=== PATIENT | male | born 1935 | race African-American/Black ===

== ENCOUNTER 2019-09-20 07:09 | Day surgery (SDC) | payer OTHER ==
[~2019-09-20] VITALS: Ht 175.3 cm; Wt 89.8 kg
[~2019-09-20 07:09] MED LIST: ASPI-404 PO; ATOR20TA50 PO; BRIM0.2S17 EACHEYE; CHOL20007 PO; LATA0.0019 EACHEYE; LISI-285 PO; METF-370 PO; OXYB10TA14 PO; PYRI1TAB11 PO; TAM04C PO; TIMO0.5S66 EACHEYE
[2019-09-20] MEDS ORDERED: IODIXANOL 320MG/ML 100ML BTL IV ONE (07:38)
[2019-09-20] MEDS ORDERED: LIDOCAINE 2%HCL (LOCAL ANESTH.) INJ 20ML MDV ONE (07:39)
[2019-09-20] MEDS ORDERED: VERAPAMIL 2.5MG/ML INJ 2ML VIAL IV ONE (09:18)
[2019-09-20] MEDS ORDERED: ANGIOMAX 250 MG VIAL IV ONE (09:18)
[2019-09-20] MEDS ORDERED: fentaNYL CITRATE 100 MCG/2 ML VL ONE (09:19)
[2019-09-20] MEDS ORDERED: SODIUM CHL 0.9% 0 ML ONE (09:19)
[2019-09-20] MEDS ORDERED: MIDAZOLAM HCL 1MG/1ML-2 ML VIAL ONE (09:19)
[2019-09-20] MEDS ORDERED: HEPARIN SODIUM (PORCINE) 5000 UNITS/ML 1ML VIAL ONE (09:59)
[2019-09-20] MEDS ORDERED: HEPARIN 1,000 UNITS/ml 1ML VIAL ONE (10:28)
[2019-09-20] MEDS ORDERED: CLOPIDOGREL 300 MG TAB ONE (10:48)
[2019-09-20] MEDS ORDERED: ASPirin 325 MG TAB ONE (10:48)
== END 2019-09-20 14:00 | disposition home or self-care (01) ==
LOC: CATH 07:09
PROVIDERS: ATTEND Internal Medicine
DX: I73.9 Peripheral vascular disease, unspecified (principal); I20.0 Unstable angina; Z86.718 Personal history of other venous thrombosis and embolism; Z87.891 Personal history of nicotine dependence; Z98.890 Other specified postprocedural states; Z79.82 Long term (current) use of aspirin; Z79.899 Other long term (current) drug therapy; Z11.59 Encounter for screening for other viral diseases
CPT/HCPCS: 37224; 76942; C1725; C1769; C1887; C1894; J1644; J2250; J3010; J7030; Q9967; U0003; 99152; 99153

== ENCOUNTER 2020-08-03 06:10 | Day surgery (SDC) | payer OTHER ==
[~2020-08-03] VITALS: Ht 177.8 cm; Wt 90.7 kg
[~2020-08-03 06:10] MED LIST changes: +APIX5TAB PO; -ASPI-404 PO; -BRIM0.2S17 EACHEYE; -CHOL20007 PO; +CLOP75TA28 PO; +FURO1TAB31 PO; -LATA0.0019 EACHEYE; -OXYB10TA14 PO; -PYRI1TAB11 PO; -TIMO0.5S66 EACHEYE
[2020-08-03] MEDS ORDERED: LIDOCAINE 2%HCL (LOCAL ANESTH.) INJ 20ML MDV ONE (07:30)
[2020-08-03] MEDS ORDERED: ANGIOMAX 250 MG VIAL IV ONE (07:57)
[2020-08-03] MEDS ORDERED: VERAPAMIL 2.5MG/ML INJ 2ML VIAL IV ONE ×2 (07:58→08:42)
[2020-08-03] MEDS ORDERED: SODIUM CHL 0.9% 0 ML ONE (07:58)
[2020-08-03] MEDS ORDERED: MIDAZOLAM HCL 2MG/2ML 2ml VIAL (1mg/ml) ONE (07:58)
[2020-08-03] MEDS ORDERED: fentaNYL CITRATE 100 MCG/2 ML VL ONE (07:58)
[2020-08-03] MEDS ORDERED: IODIXANOL 320MG/ML 100ML BTL IV ONE (08:24)
[2020-08-03] MEDS ORDERED: HEPARIN SODIUM (PORCINE) 5000 UNITS/ML 1ML VIAL ONE (08:39)
[2020-08-03] MEDS ORDERED: NITROGLYCERIN 5MG/ML 10ML VIAL IV ONE (08:42)
[2020-08-03] MEDS ORDERED: CLOPIDOGREL 300 MG TAB ONE (09:23)
[2020-08-03] MEDS ORDERED: ASPirin 325 MG TAB ONE (09:23)
[2020-08-03] MEDS ORDERED: HYDROcodone-ACET 5/325MG TAB PO PRN (10:00)
[2020-08-03] MEDS ORDERED: ONDANSETRON HCL 4 MG/2 ML VIAL IV PRN (10:00)
[2020-08-03] MEDS ORDERED: ACETAMINOPHEN 500 MG TAB PO PRN (10:00)
== END 2020-08-03 11:51 | disposition home or self-care (01) ==
LOC: CATH 06:10
PROVIDERS: ATTEND Internal Medicine
DX: I70.212 Atherosclerosis of native arteries of extremities with intermittent claudication, left leg (principal); I10 Essential (primary) hypertension; E78.5 Hyperlipidemia, unspecified; I72.9 Aneurysm of unspecified site; Z91.030 Bee allergy status; Z86.718 Personal history of other venous thrombosis and embolism; Z20.822 Contact with and (suspected) exposure to COVID-19; Z98.890 Other specified postprocedural states; Z79.899 Other long term (current) drug therapy; Z88.0 Allergy status to penicillin; Z87.891 Personal history of nicotine dependence
CPT/HCPCS: 37227; 75710; 76942; C1769; C1894; J1644; J2250; J3010; J3490; J7030; U0003; 99152; 99153; Q9967

== ENCOUNTER 2024-01-01 12:21 | Inpatient (IN) | payer OTHER, MEDICAID ==
[~2024-01-01] VITALS: Ht 175.3 cm; Wt 89.3 kg
[~2024-01-01 12:21] MED LIST changes: +AMLO1TAB23 PO; +APIX2.5T PO; +ASPI-325 PO; -ATOR20TA50 PO; +BRIM0.2S17 EACHEYE; +BUDE1AER4 INH; +CETI10TA2 PO; +CHOL50007 PO; -CLOP75TA28 PO; +DAPA1TAB4 PO; +FLUT1AER17 PO; -FURO1TAB31 PO; +FURO20TA4 PO; +FURO40TA4 PO; +HYDR25TA87 PO; +IPRAAER6 INH; +LATA0.008 EACHEYE; -LISI-285 PO; +LOSA-534 PO; +MEMA1TAB5 PO; -METF-370 PO; +METF-869 PO; +METO2.5T PO; +METO25TA93 PO; +NETA1DRO EACHEYE; +OXYB5TAB14 PO; +PRAV20TA3 PO; +SENN-177 PO; -TAM04C PO; +TAMS-35 PO
[2024-01-01 13:44] LABS: Basophils # (auto) 0.1 10 ^3/uL (0-0.2); Eosinophils # (auto) 0 10 ^3/uL (0-0.8); Eosinophils % (auto) 0.4 % (0.0-7.0); Hematocrit 44.8 % (41.0-53.0); Lymphocytes # (auto) 1.1 10 ^3/uL (0.4-5.4); Lymphocytes % (auto) 16.1 % (10.0-50.0); Mean Corpuscular Hemoglobin 28.1 pg (28.0-32.0); Mean Corpuscular Hgb Conc. 33.5 g/dL (32.0-36.0); Mean Corpuscular Volume 84.1 fL (80.0-100.0); Monocytes # (auto) 0.6 10 ^3/uL (0-1.3); Neutrophils % (auto) 73.5 % (37.0-80.0); Nucleated Red Blood Cells % 0.1 %; Platelet Count (auto) 144 10^3/uL (140-450); Red Blood Cells 5.33 10^6/uL (4.5-5.90); Red Cell Distribution Width 17.4 % (11.8-14.3); White Blood Cell 6.8 10^3/uL (4.4-10.8)
[2024-01-01 14:02] LABS: Alanine Aminotransferase 25 U/L (7-40); Albumin 4.3 g/dL (3.2-4.8); Alkaline Phosphatase 126 U/L (46-116); Anion Gap 6 (5-15); Aspartate Aminotransferase 38 U/L (13-40); BUN/Creatinine Ratio 8.1 (10.0-20.0); Blood Urea Nitrogen 12 mg/dL (9-23); Calcium 9.9 mg/dL (8.7-10.4); Carbon Dioxide 28 mmol/L (20-30); Chloride 107 mmol/L (98-107); Glucose 132 mg/dL (74-106); Sodium 141 mmol/L (136-145)
[2024-01-01 14:03] LABS: Bilirubin, Total 0.7 mg/dL (0.2-1.0); Total Protein 7.5 g/dL (5.7-8.2)
[2024-01-01 14:57] LABS: INR 1.13 (0.9-1.15); Partial Thromboplastin Time 29.8 SEC (24.5-34.5); Prothrombin Time 11.9 sec (9.3-11.8)
[2024-01-01] MEDS ORDERED: ACETAMINOPHEN 325 MG TAB PO PRN (15:00)
[2024-01-01] MEDS ORDERED: DEXTROSE (50%) 50ML SYRG IV PRN (15:00)
[2024-01-01 15:16] VITALS: PULSE 89; RESP 22; O2SAT 90
[2024-01-01] MEDS: FUROSEMIDE 20 MG/2 ML VIAL IV ONE (15:42)
[2024-01-01] MEDS: HEPARIN DRIP/D5W 100UNITS/ML 250 ML IV SCH ×2 (15:45→23:19)
[2024-01-01] MEDS ORDERED: MORPHINE SULFATE INJ 2 MG/ml SYRG IV PRN (16:30)
[2024-01-01] MEDS ORDERED: NITROGLYCERIN 0.4 MG SL TAB SL PRN (16:30)
[2024-01-01] MEDS: ACCU-CHEK COMFORT CURVE STRIP VI SCH (18:01)
[2024-01-01] MEDS: InsuLIN REG 1unit/0.01ml Soln (100units/ml) SC SCH ×2 (18:05→22:00)
[2024-01-01] MEDS: FAMOTIDINE (10MG/ML) 2ML VL IV SCH (18:08)
[2024-01-01 19:30] VITALS: PULSE 93; RESP 10; O2SAT 92
[2024-01-01] MEDS: SODIUM CHLOR 0.9% PF (SALINE LOCK) 10ML VIAL/SYR IV SCH (22:00)
[2024-01-01 22:19] LABS: INR 1.14 (0.9-1.15); Partial Thromboplastin Time 32.8 SEC (24.5-34.5)
[2024-01-01] MEDS: HEPARIN SODIUM (PORCINE) 5000 UNITS/ML 1ML VIAL IV ONE (23:06)
[2024-01-01] MEDS: ATORVASTATIN 20 MG TAB PO SCH (23:07)
[2024-01-01] MEDS: CARVEDILOL 3.125 MG TAB PO SCH (23:07)
[2024-01-02] VITALS (10 sets, daily range): BP systolic 107–144; BP diastolic 72–96; PULSE 74–104; RESP 16–19; TEMP 97.8–100.2; O2SAT 94–98
[2024-01-02] MEDS: MORPHINE SULFATE INJ 2 MG/ml SYRG IV PRN (01:51)
[2024-01-02 05:04] LABS: COVID19 ANTIGEN SOFIA FIA NEGATIVE (NEGATIVE)
[2024-01-02 06:13] LABS: Basophils # (auto) 0 10 ^3/uL (0-0.2); Basophils % (auto) 0.8 % (0.0-2.0); Eosinophils # (auto) 0.1 10 ^3/uL (0-0.8); Eosinophils % (auto) 1.8 % (0.0-7.0); Hematocrit 40.4 % (41.0-53.0); Hemoglobin 13.5 g/dL (13.5-17.5); Lymphocytes # (auto) 1.4 10 ^3/uL (0.4-5.4); Mean Corpuscular Hemoglobin 27.9 pg (28.0-32.0); Mean Corpuscular Hgb Conc. 33.3 g/dL (32.0-36.0); Mean Corpuscular Volume 83.9 fL (80.0-100.0); Monocytes # (auto) 0.7 10 ^3/uL (0-1.3); Monocytes % (auto) 12.2 % (0.0-12.0); Neutrophils # (auto) 3.4 10 ^3/uL (1.6-8.6); Neutrophils % (auto) 60.2 % (37.0-80.0); Nucleated Red Blood Cells % 0.2 %; Platelet Count (auto) 106 10^3/uL (140-450); Red Blood Cells 4.82 10^6/uL (4.5-5.90); Red Cell Distribution Width 17.1 % (11.8-14.3); White Blood Cell 5.7 10^3/uL (4.4-10.8)
[2024-01-02 06:25] LABS: Alanine Aminotransferase 16 U/L (7-40); Albumin 3.8 g/dL (3.2-4.8); Alkaline Phosphatase 103 U/L (46-116); Anion Gap 2 (5-15); Aspartate Aminotransferase 30 U/L (13-40); BUN/Creatinine Ratio 10.1 (10.0-20.0); Blood Urea Nitrogen 13 mg/dL (9-23); Carbon Dioxide 29 mmol/L (20-30); Chloride 110 mmol/L (98-107); Glucose 122 mg/dL (74-106); Potassium 3.7 mmol/L (3.5-5.1); Sodium 141 mmol/L (136-145)
[2024-01-02 06:26] LABS: Bilirubin, Total 0.7 mg/dL (0.2-1.0); Total Protein 6.5 g/dL (5.7-8.2)
[2024-01-02 07:19] LABS: INR 1.11 (0.9-1.15); Partial Thromboplastin Time 56.2 SEC (24.5-34.5); Prothrombin Time 11.9 sec (9.3-11.8)
[2024-01-02] MEDS: FUROSEMIDE 40 MG/4 ML VIAL IV SCH (09:31)
[2024-01-02] MEDS: HYDROcodone-ACET 5/325MG TAB PO PRN (09:33)
[2024-01-02] MEDS: DOCUSATE SOD 100 MG CAP PO PRN (09:33)
[2024-01-02 12:13] LABS: INR 1.1 (0.9-1.15); Partial Thromboplastin Time 50.6 SEC (24.5-34.5); Prothrombin Time 11.8 sec (9.3-11.8)
[2024-01-02] MEDS ORDERED: HYDR-4798 PO (17:01)
[2024-01-02 19:40] LABS: INR 1.11 (0.9-1.15); Prothrombin Time 11.9 sec (9.3-11.8)
[2024-01-02] MEDS: HEPARIN DRIP/D5W 100UNITS/ML 250 ML IV SCH (20:07)
[2024-01-02] MEDS: PROMETHAZINE W/CODEINE 5 ML ORAL SYRUP PO PRN (20:30)
[2024-01-02] MEDS: ASPirin 325 MG TAB PO ONE (20:57)
[2024-01-03] VITALS (8 sets, daily range): BP systolic 105–172; BP diastolic 63–86; PULSE 66–107; RESP 17–19; TEMP 98.3–99.5; O2SAT 92–96
[2024-01-03 01:22] LABS: Basophils # (auto) 0.1 10 ^3/uL (0-0.2); Basophils % (auto) 0.8 % (0.0-2.0); Eosinophils # (auto) 0.1 10 ^3/uL (0-0.8); Eosinophils % (auto) 0.7 % (0.0-7.0); Hematocrit 37.8 % (41.0-53.0); Hemoglobin 12.8 g/dL (13.5-17.5); Lymphocytes # (auto) 1.4 10 ^3/uL (0.4-5.4); Lymphocytes % (auto) 17.3 % (10.0-50.0); Mean Corpuscular Hemoglobin 28.5 pg (28.0-32.0); Mean Corpuscular Hgb Conc. 33.9 g/dL (32.0-36.0); Mean Corpuscular Volume 84.1 fL (80.0-100.0); Monocytes # (auto) 0.8 10 ^3/uL (0-1.3); Monocytes % (auto) 9.5 % (0.0-12.0); Neutrophils # (auto) 5.8 10 ^3/uL (1.6-8.6); Neutrophils % (auto) 71.7 % (37.0-80.0); Platelet Count (auto) 105 10^3/uL (140-450); Red Cell Distribution Width 17.2 % (11.8-14.3); White Blood Cell 8.1 10^3/uL (4.4-10.8)
[2024-01-03 01:30] LABS: Chloride 108 mmol/L (98-107); Potassium 3.6 mmol/L (3.5-5.1); Sodium 140 mmol/L (136-145)
[2024-01-03 01:31] LABS: Anion Gap 9 (5-15); Calcium 8.9 mg/dL (8.7-10.4); Carbon Dioxide 23 mmol/L (20-30)
[2024-01-03 01:36] LABS: BUN/Creatinine Ratio 11.1 (10.0-20.0); Blood Urea Nitrogen 14 mg/dL (9-23); Glucose 140 mg/dL (74-106); Triglycerides 114 mg/dL (< 150)
[2024-01-03 01:37] LABS: LDL Cholesterol 119 mg/dL (< 100)
[2024-01-03 01:38] LABS: Cholesterol 180 mg/dL (< 200); HDL Cholesterol 41 mg/dL (40-59)
[2024-01-03 01:47] LABS: INR 1.11 (0.9-1.15); Prothrombin Time 11.9 sec (9.3-11.8)
[2024-01-03 01:48] LABS: Partial Thromboplastin Time 55.5 SEC (24.5-34.5)
[2024-01-03] MEDS: IOHEXOL 350 MG/ML 100ML IJ ONE ×2 (08:14→12:48)
[2024-01-03] MEDS: ASPirin 81 mg TAB PO SCH (08:23)
[2024-01-03] MEDS: MEMANTINE HCL 5 MG TAB PO SCH (08:23)
[2024-01-03 10:58] LABS: INR 1.13 (0.9-1.15); Partial Thromboplastin Time 59.4 SEC (24.5-34.5); Prothrombin Time 12.1 sec (9.3-11.8)
[2024-01-03] MEDS: ONDANSETRON HCL 4 MG/2 ML VIAL IV PRN (14:33)
[2024-01-03 16:12] LABS: INR 1.18 (0.9-1.15); Partial Thromboplastin Time 49.6 SEC (24.5-34.5); Prothrombin Time 12.4 sec (9.3-11.8)
[2024-01-04] VITALS (7 sets, daily range): BP systolic 118–138; BP diastolic 71–78; PULSE 85–102; RESP 15–18; TEMP 97.9–99.3; O2SAT 91–98
[2024-01-04 07:01] LABS: INR 1.19 (0.9-1.15); Partial Thromboplastin Time 58.3 SEC (24.5-34.5); Prothrombin Time 12.5 sec (9.3-11.8)
[2024-01-04 09:41] LABS: Hepatitis B Surface Antigen Negative (Negative)
[2024-01-04 10:02] LABS: Hepatitis C Antibody Negative (Negative)
[2024-01-04 10:04] LABS: Basophils # (auto) 0 10 ^3/uL (0-0.2); Basophils % (auto) 0.4 % (0.0-2.0); Eosinophils # (auto) 0 10 ^3/uL (0-0.8); Eosinophils % (auto) 0.1 % (0.0-7.0); Hematocrit 38.9 % (41.0-53.0); Hemoglobin 12.8 g/dL (13.5-17.5); Lymphocytes % (auto) 9.1 % (10.0-50.0); Mean Corpuscular Hemoglobin 27.8 pg (28.0-32.0); Mean Corpuscular Hgb Conc. 32.9 g/dL (32.0-36.0); Mean Corpuscular Volume 84.4 fL (80.0-100.0); Monocytes # (auto) 1.4 10 ^3/uL (0-1.3); Monocytes % (auto) 12.6 % (0.0-12.0); Neutrophils # (auto) 8.8 10 ^3/uL (1.6-8.6); Neutrophils % (auto) 77.8 % (37.0-80.0); Nucleated Red Blood Cells % 0.1 %; Platelet Count (auto) 123 10^3/uL (140-450); Red Blood Cells 4.61 10^6/uL (4.5-5.90); Red Cell Distribution Width 17.5 % (11.8-14.3); White Blood Cell 11.3 10^3/uL (4.4-10.8)
[2024-01-04] MEDS: FUROSEMIDE 40 MG/4 ML VIAL IV SCH (23:09)
[2024-01-05] VITALS (7 sets, daily range): BP systolic 114–140; BP diastolic 65–79; PULSE 86–104; RESP 18–22; TEMP 98.1–99.8; O2SAT 90–98
[2024-01-05 07:59] LABS: Basophils # (auto) 0 10 ^3/uL (0-0.2); Basophils % (auto) 0.3 % (0.0-2.0); Eosinophils # (auto) 0 10 ^3/uL (0-0.8); Eosinophils % (auto) 0.3 % (0.0-7.0); Hematocrit 37.6 % (41.0-53.0); Hemoglobin 12.2 g/dL (13.5-17.5); Lymphocytes # (auto) 0.9 10 ^3/uL (0.4-5.4); Lymphocytes % (auto) 10.4 % (10.0-50.0); Mean Corpuscular Hemoglobin 27.6 pg (28.0-32.0); Mean Corpuscular Hgb Conc. 32.5 g/dL (32.0-36.0); Mean Corpuscular Volume 84.7 fL (80.0-100.0); Monocytes # (auto) 1.2 10 ^3/uL (0-1.3); Monocytes % (auto) 14.5 % (0.0-12.0); Neutrophils # (auto) 6.4 10 ^3/uL (1.6-8.6); Neutrophils % (auto) 74.5 % (37.0-80.0); Nucleated Red Blood Cells % 0.1 %; Platelet Count (auto) 124 10^3/uL (140-450); Red Blood Cells 4.44 10^6/uL (4.5-5.90); Red Cell Distribution Width 17.3 % (11.8-14.3); White Blood Cell 8.6 10^3/uL (4.4-10.8)
[2024-01-05 08:13] LABS: INR 1.14 (0.9-1.15)
[2024-01-05] MEDS: BRIMONIDINE 0.2% OPTH Soln 5ml EACHEYE SCH (21:20)
[2024-01-06] VITALS (7 sets, daily range): BP systolic 117–143; BP diastolic 72–85; PULSE 83–97; RESP 17–22; TEMP 98.3–99.5; O2SAT 91–95
[2024-01-06 07:04] LABS: INR 1.12 (0.9-1.15); Partial Thromboplastin Time 38.4 SEC (24.5-34.5); Prothrombin Time 11.8 sec (9.3-11.8)
[2024-01-06] MEDS: HEPARIN DRIP/D5W 100UNITS/ML 250 ML IV SCH (09:14)
[2024-01-06 10:28] LABS: Basophils # (auto) 0 10 ^3/uL (0-0.2); Basophils % (auto) 0.3 % (0.0-2.0); Eosinophils # (auto) 0.1 10 ^3/uL (0-0.8); Eosinophils % (auto) 1.1 % (0.0-7.0); Hematocrit 37.5 % (41.0-53.0); Hemoglobin 12.1 g/dL (13.5-17.5); Lymphocytes % (auto) 14.7 % (10.0-50.0); Mean Corpuscular Hemoglobin 27.6 pg (28.0-32.0); Mean Corpuscular Hgb Conc. 32.3 g/dL (32.0-36.0); Mean Corpuscular Volume 85.6 fL (80.0-100.0); Monocytes # (auto) 0.9 10 ^3/uL (0-1.3); Monocytes % (auto) 13.3 % (0.0-12.0); Neutrophils # (auto) 4.9 10 ^3/uL (1.6-8.6); Neutrophils % (auto) 70.6 % (37.0-80.0); Nucleated Red Blood Cells % 0.1 %; Platelet Count (auto) 145 10^3/uL (140-450); Red Blood Cells 4.38 10^6/uL (4.5-5.90); Red Cell Distribution Width 17.3 % (11.8-14.3)
[2024-01-06 10:33] LABS: Alanine Aminotransferase 21 U/L (7-40); Alkaline Phosphatase 117 U/L (46-116); Calcium 9.2 mg/dL (8.7-10.4); Carbon Dioxide 30 mmol/L (20-30); Chloride 104 mmol/L (98-107); Glucose 109 mg/dL (74-106); Potassium 3.6 mmol/L (3.5-5.1)
[2024-01-06 10:34] LABS: Albumin 3.7 g/dL (3.2-4.8); Anion Gap 4 (5-15); Aspartate Aminotransferase 27 U/L (13-40); BUN/Creatinine Ratio 17.3 (10.0-20.0); Bilirubin, Total 0.7 mg/dL (0.2-1.0); Blood Urea Nitrogen 19 mg/dL (9-23); Sodium 138 mmol/L (136-145); Total Protein 6.4 g/dL (5.7-8.2)
[2024-01-06] MEDS ORDERED: ALP15OS EACHEYE ×2 (10:39→10:40)
[2024-01-06] MEDS: APIXABAN 5 MG TAB PO SCH (12:12)
[2024-01-07] VITALS (7 sets, daily range): BP systolic 113–141; BP diastolic 66–80; PULSE 77–94; RESP 20–22; TEMP 97.8–98.4; O2SAT 94–98
[2024-01-08] VITALS (7 sets, daily range): BP systolic 99–141; BP diastolic 63–83; PULSE 78–88; RESP 18–22; TEMP 98.2–98.9; O2SAT 90–97
[2024-01-08] MEDS ORDERED: LACTULOSE 20Gm/30ML SOLN PO PRN (14:15)
[2024-01-08] MEDS: LACTULOSE 20Gm/30ML SOLN PO PRN (15:56)
[2024-01-09] VITALS (8 sets, daily range): BP systolic 104–137; BP diastolic 66–81; PULSE 74–87; RESP 16–18; TEMP 98–98.9; O2SAT 96–99
[2024-01-10 01:00] VITALS: BP 126/77; PULSE 73; RESP 18; TEMP 98.6; O2SAT 97
[2024-01-10 09:00] VITALS: BP 132/84; PULSE 78; RESP 18; TEMP 98.5; O2SAT 95
[2024-01-10] MEDS: FUROSEMIDE 40 MG TAB PO SCH (09:33)
== END 2024-01-10 11:11 | DRG 280 ==
LOC: EDBD 12:21 → ER 12:21 → TELE 16:28 → TELE-WESTW 16:33
PROVIDERS: ADMIT Nurse Practitioner Family; ATTEND Nurse Practitioner
DX: I21.4 Non-ST elevation (NSTEMI) myocardial infarction (principal); I26.99 Other pulmonary embolism without acute cor pulmonale; I50.33 Acute on chronic diastolic (congestive) heart failure; N17.0 Acute kidney failure with tubular necrosis; I13.0 Hypertensive heart and chronic kidney disease with heart failure and stage 1 through stage 4 chronic kidney disease, or unspecified chronic kidney disease; I31.39 Other pericardial effusion (noninflammatory); E11.65 Type 2 diabetes mellitus with hyperglycemia; E78.00 Pure hypercholesterolemia, unspecified; E11.22 Type 2 diabetes mellitus with diabetic chronic kidney disease; F03.90 Unspecified dementia, unspecified severity, without behavioral disturbance, psychotic disturbance, mood disturbance, and anxiety; N18.9 Chronic kidney disease, unspecified; Z20.822 Contact with and (suspected) exposure to COVID-19; N40.0 Benign prostatic hyperplasia without lower urinary tract symptoms; E11.51 Type 2 diabetes mellitus with diabetic peripheral angiopathy without gangrene; I25.10 Atherosclerotic heart disease of native coronary artery without angina pectoris; I37.1 Nonrheumatic pulmonary valve insufficiency; Z88.0 Allergy status to penicillin; Z91.030 Bee allergy status; Z79.899 Other long term (current) drug therapy; Z79.01 Long term (current) use of anticoagulants; Z79.82 Long term (current) use of aspirin; Z87.891 Personal history of nicotine dependence; Z86.718 Personal history of other venous thrombosis and embolism; Z91.148 Patient's other noncompliance with medication regimen for other reason; Z83.3 Family history of diabetes mellitus; Z82.49 Family history of ischemic heart disease and other diseases of the circulatory system; Z86.711 Personal history of pulmonary embolism; Z91.81 History of falling; I25.2 Old myocardial infarction
CPT/HCPCS: 36415; 71045; 71275; 80048; 80053; 80061; 82962; 83036; 83880; 84443; 84484; 85025; 85379; 85610; 85730; 86803; 87340; 87426; 93005; 93306; 93970; 97110; 97116; 97163; 97530; G0378; J1815; J2405; J3490

== ENCOUNTER 2024-05-06 04:49 | Inpatient (IN) | payer MEDICARE, OTHER ==
[~2024-05-06] VITALS: Ht 175.3 cm; Wt 101.0 kg
[~2024-05-06 04:49] MED LIST changes: +ALP15OS EACHEYE; -APIX2.5T PO; -FURO20TA4 PO; +HYDR-4798 PO; -LATA0.008 EACHEYE
[2024-05-06] MEDS: ALBUTEROL SULF 2.5 MG/0.5ML(0.5%) NEB SOLN NEB ONE (05:37)
[2024-05-06] MEDS: IPRATROPIUM BROM 0.5 MG/2.5ML INH SOL NEB ONE (05:38)
[2024-05-06] MEDS: cloNIDine HCL 0.1 MG TAB PO ONE (05:39)
[2024-05-06] MEDS: methylPREDNISolone SOD SUCC 125 MG/2 ML VL IM ONE (05:39)
[2024-05-06 05:44] LABS: Basophils # (auto) 0 10 ^3/uL (0-0.2); Basophils % (auto) 0.7 % (0.0-2.0); Eosinophils # (auto) 0.1 10 ^3/uL (0-0.8); Eosinophils % (auto) 1.4 % (0.0-7.0); Hematocrit 40.9 % (41.0-53.0); Hemoglobin 13.1 g/dL (13.5-17.5); Lymphocytes # (auto) 0.9 10 ^3/uL (0.4-5.4); Lymphocytes % (auto) 15.8 % (10.0-50.0); Mean Corpuscular Hemoglobin 27.3 pg (28.0-32.0); Mean Corpuscular Hgb Conc. 32.1 g/dL (32.0-36.0); Monocytes # (auto) 0.5 10 ^3/uL (0-1.3); Monocytes % (auto) 9.4 % (0.0-12.0); Neutrophils # (auto) 4.2 10 ^3/uL (1.6-8.6); Neutrophils % (auto) 72.7 % (37.0-80.0); Nucleated Red Blood Cells % 0.1 %; Platelet Count (auto) 197 10^3/uL (140-450); Red Blood Cells 4.81 10^6/uL (4.5-5.90); Red Cell Distribution Width 17.1 % (11.8-14.3); White Blood Cell 5.8 10^3/uL (4.4-10.8)
[2024-05-06 05:58] LABS: Alanine Aminotransferase 37 U/L (7-40); Alkaline Phosphatase 108 U/L (46-116); Aspartate Aminotransferase 27 U/L (13-40); BUN/Creatinine Ratio 10.1 (10.0-20.0); Blood Urea Nitrogen 11 mg/dL (9-23); Calcium 9.7 mg/dL (8.7-10.4); Potassium 3.7 mmol/L (3.5-5.1); Sodium 143 mmol/L (136-145)
[2024-05-06 05:59] LABS: Bilirubin, Total 0.6 mg/dL (0.2-1.0)
[2024-05-06 06:11] LABS: Chloride 109 mmol/L (98-107); Glucose 136 mg/dL (74-106)
[2024-05-06 06:16] LABS: Anion Gap 10 (5-15); Carbon Dioxide 24 mmol/L (20-31)
[2024-05-06] MEDS: FUROSEMIDE 40 MG/4 ML VIAL IV ONE (07:00)
--- NOTE | 2024-05-06 07:18 | ED.PDOC ---
SOB-HPI HPI Comments 89 Y M MYLENE with PMHX of COPD, Asthma, and [place] presents to the ED with CC of SOB. Per EMS, patient has been experiencing episodes of SOB X3 days with associated wheezing. Patient is current on supplemental oxygen at home. Patient denies any current medications. Patient denies chest pain, chills, fever, or body aches. 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, Medications, Allergies Information Source: Patient, Emergency Med Personnel Mode of Arrival: EMS Severity: Moderate Timing: Days Duration: Since onset Context: At Rest PE Risk Factors: None History of: None Prehospital treatment: None Modifying Factors: Nothing Associated Signs and Symptoms: Wheeze Past Medical History PAST MEDICAL HISTORY: Asthma, COPD, DM, High Lipids, HTN, LA Surgical History: Hernia Repair Family History Family History: Reviewed,noncontributory to illness Social History Smoker: Non-Smoker Alcohol: Denies ETOH Use Drugs: Denies Drug Use Lives In: Home Constitutional: denies: chills, diaphoresis, fatigue, fever, malaise, sweats, weakness, others EENTM: denies: blurred vision, double vision, ear bleeding, ear discharge, ear drainage, ear pain, ear ringing, eye pain, eye redness, hearing loss, mouth pain, mouth swelling, nasal discharge, nose bleeding, nose congestion, nose pain, photophobia, tearing, throat pain, throat swelling, voice changes, others Respiratory: reports: shortness of breath, wheezing; denies: cough, hemoptysis, orthopnea, SOB at rest, SOB with excertion, stridor, others Gastrointestinal: denies: abdomen distended, abdominal pain, blood streaked bowels, constipated, diarrhea, dysphagia, difficulty swallowing, hematemesis, melena, nausea, poor appetite, poor fluid intake, rectal bleeding, rectal pain, vomiting, others Genitourinary: denies: burning, dysuria, flank pain, frequency, hematuria, incontinence, penile discharge, penile sore, pain, testicle pain, testicle s welling, urgency, others Neurological: denies: dizziness, fainting, headache, left sided numbness, left sided weakness, numbness, paresthesia, pre-existing deficit, right sided numbness, right sided weakness, seizure, speech problems, tingling, tremors, weakness, others Musculoskeletal: denies: back pain, gout, joint pain, joint swelling, muscle pain, muscle stiffness, neck pain, others Integumetry: denies: bruises, change in color, change in hair/nails, dryness, laceration, lesions, lumps, rash, wounds, others Allergic/Immunocompromised: denies: Difficulty Healing, Frequent Infections, Hives, Itching, others Hematologic/Lymphatic: denies: anemia, blood clots, easy bleeding, easy bruising, swollen glands, others Endocrine: denies: excessive hunger, excessive sweating, excessive thirst, excessive urination, flushing, intolerance to cold, intolerance to heat, unexplained weight gain, unexplained weight loss, others Psychiatric: denies: anxiety, bipolar disorder, depression, hopeless, panic disorder, schizophrenia, sleepless, suicidal, others Physical Exam General Appearance: Moderate Distress, Normal HEENT: Normal ENT Inspection, Pharynx Normal, TMs Normal Neck: Full Range of Motion, Non-Tender, Normal, Normal Inspection Respiratory: Chest Non-Tender, No Accessory Muscle Use, Other (Coarse breath sounds) Cardiovascular: No Edema, No JVD, No Murmur, No Gallop, Normal Peripheral Pulses, Regular Rate/Rhythm Breast Exam: Deferred Gastrointestinal: No Organomegaly, Non Tender, No Pulsatile Mass, Normal Bowel Sounds, Soft Genitalia: Deferred Pelvic: Deferred Rectal: Deferred Extremities: No calf tenderness, Normal capillary refill, Normal range of motion, Non-tender, Pedal edema Musculoskeletal : Apperance: Normal Neurologic: Alert, 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 Was a procedure done?: No Differential Dx Differential Diagnosis: Anxiety, Asthma, Bronchitis, CHF, COPD, Pharyngitis, URI X-Ray, Labs, Meds, VS Vital Signs Date Time Temp Pulse Resp B/P (MAP) Pulse Ox O2 Delivery O2 Flow Rate FiO2 05/06/24 10:12 75 22 129/91 (104) 91 05/06/24 10:05 129/91 05/06/24 05:39 183/119 05/06/24 05:38 20 94 Nasal Cannula* 2 28 05/06/24 05:28 86 22 183/107 (132) 91 05/06/24 04:54 88 05/06/24 04:49 98.2 86 20 216/124 (154) 96 Lab Test 05/06/24 05:15 Range/Units White Blood Count 5.8 4.4-10.8 10^3/uL Red Blood Count 4.81 4.5-5.90 10^6/uL Hemoglobin 13.1 L 13.5-17.5 g/dL Hematocrit 40.9 L 41.0-53.0 % Mean Corpuscular Volume 85.0 80.0-100.0 fL Mean Corpuscular Hemoglobin 27.3 L 28.0-32.0 pg Mean Corpuscular Hemoglobin Concent 32.1 32.0-36.0 g/dL Red Cell Distribution Width 17.1 H 11.8-14.3 % Platelet Count 197 140-450 10^3/uL Mean Platelet Volume 9.0 6.9-10.8 fL Neutrophils (%) (Auto) 72.7 37.0-80.0 % Lymphocytes (%) (Auto) 15.8 10.0-50.0 % Monocytes (%) (Auto) 9.4 0.0-12.0 % Eosinophils (%) (Auto) 1.4 0.0-7.0 % Basophils (%) (Auto) 0.7 0.0-2.0 % Neutrophils # (Auto) 4.2 1.6-8.6 10 ^3/uL Lymphocytes # (Auto) 0.9 0.4-5.4 10 ^3/uL Monocytes # (Auto) 0.5 0-1.3 10 ^3/uL Eosinophils # (Auto) 0.1 0-0.8 10 ^3/uL Basophils # (Auto) 0 0-0.2 10 ^3/uL Nucleated Red Blood Cells 0.1 % Sodium Level 143 136-145 mmol/L Potassium Level 3.7 3.5-5.1 mmol/L Chloride Level 109 H 98-107 mmol/L Carbon Dioxide Level 24 20-31 mmol/L Anion Gap 10 5-15 Blood Urea Nitrogen 11 9-23 mg/dL Creatinine 1.09 0.700-1.30 mg/dL Glomerular Filtration Rate Calc 65 >90 mL/min BUN/Creatinine Ratio 10.1 10.0-20.0 Serum Glucose 136 H 74-106 mg/dL Calcium Level 9.7 8.7-10.4 mg/dL Total Bilirubin 0.6 0.2-1.0 mg/dL Aspartate Amino Transferase (AST) 27 13-40 U/L Alanine Aminotransferase (ALT) 37 7-40 U/L Alkaline Phosphatase 108 46-116 U/L Troponin I High Sensitivity 47 </=54 ng/L B-Type Natriuretic Peptide 376.38 0-100 pg/mL Total Protein 7.0 5.7-8.2 g/dL Albumin 4.0 3.2-4.8 g/dL Current Medications Medications (Trade) Dose Ordered Sig/Kristi Route Start Time Stop Time Status Last Admin Clonidine HCl (Catapres Tablet) 0.3 mg ONCE ONCE PO 05/06/24 05:15 05/06/24 05:16 DC 05/06/24 05:39 Albuterol (Ventolin Medneb) 2.5 mg ONCE ONCE NEB 05/06/24 05:15 05/06/24 05:16 DC 05/06/24 05:37 Ipratropium Mentor (Atrovent Medneb) 0.5 mg ONCE ONCE NEB 05/06/24 05:15 05/06/24 05:16 DC 05/06/24 05:38 Methylprednisolone Sodium Succinate (Solu Medrol) 125 mg ONCE ONCE IM 05/06/24 05:15 05/06/24 05:16 DC 05/06/24 05:39 [place] [id number] Ph: [phone] DIAGNOSTIC IMAGING Diagnostic Imaging Report : [id number] Signed PATIENT: IVÁN MEANS ACCT: [id number] UNIT: [id number] : 1935 LOC: ER ROOM / BED: / AGE / SEX: 89 / M ADM STATUS: REG ER SERVICE 05 ORDERING PHYSICIAN: ALBERT GORDON MD PROCEDURE(s): CXRP - CHEST PORTABLE REASON: SOB ORDER NUMBER(s): [id number], ACCESSION NUMBER(s): [id number] CHEST RADIOGRAPH Indication: SOB Technique: Single frontal view of the chest was obtained Comparison: XY CHEST PORTABLE on DOS: 01/01/24 FINDINGS: Lines and Tubes: None Lungs: There are bibasilar opacities. Pleura: There is a left pleural effusion. No pneumothorax. Cardiomediastinal contours: Cardiomegaly. Bones: No acute osseous abnormality. IMPRESSION: 1. Left pleural effusion. 2. Bibasilar opacities. 3. Cardiomegaly. ATED BY: JACIEL KELLEY MD DICTATED DATE/TIME: 05/06/24737 SIGNED BY: JACIEL KELLEY MD SIGNED DATE/TIME: 05/06/24737 CC: ' Patient alert. Complaining of shortness a breath. Placed on oxygen. BNP elevated. Was given Lasix. Blood pressure elevated. Was given clonidine. Breathing treatment was given. Cardiac marker within normal limits. EKG reviewed does not show any acute changes. WBC within normal limits. Reviewed his previous visit. Explained to the patient. Continue cardiac monitoring. Time of 1ST Reevaluation: 07:10 Reevaluation 1ST: Unchanged Patient Education/Counseling: Diagnosis, Treatment Family Education/Counseling: No Family Present Departure 1 Departure Time of Disposition: 07:30 Impression: Primary Impression: CHF (congestive heart failure) Qualified Codes: I50.43 - Acute on chronic combined systolic (congestive) and diastolic (congestive) heart failure Additional Impressions: Hypertensive urgency Uncontrolled diabetes mellitus Qualified Codes: E13.65 - Other specified diabetes mellitus with hyperglycemia Disposition: ADMITTED INPATIENT Admit to: Med Surg Condition: Guarded Critical Care Note Critical Care Time?: Yes (90 min-critical care time only) Stability Stability form required: No Heart Score Heart Score: Heart Score Response (Comments) Value History Slightly Suspicious 0 EKG Normal 0 Age >65 2 Risk Factors >3 or Hx ASHD 2 Troponin Normal limit 0 Total 4 I personally scribed for RAFI STEPHENSON MD ([email or web address]) on 05/06/24 at 07:18. Electronically submitted by Rebecca George ([email or web address]). I personally scribed for RAFI STEPHENSON MD ([email or web address]) on 05/06/24 at 08:16. Electronically submitted by Rebecca George ([email or web address]). RAFI STEPHENSON MD May 06, 2024 07:18
--- NOTE | 2024-05-06 07:41 | DVH ---
CHEST RADIOGRAPH Indication: SOB Technique: Single frontal view of the chest was obtained Comparison: XY CHEST PORTABLE on DOS: 01/01/24 FINDINGS: Lines and Tubes: None Lungs: There are bibasilar opacities. Pleura: There is a left pleural effusion. No pneumothorax. Cardiomediastinal contours: Cardiomegaly. Bones: No acute osseous abnormality. IMPRESSION: 1. Left pleural effusion. 2. Bibasilar opacities. 3. Cardiomegaly.
--- NOTE | 2024-05-06 10:42 | DVHHP2 ---
Admitting Diagnosis: Shortness of breath History of Present Illness 89 year old male with history of COPD, asthma, and [place] is complaining of shortness of breath for 3 days. He also reports wheezing. Patient states he is on home O2. While in the emergency department the patient was evaluated by the provider. Patient will be admitted for further evaluation and treatment. I discussed admission with the patient/family and is in agreement to treatment plan. Patient Family History: Benign prostate tumor G8 FATHER Diabetes mellitus G8 MOTHER Hypercholesterolemia G8 MOTHER Hypertension G8 MOTHER Allergies: Coded Allergies: Bee Venom (Verified Allergy, Severe, Swelling, 09/18/19) Penicillins (Verified Allergy, Severe, Facial swelling, 09/18/19) Home Meds Active Scripts Brimonidine Tartrate (ALPHAGAN P 0.15% OPTHALMIC) [address], 1 DROP EACHEYE BID, #15 ML 3 Refills Prov:AUGIE MURRIETA HEAD TEACHER 01/06/24 Reported Medications Cetirizine Hcl (Kls Aller-Jaylyn) 10 Mg Tab, 1 TAB PO HS for 30 Days, #30 3 Refills 01/02/24 Dapagliflozin Propanediol (Farxiga) 10 Mg Tab, 5 MG PO DAILY for 90 Days, #90 01/02/24 Senna (Estela-Nicole) 8.6 Mg Tab, 2-4 TAB PO QPM PRN for FOR CONSTIPATION for 15 Days, #60 01/02/24 Budesonide-Formoterol Fumarate (Budesonide/Formoterol Fum 160-4.5 Mcg/Act) 1 Aer Aer, 2 PUFF INH BID for 30 Days, #10.2 01/02/24 Metoprolol Succinate (Metoprolol Succinate Er) 25 Mg Tab, 1 TAB PO DAILY for 30 Days, #30 01/02/24 Ipratropium-Albuterol (COMBIVENT RESPIMAT) Respimat Aer, 1 PUFF INH QID for 30 Days, #4 01/02/24 Hydrocodone-Acetaminophen (Hydrocodone Bitartrate/AC 10-325 mg) 1 Tab Tab, 1 TAB PO [id number] PRN for PAIN for 30 Days, #45 01/02/24 Oxybutynin Chloride (Oxybutynin Chloride) 5 Mg Tab, 15 MG PO DAILY for 90 Days, #90 01/02/24 Pravastatin Sodium (PRAVACHOL TABLET) 20 Mg Tb, 1 TAB PO DAILY for 90 Days, #90 01/02/24 Netarsudil Dimesylate-Latanopr (Rocklatan 0.02-0.005 %) 1 Adrian Adrian, 1 ADRIAN EACHEYE QPM for 25 Days, #2 01/02/24 Furosemide (Furosemide) 40 Mg Tab, 1 TAB PO DAILY for 30 Days, #30 5 Refills 01/02/24 Apixaban Base (ELIQUIS) 5 Mg Tab, 1 TAB PO BID for 30 Days, #60 01/02/24 Metolazone (Metolazone) 2.5 Mg Tab, 1 TAB PO DAILY 04/23/23 Vlescetpdyb-Thpxwwphvalo-Wclvf (Trelegy Ellipta 200-62.5-25 Mcg/INH) 1 Aer Aer, 1 PUFF PO DAILY 04/23/23 Amlodipine Besylate (Amlodipine Besylate) 10 Mg Tab, 1 TAB PO DAILY 04/23/23 Metformin Hydrochloride (Metformin Hydrochloride) 500 Mg Tab, 1 TAB PO BID 04/22/23 Brimonidine Tartrate (Brimonidine Tartrate) 0.2 % Bernadine, 1 DROP EACHEYE BID for 50 Days, #10 04/22/23 Hydralazine HCl (Hydralazine HCl) 25 Mg Tab, 1 TAB PO QID for 30 Days, #120 04/22/23 Aspirin (Aspirin Low Dose) 81 Mg Tab, 1 TAB PO DAILY 04/22/23 Memantine Hydrochloride (Memantine HCl) 10 Mg Tab, 1 TAB PO BID for 90 Days, #180 04/22/23 Cholecalciferol (VITAMIN D3) 5,000 Unit Cap, 1 CAP PO DAILY 04/22/23 Losartan Potassium (Losartan Potassium) 50 Mg Tab, 1 TAB PO DAILY for 90 Days, #90 04/22/23 Tamsulosin Hcl (Flomax) 0.4 Mg Cap, 2 CAP PO DAILY for 45 Days, #90 06/18/19 Current Medications Current Medications Medications (Trade) Dose Ordered Sig/Kristi Route PRN Reason Start Time Stop Time Status Last Admin Acetaminophen/ Hydrocodone Bitart ([place] 5/325MG Tab) 1 tab Q4HP PRN PO MODERATE PAIN (4-6 PAIN SCALE) 05/06/24 10:45 Ondansetron HCl (Zofran) 4 mg Q4HP PRN IV NAUSEA / VOMITING 05/06/24 10:45 Enoxaparin Sodium (Lovenox) 40 mg DAILY SC 05/07/24 10:00 Acetaminophen (Tylenol Tablet) 650 mg Q6HP PRN PO PAIN SCALE 1-3 OR TEMP>100.4 05/06/24 10:45 Morphine Sulfate 2 mg Q4HPRN PRN IV SEVERE PAIN (7-10 PAIN SCALE) 05/06/24 10:45 Nitroglycerin (Ntrostat Sublingual) 0.4 mg Q5MINP PRN SL FOR CHEST PAIN 05/06/24 10:45 Morphine Sulfate 2 mg Q30M PRN IV FOR CHEST PAIN 05/06/24 10:45 Furosemide (Lasix Injection) 40 mg DAILY IV 05/07/24 10:00 Apixaban (Eliquis) 5 mg BID PO 05/06/24 22:00 Brimonidine Tartrate (ALPHAGAN 0.2% OPT Soln) 1 drop BID EACHEYE 05/06/24 22:00 Losartan Potassium (Cozaar Tablet) 50 mg DAILY PO 05/07/24 10:00 Metformin HCl (Glucophage) 500 mg BID PO 05/06/24 22:00 Oxybutynin Chloride (Ditropan Tablet) 15 mg DAILY PO 05/07/24 10:00 Pravastatin Sodium (Pravachol Tablet) 20 mg DAILY PO 05/07/24 10:00 Tamsulosin HCl (Flomax) 0.8 mg DAILY PO 05/07/24 10:00 Amlodipine Besylate (Norvasc Tablet) 10 mg DAILY PO 05/07/24 10:00 Patient Own Medication 1 tab HS PO 05/06/24 22:00 Cholecalciferol (Vitamin D3 Tablet) 5,000 unit DAILY PO 05/07/24 10:00 Patient Own Medication 1 puff DAILY PO 05/07/24 10:00 Memantine (Namenda Tablet) 10 mg BID PO 05/06/24 22:00 Metoprolol Succinate (Toprol Xl) 25 mg DAILY PO 05/07/24 10:00 Diagnostic Test (Pha) (Accu-Chek Comfort Curve T) 1 strip ACHS 05/06/24 11:30 05/06/24 17:18 Insulin Human Regular (InsuLIN R) ACHS SC 05/06/24 11:30 05/06/24 12:30 Dextrose 50 ml UD PRN IV Blood Sugar LESS THAN 60 05/06/24 11:00 Pantoprazole Sodium (Protonix Tablet) 40 mg DAILY PO 05/07/24 10:00 Review of Systems Shortness of breath Wheezing Vital Signs Vital Signs Date Time Temp Pulse Resp B/P (MAP) Pulse Ox O2 Delivery O2 Flow Rate FiO2 05/06/24 15:40 97.4 70 18 155/96 (115) 97 97.4 05/06/24 05:38 Nasal Cannula* 2 28 Physical Exam General Appearance: alert, no distress HEENT: EOMI, PERRLA, normal external inspect of ears, no icterus, no nasal drainage Neck: no carotid bruit, no jugular venous distention (JVD), no lymphadenopathy Chest: normal thorax Respiratory: clear to auscultation, normal air movement Cardiovascular: regular rate and rhythm, no diastolic murmur, no jugular venous distention (JVD), no rub, no systolic murmur Abdominal: soft, no hepatomegaly, no mass, no splenomegaly, no tenderness Musculoskeletal: no joint tenderness, no swelling Extremities: normal pulses, no calf tenderness, no clubbing, no cyanosis, no edema Skin: no bruising, no jaundice, no rash Neurological: alert, No focal deficit Results Labs Test 05/06/24 05:15 Range/Units White Blood Count 5.8 4.4-10.8 10^3/uL Red Blood Count 4.81 4.5-5.90 10^6/uL Hemoglobin 13.1 L 13.5-17.5 g/dL Hematocrit 40.9 L 41.0-53.0 % Mean Corpuscular Volume 85.0 80.0-100.0 fL Mean Corpuscular Hemoglobin 27.3 L 28.0-32.0 pg Mean Corpuscular Hemoglobin Concent 32.1 32.0-36.0 g/dL Red Cell Distribution Width 17.1 H 11.8-14.3 % Platelet Count 197 140-450 10^3/uL Mean Platelet Volume 9.0 6.9-10.8 fL Neutrophils (%) (Auto) 72.7 37.0-80.0 % Lymphocytes (%) (Auto) 15.8 10.0-50.0 % Monocytes (%) (Auto) 9.4 0.0-12.0 % Eosinophils (%) (Auto) 1.4 0.0-7.0 % Basophils (%) (Auto) 0.7 0.0-2.0 % Neutrophils # (Auto) 4.2 1.6-8.6 10 ^3/uL Lymphocytes # (Auto) 0.9 0.4-5.4 10 ^3/uL Monocytes # (Auto) 0.5 0-1.3 10 ^3/uL Eosinophils # (Auto) 0.1 0-0.8 10 ^3/uL Basophils # (Auto) 0 0-0.2 10 ^3/uL Nucleated Red Blood Cells 0.1 % Sodium Level 143 136-145 mmol/L Potassium Level 3.7 3.5-5.1 mmol/L Chloride Level 109 H 98-107 mmol/L Carbon Dioxide Level 24 20-31 mmol/L Anion Gap 10 5-15 Blood Urea Nitrogen 11 9-23 mg/dL Creatinine 1.09 0.700-1.30 mg/dL Glomerular Filtration Rate Calc 65 >90 mL/min BUN/Creatinine Ratio 10.1 10.0-20.0 Serum Glucose 136 H 74-106 mg/dL Calcium Level 9.7 8.7-10.4 mg/dL Total Bilirubin 0.6 0.2-1.0 mg/dL Aspartate Amino Transferase (AST) 27 13-40 U/L Alanine Aminotransferase (ALT) 37 7-40 U/L Alkaline Phosphatase 108 46-116 U/L Troponin I High Sensitivity 47 </=54 ng/L B-Type Natriuretic Peptide 376.38 0-100 pg/mL Total Protein 7.0 5.7-8.2 g/dL Albumin 4.0 3.2-4.8 g/dL Primary Diagnosis -Acute on chronic diastolic heart failure exacerbation Diuretics, cardiology consult, medications, monitoring -Obesity diet, exercise -PE and DVT Continue Eliquis, cardiology consult, monitoring -Chronic anticoagulation medications, monitoring -Dementia -DM II with hyperglycemia Insulin SS -HLD monitoring Plan discussed with: Patient, Other AUGIE MURRIETA NP May 06, 2024 10:42
[2024-05-06] MEDS ORDERED: MORPHINE SULFATE INJ 2 MG/ml SYRG IV PRN ×2 (10:45)
[2024-05-06] MEDS ORDERED: ACETAMINOPHEN 325 MG TAB PO PRN (10:45)
[2024-05-06] MEDS ORDERED: NITROGLYCERIN 0.4 MG SL TAB SL PRN (10:45)
[2024-05-06] MEDS ORDERED: ONDANSETRON HCL 4 MG/2 ML VIAL IV PRN (10:45)
[2024-05-06] MEDS ORDERED: DEXTROSE (50%) 50ML SYRG IV PRN (11:00)
[2024-05-06] MEDS: ACCU-CHEK COMFORT CURVE STRIP VI SCH (11:30)
[2024-05-06] MEDS: InsuLIN REG 1unit/0.01ml Soln (100units/ml) SC SCH (12:30)
[2024-05-06] MEDS: BRIMONIDINE 0.2% OPTH Soln 5ml EACHEYE SCH (22:00)
[2024-05-06] MEDS: APIXABAN 5 MG TAB PO SCH (23:07)
[2024-05-06] MEDS: MEMANTINE HCL 5 MG TAB PO SCH (23:07)
[2024-05-06] MEDS: metFORMIN HYDROCHLORIDE 500 MG TAB PO SCH (23:07)
[2024-05-06 23:17] VITALS: PULSE 89; RESP 20; O2SAT 96
[2024-05-06 23:48] VITALS: BP 140/88; PULSE 90; PULSE 91; RESP 17; RESP 18; TEMP 98.1; O2SAT 0; O2SAT 92
[2024-05-07] VITALS (8 sets, daily range): BP systolic 125–153; BP diastolic 73–88; PULSE 75–94; RESP 16–20; TEMP 97.6–98.1; O2SAT 93–99
[2024-05-07] MEDS: HYDROcodone-ACET 5/325MG TAB PO PRN (01:18)
--- NOTE | 2024-05-07 06:35 | ECG ---
[facility] Test Date: 2024-05-06 Test Time: 04:54:11 Pat Name: IVÁN MEANS Department: ER Room: 0248T B Gender: M Quality Control Head: : 1935 Requested By: EMERGENCY EMERGENCY Order Number: [id number] Reading MD: Shamar Dumas Measurements Intervals [place] Rate: 88 P: 25 [place]: 225 QRS: 8 QRSD: 71 T: -27 QT: 358 QTc: 434 Interpretive Statements Sinus rhythm Prolonged [place] interval Low voltage, precordial leads Electronically Signed On 05-07-2024 18:21:30 PST by Shamar Dumas Please click the below link to view image of tracing.
[2024-05-07 07:38] LABS: Basophils # (auto) 0 10 ^3/uL (0-0.2); Basophils % (auto) 0.2 % (0.0-2.0); Eosinophils # (auto) 0 10 ^3/uL (0-0.8); Eosinophils % (auto) 0.1 % (0.0-7.0); Hematocrit 40.5 % (41.0-53.0); Hemoglobin 13.3 g/dL (13.5-17.5); Lymphocytes # (auto) 1.3 10 ^3/uL (0.4-5.4); Lymphocytes % (auto) 18.5 % (10.0-50.0); Mean Corpuscular Hemoglobin 27.6 pg (28.0-32.0); Mean Corpuscular Hgb Conc. 32.8 g/dL (32.0-36.0); Mean Corpuscular Volume 84.1 fL (80.0-100.0); Monocytes # (auto) 0.7 10 ^3/uL (0-1.3); Monocytes % (auto) 10.7 % (0.0-12.0); Neutrophils # (auto) 4.8 10 ^3/uL (1.6-8.6); Neutrophils % (auto) 70.5 % (37.0-80.0); Nucleated Red Blood Cells % 0.1 %; Platelet Count (auto) 229 10^3/uL (140-450); Red Blood Cells 4.82 10^6/uL (4.5-5.90); Red Cell Distribution Width 16.9 % (11.8-14.3); White Blood Cell 6.9 10^3/uL (4.4-10.8)
[2024-05-07 08:04] LABS: Alanine Aminotransferase 27 U/L (7-40); Alkaline Phosphatase 98 U/L (46-116); Anion Gap 9 (5-15); Aspartate Aminotransferase 25 U/L (13-40); BUN/Creatinine Ratio 15.2 (10.0-20.0); Blood Urea Nitrogen 17 mg/dL (9-23); Calcium 9.9 mg/dL (8.7-10.4); Carbon Dioxide 27 mmol/L (20-31); Chloride 107 mmol/L (98-107); Glucose 106 mg/dL (74-106); Potassium 3.7 mmol/L (3.5-5.1); Sodium 143 mmol/L (136-145)
[2024-05-07 08:05] LABS: Albumin 3.9 g/dL (3.2-4.8); Total Protein 6.8 g/dL (5.7-8.2)
[2024-05-07 08:07] LABS: Bilirubin, Total 0.4 mg/dL (0.2-1.0)
[2024-05-07] MEDS: FUROSEMIDE 40 MG/4 ML VIAL IV SCH (09:00)
--- NOTE | 2024-05-07 09:29 | DVHINCON2 ---
Date of service: May 07, 2024 History of Present Illness HPI Patient is a 89-year-old gentleman who presented with few days of wheezing and shortness of breath. Patient himself is poor historian. He himself mentions right flank pain and occasional left upper abdominal pain also. Patient does have history of diastolic heart failure. Cardiology was involved for cardiac aspects of care. It is of note that the patient has history of multiple pulmonary emboli and DVTs. It is unknown if the patient has been compliant with his medications as outpatient. Home Meds Active Scripts Brimonidine Tartrate (ALPHAGAN P 0.15% OPTHALMIC) [address], 1 DROP EACHEYE BID, #15 ML 3 Refills Prov:AUGIE MURRIETA FIELD SERVICE SUPERVISOR 01/06/24 Reported Medications Cetirizine Hcl (Kls Aller-Jaylyn) 10 Mg Tab, 1 TAB PO HS for 30 Days, #30 3 Refills 01/02/24 Dapagliflozin Propanediol (Farxiga) 10 Mg Tab, 5 MG PO DAILY for 90 Days, #90 01/02/24 Senna (Estela-Nicole) 8.6 Mg Tab, 2-4 TAB PO QPM PRN for FOR CONSTIPATION for 15 Days, #60 01/02/24 Budesonide-Formoterol Fumarate (Budesonide/Formoterol Fum 160-4.5 Mcg/Act) 1 Aer Aer, 2 PUFF INH BID for 30 Days, #10.2 01/02/24 Metoprolol Succinate (Metoprolol Succinate Er) 25 Mg Tab, 1 TAB PO DAILY for 30 Days, #30 01/02/24 Ipratropium-Albuterol (COMBIVENT RESPIMAT) Respimat Aer, 1 PUFF INH QID for 30 Days, #4 01/02/24 Hydrocodone-Acetaminophen (Hydrocodone Bitartrate/AC 10-325 mg) 1 Tab Tab, 1 TAB PO Q89-25MN PRN for PAIN for 30 Days, #45 01/02/24 Oxybutynin Chloride (Oxybutynin Chloride) 5 Mg Tab, 15 MG PO DAILY for 90 Days, #90 01/02/24 Pravastatin Sodium (PRAVACHOL TABLET) 20 Mg Tb, 1 TAB PO DAILY for 90 Days, #90 01/02/24 Netarsudil Dimesylate-Latanopr (Rocklatan 0.02-0.005 %) 1 Adrian Adrian, 1 ADRIAN EACHEYE QPM for 25 Days, #2 01/02/24 Furosemide (Furosemide) 40 Mg Tab, 1 TAB PO DAILY for 30 Days, #30 5 Refills 01/02/24 Apixaban Base (ELIQUIS) 5 Mg Tab, 1 TAB PO BID for 30 Days, #60 01/02/24 Metolazone (Metolazone) 2.5 Mg Tab, 1 TAB PO DAILY 04/23/23 Mzybtgviebe-Zkncqrahucgv-Inyqi (Trelegy Ellipta 200-62.5-25 Mcg/INH) 1 Aer Aer, 1 PUFF PO DAILY 04/23/23 Amlodipine Besylate (Amlodipine Besylate) 10 Mg Tab, 1 TAB PO DAILY 04/23/23 Metformin Hydrochloride (Metformin Hydrochloride) 500 Mg Tab, 1 TAB PO BID 04/22/23 Brimonidine Tartrate (Brimonidine Tartrate) 0.2 % Bernadine, 1 DROP EACHEYE BID for 50 Days, #10 04/22/23 Hydralazine HCl (Hydralazine HCl) 25 Mg Tab, 1 TAB PO QID for 30 Days, #120 04/22/23 Aspirin (Aspirin Low Dose) 81 Mg Tab, 1 TAB PO DAILY 04/22/23 Memantine Hydrochloride (Memantine HCl) 10 Mg Tab, 1 TAB PO BID for 90 Days, #180 04/22/23 Cholecalciferol (VITAMIN D3) 5,000 Unit Cap, 1 CAP PO DAILY 04/22/23 Losartan Potassium (Losartan Potassium) 50 Mg Tab, 1 TAB PO DAILY for 90 Days, #90 04/22/23 Tamsulosin Hcl (Flomax) 0.4 Mg Cap, 2 CAP PO DAILY for 45 Days, #90 06/18/19 Past Medical History Others Past medical history includes diabetes mellitus, hypertension, hyperlipidemia, COPD/asthma, BPH, chronic respiratory failure on home oxygen, repeated DVT/pulmonary emboli, peripheral vascular disease and status post peripheral angioplasty, glaucoma, old history of hernia repair, dementia, obesity and history of bilateral hernia repair. Family History: No pertinent Hx Patient Family History: Benign prostate tumor G8 FATHER Diabetes mellitus G8 MOTHER Hypercholesterolemia G8 MOTHER Hypertension G8 MOTHER Alocohol: None Drugs: None Review of Systems Pulmonary/Respiratory: Dyspnea Gastrointestinal: Abdominal Pain All Other Systems 14 point review of system was performed. Relevant findings as per above and as per HPI. Otherwise negative. H&P Exam Vital Signs Vital Signs Date Time Temp Pulse Resp B/P (MAP) Pulse Ox O2 Delivery O2 Flow Rate FiO2 05/07/24 05:00 97.6 83 18 153/85 (107) 97 97.6 05/06/24 23:48 Room Air* 0 21 General Appeara: Well developed Eye Exam: bilateral eye PERRL Pulmonary/Respiratory: Rhonci Cardiovascular/Chest: Edema, Regular rate, Systolic murmur Peripheral Pulses: 2+ carotid (R), 2+ carotid (L), 2+ femoral (R), 2+ femoral (L), 2+ dorsalis pedis (R), 2+ dorsalis pedis (L), 2+ Radial (R), 2+ Radial (L) Abdominal Exam: Normal bowel sounds, Soft Labs/Xrays Labs Test 05/07/24 06:14 05/06/24 05:15 Range/Units White Blood Count 6.9 4.4-10.8 10^3/uL Red Blood Count 4.82 4.5-5.90 10^6/uL Hemoglobin 13.3 L 13.5-17.5 g/dL Hematocrit 40.5 L 41.0-53.0 % Mean Corpuscular Volume 84.1 80.0-100.0 fL Mean Corpuscular Hemoglobin 27.6 L 28.0-32.0 pg Mean Corpuscular Hemoglobin Concent 32.8 32.0-36.0 g/dL Red Cell Distribution Width 16.9 H 11.8-14.3 % Platelet Count 229 140-450 10^3/uL Mean Platelet Volume 9.4 6.9-10.8 fL Neutrophils (%) (Auto) 70.5 37.0-80.0 % Lymphocytes (%) (Auto) 18.5 10.0-50.0 % Monocytes (%) (Auto) 10.7 0.0-12.0 % Eosinophils (%) (Auto) 0.1 0.0-7.0 % Basophils (%) (Auto) 0.2 0.0-2.0 % Neutrophils # (Auto) 4.8 1.6-8.6 10 ^3/uL Lymphocytes # (Auto) 1.3 0.4-5.4 10 ^3/uL Monocytes # (Auto) 0.7 0-1.3 10 ^3/uL Eosinophils # (Auto) 0 0-0.8 10 ^3/uL Basophils # (Auto) 0 0-0.2 10 ^3/uL Nucleated Red Blood Cells 0.1 % Sodium Level 143 136-145 mmol/L Potassium Level 3.7 3.5-5.1 mmol/L Chloride Level 107 98-107 mmol/L Carbon Dioxide Level 27 20-31 mmol/L Anion Gap 9 5-15 Blood Urea Nitrogen 17 9-23 mg/dL Creatinine 1.12 0.700-1.30 mg/dL Glomerular Filtration Rate Calc 63 >90 mL/min BUN/Creatinine Ratio 15.2 10.0-20.0 Serum Glucose 106 74-106 mg/dL Calcium Level 9.9 8.7-10.4 mg/dL Total Bilirubin 0.4 0.2-1.0 mg/dL Aspartate Amino Transferase (AST) 25 13-40 U/L Alanine Aminotransferase (ALT) 27 7-40 U/L Alkaline Phosphatase 98 46-116 U/L Total Protein 6.8 5.7-8.2 g/dL Albumin 3.9 3.2-4.8 g/dL Troponin I High Sensitivity 47 </=54 ng/L B-Type Natriuretic Peptide 376.38 0-100 pg/mL Assessment/Plan Plan Patient is a 89-year-old gentleman who presented with few days of wheezing and shortness of breath. Patient himself is poor historian. He himself mentions right flank pain and occasional left upper abdominal pain also. Patient does have history of diastolic heart failure. Cardiology was involved for cardiac aspects of care. It is of note that the patient has history of multiple pulmonary emboli and DVTs. It is unknown if the patient has been compliant with his medications as outpatient. Not in acute distress. No JVD. Not using accessory muscles of breathing. Lung examination reveals scattered rhonchi. Cardiac: Regular, no thrill. Systolic murmur is heard. Abdomen is soft. There is mild tenderness in the right flank. There is mild tenderness in the left abdominal area. There is no rebound. Bowel sound is positive. Extremities do not reveal edema. Dorsalis pedis 2+ bilateral Past medical history includes diabetes mellitus, hypertension, hyperlipidemia, COPD/asthma, BPH, chronic respiratory failure on home oxygen, repeated DVT/pulmonary emboli, peripheral vascular disease and status post peripheral angioplasty, glaucoma, old history of hernia repair, dementia, obesity and history of bilateral hernia repair. Echocardiogram of March 2023 reported ejection fraction of 65%, mild concentric left ventricular hypertrophy moderate right atrial and ventricular enlargement Echocardiogram of January 02, 2024 revealed severe concentric left ventricular hypertrophy, ejection fraction of 65-70%, right atrial enlargement, and right ventricular systolic pressure of 45 mm Hg. Creatinine: 1.09 Potassium: 3.7 Troponin: 47 BNP: 376.38 Chest x-ray revealed: IMPRESSION: 1. Left pleural effusion. 2. Bibasilar opacities. 3. Cardiomegaly. Tele shows sinus rhythm Patient is 89-year-old gentleman who presented with few days of shortness of breath and wheezing. He also complained of abdominal pain/right flank pain. Does have history of repeated pulmonary emboli and DVTs. He is compliance to medication has been questionable. Presentation also questions acute on chronic diastolic heart failure. Does have history of pulmonary hypertension which could have been secondary to history of pulmonary emboli. Shortness of breath Abdominal pain Recurrent pulmonary emboli Recurrent DVT Pulmonary hypertension Noncompliant with medications Dementia Hyperlipidemia Hypertension Cardiac suggestion for management: Manage on telemetry Follow up electrolytes and kidney function test not correct abnormalities Request for D-dimer If D-dimer is abnormal request for CT angio of the chest and venous Doppler of l ower extremities IV diuresis (Lasix at 40 mg b.i.d. for now) Echocardiogram Full anticoagulation Request for abdominal sonogram/CT of the abdomen Pulmonary evaluation GI evaluation Thank you for consultation Further evaluation and management depends on the above and clinical course A total of 75 minutes was spent reviewing the patient record, examining the patient, making a diagnostic and therapeutic plan, discussing this plan with medical personnel, following up on diagnostic studies and following the patient for clinical stability excluding any and all procedures. At least 50% of this time was spent in direct, [id number] contact. Thank you for allowing me to participate in this patient's care. Further recommendations will depend on patient's clinical course. Please do not hesitate to contact me if you have any questions or concerns. This medical document was created using electronic medical record system with [employer] dictation system. Although this document has been carefully reviewed, there may still be some phonetic and typographical errors. These areas are purely typographical due to the imperfection of the software programs, and do not reflect any compromise in the patient's medical care. Plan discussed with: Patient, Other (nurse) DEBBIE GOODRICH MD May 07, 2024 09:29
[2024-05-07] MEDS: PANTOPRAZOLE 40 MG TAB PO SCH (10:00)
[2024-05-07] MEDS: TAMSULOSIN HYDROCHLORIDE 0.4 MG CAP PO SCH (10:00)
[2024-05-07] MEDS: FLUTICASONE UMECLIDINIUM VILANTEROL PO SCH (10:00)
[2024-05-07] MEDS: OXYBUTYNIN CHL 5 MG TAB PO SCH (10:00)
[2024-05-07] MEDS: ENOXAPARIN SOD 40 MG/0.4 ML SYRINGE SC SCH (10:00)
[2024-05-07] MEDS: amLODIPine BESYLATE 5 MG TAB PO SCH (10:00)
[2024-05-07] MEDS ORDERED: FUROSEMIDE 40 MG/4 ML VIAL IV SCH (10:00)
[2024-05-07] MEDS: PRAVASTATIN SODIUM 20 MG TAB PO SCH (10:00)
[2024-05-07] MEDS: LOSARTAN POTASSIUM 50 MG TAB PO SCH (10:00)
[2024-05-07] MEDS: CHOLECALCIFEROL (VITD3) 1,000UNIT=25mCg TAB PO SCH (10:00)
[2024-05-07] MEDS: METOPROLOL SUCCINATE XL 50 MG TAB PO SCH (10:00)
--- NOTE | 2024-05-07 11:42 | DVH ---
US BiLat Lower DVT HISTORY: ELEVATED D-DIMER COMPARISON: US BILAT LOWER DVT on DOS: 01/04/24, US BILAT LOWER DVT on DOS: 04/22/23 TECHNIQUE: Duplex Doppler evaluation of the deep venous system of the lower extremity from the common femoral veins, superficial femoral vein, great saphenous vein, deep femoral vein, popliteal vein, an d calf veins, including color Doppler and spectral/pulsed waveform analysis, was performed. FINDINGS: Right: - Common femoral vein: Compressible - Deep femoral vein: Compressible - Femoral vein: Compressible - Popliteal vein: Compressible - Posterior tibial vein: Waveforms present - Other: Nothing Left: - Common femoral vein: Compressible - Deep femoral vein: Compressible - Femoral vein: Compressible - Popliteal vein: Compressible - Posterior tibial vein: Waveforms present - Other: Nothing IMPRESSION: No right or left lower extremity deep venous thrombosis.
--- NOTE | 2024-05-07 12:26 | DVH ---
CTA Chest with intravenous contrast INDICATION: R/O PE COMPARISON: CT CT ANGIO CHEST CONTRAST on DOS: 01/03/24, CT CT ANGIO CHEST CONTRAST on DOS: 04/21/23 TECHNIQUE: Multidetector spiral CTA of the chest was performed of the chest with intravenous contrast . PULMONARY ANGIOGRAPHY PROTOCOL was utilized using a bolus-tracking technique centered on the main p ulmonary artery. Axial, coronal and sagittal multiplanar and MIP reformats were performed. CONTRAST: Type of contrast: Omni 350 Contrast injected: 100 ml Radiation dose : Chest: CTDI volume is 30 mGy. Dose-length product is 590.6 mGy*cm The dose indicators for CT are the volume computed Tomography (CT) dose Index (CTDIvol) and the dose Length product (DLP), and are measured in units of mGy and mGy-cm, respectively. These indicators are not patient dose, but values generated from the CT scanner acquisition factors. The report includes radiation exposure data for exposures received during this examination. Findings: Pulmonary artery: Limited by motion. There are curvilinear filling defects in left lower lobe segmental and subsegmental branches. Lower neck: Normal thyroid. Lungs: There is bibasilar atelectasis and consolidation. There is diffuse ground-glass opacities in both lungs. Heart/Vascular Structures: Normal heart size. Moderate pericardial effusion. Lymph Nodes: No adenopathy Pleura: Bilateral pleural effusions right greater than left. Musculoskeletal: No acute osseous abnormality. Soft tissues: Normal. Upper abdomen: Bilateral renal cysts. IMPRESSION: 1. Curvilinear filling defects in left lower lobe segmental and subsegmental branches consistent with mild chronic changes of thromboembolic disease. No acute pulmonary embolus. Significant interval imp rovement compared to prior. 2. Bilateral pleural effusions with associated bibasilar atelectasis and consolidation. Diffuse grou nd-glass opacities in both lungs be due to subsegmental atelectasis or pulmonary edema. Moderate arnol cardial effusion. Clinical correlation and continued follow-up to resolution is recommended. HS:Y
--- NOTE | 2024-05-07 14:20 | DVH ---
ULTRASOUND ABDOMEN COMPLETE INDICATION: ABDOMINAL PAIN TECHNIQUE: Multiple real-time sonographic images of the abdomen were obtained. COMPARISON: None FINDINGS: [Findings] The visualized liver parenchyma appears homogenous . The liver measures 17.8 cm. No discrete hep atic lesion or intrahepatic biliary ductal dilatation is identified. Incidentally noted is right-s ided pleural effusion. There is no evidence of gallstones, gallbladder wall thickening or pericholecystic fluid. The common biliary duct is not dilated. The right kidney measures 11.3 cm length. The left kidney measures 10.7cm. There are multiple bila teral renal cysts, the largest in the right lower pole measuring 9.1 cm. The largest in the left kidn ey is in the lower pole measuring 6.3 cm. No sonographic evidence of nephrolithiasis or hydroneph rosis. The spleen measures 8.0 cm and appears within normal limits. Visualized portions of the pancreas appears within normal limits. The visualized portions of the IVC and aorta are grossly unremarkable. IMPRESSION: 1. Multiple bilateral renal cysts measuring up to 9.1 cm. 2. Right pleural effusion. HS:Y
--- NOTE | 2024-05-07 15:00 | ECG ---
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
--- NOTE | 2024-05-07 15:00 | ECG ---
[facility] Test Date: 2024-05-07 Test Time: 12:49:45 Pat Name: IVÁN MEANS Department: Respiratoy Room: 0248T B Gender: M Field Education Coordinator: stefanie : 1935 Requested By: DEBBIE GOODRICH Order Number: [id number] Reading MD: Sherman Ragsdale Measurements Intervals [place] Rate: 83 P: 31 MO: 171 QRS: 7 QRSD: 102 T: 242 QT: 359 QTc: 422 Interpretive Statements Likely sinus rhythm Nonspecific T abnormalities, diffuse leads Electronically Signed On 05-08-2024 12:29:21 PST by hSerman Ragsdale Please click the below link to view image of tracing.
[2024-05-07] MEDS: POLYETHYLENE GLYCOL 17 GM PWDR PO ONE (15:30)
--- NOTE | 2024-05-07 15:52 | DVHINCON2 ---
GI Consult Consult Note GI consult note Date of Consultation: 05/07/2024 Chief Complaint: Abdominal pain Referring Physician: Dr. Escobar H&P: 89-year-old male presented to ER with chief complaint of shortness of breath Patient also complaining of right upper quadrant discomfort which radiates to left side of the chest, which triggers his shortness of breath, on and off for last few weeks but getting worse per family at bedside No nausea or vomiting. No hematemesis. Last bowel movement two days ago, no melena or red blood in stool. Patient denies weight loss Patient admits to having more episodes of feeling constipated, for about a year, after is hernia repair Past Medical History: Asthma, COPD, DM, High Lipids, HTN, IA Past Surgical History: Hernia repair Social History: NO smoking, drinking ETOH and use of illegal drugs. Family History: Noncontributory Review of Systems: Constitutional: no fever, chill, weight loss HEENT: no eye pain, no hearing loss, no oral lesion, no scleral icterus Heart: no chest pain, no chest pressure Lung: no cough, no dyspnea with exertion Abdomen: see HPI Physical exam: General: NAD, AAOX3 Chest: lung martin clear to auscultation Heart: RRR, no murmur Abdomen:mild-distended, mild RUQ tenderness to palpation, +BS Labs:Labs Test 05/07/24 06:14 05/06/24 05:15 Range/Units White Blood Count 6.9 4.4-10.8 10^3/uL Red Blood Count 4.82 4.5-5.90 10^6/uL Hemoglobin 13.3 L 13.5-17.5 g/dL Hematocrit 40.5 L 41.0-53.0 % Mean Corpuscular Volume 84.1 80.0-100.0 fL Mean Corpuscular Hemoglobin 27.6 L 28.0-32.0 pg Mean Corpuscular Hemoglobin Concent 32.8 32.0-36.0 g/dL Red Cell Distribution Width 16.9 H 11.8-14.3 % Platelet Count 229 140-450 10^3/uL Mean Platelet Volume 9.4 6.9-10.8 fL Neutrophils (%) (Auto) 70.5 37.0-80.0 % Lymphocytes (%) (Auto) 18.5 10.0-50.0 % Monocytes (%) (Auto) 10.7 0.0-12.0 % Eosinophils (%) (Auto) 0.1 0.0-7.0 % Basophils (%) (Auto) 0.2 0.0-2.0 % Neutrophils # (Auto) 4.8 1.6-8.6 10 ^3/uL Lymphocytes # (Auto) 1.3 0.4-5.4 10 ^3/uL Monocytes # (Auto) 0.7 0-1.3 10 ^3/uL Eosinophils # (Auto) 0 0-0.8 10 ^3/uL Basophils # (Auto) 0 0-0.2 10 ^3/uL Nucleated Red Blood Cells 0.1 % Sodium Level 143 136-145 mmol/L Potassium Level 3.7 3.5-5.1 mmol/L Chloride Level 107 98-107 mmol/L Carbon Dioxide Level 27 20-31 mmol/L Anion Gap 9 5-15 Blood Urea Nitrogen 17 9-23 mg/dL Creatinine 1.12 0.700-1.30 mg/dL Glomerular Filtration Rate Calc 63 >90 mL/min BUN/Creatinine Ratio 15.2 10.0-20.0 Serum Glucose 106 74-106 mg/dL Calcium Level 9.9 8.7-10.4 mg/dL Total Bilirubin 0.4 0.2-1.0 mg/dL Aspartate Amino Transferase (AST) 25 13-40 U/L Alanine Aminotransferase (ALT) 27 7-40 U/L Alkaline Phosphatase 98 46-116 U/L Total Protein 6.8 5.7-8.2 g/dL Albumin 3.9 3.2-4.8 g/dL Troponin I High Sensitivity 47 </=54 ng/L B-Type Natriuretic Peptide 376.38 0-100 pg/mL Imaging: Abdominal ultrasound IMPRESSION: 1. Multiple bilateral renal cysts measuring up to 9.1 cm. 2. Right pleural effusion. Assessment: Abdominal pain History of PE and DVT Dementia Plan: Discussed with Dr. Cabrera CT abdomen and pelvis Diet as tolerated We will continue to monitor patient Discussed plan with patient, and family at bedside, and RN Thank you for the consult Date of Service: May 07, 2024 Billing Provider: DARRIUS DE LEON Common Visit Codes: CONSULT ONLY Consultation Codes: [id number] CONSULT <45MIN DARRIUS DE LEON May 07, 2024 15:52
--- NOTE | 2024-05-07 16:13 | DVHPN2 ---
Progress Note - Dictate Date Seen: May 07, 2024 Medical Necessity Reason Pt with a Central, PICC or Fol: No vital signs Vital Sign Date Time Temp Pulse Resp B/P (MAP) Pulse Ox O2 Delivery O2 Flow Rate FiO2 05/07/24 13:00 97.8 80 18 137/80 (99) 97 97.8 05/07/24 08:00 Nasal Cannula* 3 32 Total Intake and Output 05/06/24 05/06/24 05/07/24 15:00 23:00 07:00 Intake Total 475 ml Balance 475 ml medications Current Medications Medications Dose Ordered Sig/Kristi Route Start Time Stop Time Status Last Admin Dose Admin Acetaminophen/ Hydrocodone Bitart 1 tab Q4HP PRN PO 05/06/24 10:45 05/07/24 01:18 1 TAB Ondansetron HCl 4 mg Q4HP PRN IV 05/06/24 10:45 Enoxaparin Sodium 40 mg DAILY SC 05/07/24 10:00 05/07/24 10:00 40 MG Acetaminophen 650 mg Q6HP PRN PO 05/06/24 10:45 Morphine Sulfate 2 mg Q4HPRN PRN IV 05/06/24 10:45 Nitroglycerin 0.4 mg Q5MINP PRN SL 05/06/24 10:45 Morphine Sulfate 2 mg Q30M PRN IV 05/06/24 10:45 Apixaban 5 mg BID PO 05/06/24 22:00 05/07/24 10:00 5 MG Brimonidine Tartrate 1 drop BID EACHEYE 05/06/24 22:00 05/07/24 10:00 1 DROP Losartan Potassium 50 mg DAILY PO 05/07/24 10:00 05/07/24 10:00 50 MG Metformin HCl 500 mg BID PO 05/06/24 22:00 05/07/24 10:00 500 MG Oxybutynin Chloride 15 mg DAILY PO 05/07/24 10:00 05/07/24 10:00 15 MG Pravastatin Sodium 20 mg DAILY PO 05/07/24 10:00 05/07/24 10:00 20 MG Tamsulosin HCl 0.8 mg DAILY PO 05/07/24 10:00 05/07/24 10:00 0.8 MG Amlodipine Besylate 10 mg DAILY PO 05/07/24 10:00 05/07/24 10:00 10 MG Patient Own Medication 1 tab HS PO 05/06/24 22:00 Cholecalciferol 5,000 unit DAILY PO 05/07/24 10:00 05/07/24 10:00 5,000 UNIT Patient Own Medication 1 puff DAILY PO 05/07/24 10:00 05/07/24 10:00 1 PUFF Memantine 10 mg BID PO 05/06/24 22:00 05/07/24 10:00 10 MG Metoprolol Succinate 25 mg DAILY PO 05/07/24 10:00 05/07/24 10:00 25 MG Diagnostic Test (Pha) 1 strip ACHS 05/06/24 11:30 05/07/24 11:30 1 STRIP Insulin Human Regular ACHS SC 05/06/24 11:30 05/06/24 23:01 3 UNITS Dextrose 50 ml UD PRN IV 05/06/24 11:00 Pantoprazole Sodium 40 mg DAILY PO 05/07/24 10:00 05/07/24 10:00 40 MG Furosemide 40 mg BID IV 05/07/24 09:00 05/07/24 10:00 40 MG objective General Appearance: alert, no distress HEENT: EOMI, PERRLA, normal external inspect of ears, no icterus, no nasal drainage Neck: no carotid bruit, no jugular venous distention (JVD), no lymphadenopathy Chest: normal thorax Respiratory: clear to auscultation, normal air movement Cardiovascular: regular rate and rhythm, no diastolic murmur, no jugular venous distention (JVD), no rub, no systolic murmur Abdominal: soft, no hepatomegaly, no mass, no splenomegaly, no tenderness Genitourinary: grossly normal external Musculoskeletal: no joint tenderness, no swelling Extremities: normal pulses, no calf tenderness, no clubbing, no cyanosis, no edema Skin: no bruising, no jaundice, no rash Neurological: alert, No focal deficit laboratory and microbiology Laboratory Tests 05/07/24 06:14 Test 05/07/24 06:14 Range/Units Serum Glucose 106 74-106 mg/dL Problem List -Acute on chronic diastolic heart failure exacerbation Diuretics, cardiology consult, medications, monitoring -Obesity diet, exercise -PE and DVT Continue Eliquis, cardiology consult, monitoring -Chronic anticoagulation medications, monitoring -Dementia -DM II with hyperglycemia Insulin SS -HLD monitoring Assessment/Plan Subjective Patient is awake and alert. Objective Patient was admitted for shortness of breath. Patient was recently admitted December 2023. Patient had an acute PE and DVT. Repeat CTA shows resolving PE and ultrasound venous Dopplers negative for DVT. Patient states he has been compliant with his medications with Eliquis. Patient was recently at primary facility for rehab. Patient had COVID in October 2023, likely contributing to his coagulopathy. Plan Continue breathing treatment for COPD exacerbation. Patient has elevated D-dimer related to resolving PE. Patient has a pericardial effusion and pleural effusion. Continue diuretics as ordered by cardiology. Repeat echocardiogram is pending. Plan discussed with: Patient, Other AUGIE MURRIETA NP May 07, 2024 16:13
--- NOTE | 2024-05-07 23:36 | DVHINCON2 ---
Date of service: May 07, 2024 Referring Physician Augie Murrieta NP Reason for Consultation Acute hypoxic respiratory failure, pulmonary hypertension, pleural effusions. History of Present Illness An 89-year old man with past medical history of COPD, asthma, FL, diastolic CHF and hx of multiple pulmonary emboli and DVTs. who presented to ED on 05/06/24 complaining of shortness of breath for 3 days. He also reported wheezing. Patient is on home O2. Notes right upper quadrant abdominal discomfort which radiates to the left side of the chest, which triggers his shortness of breath, on and off for last few weeks but getting worse per family at bedside. Patient was admitted for further care and pulmonary consultation is requested for evaluation and management due to the above findings Review of Systems: 14-point review of systems negative unless otherwise noted above. Past Medical History: COPD, asthma, FL, diastolic CHF, and hx of multiple pulmonary emboli and DVTs Past Surgical History: Hernia repair Medications: Reviewed. Allergies: Bee venom, penicillins. Family History: Benign prostate tumor Diabetes mellitus Hypercholesterolemia Hypertension. Social History: Nonsmoker. No alcohol or illicit drug use. Family History: Benign prostate tumor G8 FATHER Diabetes mellitus G8 MOTHER Hypercholesterolemia G8 MOTHER Hypertension G8 MOTHER Allergies: Coded Allergies: Bee Venom (Verified Allergy, Severe, Swelling, 09/18/19) Penicillins (Verified Allergy, Severe, Facial swelling, 09/18/19) Home Meds Active Scripts Furosemide (Lasix) 40 Mg Tab, 40 MG PO DAILY for 30 Days, #30 TAB Prov:AUGIE MURRIETA NP 05/09/24 Metoprolol Succinate (Metoprolol Succinate Er) 25 Mg Tab, 1 TAB PO DAILY for 30 Days, #30 TAB Prov:AUGIE MURRIETA NP 05/09/24 Brimonidine Tartrate (ALPHAGAN P 0.15% OPTHALMIC) [address], 1 DROP EACHEYE BID, #15 ML 3 Refills Prov:AUGIE MURRIETA NP 01/06/24 Reported Medications Cetirizine Hcl (Kls Aller-Jaylyn) 10 Mg Tab, 1 TAB PO HS for 30 Days, #30 3 Refills 01/02/24 Dapagliflozin Propanediol (Farxiga) 10 Mg Tab, 5 MG PO DAILY for 90 Days, #90 01/02/24 Senna (Estela-Nicole) 8.6 Mg Tab, 2-4 TAB PO QPM PRN for FOR CONSTIPATION for 15 Days, #60 01/02/24 Budesonide-Formoterol Fumarate (Budesonide/Formoterol Fum 160-4.5 Mcg/Act) 1 Aer Aer, 2 PUFF INH BID for 30 Days, #10.2 01/02/24 Oxybutynin Chloride (Oxybutynin Chloride) 5 Mg Tab, 15 MG PO DAILY for 90 Days, #90 01/02/24 Pravastatin Sodium (PRAVACHOL TABLET) 20 Mg Tb, 1 TAB PO DAILY for 90 Days, #90 01/02/24 Netarsudil Dimesylate-Latanopr (Rocklatan 0.02-0.005 %) 1 Adrian Adrian, 1 ADRIAN EACHEYE QPM for 25 Days, #2 01/02/24 Apixaban Base (ELIQUIS) 5 Mg Tab, 1 TAB PO BID for 30 Days, #60 01/02/24 Jgsakviobmj-Kryoeypaiqar-Gxsyw (Trelegy Ellipta 200-62.5-25 Mcg/INH) 1 Aer Aer, 1 PUFF PO DAILY 04/23/23 Amlodipine Besylate (Amlodipine Besylate) 10 Mg Tab, 1 TAB PO DAILY 04/23/23 Memantine Hydrochloride (Memantine HCl) 10 Mg Tab, 1 TAB PO BID for 90 Days, #180 04/22/23 Cholecalciferol (VITAMIN D3) 5,000 Unit Cap, 1 CAP PO DAILY 04/22/23 Tamsulosin Hcl (Flomax) 0.4 Mg Cap, 2 CAP PO DAILY for 45 Days, #90 06/18/19 Discontinued Reported Medications Ipratropium-Albuterol (COMBIVENT RESPIMAT) Respimat Aer, 1 PUFF INH QID for 30 Days, #4 01/02/24 Hydrocodone-Acetaminophen (Hydrocodone Bitartrate/AC 10-325 mg) 1 Tab Tab, 1 TAB PO [id number] PRN for PAIN for 30 Days, #45 01/02/24 Furosemide (Furosemide) 40 Mg Tab, 1 TAB PO DAILY for 30 Days, #30 5 Refills 01/02/24 Metolazone (Metolazone) 2.5 Mg Tab, 1 TAB PO DAILY 04/23/23 Metformin Hydrochloride (Metformin Hydrochloride) 500 Mg Tab, 1 TAB PO BID 04/22/23 Brimonidine Tartrate (Brimonidine Tartrate) 0.2 % Bernadine, 1 DROP EACHEYE BID for 50 Days, #10 04/22/23 Hydralazine HCl (Hydralazine HCl) 25 Mg Tab, 1 TAB PO QID for 30 Days, #120 04/22/23 Aspirin (Aspirin Low Dose) 81 Mg Tab, 1 TAB PO DAILY 04/22/23 Losartan Potassium (Losartan Potassium) 50 Mg Tab, 1 TAB PO DAILY for 90 Days, #90 04/22/23 Current Medications Current Medications Medications (Trade) Dose Ordered Sig/Kristi Route PRN Reason Start Time Stop Time Status Last Admin Enoxaparin Sodium (Lovenox) 40 mg DAILY SC 05/07/24 10:00 05/07/24 10:00 Furosemide (Lasix Injection) 40 mg DAILY IV 05/07/24 10:00 05/07/24 08:47 DC Losartan Potassium (Cozaar Tablet) 50 mg DAILY PO 05/07/24 10:00 05/07/24 10:00 Oxybutynin Chloride (Ditropan Tablet) 15 mg DAILY PO 05/07/24 10:00 05/07/24 10:00 Pravastatin Sodium (Pravachol Tablet) 20 mg DAILY PO 05/07/24 10:00 05/07/24 10:00 Tamsulosin HCl (Flomax) 0.8 mg DAILY PO 05/07/24 10:00 05/07/24 10:00 Amlodipine Besylate (Norvasc Tablet) 10 mg DAILY PO 05/07/24 10:00 05/07/24 10:00 Cholecalciferol (Vitamin D3 Tablet) 5,000 unit DAILY PO 05/07/24 10:00 05/07/24 10:00 Patient Own Medication 1 puff DAILY PO 05/07/24 10:00 05/07/24 10:00 Metoprolol Succinate (Toprol Xl) 25 mg DAILY PO 05/07/24 10:00 05/07/24 10:00 Pantoprazole Sodium (Protonix Tablet) 40 mg DAILY PO 05/07/24 10:00 05/07/24 10:00 Furosemide (Lasix Injection) 40 mg BID IV 05/07/24 09:00 05/07/24 22:08 Vital Signs Vital Signs Date Time Temp Pulse Resp B/P (MAP) Pulse Ox O2 Delivery O2 Flow Rate FiO2 05/07/24 22:08 125/73 05/07/24 22:00 97.9 75 18 94 97.9 05/07/24 08:00 Nasal Cannula* 3 32 Physical Exam Gen.: Patient lying in bed in no apparent distress. On supplemental oxygen. Head: Normocephalic, atraumatic. Eyes: EOMI/PERRLA. Ears: Normal hearing. Normal anatomy. Neck/trachea: Trachea midline, supple. Nose: Normal external anatomy. Mouth: Moist mucous membranes. Chest: Decreased air entry bilaterally. No wheezing or rhonchi. Cardiovascular: Positive S1, positive S2. Regular rate and rhythm. Abdomen: Positive bowel sounds in all 4 quadrants. Soft, non-tender, non- distended. : Deferred. Rectal: Deferred. Skin: Warm, dry. Intact. Extremities: 2+ radial pulses bilaterally. No lower extremity edema. Neuro: Awake, alert, oriented x3. No gross motor or sensory deficits. Cranial nerves II through XII intact. Gait not assessed. Labs/Diagnostic Data Labs Test 05/07/24 06:14 05/06/24 05:15 Range/Units White Blood Count 6.9 4.4-10.8 10^3/uL Red Blood Count 4.82 4.5-5.90 10^6/uL Hemoglobin 13.3 L 13.5-17.5 g/dL Hematocrit 40.5 L 41.0-53.0 % Mean Corpuscular Volume 84.1 80.0-100.0 fL Mean Corpuscular Hemoglobin 27.6 L 28.0-32.0 pg Mean Corpuscular Hemoglobin Concent 32.8 32.0-36.0 g/dL Red Cell Distribution Width 16.9 H 11.8-14.3 % Platelet Count 229 140-450 10^3/uL Mean Platelet Volume 9.4 6.9-10.8 fL Neutrophils (%) (Auto) 70.5 37.0-80.0 % Lymphocytes (%) (Auto) 18.5 10.0-50.0 % Monocytes (%) (Auto) 10.7 0.0-12.0 % Eosinophils (%) (Auto) 0.1 0.0-7.0 % Basophils (%) (Auto) 0.2 0.0-2.0 % Neutrophils # (Auto) 4.8 1.6-8.6 10 ^3/uL Lymphocytes # (Auto) 1.3 0.4-5.4 10 ^3/uL Monocytes # (Auto) 0.7 0-1.3 10 ^3/uL Eosinophils # (Auto) 0 0-0.8 10 ^3/uL Basophils # (Auto) 0 0-0.2 10 ^3/uL Nucleated Red Blood Cells 0.1 % D-Dimer, Quantitative 1.66 H 0.0-0.49 mg/L FEU Sodium Level 143 136-145 mmol/L Potassium Level 3.7 3.5-5.1 mmol/L Chloride Level 107 98-107 mmol/L Carbon Dioxide Level 27 20-31 mmol/L Anion Gap 9 5-15 Blood Urea Nitrogen 17 9-23 mg/dL Creatinine 1.12 0.700-1.30 mg/dL Glomerular Filtration Rate Calc 63 >90 mL/min BUN/Creatinine Ratio 15.2 10.0-20.0 Serum Glucose 106 74-106 mg/dL Calcium Level 9.9 8.7-10.4 mg/dL Total Bilirubin 0.4 0.2-1.0 mg/dL Aspartate Amino Transferase (AST) 25 13-40 U/L Alanine Aminotransferase (ALT) 27 7-40 U/L Alkaline Phosphatase 98 46-116 U/L Total Protein 6.8 5.7-8.2 g/dL Albumin 3.9 3.2-4.8 g/dL Troponin I High Sensitivity 47 </=54 ng/L B-Type Natriuretic Peptide 376.38 0-100 pg/mL Microbiology Date/Time Source Procedure Growth Status 05/07/24 01:30 Nose MRSA Screen - Final Complete Assessment Impression: Acute hypoxic respiratory failure Dependence on supplemental oxygen Recurrent DVT. Pulmonary hypertension, WHO class IV Recurrent pulmonary embolism. Pleural effusions. Atelectasis. COPD Seasonal allergies Dementia Plan: Supplemental oxygen 4 LPM NC Titrate to keep O2 sats above 92%. Taper O2 as tolerated. Ultrasound venous Doppler of bilateral lower extremities showed no e/o deep venous thrombosis. CTA showing evidence of chronic pulmonary embolism. Pt is off Eliquis. Continue bronchodilators PRN Continue Trelegy Continue antibiotics Cetirizine for allergies. Incentive spirometry ID recs appreciated. Diurese to euvolemia w/ Lasix Monitor renal function. Monitor electrolytes. Supplement as necessary. Monitor ins and outs. DVT prophylaxis. Prognosis: Poor given patient's multiple co-morbidities. Rest of plan per hospitalist and other consultants. Thank you, GUS Murrieta, for allowing me to participate in this patient's care. Further recommendations will depend on the patient's clinical course. Please do not hesitate to contact me if you have any questions or concerns. This medical document was created using an electronic medical record system with [employer] dictation system. Although these documentations are being carefully reviewed, there may still be some phonetic and typographical changes. The errors are purely typographical, due to imperfection on the software program, and do not reflect any compromise in the patient's medical care. Plan discussed with: Patient, Other (RN/GUS Murrieta/) MATTEO WRIGHT MD May 07, 2024 23:36
[2024-05-08] VITALS (9 sets, daily range): BP systolic 109–141; BP diastolic 65–80; PULSE 74–83; RESP 16–22; TEMP 98–98.9; O2SAT 93–99
[2024-05-08 07:05] LABS: INR 1.11 (0.9-1.15); Partial Thromboplastin Time 27.8 SEC (24.5-34.5); Prothrombin Time 11.7 sec (9.3-11.8)
[2024-05-08] MEDS: IOHEXOL 350 MG/ML 100ML IJ ONE (07:56)
--- NOTE | 2024-05-08 09:11 | DVH ---
Exam: CT CT AB PEL WO CON-NO ORAL OR IV History: abd pain Comparison Study: Abdominal ultrasound performed on 05/07/2024. Technique: Multidetector spiral CT of the abdomen and pelvis was performed from lung bases to pubic s ymphysis. Imaging was performed without intravenous contrast. Coronal and sagittal multiplanar refor mats were obtained from the axial data set by the technologist. Radiation Dose : 1. Abdomen/Pelvis: CTDIvol 12.04 mGy, DLP 652.64 mGy*cm. Findings: Evaluation of vasculature and solid organs is limited due to lack of intravenous contrast use. Lung Bases: There are small bilateral pleural effusions. Bilateral lower lobe atelectasis and calcif ications. Small pericardial effusion. Cardiomegaly. Liver: The liver is normal in size. No focal lesions. Gallbladder and Biliary Tree: The gallbladder is unremarkable. No intrahepatic or extrahepatic bilia ry ductal dilatation. Spleen: Punctate calcifications in the spleen. The spleen is not enlarged. Pancreas: The pancreas is grossly unremarkable. Adrenal Glands: Unremarkable Kidneys: No evidence of intrarenal calculi. There are right renal cysts the largest measuring 7.4 cm in the lower pole. There are left renal cysts the largest measuring 6.8 cm in the lower pole. No ev idence of intrarenal calculi. No hydronephrosis. GI tract: The stomach is grossly normal in appearance. No evidence of small bowel wall thickening or abnormal dilatation to suggest bowel obstruction. The colon is unremarkable. The appendix is visual ized and is normal. Peritoneum/mesentery/retroperitoneum. No evidence of free intraperitoneal air. No ascites. No evidenc e of suspicious lymphadenopathy. Abdominal Wall: Unremarkable. Vasculature: The visualized abdominal aorta is normal in size and caliber. Evaluation of abdominal a nd pelvic vessels is limited due to lack of intravenous contrast. There is a stent in the distal abdo kalani aorta in the common iliac arteries. Urinary Bladder: Excreted contrast in the urinary bladder. Pelvic Organs: Unremarkable Musculoskeletal: No aggressive focal bony lesions, acute fractures or dislocation. Bilateral hip repl acements. IMPRESSION: 1. No acute abdominal or pelvic findings. 2. Small bilateral pleural effusions and bibasilar atelectasis. Small pericardial effusion. Cardiomeg ellen. 3. Bilateral renal cysts. No obstructive uropathy.
--- NOTE | 2024-05-08 11:27 | DVHPN2 ---
Progress Note - Dictate Date Seen: May 08, 2024 Medical Necessity Reason Pt with a Central, PICC or Fol: No vital signs Vital Sign Date Time Temp Pulse Resp B/P (MAP) Pulse Ox O2 Delivery O2 Flow Rate FiO2 05/08/24 10:00 132/80 05/08/24 10:00 76 05/08/24 08:58 98.1 16 97 98.1 05/07/24 20:00 Nasal Cannula* 3 32 Total Intake and Output 05/07/24 05/07/24 05/08/24 15:00 23:00 07:00 Intake Total 120 ml 1000 ml 250 ml Output Total 1300 ml 1600 ml Balance 120 ml -300 ml -1350 ml medications Current Medications Medications Dose Ordered Sig/Kristi Route Start Time Stop Time Status Last Admin Dose Admin Acetaminophen/ Hydrocodone Bitart 1 tab Q4HP PRN PO 05/06/24 10:45 05/07/24 01:18 1 TAB Ondansetron HCl 4 mg Q4HP PRN IV 05/06/24 10:45 Acetaminophen 650 mg Q6HP PRN PO 05/06/24 10:45 Morphine Sulfate 2 mg Q4HPRN PRN IV 05/06/24 10:45 Nitroglycerin 0.4 mg Q5MINP PRN SL 05/06/24 10:45 Morphine Sulfate 2 mg Q30M PRN IV 05/06/24 10:45 Brimonidine Tartrate 1 drop BID EACHEYE 05/06/24 22:00 05/08/24 10:00 1 DROP Losartan Potassium 50 mg DAILY PO 05/07/24 10:00 05/08/24 10:00 50 MG Metformin HCl 500 mg BID PO 05/06/24 22:00 05/08/24 10:00 500 MG Oxybutynin Chloride 15 mg DAILY PO 05/07/24 10:00 05/08/24 10:00 15 MG Pravastatin Sodium 20 mg DAILY PO 05/07/24 10:00 05/08/24 10:00 20 MG Tamsulosin HCl 0.8 mg DAILY PO 05/07/24 10:00 05/08/24 10:00 0.8 MG Amlodipine Besylate 10 mg DAILY PO 05/07/24 10:00 05/08/24 10:00 10 MG Patient Own Medication 1 tab HS PO 05/06/24 22:00 Cholecalciferol 5,000 unit DAILY PO 05/07/24 10:00 05/08/24 10:00 5,000 UNIT Patient Own Medication 1 puff DAILY PO 05/07/24 10:00 05/08/24 10:00 1 PUFF Memantine 10 mg BID PO 05/06/24 22:00 05/08/24 10:00 10 MG Metoprolol Succinate 25 mg DAILY PO 05/07/24 10:00 05/08/24 10:00 25 MG Diagnostic Test (Pha) 1 strip ACHS 05/06/24 11:30 05/08/24 07:42 1 STRIP Insulin Human Regular ACHS SC 05/06/24 11:30 05/06/24 23:01 3 UNITS Dextrose 50 ml UD PRN IV 05/06/24 11:00 Pantoprazole Sodium 40 mg DAILY PO 05/07/24 10:00 05/08/24 10:00 40 MG Furosemide 40 mg BID IV 05/07/24 09:00 05/08/24 10:00 40 MG Apixaban 5 mg BID PO 05/08/24 11:30 UNV objective General Appearance: alert, no distress HEENT: EOMI, PERRLA, normal external inspect of ears, no icterus, no nasal drainage Neck: no carotid bruit, no jugular venous distention (JVD), no lymphadenopathy Chest: normal thorax Respiratory: clear to auscultation, normal air movement Cardiovascular: regular rate and rhythm, no diastolic murmur, no jugular venous distention (JVD), no rub, no systolic murmur Abdominal: soft, no hepatomegaly, no mass, no splenomegaly, no tenderness Genitourinary: grossly normal external Musculoskeletal: no joint tenderness, no swelling Extremities: normal pulses, no calf tenderness, no clubbing, no cyanosis, no edema Skin: no bruising, no jaundice, no rash Neurological: alert, No focal deficit laboratory and microbiology Laboratory Tests 05/07/24 06:14 Test 05/07/24 06:14 Range/Units Serum Glucose 106 74-106 mg/dL Problem List -Acute on chronic diastolic heart failure exacerbation Diuretics, cardiology consult, medications, monitoring -Obesity diet, exercise -PE and DVT Continue Eliquis, cardiology consult, monitoring -Chronic anticoagulation medications, monitoring -Dementia -DM II with hyperglycemia Insulin SS -HLD monitoring Assessment/Plan Subjective Patient is awake and alert. Objective Patient was admitted for shortness of breath. Patient was last admitted in December 2023 and he was found to have a PE and DVT. Repeat CTA shows a resolving PE and repeat ultrasound venous doppler of bilateral lower extremities is negative for DVT. Patient currently takes Eliquis and he states he is compliant with his medications. Patient was seen by cardiology. Patient is currently on Lasix BID for acute on chronic diastolic heart failure. Plan Continue current treatment. Patient appears to be doing better today. Discharge planning possibly for tomorrow. Plan discussed with: Patient, Other AUGIE MURRIETA NP May 08, 2024 11:27
[2024-05-08] MEDS: APIXABAN 5 MG TAB PO SCH (11:30)
--- NOTE | 2024-05-08 12:51 | DVHINCON2 ---
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 cta was showing improved PE. vte study showed no DVT now. pt has mild elevated troponin. hes not on home o2 Past Medical History reviewed Family History: Benign prostate tumor G8 FATHER Diabetes mellitus G8 MOTHER Hypercholesterolemia G8 MOTHER Hypertension G8 MOTHER Allergies: Coded Allergies: Bee Venom (Verified Allergy, Severe, Swelling, 09/18/19) Penicillins (Verified Allergy, Severe, Facial swelling, 09/18/19) Home Meds Active Scripts Brimonidine Tartrate (ALPHAGAN P 0.15% OPTHALMIC) [address], 1 DROP EACHEYE BID, #15 ML 3 Refills Prov:AUGIE MURRIETA RIVETER HELPER 01/06/24 Reported Medications Cetirizine Hcl (Kls Aller-Jaylyn) 10 Mg Tab, 1 TAB PO HS for 30 Days, #30 3 Refills 01/02/24 Dapagliflozin Propanediol (Farxiga) 10 Mg Tab, 5 MG PO DAILY for 90 Days, #90 01/02/24 Senna (Estela-Nicole) 8.6 Mg Tab, 2-4 TAB PO QPM PRN for FOR CONSTIPATION for 15 Days, #60 01/02/24 Budesonide-Formoterol Fumarate (Budesonide/Formoterol Fum 160-4.5 Mcg/Act) 1 Aer Aer, 2 PUFF INH BID for 30 Days, #10.2 01/02/24 Metoprolol Succinate (Metoprolol Succinate Er) 25 Mg Tab, 1 TAB PO DAILY for 30 Days, #30 01/02/24 Ipratropium-Albuterol (COMBIVENT RESPIMAT) Respimat Aer, 1 PUFF INH QID for 30 Days, #4 01/02/24 Hydrocodone-Acetaminophen (Hydrocodone Bitartrate/AC 10-325 mg) 1 Tab Tab, 1 TAB PO [id number] PRN for PAIN for 30 Days, #45 01/02/24 Oxybutynin Chloride (Oxybutynin Chloride) 5 Mg Tab, 15 MG PO DAILY for 90 Days, #90 01/02/24 Pravastatin Sodium (PRAVACHOL TABLET) 20 Mg Tb, 1 TAB PO DAILY for 90 Days, #90 01/02/24 Netarsudil Dimesylate-Latanopr (Rocklatan 0.02-0.005 %) 1 Adrian Adrian, 1 ADRIAN EACHEYE QPM for 25 Days, #2 01/02/24 Furosemide (Furosemide) 40 Mg Tab, 1 TAB PO DAILY for 30 Days, #30 5 Refills 01/02/24 Apixaban Base (ELIQUIS) 5 Mg Tab, 1 TAB PO BID for 30 Days, #60 01/02/24 Metolazone (Metolazone) 2.5 Mg Tab, 1 TAB PO DAILY 04/23/23 Alxjxotikom-Snooyylwmhah-Yqnkz (Trelegy Ellipta 200-62.5-25 Mcg/INH) 1 Aer Aer, 1 PUFF PO DAILY 04/23/23 Amlodipine Besylate (Amlodipine Besylate) 10 Mg Tab, 1 TAB PO DAILY 04/23/23 Metformin Hydrochloride (Metformin Hydrochloride) 500 Mg Tab, 1 TAB PO BID 04/22/23 Brimonidine Tartrate (Brimonidine Tartrate) 0.2 % Bernadine, 1 DROP EACHEYE BID for 50 Days, #10 04/22/23 Hydralazine HCl (Hydralazine HCl) 25 Mg Tab, 1 TAB PO QID for 30 Days, #120 04/22/23 Aspirin (Aspirin Low Dose) 81 Mg Tab, 1 TAB PO DAILY 04/22/23 Memantine Hydrochloride (Memantine HCl) 10 Mg Tab, 1 TAB PO BID for 90 Days, #180 04/22/23 Cholecalciferol (VITAMIN D3) 5,000 Unit Cap, 1 CAP PO DAILY 04/22/23 Losartan Potassium (Losartan Potassium) 50 Mg Tab, 1 TAB PO DAILY for 90 Days, #90 04/22/23 Tamsulosin Hcl (Flomax) 0.4 Mg Cap, 2 CAP PO DAILY for 45 Days, #90 06/18/19 Current Medications Current Medications Medications (Trade) Dose Ordered Sig/Kristi Route PRN Reason Start Time Stop Time Status Last Admin Apixaban (Eliquis) 5 mg BID PO 05/08/24 11:30 05/08/24 11:30 Review of Systems 10 pt ros otherwise negative Vital Signs Vital Signs Date Time Temp Pulse Resp B/P (MAP) Pulse Ox O2 Delivery O2 Flow Rate FiO2 05/08/24 12:34 98.0 82 16 141/75 (97) 99 98.0 05/07/24 20:00 Nasal Cannula* 3 32 Physical Exam nad s1 s2 rrr diffuse rhonchi soft nt/nd +2 edema BL with venous changes Labs/Diagnostic Data Labs Test 05/08/24 06:06 05/07/24 06:14 05/06/24 05:15 Range/Units Prothrombin Time 11.7 9.3-11.8 sec Prothrombin Time INR 1.11 0.9-1.15 Activated Partial Thromboplast Time 27.8 24.5-34.5 SEC White Blood Count 6.9 4.4-10.8 10^3/uL Red Blood Count 4.82 4.5-5.90 10^6/uL Hemoglobin 13.3 L 13.5-17.5 g/dL Hematocrit 40.5 L 41.0-53.0 % Mean Corpuscular Volume 84.1 80.0-100.0 fL Mean Corpuscular Hemoglobin 27.6 L 28.0-32.0 pg Mean Corpuscular Hemoglobin Concent 32.8 32.0-36.0 g/dL Red Cell Distribution Width 16.9 H 11.8-14.3 % Platelet Count 229 140-450 10^3/uL Mean Platelet Volume 9.4 6.9-10.8 fL Neutrophils (%) (Auto) 70.5 37.0-80.0 % Lymphocytes (%) (Auto) 18.5 10.0-50.0 % Monocytes (%) (Auto) 10.7 0.0-12.0 % Eosinophils (%) (Auto) 0.1 0.0-7.0 % Basophils (%) (Auto) 0.2 0.0-2.0 % Neutrophils # (Auto) 4.8 1.6-8.6 10 ^3/uL Lymphocytes # (Auto) 1.3 0.4-5.4 10 ^3/uL Monocytes # (Auto) 0.7 0-1.3 10 ^3/uL Eosinophils # (Auto) 0 0-0.8 10 ^3/uL Basophils # (Auto) 0 0-0.2 10 ^3/uL Nucleated Red Blood Cells 0.1 % D-Dimer, Quantitative 1.66 H 0.0-0.49 mg/L FEU Sodium Level 143 136-145 mmol/L Potassium Level 3.7 3.5-5.1 mmol/L Chloride Level 107 98-107 mmol/L Carbon Dioxide Level 27 20-31 mmol/L Anion Gap 9 5-15 Blood Urea Nitrogen 17 9-23 mg/dL Creatinine 1.12 0.700-1.30 mg/dL Glomerular Filtration Rate Calc 63 >90 mL/min BUN/Creatinine Ratio 15.2 10.0-20.0 Serum Glucose 106 74-106 mg/dL Calcium Level 9.9 8.7-10.4 mg/dL Total Bilirubin 0.4 0.2-1.0 mg/dL Aspartate Amino Transferase (AST) 25 13-40 U/L Alanine Aminotransferase (ALT) 27 7-40 U/L Alkaline Phosphatase 98 46-116 U/L Total Protein 6.8 5.7-8.2 g/dL Albumin 3.9 3.2-4.8 g/dL Troponin I High Sensitivity 47 </=54 ng/L B-Type Natriuretic Peptide 376.38 0-100 pg/mL Microbiology Date/Time Source Procedure Growth Status 05/07/24 01:30 Nose MRSA Screen - Final Complete Assessment chronic PE acute on chronic systolic and diastolic HF NYHA class III ckd hx of DVT hx of PAD HL Plan/Recommendation cont anticoag no procedureal intervention indicated check for home o2 status iv lasix daily supportive care check abg PT/OT Plan discussed with: Patient BLANDEL MD May 08, 2024 12:51
[2024-05-08 15:41] LABS: Base Excess 0.3 mmol/L (-2.0-3.0)
--- NOTE | 2024-05-08 17:22 | DVHPN2 ---
Progress Note - Dictate Date Seen: May 08, 2024 Medical Necessity Reason Pt with a Central, PICC or Fol: No Subjective No new complaints One bowel movement recorded vital signs Vital Sign Date Time Temp Pulse Resp B/P (MAP) Pulse Ox O2 Delivery O2 Flow Rate FiO2 05/08/24 16:53 98.0 74 22 109/65 (80) 93 98.0 05/08/24 08:15 Nasal Cannula* 2 28 Total Intake and Output 05/07/24 05/07/24 05/08/24 15:00 23:00 07:00 Intake Total 120 ml 1000 ml 250 ml Output Total 1300 ml 1600 ml Balance 120 ml -300 ml -1350 ml medications Current Medications Medications Dose Ordered Sig/Kristi Route Start Time Stop Time Status Last Admin Dose Admin Acetaminophen/ Hydrocodone Bitart 1 tab Q4HP PRN PO 05/06/24 10:45 05/07/24 01:18 1 TAB Ondansetron HCl 4 mg Q4HP PRN IV 05/06/24 10:45 Acetaminophen 650 mg Q6HP PRN PO 05/06/24 10:45 Morphine Sulfate 2 mg Q4HPRN PRN IV 05/06/24 10:45 Nitroglycerin 0.4 mg Q5MINP PRN SL 05/06/24 10:45 Morphine Sulfate 2 mg Q30M PRN IV 05/06/24 10:45 Brimonidine Tartrate 1 drop BID EACHEYE 05/06/24 22:00 05/08/24 10:00 1 DROP Losartan Potassium 50 mg DAILY PO 05/07/24 10:00 05/08/24 10:00 50 MG Metformin HCl 500 mg BID PO 05/06/24 22:00 05/08/24 10:00 500 MG Oxybutynin Chloride 15 mg DAILY PO 05/07/24 10:00 05/08/24 10:00 15 MG Pravastatin Sodium 20 mg DAILY PO 05/07/24 10:00 05/08/24 10:00 20 MG Tamsulosin HCl 0.8 mg DAILY PO 05/07/24 10:00 05/08/24 10:00 0.8 MG Amlodipine Besylate 10 mg DAILY PO 05/07/24 10:00 05/08/24 10:00 10 MG Patient Own Medication 1 tab HS PO 05/06/24 22:00 Cholecalciferol 5,000 unit DAILY PO 05/07/24 10:00 05/08/24 10:00 5,000 UNIT Patient Own Medication 1 puff DAILY PO 05/07/24 10:00 05/08/24 10:00 1 PUFF Memantine 10 mg BID PO 05/06/24 22:00 05/08/24 10:00 10 MG Metoprolol Succinate 25 mg DAILY PO 05/07/24 10:00 05/08/24 10:00 25 MG Diagnostic Test (Pha) 1 strip ACHS 05/06/24 11:30 05/08/24 11:30 1 STRIP Insulin Human Regular ACHS SC 05/06/24 11:30 05/06/24 23:01 3 UNITS Dextrose 50 ml UD PRN IV 05/06/24 11:00 Pantoprazole Sodium 40 mg DAILY PO 05/07/24 10:00 05/08/24 10:00 40 MG Furosemide 40 mg BID IV 05/07/24 09:00 05/08/24 10:00 40 MG Apixaban 5 mg BID PO 05/08/24 11:30 05/08/24 11:30 5 MG objective General: NAD, AAOX3 Chest: lung martin clear to auscultation Heart: RRR, no murmur Abdomen:mild-distended, +BS laboratory and microbiology Laboratory Tests 05/07/24 06:14 Test 05/07/24 06:14 Range/Units Serum Glucose 106 74-106 mg/dL CT SCAN ABD PELVIS IMPRESSION: 1. No acute abdominal or pelvic findings. 2. Small bilateral pleural effusions and bibasilar atelectasis. Small pericardial effusion. Cardiomegaly. 3. Bilateral renal cysts. No obstructive uropathy. RUQ USG IMPRESSION: 1. Multiple bilateral renal cysts measuring up to 9.1 cm. 2. Right pleural effusion. Problems(with codes): (1) Constipation (2) Abdominal pain (3) Generalized weakness Prognosis Plan Advance diet as tolerated Continue conservative observation Stool softeners I will follow up patient with you Plan discussed with: Patient AWILDA WISEMAN MD May 08, 2024 17:22
--- NOTE | 2024-05-08 20:33 | DVHPN2 ---
Progress Note - Dictate Date Seen: May 08, 2024 Medical Necessity Reason Pt with a Central, PICC or Fol: No Subjective Patient seen and examined at bedside. Remains on supplemental oxygen Overnight events reviewed. vital signs Vital Sign Date Time Temp Pulse Resp B/P (MAP) Pulse Ox O2 Delivery O2 Flow Rate FiO2 05/08/24 16:53 98.0 74 22 109/65 (80) 93 98.0 05/08/24 08:15 Nasal Cannula* 2 28 Total Intake and Output 05/07/24 05/07/24 05/08/24 15:00 23:00 07:00 Intake Total 120 ml 1000 ml 250 ml Output Total 1300 ml 1600 ml Balance 120 ml -300 ml -1350 ml medications Current Medications Medications Dose Ordered Sig/Kristi Route Start Time Stop Time Status Last Admin Dose Admin Acetaminophen/ Hydrocodone Bitart 1 tab Q4HP PRN PO 05/06/24 10:45 05/07/24 01:18 1 TAB Ondansetron HCl 4 mg Q4HP PRN IV 05/06/24 10:45 Acetaminophen 650 mg Q6HP PRN PO 05/06/24 10:45 Morphine Sulfate 2 mg Q4HPRN PRN IV 05/06/24 10:45 Nitroglycerin 0.4 mg Q5MINP PRN SL 05/06/24 10:45 Morphine Sulfate 2 mg Q30M PRN IV 05/06/24 10:45 Brimonidine Tartrate 1 drop BID EACHEYE 05/06/24 22:00 05/08/24 10:00 1 DROP Losartan Potassium 50 mg DAILY PO 05/07/24 10:00 05/08/24 10:00 50 MG Metformin HCl 500 mg BID PO 05/06/24 22:00 05/08/24 10:00 500 MG Oxybutynin Chloride 15 mg DAILY PO 05/07/24 10:00 05/08/24 10:00 15 MG Pravastatin Sodium 20 mg DAILY PO 05/07/24 10:00 05/08/24 10:00 20 MG Tamsulosin HCl 0.8 mg DAILY PO 05/07/24 10:00 05/08/24 10:00 0.8 MG Amlodipine Besylate 10 mg DAILY PO 05/07/24 10:00 05/08/24 10:00 10 MG Patient Own Medication 1 tab HS PO 05/06/24 22:00 Cholecalciferol 5,000 unit DAILY PO 05/07/24 10:00 05/08/24 10:00 5,000 UNIT Patient Own Medication 1 puff DAILY PO 05/07/24 10:00 05/08/24 10:00 1 PUFF Memantine 10 mg BID PO 05/06/24 22:00 05/08/24 10:00 10 MG Metoprolol Succinate 25 mg DAILY PO 05/07/24 10:00 05/08/24 10:00 25 MG Diagnostic Test (Pha) 1 strip ACHS 05/06/24 11:30 05/08/24 17:00 1 STRIP Insulin Human Regular ACHS SC 05/06/24 11:30 05/06/24 23:01 3 UNITS Dextrose 50 ml UD PRN IV 05/06/24 11:00 Pantoprazole Sodium 40 mg DAILY PO 05/07/24 10:00 05/08/24 10:00 40 MG Furosemide 40 mg BID IV 05/07/24 09:00 05/08/24 10:00 40 MG Apixaban 5 mg BID PO 05/08/24 11:30 05/08/24 11:30 5 MG objective Gen.: Patient lying in bed in no apparent distress. On supplemental oxygen. Head: Normocephalic, atraumatic. Eyes: EOMI/PERRLA. Ears: Normal hearing. Normal anatomy. Neck/trachea: Trachea midline, supple. Nose: Normal external anatomy. Mouth: Moist mucous membranes. Chest: Decreased air entry bilaterally. No wheezing or rhonchi. Cardiovascular: Positive S1, positive S2. Regular rate and rhythm. Abdomen: Positive bowel sounds in all 4 quadrants. Soft, non-tender, non- distended. : Deferred. Rectal: Deferred. Skin: Warm, dry. Intact. Extremities: 2+ radial pulses bilaterally. No lower extremity edema. Neuro: Awake, alert, oriented x3. No gross motor or sensory deficits. Cranial nerves II through XII intact. Gait not assessed. laboratory and microbiology Laboratory Tests 05/07/24 06:14 Test 05/07/24 06:14 Range/Units Serum Glucose 106 74-106 mg/dL Assessment/Plan Impression: Acute hypoxic respiratory failure Dependence on supplemental oxygen Recurrent DVT. Pulmonary hypertension, WHO class IV Recurrent pulmonary embolism. Pleural effusions. Atelectasis. COPD Seasonal allergies Dementia Events: Remains on supplemental oxygen, 2 LPM NC Taper O2 as tolerated Improving o2 requirements. Cardiology recs appreciated Diurese w/ Lasix BID Monitor renal function Monitor ins and outs Incentive spirometry Labs and imaging reviewed. Rest of plan as noted below. Plan: Supplemental oxygen Titrate to keep O2 sats above 92%. Ultrasound venous Doppler of bilateral lower extremities showed no e/o deep venous thrombosis. CTA showing evidence of chronic pulmonary embolism. Pt is off Eliquis. Continue bronchodilators PRN Continue Trelegy Antibiotics Cetirizine for allergies. Incentive spirometry ID recs appreciated. Diurese to euvolemia w/ Lasix Monitor renal function. Monitor electrolytes. Supplement as necessary. Monitor ins and outs. DVT prophylaxis. Prognosis: Poor given patient's multiple co-morbidities. Rest of plan per hospitalist and other consultants. Thank you, GUS Robin, for allowing me to participate in this patient's care. Further recommendations will depend on the patient's clinical course. Please do not hesitate to contact me if you have any questions or concerns. This medical document was created using an electronic medical record system with [employer] dictation system. Although these documentations are being carefully reviewed, there may still be some phonetic and typographical changes. The errors are purely typographical, due to imperfection on the software program, and do not reflect any compromise in the patient's medical care. Plan discussed with: Patient, Other (GAIL Leon) MATTEO WRIGHT MD May 08, 2024 20:33
[2024-05-09 01:00] VITALS: BP 106/63; PULSE 67; RESP 19; TEMP 98.9; O2SAT 97
[2024-05-09 05:00] VITALS: BP 117/71; PULSE 71; RESP 18; TEMP 98.8; O2SAT 97
[2024-05-09 06:26] LABS: Chloride 103 mmol/L (98-107); Potassium 3.5 mmol/L (3.5-5.1); Sodium 143 mmol/L (136-145)
[2024-05-09 06:27] LABS: Anion Gap 7 (5-15)
[2024-05-09 06:32] LABS: BUN/Creatinine Ratio 15.4 (10.0-20.0); Blood Urea Nitrogen 20 mg/dL (9-23); Glucose 79 mg/dL (74-106)
[2024-05-09 06:35] LABS: Carbon Dioxide 33 mmol/L (20-31)
[2024-05-09 07:45] VITALS: RESP 16
[2024-05-09 08:00] VITALS: PULSE 68
[2024-05-09 08:46] VITALS: BP 126/81; PULSE 75; RESP 16; TEMP 97.9; O2SAT 96
[2024-05-09] MEDS ORDERED: METO25TA93 PO (10:41)
[2024-05-09] MEDS ORDERED: FURO1TAB31 PO (10:42)
--- NOTE | 2024-05-09 10:44 | DVHDS2 ---
Discharge Summary Date of Admission May 06, 2024 at 10:39 Date of Discharge: May 09, 2024 Labs/Diagnostic Data: Laboratory Results Test 05/09/24 06:01 05/09/24 05:55 05/08/24 15:30 05/08/24 06:06 POC Glucose 89 mg/dl (70-106) Sodium Level 143 mmol/L (136-145) Potassium Level 3.5 mmol/L (3.5-5.1) Chloride Level 103 mmol/L (98-107) Carbon Dioxide Level 33 mmol/L (20-31) Anion Gap 7 (5-15) Blood Urea Nitrogen 20 mg/dL (9-23) Creatinine 1.30 mg/dL (0.700-1.30) Glomerular Filtration Rate Calc 53 mL/min (>90) BUN/Creatinine Ratio 15.4 (10.0-20.0) Serum Glucose 79 mg/dL (74-106) Calcium Level 10.0 mg/dL (8.7-10.4) Magnesium Level 2.0 mg/dL (1.6-2.6) B-Type Natriuretic Peptide 188.33 pg/mL (0-100) Blood Gas Specimen Type Arterial Blood Gas Sample Site Right radial Blood Gas Patient Temperature 37.0 Arterial Blood Date Drawn [id number] Arterial Blood pH 7.428 (7.350-7.450) Arterial Blood Partial Pressure CO2 37.8 mmHg (35.0-48.0) Arterial Blood Partial Pressure O2 58.0 mmHg (83.0-108.0) Arterial Blood HCO3 24.4 mmol/L (21.0-28.0) Arterial Blood Oxygen Saturation 88.8 % (94.0-98.0) Arterial Blood Base Excess 0.3 mmol/L (-2.0-3.0) Arterial Blood Oxyhemoglobin 87.8 % (94.0-98.0) Arterial Blood Carboxyhemoglobin 0.8 % (0.5-1.5) Arterial Blood Methemoglobin 0.3 % (0.0-1.5) Ghulam Test Yes Blood Gas Total Hemoglobin 14.20 g/dL (13.5-17.5) Blood Gas Modality Room air FiO2 % 21.0 Prothrombin Time 11.7 sec (9.3-11.8) Prothrombin Time INR 1.11 (0.9-1.15) Activated Partial Thromboplast Time 27.8 SEC (24.5-34.5) Test 05/07/24 06:14 05/06/24 05:15 White Blood Count 6.9 10^3/uL (4.4-10.8) Red Blood Count 4.82 10^6/uL (4.5-5.90) Hemoglobin 13.3 g/dL (13.5-17.5) Hematocrit 40.5 % (41.0-53.0) Mean Corpuscular Volume 84.1 fL (80.0-100.0) Mean Corpuscular Hemoglobin 27.6 pg (28.0-32.0) Mean Corpuscular Hemoglobin Concent 32.8 g/dL (32.0-36.0) Red Cell Distribution Width 16.9 % (11.8-14.3) Platelet Count 229 10^3/uL (140-450) Mean Platelet Volume 9.4 fL (6.9-10.8) Neutrophils (%) (Auto) 70.5 % (37.0-80.0) Lymphocytes (%) (Auto) 18.5 % (10.0-50.0) Monocytes (%) (Auto) 10.7 % (0.0-12.0) Eosinophils (%) (Auto) 0.1 % (0.0-7.0) Basophils (%) (Auto) 0.2 % (0.0-2.0) Neutrophils # (Auto) 4.8 10 ^3/uL (1.6-8.6) Lymphocytes # (Auto) 1.3 10 ^3/uL (0.4-5.4) Monocytes # (Auto) 0.7 10 ^3/uL (0-1.3) Eosinophils # (Auto) 0 10 ^3/uL (0-0.8) Basophils # (Auto) 0 10 ^3/uL (0-0.2) Nucleated Red Blood Cells 0.1 % D-Dimer, Quantitative 1.66 mg/L FEU (0.0-0.49) Total Bilirubin 0.4 mg/dL (0.2-1.0) Aspartate Amino Transferase (AST) 25 U/L (13-40) Alanine Aminotransferase (ALT) 27 U/L (7-40) Alkaline Phosphatase 98 U/L (46-116) Total Protein 6.8 g/dL (5.7-8.2) Albumin 3.9 g/dL (3.2-4.8) Troponin I High Sensitivity 47 ng/L (</=54) Other Laboratory Tests 05/09/24 05:55 05/07/24 06:14 Brief Hx & Hospital Course: 89 year old male with history of COPD, asthma, and [place] is complaining of shortness of breath for 3 days. He also reports wheezing. Patient states he is on home O2. While in the emergency department the patient was evaluated by the provider.\\ Patient was admitted on May 06, 2024 for shortness of breath. Patient has a history of PE and DVT that was diagnosed in December 2023. Patient was found to have coagulopathy most likely related to COVID that he had in October 2023. 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 Repeat CTA shows a resolving PE. Repeat ultrasound of bilateral lower extremity was negative for DVT. Patient was recently at [facility] for rehab. He states he was receiving diuretics for CHF. However he was not prescribed diuretics for home. Patient had acute on chronic systolic and diastolic heart failure. Patient was discharged home on 40 mg of Lasix orally. He has a follow-up with Dr. Navas in 2 weeks. He is to continue anticoagulation with Eliquis. He is to follow-up with his PCP in 1 week. The patient received proper medical treatment and medications. Vital signs, Imaging and Laboratory Work was monitored. All consults recommendations were followed as provided. There were no complaints or new complaints upon discharge, all questions and concerns were answered. Patient was advised to return to the ER or call 911 if any headaches, dizziness, shortness of breath, chest pain, bleeding, fevers, or worsening of medical condition. Patient/Family was counseled about treatment plan, medications, possible side effects, patientverbalized understanding. All questions were answered to the best of my ability. The patient symptoms improved and they are okay to be DC. Condition at Discharge: Good Final Diagnosis/Problems List CHF exacerbation Secondary Diagnosis: -Acute on chronic diastolic heart failure exacerbation -Obesity -PE and DVT -Chronic anticoagulation -Dementia -DM II with hyperglycemia -HLD Discharge Disposition: Home Discharge Instruct/Medications Diet: Cardiac 2g Na,low cholest Activity: No Restrictions, As Tolerated Follow Up/Referral: pcp 1 week cardiology 2 weeks Medications: start lasix 40 mg po daily continue eliquis Discharge Statement: "Patient was advised to return to the ER or call 911 if any headaches, dizziness, shortness of breath, chest pain, abdominal pain, bleeding, fevers, or worsening of medical condition. Patient was counseled about treatment plan, medications, possible side effects, patientverbalized understanding. All questions were answered to the best of my ability. This discharge took greater then 30 minutes in planning, reviewing documentation, counseling the patient, and discussing with other team members." ASSESSMENT ASSESSMENT Assessment CHF exacerbation AUGIE MURRIETA SURGERY TEACHER May 09, 2024 10:44
[2024-05-09 13:00] VITALS: BP 97/65; PULSE 76; RESP 21; TEMP 97.6; O2SAT 96
--- NOTE | 2024-05-09 22:33 | DVHPN2 ---
Progress Note - Dictate Date Seen: May 09, 2024 Medical Necessity Reason Pt with a Central, PICC or Fol: No Subjective Patient seen and examined at bedside. Breathing on room air Overnight events reviewed. vital signs Vital Sign Date Time Temp Pulse Resp B/P (MAP) Pulse Ox O2 Delivery O2 Flow Rate FiO2 05/09/24 13:00 97.6 76 21 97/65 (76) 96 97.6 05/09/24 07:45 Nasal Cannula* 3 32 Total Intake and Output 05/08/24 05/08/24 05/09/24 15:00 23:00 07:00 Intake Total 1100 ml 250 ml Output Total 1000 ml Balance 1100 ml -750 ml objective Gen.: Patient lying in bed in no apparent distress. On room air. Head: Normocephalic, atraumatic. Eyes: EOMI/PERRLA. Ears: Normal hearing. Normal anatomy. Neck/trachea: Trachea midline, supple. Nose: Normal external anatomy. Mouth: Moist mucous membranes. Chest: Decreased air entry bilaterally. No wheezing or rhonchi. Cardiovascular: Positive S1, positive S2. Regular rate and rhythm. Abdomen: Positive bowel sounds in all 4 quadrants. Soft, non-tender, non- distended. : Deferred. Rectal: Deferred. Skin: Warm, dry. Intact. Extremities: 2+ radial pulses bilaterally. No lower extremity edema. Neuro: Awake, alert, oriented x3. No gross motor or sensory deficits. Cranial nerves II through XII intact. Gait not assessed. laboratory and microbiology Laboratory Tests 05/09/24 05:55 05/07/24 06:14 Test 05/09/24 05:55 Range/Units Serum Glucose 79 74-106 mg/dL Assessment/Plan Impression: Acute hypoxic respiratory failure Dependence on supplemental oxygen Recurrent DVT. Pulmonary hypertension, WHO class IV Recurrent pulmonary embolism. Pleural effusions. Atelectasis. COPD Seasonal allergies Dementia Events: Breathing on room air No respiratory distress. Improved o2 requirements. Diurese w/ Lasix BID Monitor renal function Monitor ins and outs Incentive spirometry Continue antibiotics Patient is stable for discharge from the pulmonary standpoint. Labs and imaging reviewed. Rest of plan as noted below. Plan: Supplemental oxygen PRN Titrate to keep O2 sats above 92%. Ultrasound venous Doppler of bilateral lower extremities showed no e/o deep venous thrombosis. CTA showing evidence of chronic pulmonary embolism. Eliquis. Continue bronchodilators PRN Continue Trelegy Antibiotics Cetirizine for allergies. Incentive spirometry ID recs appreciated. Diurese to euvolemia w/ Lasix Monitor renal function. Monitor electrolytes. Supplement as necessary. Monitor ins and outs. DVT prophylaxis. Prognosis: Poor given patient's multiple co-morbidities. Rest of plan per hospitalist and other consultants. Thank you, GUS Robin, for allowing me to participate in this patient's care. Further recommendations will depend on the patient's clinical course. Please do not hesitate to contact me if you have any questions or concerns. This medical document was created using an electronic medical record system with [employer] dictation system. Although these documentations are being carefully reviewed, there may still be some phonetic and typographical changes. The errors are purely typographical, due to imperfection on the software program, and do not reflect any compromise in the patient's medical care. Plan discussed with: Patient, Other (GAIL Morgan) MATTEO WRIGHT MD May 09, 2024 22:33
== END 2024-05-09 13:29 | disposition home or self-care (01) | DRG 291 ==
LOC: EDBD 04:49 → ER 04:49 → OVERFLOW 10:39 → TELE-EAST 10:42 → TELE 15:17 → TELE-EAST 23:29
PROVIDERS: ADMIT Nurse Practitioner; ATTEND Nurse Practitioner
DX: I13.0 Hypertensive heart and chronic kidney disease with heart failure and stage 1 through stage 4 chronic kidney disease, or unspecified chronic kidney disease (principal); I50.43 Acute on chronic combined systolic (congestive) and diastolic (congestive) heart failure; J96.01 Acute respiratory failure with hypoxia; I27.82 Chronic pulmonary embolism; E11.65 Type 2 diabetes mellitus with hyperglycemia; E66.9 Obesity, unspecified; F03.90 Unspecified dementia, unspecified severity, without behavioral disturbance, psychotic disturbance, mood disturbance, and anxiety; I16.0 Hypertensive urgency; I27.20 Pulmonary hypertension, unspecified; E78.00 Pure hypercholesterolemia, unspecified; J44.9 Chronic obstructive pulmonary disease, unspecified; N18.9 Chronic kidney disease, unspecified; E11.22 Type 2 diabetes mellitus with diabetic chronic kidney disease; N28.1 Cyst of kidney, acquired; Z99.81 Dependence on supplemental oxygen; Z88.0 Allergy status to penicillin; Z86.718 Personal history of other venous thrombosis and embolism; Z83.3 Family history of diabetes mellitus; Z82.49 Family history of ischemic heart disease and other diseases of the circulatory system; Z79.899 Other long term (current) drug therapy; Z79.82 Long term (current) use of aspirin; Z79.01 Long term (current) use of anticoagulants; Z91.199 Patient's noncompliance with other medical treatment and regimen due to unspecified reason; Z68.32 Body mass index [BMI] 32.0-32.9, adult
CPT/HCPCS: 36415; 36600; 71045; 71275; 74176; 76700; 80048; 80053; 82805; 82962; 83735; 83880; 84484; 85025; 85379; 85610; 85730; 87081; 93005; 93306; 93970; 94640; 96372; 96374; 99291; 99292; G0378; J1815

== ENCOUNTER 2024-09-10 08:25 | Inpatient (IN) | payer MEDICARE, OTHER ==
[~2024-09-10] VITALS: Ht 175.3 cm; Wt 89.8 kg
[~2024-09-10 08:25] MED LIST changes: -ASPI-325 PO; -BRIM0.2S17 EACHEYE; +FURO1TAB31 PO; -FURO40TA4 PO; -HYDR-4798 PO; -HYDR25TA87 PO; -IPRAAER6 INH; -LOSA-534 PO; -METF-869 PO; -METO2.5T PO
--- NOTE | 2024-09-10 08:54 | ED.PDOC ---
History of Present Illness HPI Comments [id number] female presents with a chief complaint of bilateral lower extremity swelling x "weeks". Patient has bilateral pitting edema. Patient is also endorsing that he has SOB with exertion. Patient denies any chest pain at this time. Chief Complaint: Extremity Swelling Time Seen by MD: 08:45 Primary Care Provider: EDWINA Reviewed Notes: Medications, Allergies Allergies: Coded Allergies: Bee Venom (Verified Allergy, Severe, Swelling, 09/18/19) Penicillins (Verified Allergy, Severe, Facial swelling, 09/18/19) Home Meds Active Scripts Furosemide (Lasix) 40 Mg Tab, 40 MG PO DAILY for 30 Days, #30 TAB Prov:AUGIE MURRIETA SIDE DOOR MAN 05/09/24 Metoprolol Succinate (Metoprolol Succinate Er) 25 Mg Tab, 1 TAB PO DAILY for 30 Days, #30 TAB Prov:AUGIE MURRIETA SIDE DOOR MAN 05/09/24 Brimonidine Tartrate (ALPHAGAN P 0.15% OPTHALMIC) [address], 1 DROP EACHEYE BID, #15 ML 3 Refills Prov:AUGIE MURRIETA NP 01/06/24 Reported Medications Cetirizine Hcl (Kls Aller-Jaylyn) 10 Mg Tab, 1 TAB PO HS for 30 Days, #30 3 Refills 01/02/24 Dapagliflozin Propanediol (Farxiga) 10 Mg Tab, 5 MG PO DAILY for 90 Days, #90 01/02/24 Senna (Estela-Nicole) 8.6 Mg Tab, 2-4 TAB PO QPM PRN for FOR CONSTIPATION for 15 Days, #60 01/02/24 Budesonide-Formoterol Fumarate (Budesonide/Formoterol Fum 160-4.5 Mcg/Act) 1 Aer Aer, 2 PUFF INH BID for 30 Days, #10.2 01/02/24 Oxybutynin Chloride (Oxybutynin Chloride) 5 Mg Tab, 15 MG PO DAILY for 90 Days, #90 01/02/24 Pravastatin Sodium (PRAVACHOL TABLET) 20 Mg Tb, 1 TAB PO DAILY for 90 Days, #90 01/02/24 Netarsudil Dimesylate-Latanopr (Rocklatan 0.02-0.005 %) 1 Adrian Adrian, 1 ADRIAN EACHEYE QPM for 25 Days, #2 01/02/24 Apixaban Base (ELIQUIS) 5 Mg Tab, 1 TAB PO BID for 30 Days, #60 01/02/24 Gdgnpswirsw-Bdctrdmlbwsw-Bpjnk (Trelegy Ellipta 200-62.5-25 Mcg/INH) 1 Aer Aer, 1 PUFF PO DAILY 04/23/23 Amlodipine Besylate (Amlodipine Besylate) 10 Mg Tab, 1 TAB PO DAILY 04/23/23 Memantine Hydrochloride (Memantine HCl) 10 Mg Tab, 1 TAB PO BID for 90 Days, # 180 04/22/23 Cholecalciferol (VITAMIN D3) 5,000 Unit Cap, 1 CAP PO DAILY 04/22/23 Tamsulosin Hcl (Flomax) 0.4 Mg Cap, 2 CAP PO DAILY for 45 Days, #90 06/18/19 Information Source: Patient Mode of Arrival: Ambulatory Severity: Moderate Timing: Weeks Duration: Since onset Prehospital treatment: None Past Medical History PAST MEDICAL HISTORY: Asthma, CHF, COPD, DM, High Lipids, HTN, [place] Surgical History: Hernia Repair Family History Family History: Reviewed,noncontributory to illness Social History Smoker: Non-Smoker Alcohol: Denies ETOH Use Drugs: Denies Drug Use Lives In: Home Constitutional: denies: chills, diaphoresis, fatigue, fever, malaise, sweats, weakness, others EENTM: denies: blurred vision, double vision, ear bleeding, ear discharge, ear drainage, ear pain, ear ringing, eye pain, eye redness, hearing loss, mouth pain, mouth swelling, nasal discharge, nose bleeding, nose congestion, nose pain, photophobia, tearing, throat pain, throat swelling, voice changes, others Respiratory: reports: shortness of breath, SOB with excertion; denies: cough, hemoptysis, orthopnea, SOB at rest, stridor, wheezing, others Cardiovascular: reports: edema; denies: chest pain, dizzy spells, diaphoresis, Dyspnea on exertion, irregular heart beat, left arm pain, lightheadedness, palpitations, PND, syncope, others Gastrointestinal: denies: abdomen distended, abdominal pain, blood streaked bowels, constipated, diarrhea, dysphagia, difficulty swallowing, hematemesis, melena, nausea, poor appetite, poor fluid intake, rectal bleeding, rectal pain, vomiting, others Genitourinary: denies: burning, dysuria, flank pain, frequency, hematuria, incontinence, penile discharge, penile sore, pain, testicle pain, testicle swelling, urgency, others Neurological: denies: dizziness, fainting, headache, left sided numbness, left sided weakness, numbness, paresthesia, pre-existing deficit, right sided numbness, right sided weakness, seizure, speech problems, tingling, tremors, weakness, others Musculoskeletal: denies: back pain, gout, joint pain, joint swelling, muscle pain, muscle stiffness, neck pain, others Integumetry: denies: bruises, change in color, change in hair/nails, dryness, laceration, lesions, lumps, rash, wounds, others Allergic/Immunocompromised: denies: Difficulty Healing, Frequent Infections, Hives, Itching, others Hematologic/Lymphatic: denies: anemia, blood clots, easy bleeding, easy bruising, swollen glands, others Endocrine: denies: excessive hunger, excessive sweating, excessive thirst, excessive urination, flushing, intolerance to cold, intolerance to heat, unexplained weight gain, unexplained weight loss, others Psychiatric: denies: anxiety, bipolar disorder, depression, hopeless, panic disorder, schizophrenia, sleepless, suicidal, others All Other Systems: Reviewed and Negative Physical Exam General Appearance: Moderate Distress, Normal HEENT: Normal ENT Inspection, Pharynx Normal, TMs Normal Neck: Full Range of Motion, Non-Tender, Normal, Normal Inspection Respiratory: Chest Non-Tender, Lungs Clear, No Accessory Muscle Use, No Respiratory Distress, Normal Breath Sounds Cardiovascular: No Edema, No JVD, No Murmur, No Gallop, Normal Peripheral Pulses, Regular Rate/Rhythm Breast Exam: Deferred Gastrointestinal: No Organomegaly, Non Tender, No Pulsatile Mass, Normal Bowel Sounds, Soft Genitalia: Deferred Pelvic: Deferred Rectal: Deferred Extremities: No calf tenderness, Normal capillary refill, Normal range of motion, Non-tender, Pedal edema, Swelling (Bilateral lower extremity) Musculoskeletal : Apperance: Normal Neurologic: Alert, welding 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 Was a procedure done?: No Differential Dx Considerations may include: CHF Electrolyte imbalance X-Ray, Labs, Meds, VS Vital Signs Date Time Temp Pulse Resp B/P (MAP) Pulse Ox O2 Delivery O2 Flow Rate FiO2 09/10/24 09:16 98.1 80 18 142/86 (104) 95 98.1 09/10/24 08:37 82 09/10/24 08:29 97.4 83 22 160/88 (112) 96 97.4 Lab Test 09/10/24 09:05 09/10/24 08:34 Range/Units White Blood Count Pending Red Blood Count Pending Hemoglobin Pending Hematocrit Pending Mean Corpuscular Volume Pending Mean Corpuscular Hemoglobin Pending Mean Corpuscular Hemoglobin Concent Pending Red Cell Distribution Width Pending Platelet Count Pending Mean Platelet Volume Pending Neutrophils (%) (Auto) Pending Lymphocytes (%) (Auto) Pending Monocytes (%) (Auto) Pending Basophils (%) (Auto) Pending Neutrophils # (Auto) Pending Lymphocytes # (Auto) Pending Monocytes # (Auto) Pending Sodium Level Pending Potassium Level Pending Chloride Level Pending Carbon Dioxide Level Pending Anion Gap Pending Blood Urea Nitrogen Pending Creatinine Pending Glomerular Filtration Rate Calc Pending BUN/Creatinine Ratio Pending Serum Glucose Pending Calcium Level Pending Troponin I High Sensitivity Pending B-Type Natriuretic Peptide Pending Urine Color Pending Urine Clarity Pending Urine pH Pending Urine Specific [place] Pending Urine Protein Pending Urine Ketones Pending Urine Blood Pending Urine Nitrite Pending Urine Bilirubin Pending Urine Urobilinogen Pending Urine Leukocyte Esterase Pending Urine RBC Pending Urine Microscopic WBC Pending Urine Squamous Epithelial Cells Pending Urine Bacteria Pending Urine Glucose Pending Patient alert. Vitals stable. Answering questions. Heart rate within normal limits. Complaining of shortness a breath. Has bilateral lower extremity swelling. Has pitting edema on examination. Was given Lasix. Reviewed his previous visit. EKG reviewed does not show any acute changes. Explained to the patient that he will be admitted for further workup his swelling with echocardiogram. Continue cardiac monitoring. Time of 1ST Reevaluation: 08:51 (SPOKE WITH THE PATIENT THAT HE WILL BE ADMITTED DUE TO THE PRESENTATION OF HIS SYMPTOMS AND HIS CURRENT RISK FACTORS. PATIENT IS IN AGREEMENT WITH THE PLAN. ) Reevaluation 1ST: Unchanged Patient Education/Counseling: Diagnosis, Treatment Family Education/Counseling: No Family Present Departure 1 Departure Time of Disposition: 09:23 Impression: Primary Impression: CHF (congestive heart failure) Qualified Codes: I50.43 - Acute on chronic combined systolic (congestive) and diastolic (congestive) heart failure Disposition: ADMITTED INPATIENT Admit to: Med Surg Condition: Guarded Comments 08:51 - SPOKE WITH THE PATIENT THAT HE WILL BE ADMITTED DUE TO THE PRESENTATION OF HIS SYMPTOMS AND HIS CURRENT RISK FACTORS. PATIENT IS IN AGREEMENT WITH THE PLAN. Critical Care Note Critical Care Time?: Yes (90 min-critical care time only) Critical care comment: CHF was given Lasix Stability Stability form required: No Heart Score Heart Score: Heart Score Response (Comments) Value History Slightly Suspicious 0 EKG Normal 0 Age >65 2 Risk Factors >3 or Hx ASHD 2 Troponin Normal limit 0 Total 4 I personally scribed for RAFI STEPHENSON MD ([email or web address]) on 09/10/24 at 08:54. Electronically submitted by Wali Lomeli ([email or web address]). I personally scribed for RAFI STEPHENSON MD ([email or web address]) on 09/10/24 at 09:32. Electronically submitted by Wali Lomeli ([email or web address]). RAFI STEPHENSON MD September 10, 2024 08:54
[2024-09-10 09:22] LABS: Urine Bacteria None Seen /hpf (None Seen)
[2024-09-10 09:26] LABS: Basophils # (auto) 0 10 ^3/uL (0-0.2); Basophils % (auto) 0.5 % (0.0-2.0); Eosinophils # (auto) 0.1 10 ^3/uL (0-0.8); Eosinophils % (auto) 1.3 % (0.0-7.0); Hematocrit 43.7 % (41.0-53.0); Hemoglobin 14.2 g/dL (13.5-17.5); Lymphocytes # (auto) 0.8 10 ^3/uL (0.4-5.4); Lymphocytes % (auto) 17.6 % (10.0-50.0); Mean Corpuscular Hemoglobin 27.2 pg (28.0-32.0); Mean Corpuscular Hgb Conc. 32.5 g/dL (32.0-36.0); Mean Corpuscular Volume 83.6 fL (80.0-100.0); Monocytes # (auto) 0.4 10 ^3/uL (0-1.3); Monocytes % (auto) 8.2 % (0.0-12.0); Neutrophils # (auto) 3.2 10 ^3/uL (1.6-8.6); Neutrophils % (auto) 72.4 % (37.0-80.0); Nucleated Red Blood Cells % 0.1 %; Platelet Count (auto) 165 10^3/uL (140-450); Red Blood Cells 5.23 10^6/uL (4.5-5.90); Red Cell Distribution Width 16.6 % (11.8-14.3); White Blood Cell 4.4 10^3/uL (4.4-10.8)
--- NOTE | 2024-09-10 09:28 | DVH ---
EXAM: XY CHEST PORTABLE Indication: sob Technique: Single frontal view of the chest was obtained Comparison: XY CHEST PORTABLE on DOS: 05/06/24, XY CHEST PORTABLE on DOS: 01/01/24, XY CHEST PORTABLE on DOS: 04/23/23, XY CHEST PORTABLE on DOS: 04/22/23, CHEST PORTABLE on DOS: 06/17/19 FINDINGS: Lines and Tubes: None Lungs: No focal consolidation. Pleura: Trace bilateral pleural effusion. No pneumothorax. Cardiomediastinal contours: Cardiomegaly. Bones: No acute osseous abnormality. IMPRESSION: Cardiomegaly with pulmonary vascular congestion and trace bilateral pleural effusions.
[2024-09-10 09:37] LABS: Potassium 3.8 mmol/L (3.5-5.1); Sodium 141 mmol/L (136-145)
[2024-09-10 09:38] LABS: Anion Gap 6 (5-15); Calcium 10.1 mg/dL (8.7-10.4); Carbon Dioxide 26 mmol/L (20-31)
[2024-09-10 09:43] LABS: BUN/Creatinine Ratio 11.8 (10.0-20.0); Blood Urea Nitrogen 14 mg/dL (9-23)
[2024-09-10 09:44] LABS: Chloride 109 mmol/L (98-107); Glucose 110 mg/dL (74-106)
--- NOTE | 2024-09-10 10:05 | ECG ---
[facility] Test Date: 2024-09-10 Test Time: 08:37:44 Pat Name: IVÁN MEANS Department: ER Room: 0247T Gender: M Medicare Biller: ALEJANDRA : 1935 Requested By: RAFI STEPHENSON Order Number: [id number] Reading MD: Shamar Dumas Measurements Intervals Anderson Rate: 82 P: 23 NE: 247 QRS: 27 QRSD: 79 T: 26 QT: 375 QTc: 438 Interpretive Statements Sinus rhythm Atrial premature complex Prolonged NE interval Low voltage, precordial leads Abnormal R-wave progression, early transition Electronically Signed On 09-11-2024 12:47:43 PDT by Shamar Dumas Please click the below link to view image of tracing.
[2024-09-10 10:19] LABS: Urine Blood Negative /uL (Negative); Urine Clarity Clear (Clear); Urine Color Light-Yellow (Yellow); Urine Protein, UAD Negative (Negative); Urine Specific Gravity 1.014 (1.001-1.035); Urine Squamous Epithelial Cell None Seen /hpf (<5); Urine Urobilinogen Normal (Negative); Urine WBC < 1 /HPF (0-3)
[2024-09-10] MEDS: FUROSEMIDE 40 MG/4 ML VIAL IV ONE (11:00)
[2024-09-10] MEDS ORDERED: MORPHINE SULFATE INJ 2 MG/ml SYRG IV PRN (13:00)
[2024-09-10] MEDS ORDERED: ONDANSETRON HCL 4 MG/2 ML VIAL IV PRN (13:00)
[2024-09-10] MEDS ORDERED: NITROGLYCERIN 0.4 MG SL TAB SL PRN (13:00)
[2024-09-10] MEDS ORDERED: ACETAMINOPHEN 325 MG TAB PO PRN (13:00)
--- NOTE | 2024-09-10 13:45 | DVHPN2 ---
Progress Note - Dictate Date Seen: September 10, 2024 Medical Necessity Reason Pt with a Central, PICC or Fol: No vital signs Vital Sign Date Time Temp Pulse Resp B/P (MAP) Pulse Ox O2 Delivery O2 Flow Rate FiO2 09/10/24 12:20 98.0 73 18 170/99 (122) 96 98.0 09/10/24 10:45 Room Air* 0 21 medications Current Medications Medications Dose Ordered Sig/Kristi Route Start Time Stop Time Status Last Admin Dose Admin Acetaminophen/ Hydrocodone Bitart 1 tab Q4HP PRN PO 09/10/24 13:00 Ondansetron HCl 4 mg Q4HP PRN IV 09/10/24 13:00 Acetaminophen 650 mg Q6HP PRN PO 09/10/24 13:00 Morphine Sulfate 2 mg Q4HPRN PRN IV 09/10/24 13:00 Nitroglycerin 0.4 mg Q5MINP PRN SL 09/10/24 13:00 Morphine Sulfate 2 mg Q30M PRN IV 09/10/24 13:00 Apixaban 5 mg BID PO 09/10/24 22:00 UNV Oxybutynin Chloride 15 mg DAILY PO 09/11/24 10:00 UNV Pravastatin Sodium 20 mg DAILY PO 09/11/24 10:00 UNV Tamsulosin HCl 0.4 mg DAILY PO 09/11/24 10:00 UNV Patient Own Medication 1 tab DAILY PO 09/11/24 10:00 UNV Patient Own Medication 1 drop BID EACHEYE 09/10/24 22:00 UNV Patient Own Medication 2 puff BID INH 09/10/24 22:00 UNV Patient Own Medication 1 tab HS PO 09/10/24 22:00 UNV Patient Own Medication 1 tab BID PO 09/10/24 22:00 UNV Patient Own Medication 1 tab DAILY PO 09/11/24 10:00 UNV Furosemide 40 mg DAILY IV 09/11/24 10:00 UNV Pantoprazole Sodium 40 mg DAILY@0600 PO 09/11/24 06:00 UNV objective General Appearance: alert, no distress HEENT: EOMI, PERRLA, normal external inspect of ears, no icterus, no nasal drainage Neck: no carotid bruit, no jugular venous distention (JVD), no lymphadenopathy Chest: normal thorax Respiratory: clear to auscultation, normal air movement Cardiovascular: regular rate and rhythm, no diastolic murmur, no jugular venous distention (JVD), no rub, no systolic murmur Abdominal: soft, no hepatomegaly, no mass, no splenomegaly, no tenderness Genitourinary: grossly normal external Musculoskeletal: no joint tenderness, no swelling Extremities: normal pulses, no calf tenderness, no clubbing, no cyanosis, no edema Skin: no bruising, no jaundice, no rash Neurological: alert, No focal deficit laboratory and microbiology Laboratory Tests 09/10/24 09:05 Test 09/10/24 09:05 Range/Units Serum Glucose 110 H 74-106 mg/dL Problem List 1. Acute on chronic diastolic heart failure Cardiology consult, monitoring 2. Chronic anticoagulation Restart Eliquis 3. Dementia Restart dementia meds 4. HLD Lipid Panel, PPI Assessment/Plan Subjective: Patient is awake and alert. Objective: Patient was admitted for unstable angina and acute on chronic systolic heart failure. Patient has a history of CAD. Cardiology was consulted. Echocardiogram was done; results currently pending. Plan: Continue current treatment. Monitor EKG. Continue diuretics. Plan discussed with: Patient, Other AUGIE MURRIETA NP September 10, 2024 13:45
[2024-09-10 14:43] VITALS: BP 170/99; PULSE 73; RESP 18; O2SAT 96
--- NOTE | 2024-09-10 16:52 | DVHINCON2 ---
Date of service: September 10, 2024 History of Present Illness 89 yo M with hx of DVT/PE , pad , htn AAA admitted for leg swelling. bnp is mildy elevated. Past Medical History reviewed Family History: Benign prostate tumor G8 FATHER Diabetes mellitus G8 MOTHER Hypercholesterolemia G8 MOTHER Hypertension G8 MOTHER Allergies: Coded Allergies: Bee Venom (Verified Allergy, Severe, Swelling, 09/18/19) Penicillins (Verified Allergy, Severe, Facial swelling, 09/18/19) Home Meds Active Scripts Furosemide (Lasix) 40 Mg Tab, 40 MG PO DAILY for 30 Days, #30 TAB Prov:AUGIE MURRIETA Jagjit SOLUTIONS MANAGER 05/09/24 Metoprolol Succinate (Metoprolol Succinate Er) 25 Mg Tab, 1 TAB PO DAILY for 30 Days, #30 TAB Prov:AUGIE MURRIETA Jagjit SOLUTIONS MANAGER 05/09/24 Brimonidine Tartrate (ALPHAGAN P 0.15% OPTHALMIC) [address], 1 DROP EACHEYE BID, #15 ML 3 Refills Prov:GLENNYMALCOLMAUGIE M SOLUTIONS MANAGER 01/06/24 Reported Medications Cetirizine Hcl (Kls Aller-Jaylyn) 10 Mg Tab, 1 TAB PO HS for 30 Days, #30 3 Refills 01/02/24 Dapagliflozin Propanediol (Farxiga) 10 Mg Tab, 5 MG PO DAILY for 90 Days, #90 01/02/24 Senna (Estela-Nicole) 8.6 Mg Tab, 2-4 TAB PO QPM PRN for FOR CONSTIPATION for 15 Days, #60 01/02/24 Budesonide-Formoterol Fumarate (Budesonide/Formoterol Fum 160-4.5 Mcg/Act) 1 Aer Aer, 2 PUFF INH BID for 30 Days, #10.2 01/02/24 Oxybutynin Chloride (Oxybutynin Chloride) 5 Mg Tab, 15 MG PO DAILY for 90 Days, #90 01/02/24 Pravastatin Sodium (PRAVACHOL TABLET) 20 Mg Tb, 1 TAB PO DAILY for 90 Days, #90 01/02/24 Netarsudil Dimesylate-Latanopr (Rocklatan 0.02-0.005 %) 1 Adrian Adrian, 1 ADRIAN EACHEYE QPM for 25 Days, #2 01/02/24 Apixaban Base (ELIQUIS) 5 Mg Tab, 1 TAB PO BID for 30 Days, #60 01/02/24 Bmhimcocvkh-Vabyqujltdsx-Tistn (Trelegy Ellipta 200-62.5-25 Mcg/INH) 1 Aer Aer, 1 PUFF PO DAILY 04/23/23 Amlodipine Besylate (Amlodipine Besylate) 10 Mg Tab, 1 TAB PO DAILY 04/23/23 Memantine Hydrochloride (Memantine HCl) 10 Mg Tab, 1 TAB PO BID for 90 Days, #180 04/22/23 Cholecalciferol (VITAMIN D3) 5,000 Unit Cap, 1 CAP PO DAILY 04/22/23 Tamsulosin Hcl (Flomax) 0.4 Mg Cap, 2 CAP PO DAILY for 45 Days, #90 06/18/19 Current Medications Current Medications Medications (Trade) Dose Ordered Sig/Kristi Route PRN Reason Start Time Stop Time Status Last Admin Acetaminophen/ Hydrocodone Bitart ([place] 5/325MG Tab) 1 tab Q4HP PRN PO MODERATE PAIN (4-6 PAIN SCALE) 09/10/24 13:00 Ondansetron HCl (Zofran) 4 mg Q4HP PRN IV NAUSEA / VOMITING 09/10/24 13:00 Acetaminophen (Tylenol Tablet) 650 mg Q6HP PRN PO PAIN SCALE 1-3 OR TEMP>100.4 09/10/24 13:00 Morphine Sulfate 2 mg Q4HPRN PRN IV SEVERE PAIN (7-10 PAIN SCALE) 09/10/24 13:00 Nitroglycerin (Ntrostat Sublingual) 0.4 mg Q5MINP PRN SL FOR CHEST PAIN 09/10/24 13:00 Morphine Sulfate 2 mg Q30M PRN IV FOR CHEST PAIN 09/10/24 13:00 Apixaban (Eliquis) 5 mg BID PO 09/10/24 22:00 Oxybutynin Chloride (Ditropan Tablet) 15 mg DAILY PO 09/11/24 10:00 Pravastatin Sodium (Pravachol Tablet) 20 mg HS PO 09/10/24 22:00 Tamsulosin HCl (Flomax) 0.4 mg QPM PO 09/10/24 18:00 Amlodipine Besylate (Norvasc Tablet) 10 mg DAILY PO 09/11/24 10:00 Brimonidine Tartrate (ALPHAGAN 0.2% OPT Sol) 1 drop BID EACHEYE 09/10/24 22:00 Budesonide (Pulmicort) 0.5 mg BID NEB 09/10/24 22:00 Loratadine (Claritin Tablet) 10 mg HS PO 09/10/24 22:00 Memantine (Namenda Tablet) 10 mg BID PO 09/10/24 22:00 Metoprolol Succinate (Toprol Xl) 25 mg DAILY PO 09/11/24 10:00 Furosemide (Lasix Injection) 40 mg DAILY IV 09/11/24 10:00 Pantoprazole Sodium (Protonix Tablet) 40 mg DAILY@0600 PO 09/11/24 06:00 Albuterol (Ventolin Medneb) 2.5 mg Q6HR NEB 09/10/24 18:00 Review of Systems 10 pt ros otherwise negative Vital Signs Vital Signs Date Time Temp Pulse Resp B/P (MAP) Pulse Ox O2 Delivery O2 Flow Rate FiO2 09/10/24 14:43 73 18 170/99 96 0.0 21 09/10/24 14:42 98.0 98.0 09/10/24 10:45 Room Air* Physical Exam nad s1 s2 rrr ctab soft nt/nd _1 leg edema Labs/Diagnostic Data Labs Test 09/10/24 12:00 09/10/24 09:05 09/10/24 08:34 Range/Units Troponin I High Sensitivity 38 </=54 ng/L White Blood Count 4.4 4.4-10.8 10^3/uL Red Blood Count 5.23 4.5-5.90 10^6/uL Hemoglobin 14.2 13.5-17.5 g/dL Hematocrit 43.7 41.0-53.0 % Mean Corpuscular Volume 83.6 80.0-100.0 fL Mean Corpuscular Hemoglobin 27.2 L 28.0-32.0 pg Mean Corpuscular Hemoglobin Concent 32.5 32.0-36.0 g/dL Red Cell Distribution Width 16.6 H 11.8-14.3 % Platelet Count 165 140-450 10^3/uL Mean Platelet Volume 9.6 6.9-10.8 fL Neutrophils (%) (Auto) 72.4 37.0-80.0 % Lymphocytes (%) (Auto) 17.6 10.0-50.0 % Monocytes (%) (Auto) 8.2 0.0-12.0 % Eosinophils (%) (Auto) 1.3 0.0-7.0 % Basophils (%) (Auto) 0.5 0.0-2.0 % Neutrophils # (Auto) 3.2 1.6-8.6 10 ^3/uL Lymphocytes # (Auto) 0.8 0.4-5.4 10 ^3/uL Monocytes # (Auto) 0.4 0-1.3 10 ^3/uL Eosinophils # (Auto) 0.1 0-0.8 10 ^3/uL Basophils # (Auto) 0 0-0.2 10 ^3/uL Nucleated Red Blood Cells 0.1 % Sodium Level 141 136-145 mmol/L Potassium Level 3.8 3.5-5.1 mmol/L Chloride Level 109 H 98-107 mmol/L Carbon Dioxide Level 26 20-31 mmol/L Anion Gap 6 5-15 Blood Urea Nitrogen 14 9-23 mg/dL Creatinine 1.19 0.700-1.30 mg/dL Glomerular Filtration Rate Calc 59 >90 mL/min BUN/Creatinine Ratio 11.8 10.0-20.0 Serum Glucose 110 H 74-106 mg/dL Calcium Level 10.1 8.7-10.4 mg/dL B-Type Natriuretic Peptide 434.28 0-100 pg/mL Urine Color Light-yellow Yellow Urine Clarity Clear Clear Urine pH 7.0 5.0-9.0 Urine Specific [place] 1.014 1.001-1.035 Urine Protein Negative Negative Urine Ketones Negative Negative Urine Blood Negative Negative /uL Urine Nitrite Negative Negative Urine Bilirubin Negative Negative Urine Urobilinogen Normal Negative mg/dL Urine Leukocyte Esterase Negative Negative /uL Urine RBC 2 0 - 3 /hpf Urine Microscopic WBC < 1 0-3 /HPF Urine Squamous Epithelial Cells None seen <5 /hpf Urine Bacteria None seen None Seen /hpf Urine Glucose 4+ H Normal mg/dL Assessment mild chf exacerbation nyha class III ckd hx of dvt hx of pe Plan/Recommendation check venous and arterial US iv lasix check tele resume HF meds Plan discussed with: Patient EDWINAEL Weiner MD September 10, 2024 16:52
--- NOTE | 2024-09-10 18:31 | DVH ---
BILATERAL LOWER EXTREMITY VENOUS DOPPLER ULTRASOUND CLINICAL HISTORY: hx of RLE dvt. r/o dvt TECHNIQUE: Grayscale ultrasound with compression, color Doppler flow imaging with pulsed duplex sonog dheeraj of the bilateral lower extremity deep venous system from the common femoral veins through the p opliteal veins is performed. COMPARISON: US BILAT LOWER DVT on DOS: 05/07/24 FINDINGS: Right common femoral vein: Negative. Right greater saphenous vein: Negative. Right deep femoral vein: Negative. Right femoral vein: Negative. Right popliteal vein: Negative. Left common femoral vein: Negative. Left greater saphenous vein: Negative. Left deep femoral vein: Negative. Left femoral vein: Negative. Left popliteal vein: Negative. Other: Visualized bilateral popliteal trifurcation and posterior tibial veins demonstrate color flow. IMPRESSION: No sonographic evidence of deep venous thrombosis in either lower extremity at this time.
--- NOTE | 2024-09-10 18:39 | DVH ---
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 Finding: RIGHT: Peak systolic velocities are as follows: HOT METAL CHARGER 67 cm/s Deep femoral 51 cm/s SFA proximal 69 cm/s SFA mid-portion 134 cm/s SFA distal 118 cm/s Popliteal 67 cm/s Posterior tibial 42 cm/s Dorsalis pedis 55 cm/s Biphasic and triphasic waveforms of the right lower extremity arteries. Flow seen throughout the superficial femoral artery stent. LEFT: Peak systolic velocities are as follows: HOT METAL CHARGER 108 cm/s Deep femoral 87 cm/s SFA proximal 81 cm/s SFA mid-portion 65 cm/s SFA distal 97 cm/s Popliteal 59 cm/s Posterior tibial 44 cm/s Dorsalis pedis 63 cm/s Biphasic and triphasic waveforms throughout the left lower extremity arteries. IMPRESSION: No hemodynamically significant stenosis involving the bilateral lower extremity arteries. The right superficial femoral artery stent appears patent. REFERENCE VALUES, [facility] ([facility]) vascular Imaging Lab Criteria: Peak systolic velocity ranges (in cm/sec) are as follows: <150 cm/s - <20 % stenosis 150-200 cm/s - 20-49% stenosis 200-300 cm/s - 50-75% stenosis >300 cm/s -> 75% stenosis
[2024-09-10 18:43] VITALS: PULSE 85; RESP 20; O2SAT 97
[2024-09-10] MEDS: ALBUTEROL SULF 2.5 MG/0.5ML(0.5%) NEB SOLN NEB SCH (18:43)
[2024-09-10] MEDS: BUDESONIDE (INHALATION) 0.5 MG/2 ML NEB NEB SCH (18:43)
[2024-09-10 18:53] VITALS: PULSE 89; RESP 20; O2SAT 100
[2024-09-10] MEDS: TAMSULOSIN HYDROCHLORIDE 0.4 MG CAP PO SCH (18:53)
[2024-09-10 21:44] VITALS: BP 162/102; PULSE 78; PULSE 80; RESP 18; TEMP 98.1; O2SAT 98
[2024-09-10] MEDS: BRIMONIDINE 0.2% OPTH Soln 5ml EACHEYE SCH (22:00)
[2024-09-10] MEDS: LORATADINE 10 MG TAB PO SCH (22:13)
[2024-09-10] MEDS: APIXABAN 5 MG TAB PO SCH (22:14)
[2024-09-10] MEDS: MEMANTINE HCL 5 MG TAB PO SCH (22:14)
[2024-09-10] MEDS: PRAVASTATIN SODIUM 20 MG TAB PO SCH (22:14)
[2024-09-10] MEDS: MORPHINE SULFATE INJ 2 MG/ml SYRG IV PRN (22:47)
[2024-09-11] VITALS (14 sets, daily range): BP systolic 138–160; BP diastolic 86–91; PULSE 62–79; RESP 14–18; TEMP 36.4; O2SAT 91–100
[2024-09-11] MEDS: PANTOPRAZOLE 40 MG TAB PO SCH (05:38)
[2024-09-11] MEDS: HYDROcodone-ACET 5/325MG TAB PO PRN (06:09)
[2024-09-11 06:55] LABS: Basophils # (auto) 0 10 ^3/uL (0-0.2); Basophils % (auto) 0.5 % (0.0-2.0); Eosinophils # (auto) 0.1 10 ^3/uL (0-0.8); Eosinophils % (auto) 1.7 % (0.0-7.0); Hemoglobin 14.1 g/dL (13.5-17.5); Lymphocytes % (auto) 21.7 % (10.0-50.0); Mean Corpuscular Hemoglobin 27.6 pg (28.0-32.0); Mean Corpuscular Hgb Conc. 32.8 g/dL (32.0-36.0); Mean Corpuscular Volume 84.3 fL (80.0-100.0); Monocytes # (auto) 0.5 10 ^3/uL (0-1.3); Monocytes % (auto) 10.8 % (0.0-12.0); Neutrophils # (auto) 2.9 10 ^3/uL (1.6-8.6); Neutrophils % (auto) 65.3 % (37.0-80.0); Nucleated Red Blood Cells % 0.1 %; Platelet Count (auto) 157 10^3/uL (140-450); Red Blood Cells 5.11 10^6/uL (4.5-5.90); Red Cell Distribution Width 16.3 % (11.8-14.3); White Blood Cell 4.4 10^3/uL (4.4-10.8)
[2024-09-11 07:07] LABS: Alanine Aminotransferase 17 U/L (7-40); Albumin 4.1 g/dL (3.2-4.8); Alkaline Phosphatase 101 U/L (46-116); Anion Gap 8 (5-15); Aspartate Aminotransferase 16 U/L (13-40); BUN/Creatinine Ratio 11.6 (10.0-20.0); Bilirubin, Total 0.6 mg/dL (0.2-1.0); Blood Urea Nitrogen 13 mg/dL (9-23); Calcium 9.8 mg/dL (8.7-10.4); Carbon Dioxide 28 mmol/L (20-31); Glucose 105 mg/dL (74-106); Potassium 3.5 mmol/L (3.5-5.1); Sodium 143 mmol/L (136-145); Total Protein 6.9 g/dL (5.7-8.2)
[2024-09-11 07:08] LABS: Chloride 107 mmol/L (98-107)
[2024-09-11] MEDS: amLODIPine BESYLATE 5 MG TAB PO SCH (10:11)
[2024-09-11] MEDS: FUROSEMIDE 40 MG/4 ML VIAL IV SCH (10:11)
[2024-09-11] MEDS: OXYBUTYNIN CHL 5 MG TAB PO SCH (10:12)
[2024-09-11] MEDS: METOPROLOL SUCCINATE XL 50 MG TAB PO SCH (10:14)
[2024-09-11 10:27] LABS: Hepatitis B Surface Antigen Negative (Negative); Hepatitis C Antibody Negative (Negative)
--- NOTE | 2024-09-11 10:37 | DVHDS2 ---
Discharge Summary Date of Admission September 10, 2024 at 12:50 Date of Discharge: September 11, 2024 Labs/Diagnostic Data: Laboratory Results Test 09/11/24 06:13 09/10/24 12:00 09/10/24 09:05 09/10/24 08:34 White Blood Count 4.4 10^3/uL (4.4-10.8) Red Blood Count 5.11 10^6/uL (4.5-5.90) Hemoglobin 14.1 g/dL (13.5-17.5) Hematocrit 43.0 % (41.0-53.0) Mean Corpuscular Volume 84.3 fL (80.0-100.0) Mean Corpuscular Hemoglobin 27.6 pg (28.0-32.0) Mean Corpuscular Hemoglobin Concent 32.8 g/dL (32.0-36.0) Red Cell Distribution Width 16.3 % (11.8-14.3) Platelet Count 157 10^3/uL (140-450) Mean Platelet Volume 11.0 fL (6.9-10.8) Neutrophils (%) (Auto) 65.3 % (37.0-80.0) Lymphocytes (%) (Auto) 21.7 % (10.0-50.0) Monocytes (%) (Auto) 10.8 % (0.0-12.0) Eosinophils (%) (Auto) 1.7 % (0.0-7.0) Basophils (%) (Auto) 0.5 % (0.0-2.0) Neutrophils # (Auto) 2.9 10 ^3/uL (1.6-8.6) Lymphocytes # (Auto) 1.0 10 ^3/uL (0.4-5.4) Monocytes # (Auto) 0.5 10 ^3/uL (0-1.3) Eosinophils # (Auto) 0.1 10 ^3/uL (0-0.8) Basophils # (Auto) 0 10 ^3/uL (0-0.2) Nucleated Red Blood Cells 0.1 % Sodium Level 143 mmol/L (136-145) Potassium Level 3.5 mmol/L (3.5-5.1) Chloride Level 107 mmol/L (98-107) Carbon Dioxide Level 28 mmol/L (20-31) Anion Gap 8 (5-15) Blood Urea Nitrogen 13 mg/dL (9-23) Creatinine 1.12 mg/dL (0.700-1.30) Glomerular Filtration Rate Calc 63 mL/min (>90) BUN/Creatinine Ratio 11.6 (10.0-20.0) Serum Glucose 105 mg/dL (74-106) Calcium Level 9.8 mg/dL (8.7-10.4) Total Bilirubin 0.6 mg/dL (0.2-1.0) Aspartate Amino Transferase (AST) 16 U/L (13-40) Alanine Aminotransferase (ALT) 17 U/L (7-40) Alkaline Phosphatase 101 U/L (46-116) Total Protein 6.9 g/dL (5.7-8.2) Albumin 4.1 g/dL (3.2-4.8) Hepatitis B Surface Antigen Negative (Negative) Hepatitis C Antibody Negative (Negative) Troponin I High Sensitivity 38 ng/L (</=54) B-Type Natriuretic Peptide 434.28 pg/mL (0-100) Urine Color Light-yellow (Yellow) Urine Clarity Clear (Clear) Urine pH 7.0 (5.0-9.0) Urine Specific [place] 1.014 (1.001-1.035) Urine Protein Negative (Negative) Urine Ketones Negative (Negative) Urine Blood Negative /uL (Negative) Urine Nitrite Negative (Negative) Urine Bilirubin Negative (Negative) Urine Urobilinogen Normal mg/dL (Negative) Urine Leukocyte Esterase Negative /uL (Negative) Urine RBC 2 /hpf (0 - 3) Urine Microscopic WBC < 1 /HPF (0-3) Urine Squamous Epithelial Cells None seen /hpf (<5) Urine Bacteria None seen /hpf (None Seen) Urine Glucose 4+ mg/dL (Normal) Other Laboratory Tests 09/11/24 06:13 Brief Hx & Hospital Course: Patient is a [id number] female who presents with a CC of BLE swelling for multiple weeks. Patient states that she has SOB with exertion. Patient also has bilateral pitting edema. Patient denies any chest pain or other symptoms at this time. While in the emergency department the patient was evaluated by the provider, As per provider: Labs, vital signs, and imagining monitored. Patient was admitted on September 10, 2024 for shortness of breath. Patient was found to have acute on chronic diastolic heart failure. Patient has underlying dementia. However, he still drives , he states he drove himself to the hospital. Patient reported he had swelling to his lower extremities, which he states is much improved after he received diuretics in the emergency room. Patient was started on IV diuretics while hospitalized. Patient was seen by cardiology. Cardiology did clear patient for discharge today. However, he stated that patient will need to make sure he has a refill on his diuretics and to be compliant with his cardiac medications. Patient was instructed to follow up with PCP in one week and with cardiology in two weeks. There were no complaints or new complaints upon discharge, all questions and concerns were answered. Patient was advised to return to the ER or call 911 if any headaches, dizziness, shortness of breath, chest pain, bleeding, fevers, or worsening of medical condition. Patient/Family was counseled about treatment plan, medications, possible side effects, patient�verbalized understanding. All questions were answered to the best of my ability. The patient symptoms improved and they are okay to be DC. Condition at Discharge: Stable Final Diagnosis/Problems List Acute on chronic diastolic heart failure Chronic anticoagulation Dementia HLD Discharge Disposition: Home Discharge Statement: "Patient was advised to return to the ER or call 911 if any headaches, dizziness, shortness of breath, chest pain, abdominal pain, bleeding, fevers, or worsening of medical condition. Patient was counseled about treatment plan, medications, possible side effects, patient�verbalized understanding. All questions were answered to the best of my ability. This discharge took greater then 30 minutes in planning, reviewing documentation, counseling the patient, and discussing with other team members." ASSESSMENT ASSESSMENT Assessment AUGIE MURRIETA NP September 11, 2024 10:37
--- NOTE | 2024-09-11 14:02 | DVHPN2 ---
Progress Note Date Seen: September 11, 2024 Medical Necessity Reason Pt with a Central, PICC or Fol: No Subjective Patient reports: Feels better Objective vital signs Vital Sign Date Time Temp Pulse Resp B/P (MAP) Pulse Ox O2 Delivery O2 Flow Rate FiO2 09/11/24 13:32 36.4 73 09/11/24 10:14 148/88 09/11/24 08:44 18 95 09/11/24 07:10 Room Air 0.0 09/11/24 07:10 21 Total Intake and Output 09/10/24 09/10/24 09/11/24 15:00 23:00 07:00 Intake Total 150 ml Output Total 200 ml Balance -50 ml medications Current Medications Medications Dose Ordered Sig/Kristi Route Start Time Stop Time Status Last Admin Dose Admin Acetaminophen/ Hydrocodone Bitart 1 tab Q4HP PRN PO 09/10/24 13:00 09/11/24 06:09 1 TAB Ondansetron HCl 4 mg Q4HP PRN IV 09/10/24 13:00 Acetaminophen 650 mg Q6HP PRN PO 09/10/24 13:00 Morphine Sulfate 2 mg Q4HPRN PRN IV 09/10/24 13:00 09/10/24 22:47 2 MG Nitroglycerin 0.4 mg Q5MINP PRN SL 09/10/24 13:00 Morphine Sulfate 2 mg Q30M PRN IV 09/10/24 13:00 Apixaban 5 mg BID PO 09/10/24 22:00 09/11/24 10:11 5 MG Oxybutynin Chloride 15 mg DAILY PO 09/11/24 10:00 09/11/24 10:12 15 MG Pravastatin Sodium 20 mg HS PO 09/10/24 22:00 09/10/24 22:14 20 MG Tamsulosin HCl 0.4 mg QPM PO 09/10/24 18:00 09/10/24 18:53 0.4 MG Amlodipine Besylate 10 mg DAILY PO 09/11/24 10:00 09/11/24 10:11 10 MG Brimonidine Tartrate 1 drop BID EACHEYE 09/10/24 22:00 09/11/24 10:14 1 DROP Budesonide 0.5 mg BID NEB 09/10/24 22:00 09/11/24 07:19 0.5 MG Loratadine 10 mg HS PO 09/10/24 22:00 09/10/24 22:13 10 MG Memantine 10 mg BID PO 09/10/24 22:00 09/11/24 10:13 10 MG Metoprolol Succinate 25 mg DAILY PO 09/11/24 10:00 09/11/24 10:14 25 MG Furosemide 40 mg DAILY IV 09/11/24 10:00 09/11/24 10:11 40 MG Pantoprazole Sodium 40 mg DAILY@0600 PO 09/11/24 06:00 09/11/24 05:38 40 MG Albuterol 2.5 mg Q6HR NEB 09/10/24 18:00 09/11/24 12:22 2.5 MG Examination: GENERAL:Abnormal, HEENT:Abnormal, LUNGS:Abnormal, CVS:Abnormal, ABDOMEN:Abnormal laboratory and microbiology Laboratory Tests 09/11/24 06:13 Test 09/11/24 06:13 Range/Units Serum Glucose 105 74-106 mg/dL Problem List/Assessment/Plan Problem List/Assessment/Plan r/o chf leg edema dvt pe htn venous and artrial US was - cont doac iv lasix resume po lasix on dc Plan discussed with: Patient My Orders My Orders Orders - EL BLAND MD Procedure Category Date Status Time Bilat Lower Dvt US 09/10/24 Resulted 16:52 Bilat Low Ext Art US 09/10/24 Resulted Duplex 16:52 Date of Service: September 11, 2024 Billing Provider: EL BLAND MD Common Visit Codes: NOT BILLABLE EL BLAND MD September 11, 2024 14:02
[2024-09-11] MEDS ORDERED: FURO1TAB31 PO (17:18)
--- NOTE | 2024-09-11 21:16 | DVHHP2 ---
Admitting Diagnosis: Admission Date: 09/10/24 Admitting Diagnosis: Swelling of extremities. History of Present Illness Patient is a [id number] female who presents with a CC of BLE swelling for multiple weeks. Patient states that she has SOB with exertion. Patient also has bilateral pitting edema. Patient denies any chest pain or other symptoms at this time. While in the emergency department the patient was evaluated by the provider, As per provider: Labs, vital signs, and imagining monitored. Patient will be admitted for further evaluation and treatment. I discussed admission with the patient/family and is in agreement to treatment plan. Patient Family History: Benign prostate tumor G8 FATHER Diabetes mellitus G8 MOTHER Hypercholesterolemia G8 MOTHER Hypertension G8 MOTHER Allergies: Coded Allergies: Bee Venom (Verified Allergy, Severe, Swelling, 09/18/19) Penicillins (Verified Allergy, Severe, Facial swelling, 09/18/19) Home Meds Active Scripts Furosemide (Lasix) 40 Mg Tab, 40 MG PO DAILY for 30 Days, #30 TAB 6 Refills Prov:AUGIE MURRIETA FOOD WRITER 09/11/24 Furosemide (Lasix) 40 Mg Tab, 40 MG PO DAILY for 30 Days, #30 TAB Prov:AUGIE MURRIETA FOOD WRITER 05/09/24 Metoprolol Succinate (Metoprolol Succinate Er) 25 Mg Tab, 1 TAB PO DAILY for 30 Days, #30 TAB Prov:AUGIE MURRIETA NP 05/09/24 Brimonidine Tartrate (ALPHAGAN P 0.15% OPTHALMIC) [address], 1 DROP EACHEYE BID, #15 ML 3 Refills Prov:AUGIE MURRIETA NP 01/06/24 Reported Medications Cetirizine Hcl (Kls Aller-Jaylyn) 10 Mg Tab, 1 TAB PO HS for 30 Days, #30 3 Refills 01/02/24 Dapagliflozin Propanediol (Farxiga) 10 Mg Tab, 5 MG PO DAILY for 90 Days, #90 01/02/24 Senna (Estela-Nicole) 8.6 Mg Tab, 2-4 TAB PO QPM PRN for FOR CONSTIPATION for 15 Days, #60 01/02/24 Budesonide-Formoterol Fumarate (Budesonide/Formoterol Fum 160-4.5 Mcg/Act) 1 Aer Aer, 2 PUFF INH BID for 30 Days, #10.2 01/02/24 Oxybutynin Chloride (Oxybutynin Chloride) 5 Mg Tab, 15 MG PO DAILY for 90 Days, #90 01/02/24 Pravastatin Sodium (PRAVACHOL TABLET) 20 Mg Tb, 1 TAB PO DAILY for 90 Days, #90 01/02/24 Netarsudil Dimesylate-Latanopr (Rocklatan 0.02-0.005 %) 1 Adrian Adrian, 1 ADRIAN EACHEYE QPM for 25 Days, #2 01/02/24 Apixaban Base (ELIQUIS) 5 Mg Tab, 1 TAB PO BID for 30 Days, #60 01/02/24 Yvrqcctklra-Orehyfduvnnk-Kxkrv (Trelegy Ellipta 200-62.5-25 Mcg/INH) 1 Aer Aer, 1 PUFF PO DAILY 04/23/23 Amlodipine Besylate (Amlodipine Besylate) 10 Mg Tab, 1 TAB PO DAILY 04/23/23 Memantine Hydrochloride (Memantine HCl) 10 Mg Tab, 1 TAB PO BID for 90 Days, #180 04/22/23 Cholecalciferol (VITAMIN D3) 5,000 Unit Cap, 1 CAP PO DAILY 04/22/23 Tamsulosin Hcl (Flomax) 0.4 Mg Cap, 2 CAP PO DAILY for 45 Days, #90 06/18/19 Current Medications Current Medications Medications (Trade) Dose Ordered Sig/Kristi Route PRN Reason Start Time Stop Time Status Last Admin Apixaban (Eliquis) 5 mg BID PO 09/10/24 22:00 09/11/24 18:42 DC 09/11/24 10:11 Oxybutynin Chloride (Ditropan Tablet) 15 mg DAILY PO 09/11/24 10:00 09/11/24 18:42 DC 09/11/24 10:12 Pravastatin Sodium (Pravachol Tablet) 20 mg HS PO 09/10/24 22:00 09/11/24 18:42 DC 09/10/24 22:14 Amlodipine Besylate (Norvasc Tablet) 10 mg DAILY PO 09/11/24 10:00 09/11/24 18:42 DC 09/11/24 10:11 Brimonidine Tartrate (ALPHAGAN 0.2% OPT Soln) 1 drop BID EACHEYE 09/10/24 22:00 09/11/24 18:42 DC 09/11/24 10:14 Budesonide (Pulmicort) 0.5 mg BID NEB 09/10/24 22:00 09/11/24 18:42 DC 09/11/24 07:19 Loratadine (Claritin Tablet) 10 mg HS PO 09/10/24 22:00 09/11/24 18:42 DC 09/10/24 22:13 Memantine (Namenda Tablet) 10 mg BID PO 09/10/24 22:00 09/11/24 18:42 DC 09/11/24 10:13 Metoprolol Succinate (Toprol Xl) 25 mg DAILY PO 09/11/24 10:00 09/11/24 18:42 DC 09/11/24 10:14 Furosemide (Lasix Injection) 40 mg DAILY IV 09/11/24 10:00 09/11/24 18:42 DC 09/11/24 10:11 Pantoprazole Sodium (Protonix Tablet) 40 mg DAILY@0600 PO 09/11/24 06:00 09/11/24 18:42 DC 09/11/24 05:38 Review of Systems Constitutional: denies chills, denies fever, denies malaise Eyes: denies eye pain, denies vision change ENT: denies ear pain, denies headache, denies nasal congestion, denies painful swallowing, denies voice change Cardiovascular: denies chest pain, denies edema, denies orthopnea, denies palpitations, denies paroxysmal nocturnal dyspnea Respiratory: denies cough, denies shortness of breath Gastrointestinal: denies constipation, denies diarrhea, denies nausea, denies vomiting Genitourinary: denies dysuria, denies frequent urination, denies urethral discharge Musculoskeletal: denies back pain, denies joint pain, denies muscle pain Skin: denies bruising, denies itching, denies rash Neurological: denies focal weakness, denies headache, denies sensory changes Psychiatric: denies anxiety, denies depression Endocrine: denies polydipsia, denies polyuria Hematologic/Lymphatic: denies easy bleeding, denies easy bruising, denies enlarged lymph nodes Allergic/Immunologic: denies allergy, denies hives Vital Signs Vital Signs Date Time Temp Pulse Resp B/P (MAP) Pulse Ox O2 Delivery O2 Flow Rate FiO2 09/11/24 14:59 36.4 73 09/11/24 12:37 16 99 09/11/24 12:30 138/86 (103) 09/11/24 10:00 Room Air 0.0 09/11/24 10:00 21 Physical Exam General Appearance: alert, no distress HEENT: EOMI, PERRLA, normal external inspect of ears, no icterus, no nasal drainage Neck: no carotid bruit, no jugular venous distention (JVD), no lymphadenopathy Chest: normal thorax Respiratory: clear to auscultation, normal air movement Cardiovascular: regular rate and rhythm, no diastolic murmur, no jugular venous distention (JVD), no rub, no systolic murmur Abdominal: soft, no hepatomegaly, no mass, no splenomegaly, no tenderness Genitourinary: grossly normal external Musculoskeletal: no joint tenderness, no swelling Extremities: normal pulses, no calf tenderness, no clubbing, no cyanosis, no edema Skin: no bruising, no jaundice, no rash Neurological: alert, No focal deficit Results Labs Test 09/11/24 06:13 09/10/24 12:00 09/10/24 09:05 09/10/24 08:34 Range/Units White Blood Count 4.4 4.4-10.8 10^3/uL Red Blood Count 5.11 4.5-5.90 10^6/uL Hemoglobin 14.1 13.5-17.5 g/dL Hematocrit 43.0 41.0-53.0 % Mean Corpuscular Volume 84.3 80.0-100.0 fL Mean Corpuscular Hemoglobin 27.6 L 28.0-32.0 pg Mean Corpuscular Hemoglobin Concent 32.8 32.0-36.0 g/dL Red Cell Distribution Width 16.3 H 11.8-14.3 % Platelet Count 157 140-450 10^3/uL Mean Platelet Volume 11.0 H 6.9-10.8 fL Neutrophils (%) (Auto) 65.3 37.0-80.0 % Lymphocytes (%) (Auto) 21.7 10.0-50.0 % Monocytes (%) (Auto) 10.8 0.0-12.0 % Eosinophils (%) (Auto) 1.7 0.0-7.0 % Basophils (%) (Auto) 0.5 0.0-2.0 % Neutrophils # (Auto) 2.9 1.6-8.6 10 ^3/uL Lymphocytes # (Auto) 1.0 0.4-5.4 10 ^3/uL Monocytes # (Auto) 0.5 0-1.3 10 ^3/uL Eosinophils # (Auto) 0.1 0-0.8 10 ^3/uL Basophils # (Auto) 0 0-0.2 10 ^3/uL Nucleated Red Blood Cells 0.1 % Sodium Level 143 136-145 mmol/L Potassium Level 3.5 3.5-5.1 mmol/L Chloride Level 107 98-107 mmol/L Carbon Dioxide Level 28 20-31 mmol/L Anion Gap 8 5-15 Blood Urea Nitrogen 13 9-23 mg/dL Creatinine 1.12 0.700-1.30 mg/dL Glomerular Filtration Rate Calc 63 >90 mL/min BUN/Creatinine Ratio 11.6 10.0-20.0 Serum Glucose 105 74-106 mg/dL Calcium Level 9.8 8.7-10.4 mg/dL Total Bilirubin 0.6 0.2-1.0 mg/dL Aspartate Amino Transferase (AST) 16 13-40 U/L Alanine Aminotransferase (ALT) 17 7-40 U/L Alkaline Phosphatase 101 46-116 U/L Total Protein 6.9 5.7-8.2 g/dL Albumin 4.1 3.2-4.8 g/dL Hepatitis B Surface Antigen Negative Negative Hepatitis C Antibody Negative Negative Troponin I High Sensitivity 38 </=54 ng/L B-Type Natriuretic Peptide 434.28 0-100 pg/mL Urine Color Light-yellow Yellow Urine Clarity Clear Clear Urine pH 7.0 5.0-9.0 Urine Specific [place] 1.014 1.001-1.035 Urine Protein Negative Negative Urine Ketones Negative Negative Urine Blood Negative Negative /uL Urine Nitrite Negative Negative Urine Bilirubin Negative Negative Urine Urobilinogen Normal Negative mg/dL Urine Leukocyte Esterase Negative Negative /uL Urine RBC 2 0 - 3 /hpf Urine Microscopic WBC < 1 0-3 /HPF Urine Squamous Epithelial Cells None seen <5 /hpf Urine Bacteria None seen None Seen /hpf Urine Glucose 4+ H Normal mg/dL Plan 1. Acute on chronic diastolic heart failure Cardiology consult, monitoring 2. Chronic anticoagulation Restart Eliquis, monitor 3. Dementia Restart dementia meds, monitor 4. HLD Lipid Panel, PPI, monitor Plan discussed with: Patient, Other AUGIE MURRIETA NP September 11, 2024 21:16
== END 2024-09-11 14:30 | disposition home or self-care (01) | DRG 291 ==
LOC: ER 08:25 → OVERFLOW 12:50 → TELE-EAST 21:42
PROVIDERS: ADMIT Nurse Practitioner; ATTEND Nurse Practitioner
DX: I13.0 Hypertensive heart and chronic kidney disease with heart failure and stage 1 through stage 4 chronic kidney disease, or unspecified chronic kidney disease (principal); I50.33 Acute on chronic diastolic (congestive) heart failure; E78.5 Hyperlipidemia, unspecified; N18.9 Chronic kidney disease, unspecified; F03.90 Unspecified dementia, unspecified severity, without behavioral disturbance, psychotic disturbance, mood disturbance, and anxiety; E11.22 Type 2 diabetes mellitus with diabetic chronic kidney disease; E78.00 Pure hypercholesterolemia, unspecified; J44.89 Other specified chronic obstructive pulmonary disease; Z88.0 Allergy status to penicillin; Z79.01 Long term (current) use of anticoagulants; Z86.718 Personal history of other venous thrombosis and embolism; Z86.711 Personal history of pulmonary embolism; Z83.3 Family history of diabetes mellitus; Z82.49 Family history of ischemic heart disease and other diseases of the circulatory system; Z91.030 Bee allergy status; Z79.899 Other long term (current) drug therapy
CPT/HCPCS: 36415; 71045; 80048; 80053; 81001; 83880; 84484; 85025; 86803; 87340; 93005; 93925; 93970; 94640; 99291; 99292; G0378

== ENCOUNTER 2024-10-08 10:05 | Inpatient (IN) | payer MEDICARE, OTHER ==
[~2024-10-08] VITALS: Ht 185.4 cm; Wt 91.6 kg
--- NOTE | 2024-10-08 10:26 | ED.PDOC ---
Altered Mental Status HPI Comments 89 y/o M, BIBA, with PMHx of asthma, CHF, CO, COPD, HTN, HLD, and DM presents to the ED for CC of ALOC. EMS reports, patient is coming from home where called emergency medical personnel due to patient displaying decreased mentation onset, 0300 this morning (10/08/24). EMS relays, arrival to seen patient was found to be warm and diaphoretic. Upon arrival to ED, patient have an axillary temperature 103.3. No other symptoms or modifying factors obtainable at this time. Chief Complaint: ALOC Time Seen by MD: 10:20 Primary Care Provider: EDWINA Reviewed Notes: Nurses Notes, Medical Charge Entry Specialist Notes, Medications, Allergies Allergies: Coded Allergies: Bee Venom (Verified Allergy, Severe, Swelling, 09/18/19) Penicillins (Verified Allergy, Severe, Facial swelling, 09/18/19) Home Meds Active Scripts Furosemide (Lasix) 40 Mg Tab, 40 MG PO DAILY for 30 Days, #30 TAB 6 Refills Prov:AUGIE MURRIETA NP 09/11/24 Furosemide (Lasix) 40 Mg Tab, 40 MG PO DAILY for 30 Days, #30 TAB Prov:AUGIE MURRIETA PERFORMANCE TEST ARCHITECT 05/09/24 Metoprolol Succinate (Metoprolol Succinate Er) 25 Mg Tab, 1 TAB PO DAILY for 30 Days, #30 TAB Prov:AUGIE MURRIETA PERFORMANCE TEST ARCHITECT 05/09/24 Brimonidine Tartrate (ALPHAGAN P 0.15% OPTHALMIC) [address], 1 DROP EACHEYE BID, #15 ML 3 Refills Prov:AUGIE MURRIETA NP 01/06/24 Reported Medications Cetirizine Hcl (Kls Aller-Jaylyn) 10 Mg Tab, 1 TAB PO HS for 30 Days, #30 3 Refills 01/02/24 Dapagliflozin Propanediol (Farxiga) 10 Mg Tab, 5 MG PO DAILY for 90 Days, #90 01/02/24 Senna (Estela-Nicole) 8.6 Mg Tab, 2-4 TAB PO QPM PRN for FOR CONSTIPATION for 15 Days, #60 01/02/24 Budesonide-Formoterol Fumarate (Budesonide/Formoterol Fum 160-4.5 Mcg/Act) 1 Aer Aer, 2 PUFF INH BID for 30 Days, #10.2 01/02/24 Oxybutynin Chloride (Oxybutynin Chloride) 5 Mg Tab, 15 MG PO DAILY for 90 Days, #90 01/02/24 Pravastatin Sodium (PRAVACHOL TABLET) 20 Mg Tb, 1 TAB PO DAILY for 90 Days, #90 01/02/24 Netarsudil Dimesylate-Latanopr (Rocklatan 0.02-0.005 %) 1 Adrian Adrian, 1 ADRIAN EACHEYE QPM for 25 Days, #2 01/02/24 Apixaban Base (ELIQUIS) 5 Mg Tab, 1 TAB PO BID for 30 Days, #60 01/02/24 Qwosbsmzuav-Hzhipwazusdx-Tqabk (Trelegy Ellipta 200-62.5-25 Mcg/INH) 1 Aer Aer, 1 PUFF PO DAILY 04/23/23 Amlodipine Besylate (Amlodipine Besylate) 10 Mg Tab, 1 TAB PO DAILY 04/23/23 Memantine Hydrochloride (Memantine HCl) 10 Mg Tab, 1 TAB PO BID for 90 Days, #180 04/22/23 Cholecalciferol (VITAMIN D3) 5,000 Unit Cap, 1 CAP PO DAILY 04/22/23 Tamsulosin Hcl (Flomax) 0.4 Mg Cap, 2 CAP PO DAILY for 45 Days, #90 06/18/19 Information Source: Emergency Med Personnel Mode of Arrival: EMS Severity: Moderate Timing: Hours Duration: Since onset Prehospital treatment: None Quality: Decreased Alertness, Change in Behavior History of: Diabetes Associated Signs and Symptoms: None Past Medical History PAST MEDICAL HISTORY: Asthma, CHF, COPD, DM, High Lipids, HTN, CO Surgical History: Hernia Repair Family History Family History: Reviewed,noncontributory to illness Social History Smoker: Non-Smoker Alcohol: Denies ETOH Use Drugs: Denies Drug Use Lives In: Home Unable to Obtain due to: Altered Mental Status All Other Systems: Reviewed and Negative Physical Exam General Appearance: No Apparent Distress, Normal HEENT: Normal ENT Inspection, Pharynx Normal, TMs Normal Neck: Full Range of Motion, Non-Tender, Normal, Normal Inspection Respiratory: Chest Non-Tender, Lungs Clear, No Accessory Muscle Use, No Respiratory Distress, Normal Breath Sounds Cardiovascular: No Edema, No Murmur, No Gallop, Normal Peripheral Pulses, Tachycardia Breast Exam: Deferred Gastrointestinal: No Organomegaly, Non Tender, No Pulsatile Mass, Normal Bowel Sounds, Soft Genitalia: Deferred Pelvic: Deferred Rectal: Deferred Extremities: No calf tenderness, Normal capillary refill, Normal inspection, Normal range of motion, Non-tender, Pedal edema (bilateral) Musculoskeletal : Apperance: Normal Neurologic: Alert, 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 Was a procedure done?: No Differential Diagnosis (ALOC) Differential Diagnosis: Dehydration, Hypoglycemia, DKA, Sepsis X-Ray, Labs, Meds, VS Vital Signs Date Time Temp Pulse Resp B/P (MAP) Pulse Ox O2 Delivery O2 Flow Rate FiO2 10/08/24 12:00 91 10/08/24 12:00 90 19 100/52 (68) 94 10/08/24 10:50 93 22 95 Nasal Cannula* 2 28 10/08/24 10:43 99.2 93 22 99/54 (69) 95 99.2 10/08/24 10:24 103.3 113 26 113/52 (72) 94 103.3 10/08/24 10:18 98 Lab Test 10/08/24 11:58 10/08/24 10:48 10/08/24 10:43 10/08/24 10:26 Range/Units Lactic Acid Level Pending POC Glucose 112 H 70-106 mg/dl Urine Color Light-yellow Yellow Urine Clarity Clear Clear Urine pH 5.5 5.0-9.0 Urine Specific [place] 1.007 1.001-1.035 Urine Protein Trace H Negative Urine Ketones Negative Negative Urine Blood Negative Negative /uL Urine Nitrite Negative Negative Urine Bilirubin Negative Negative Urine Urobilinogen Normal Negative mg/dL Urine Leukocyte Esterase Negative Negative /uL Urine RBC 4 0 - 3 /hpf Urine Microscopic WBC 3 0-3 /HPF Urine Squamous Epithelial Cells Few <5 /hpf Urine Bacteria Few H None Seen /hpf Urine Mucus Few None Seen Urine Sperm Present None Seen /hpf Urine Glucose 4+ H Normal mg/dL White Blood Count 13.8 H 4.4-10.8 10^3/uL Red Blood Count 5.18 4.5-5.90 10^6/uL Hemoglobin 14.3 13.5-17.5 g/dL Hematocrit 43.2 41.0-53.0 % Mean Corpuscular Volume 83.5 80.0-100.0 fL Mean Corpuscular Hemoglobin 27.6 L 28.0-32.0 pg Mean Corpuscular Hemoglobin Concent 33.1 32.0-36.0 g/dL Red Cell Distribution Width 15.9 H 11.8-14.3 % Platelet Count 138 L 140-450 10^3/uL Mean Platelet Volume 10.8 6.9-10.8 fL Neutrophils (%) (Auto) 37.0-80.0 % Lymphocytes (%) (Auto) 10.0-50.0 % Monocytes (%) (Auto) 0.0-12.0 % Basophils (%) (Auto) 0.0-2.0 % Neutrophils # (Auto) 1.6-8.6 10 ^3/uL Lymphocytes # (Auto) 0.4-5.4 10 ^3/uL Monocytes # (Auto) 0-1.3 10 ^3/uL Differential Total Cells Counted 100.0 100 Neutrophils % (Manual) 73 37.0-80.0 Band Neutrophils % (Manual) 10 Lymphocytes % (Manual) 8 L 10.0-50.0 Monocytes % (Manual) 9 0-12 Eosinophils % (Manual) 0 0-7 Basophils % (Manual) 0 0.0-2.0 Metamyelocytes % (manual) 0 Myelocytes % (Manual) 0 Promyelocytes % (Manual) 0 Blast Cells % (Manual) 0 Reactive Lymphocytes 0 Platelet Estimate Decreased Giant Platelets Prothrombin Time 11.8 9.3-11.8 sec Prothrombin Time INR 1.13 0.9-1.15 Activated Partial Thromboplast Time 27.3 24.5-34.5 SEC Sodium Level 147 H 136-145 mmol/L Potassium Level 3.5 3.5-5.1 mmol/L Chloride Level 110 H 98-107 mmol/L Carbon Dioxide Level 25 20-31 mmol/L Anion Gap 12 5-15 Blood Urea Nitrogen 19 9-23 mg/dL Creatinine 2.07 H 0.700-1.30 mg/dL Glomerular Filtration Rate Calc 30 >90 mL/min BUN/Creatinine Ratio 9.2 L 10.0-20.0 Serum Glucose 106 74-106 mg/dL Calcium Level 10.3 8.7-10.4 mg/dL Total Bilirubin 0.7 0.2-1.0 mg/dL Aspartate Amino Transferase (AST) 27 13-40 U/L Alanine Aminotransferase (ALT) 12 7-40 U/L Alkaline Phosphatase 99 46-116 U/L Total Protein 7.5 5.7-8.2 g/dL Albumin 4.3 3.2-4.8 g/dL Current Medications Medications (Trade) Dose Ordered Sig/Kristi Route Start Time Stop Time Status Last Admin Vancomycin HCl 200 ml @ 200 mls/hr ONCE ONCE IV 10/08/24 10:15 10/08/24 11:14 DC 10/08/24 10:37 Sodium Chloride 1,000 ml @ 1,000 mls/hr Q1H ONCE IV 10/08/24 10:15 10/08/24 11:14 DC 10/08/24 10:37 Acetaminophen (Ofirmev) 1,000 mg DAILY STAT IV 10/08/24 10:11 10/08/24 10:15 DC 10/08/24 10:37 [place] [id number] Ph: [phone] DIAGNOSTIC IMAGING Diagnostic Imaging Report : [id number] Signed PATIENT: IVÁN MEANS ACCT: [id number] UNIT: [id number] : 1935 LOC: ER ROOM / BED: / AGE / SEX: 89 / M ADM STATUS: REG ER SERVICE 1011 ORDERING PHYSICIAN: GEREMIAS FRIAS MD PROCEDURE(s): CXRP - CHEST PORTABLE REASON: sepsis ORDER NUMBER(s): [id number], ACCESSION NUMBER(s): [id number] EXAM: XY CHEST PORTABLE Indication: sepsis Technique: Single frontal view of the chest was obtained Comparison: XY CHEST PORTABLE on DOS: 09/10/24, XY CHEST PORTABLE on DOS: 05/06/24, XY CHEST PORTABLE on DOS: 01/01/24, XY CHEST PORTABLE on DOS: 04/23/23, XY CHEST PORTABLE on DOS: 04/22/23 FINDINGS: Lines and Tubes: None Lungs: Pulmonary vascular congestion Pleura: No effusion. No pneumothorax. Cardiomediastinal contours: Cardiomegaly. Bones: No acute osseous abnormality. IMPRESSION: Cardiomegaly with pulmonary vascular congestion. ATED BY: TRIP URENA MD DICTATED DATE/TIME: 10/08/241111 SIGNED BY: TRIP URENA MD SIGNED DATE/TIME: 10/08/241111 CC: Time of 1ST Reevaluation: 10:50 Reevaluation 1ST: Unchanged Patient Education/Counseling: Diagnosis, Treatment Family Education/Counseling: No Family Present Sepsis Sepsis Reasesment Focused Exam Orders: Laboratory Tests 10/08/24 11:58: Departure 1 Departure Time of Disposition: 12:36 (Patient with altered mental status and concerning for sepsis.We will not give the patient full fluid boluses patient is clinically mildly volume overloaded.We will cover patient with antibiotics and admit patient for further workup) Impression: Primary Impression: Sepsis Qualified Codes: A41.9 - Sepsis, unspecified organism; R65.21 - Severe sepsis with septic shock; G93.41 - Metabolic encephalopathy Additional Impression: Acute metabolic encephalopathy Disposition: ADMITTED INPATIENT Admit to: Tele Condition: Guarded Critical Care Note Critical Care Time?: Yes Critical care comment: Sepsis Authorized and Performed by: Geremias Frias MD Total critical care time: Approximately 44 minutes Due to a high probability of clinically significant, life threatening deterioration, the patient required my highest level of preparedness to intervene emergently and I personally spent this critical care time directly and personally managing the patient. This critical care time included obtaining a history; examining the patient; pulse oximetry; ordering and review of studies; arranging urgent treatment with development of a management plan; evaluation of patient's response to treatment; frequent reassessment; and, discussions with other providers. This critical care time was performed to assess and manage the high probability of imminent, life-threatening deterioration that could result in multi-organ failure. It was exclusive of separately billable procedures and treating other patients and teaching time. Please see my other sections and the rest of the note for further information on patient assessment and treatment. Stability Stability form required: No Heart Score Heart Score: Heart Score Response (Comments) Value History N/A 0 EKG N/A 0 Age N/A 0 Risk Factors N/A 0 Troponin N/A 0 Total 0 I personally scribed for GEREMIAS FRIAS MD ([email or web address]) on 10/08/24 at 10:26. Electronically submitted by Rebecca George ([email or web address]). I personally scribed for GEREMIAS FRIAS MD ([email or web address]) on 10/08/24 at 11:41. Electronically submitted by Rebecca George ([email or web address]). GEREMIAS FRIAS MD Oct 08, 2024 10:26
[2024-10-08] MEDS: VANCOMYCIN 1GM/200ML PM 200 ML IV ONE ×2 (10:37→22:58)
[2024-10-08] MEDS: ACETAMINOPHEN IV 1000 MG/100ML (10MG/ML) IV STA (10:37)
[2024-10-08] MEDS: SODIUM CHLORIDE 0.9% 1,000 ML IV ONE (10:37)
[2024-10-08 10:50] VITALS: PULSE 93; RESP 22; O2SAT 95
[2024-10-08 10:54] LABS: Hematocrit 43.2 % (41.0-53.0); Hemoglobin 14.3 g/dL (13.5-17.5); Mean Corpuscular Hemoglobin 27.6 pg (28.0-32.0); Mean Corpuscular Hgb Conc. 33.1 g/dL (32.0-36.0); Mean Corpuscular Volume 83.5 fL (80.0-100.0); Platelet Count (auto) 138 10^3/uL (140-450); Red Blood Cells 5.18 10^6/uL (4.5-5.90); Red Cell Distribution Width 15.9 % (11.8-14.3); White Blood Cell 13.8 10^3/uL (4.4-10.8)
[2024-10-08 10:58] LABS: Basophils % (manual) 0 (0.0-2.0); Blast Cells 0; Eosinophils % (manual) 0 (0-7); Metamyelocytes % 0; Myelocytes % 0; Promyelocytes % 0; Reactive Lymphocytes 0
[2024-10-08 10:59] LABS: Alanine Aminotransferase 12 U/L (7-40); Albumin 4.3 g/dL (3.2-4.8); Alkaline Phosphatase 99 U/L (46-116); Anion Gap 12 (5-15); Aspartate Aminotransferase 27 U/L (13-40); BUN/Creatinine Ratio 9.2 (10.0-20.0); Bilirubin, Total 0.7 mg/dL (0.2-1.0); Blood Urea Nitrogen 19 mg/dL (9-23); Calcium 10.3 mg/dL (8.7-10.4); Carbon Dioxide 25 mmol/L (20-31); Potassium 3.5 mmol/L (3.5-5.1); Total Protein 7.5 g/dL (5.7-8.2)
[2024-10-08 11:00] LABS: Chloride 110 mmol/L (98-107); Glucose 106 mg/dL (74-106); Sodium 147 mmol/L (136-145)
[2024-10-08 11:03] LABS: INR 1.13 (0.9-1.15); Partial Thromboplastin Time 27.3 SEC (24.5-34.5); Prothrombin Time 11.8 sec (9.3-11.8)
[2024-10-08 11:03] LABS: Urine Bacteria FEW /hpf (None Seen); Urine Blood Negative /uL (Negative); Urine Clarity Clear (Clear); Urine Color Light-Yellow (Yellow); Urine Mucus FEW (None Seen); Urine Protein, UAD TRACE (Negative); Urine Specific Gravity 1.007 (1.001-1.035); Urine Sperm PRESENT /hpf (None Seen); Urine Squamous Epithelial Cell FEW /hpf (<5); Urine Urobilinogen Normal (Negative); Urine WBC 3 /HPF (0-3); Urine pH 5.5 (5.0-9.0)
--- NOTE | 2024-10-08 11:15 | DVH ---
EXAM: XY CHEST PORTABLE Indication: sepsis Technique: Single frontal view of the chest was obtained Comparison: XY CHEST PORTABLE on DOS: 09/10/24, XY CHEST PORTABLE on DOS: 05/06/24, XY CHEST PORTABLE on DOS: 01/01/24, XY CHEST PORTABLE on DOS: 04/23/23, XY CHEST PORTABLE on DOS: 04/22/23 FINDINGS: Lines and Tubes: None Lungs: Pulmonary vascular congestion Pleura: No effusion. No pneumothorax. Cardiomediastinal contours: Cardiomegaly. Bones: No acute osseous abnormality. IMPRESSION: Cardiomegaly with pulmonary vascular congestion.
[2024-10-08 11:21] LABS: Band Neutrophils % (manual) 10; Lymphocytes % (manual) 8 (10.0-50.0); Monocytes % (manual) 9 (0-12); Platelet Estimate Decreased
[2024-10-08 12:48] LABS: Lactic Acid w/Reflex 2.2 mmol/L (0.4-2.0)
--- NOTE | 2024-10-08 13:27 | DVH ---
EXAM: CT HEAD WITHOUT CONTRAST INDICATION: ams TECHNIQUE: CT of the head without intravenous contrast. Coronal and sagittal reformatted images are s ubmitted. Radiation Dose : 1. Head: CT Dose: CTDI volume is 63.72 mGy. Dose-length product is 1021.26 mGy*cm The dose indicators for CT are the volume Computed Tomography (CT) Dose Index (CTDIvol) and the Dose Length Product (DLP), and are measured in units of mGy and mGy-cm, respectively. These indicators are not patient dose, but values generated from the CT scanner acquisition factors. The report includes radiation exposure data for exposures received during this examination. All CT scans at this medical facility are performed using dose modulation techniques as appropriate to a performed exam including the following: Automated exposure control was utilized; adjustment of the MA and/or KV according to patient size; and use of iterative reconstruction technique. COMPARISON: None FINDINGS: There is no evidence of acute intracranial hemorrhage, extra-axial collection, mass effect, midline s hift, herniation or hydrocephalus. There are periventricular and subcortical hypodensities, nonspecific, but likely reflecting sequelae of chronic microvascular ischemic changes. The ventricles, sulci and cisterns are age appropriate. The morales-white differentiation is intact. The mastoid air cells are clear. There is mucosal thickening in the left ethmoid air cells. No depressed calvarial fracture. The surrounding soft tissues are unremarkable. IMPRESSION: 1. No acute intracranial abnormality.
[2024-10-08] MEDS: CEFEPIME 1GM/ 50ML 50 ML IV ONE (13:35)
--- NOTE | 2024-10-08 15:42 | DVHHP2 ---
Admitting Diagnosis: ALOC History of Present Illness Patient is a 89 year old male with a PMHx of DM, HLD, COPD, [place], and CHF that presents with a CC of ALOC. Patient is coming to the ER from home after his called EMS due to patient portraying decreased mentation onset at 3AM this morning (10/08/24). EMS states that on arrival patient was warm and diaphoretic. Patients axillary temp was 103.3 at the ED. No other sign or modifying factors at this time. While in the emergency department the patient was evaluated by the provider, As per provider: Labs, vital signs, and imagining monitored. Patient will be admitted for further evaluation and treatment. I discussed admission with the patient/family and is in agreement to treatment plan. Patient Family History: Benign prostate tumor G8 FATHER Diabetes mellitus G8 MOTHER Hypercholesterolemia G8 MOTHER Hypertension G8 MOTHER Allergies: Coded Allergies: Bee Venom (Verified Allergy, Severe, Swelling, 09/18/19) Penicillins (Verified Allergy, Severe, Facial swelling, 09/18/19) Home Meds Active Scripts Furosemide (Lasix) 40 Mg Tab, 40 MG PO DAILY for 30 Days, #30 TAB 6 Refills Prov:AUGIE MURRIETA STATISTICAL TECHNICIAN 09/11/24 Furosemide (Lasix) 40 Mg Tab, 40 MG PO DAILY for 30 Days, #30 TAB Prov:AUGIE MURRIETA STATISTICAL TECHNICIAN 05/09/24 Metoprolol Succinate (Metoprolol Succinate Er) 25 Mg Tab, 1 TAB PO DAILY for 30 Days, #30 TAB Prov:AUGIE MURRIETA STATISTICAL TECHNICIAN 05/09/24 Brimonidine Tartrate (ALPHAGAN P 0.15% OPTHALMIC) [address], 1 DROP EACHEYE BID, #15 ML 3 Refills Prov:AUGIE MURRIETA STATISTICAL TECHNICIAN 01/06/24 Reported Medications Lotilaner (Xdemvy) 0.25 % Adrian, 0.25 % OP, DROP 10/09/24 Netarsudil Dimesylate-Latanopr (Rocklatan 0.02-0.005 %) 1 Adrian Adrian, 1 ADRIAN OP, ADRIAN 10/09/24 Brimonidine Tartrate-Timolol M (Combigan) 0.2 Mg/0.5 % Bernadine, 0.2 MG OP, ML 10/09/24 Cetirizine Hcl (Kls Aller-Jaylyn) 10 Mg Tab, 1 TAB PO HS for 30 Days, #30 3 Refills 01/02/24 Dapagliflozin Propanediol (Farxiga) 10 Mg Tab, 5 MG PO DAILY for 90 Days, #90 01/02/24 Senna (Estela-Nicole) 8.6 Mg Tab, 2-4 TAB PO QPM PRN for FOR CONSTIPATION for 15 Days, #60 01/02/24 Budesonide-Formoterol Fumarate (Budesonide/Formoterol Fum 160-4.5 Mcg/Act) 1 Aer Aer, 2 PUFF INH BID for 30 Days, #10.2 01/02/24 Oxybutynin Chloride (Oxybutynin Chloride) 5 Mg Tab, 15 MG PO DAILY for 90 Days, #90 01/02/24 Pravastatin Sodium (PRAVACHOL TABLET) 20 Mg Tb, 1 TAB PO DAILY for 90 Days, #90 01/02/24 Netarsudil Dimesylate-Latanopr (Rocklatan 0.02-0.005 %) 1 Adrian Adrian, 1 ADRIAN EACHEYE QPM for 25 Days, #2 01/02/24 Apixaban Base (ELIQUIS) 5 Mg Tab, 1 TAB PO BID for 30 Days, #60 01/02/24 Tksgljjepen-Yyunrxvtvpqd-Wfjvv (Trelegy Ellipta 200-62.5-25 Mcg/INH) 1 Aer Aer, 1 PUFF PO DAILY 04/23/23 Amlodipine Besylate (Amlodipine Besylate) 10 Mg Tab, 1 TAB PO DAILY 04/23/23 Memantine Hydrochloride (Memantine HCl) 10 Mg Tab, 1 TAB PO BID for 90 Days, #180 04/22/23 Cholecalciferol (VITAMIN D3) 5,000 Unit Cap, 1 CAP PO DAILY 04/22/23 Tamsulosin Hcl (Flomax) 0.4 Mg Cap, 2 CAP PO DAILY for 45 Days, #90 06/18/19 Current Medications Current Medications Medications (Trade) Dose Ordered Sig/Kristi Route PRN Reason Start Time Stop Time Status Last Admin Cefepime HCl 50 ml @ 12.5 mls/hr Q12H IV 10/08/24 22:00 10/08/24 15:58 DC Apixaban (Eliquis) 5 mg BID PO 10/08/24 22:00 10/09/24 09:05 Tamsulosin HCl (Flomax) 0.4 mg DAILY PO 10/09/24 10:00 10/09/24 09:05 Budesonide (Pulmicort) 0.5 mg BID NEB 10/08/24 22:00 10/09/24 11:19 DC 10/09/24 07:04 Cefepime HCl 50 ml @ 12.5 mls/hr Q12HR IV 10/08/24 22:00 10/09/24 09:05 Pantoprazole Sodium (Protonix) 40 mg DAILY IV 10/09/24 10:00 10/09/24 09:05 Furosemide (Lasix Injection) 40 mg BIDD IV 10/09/24 06:00 10/09/24 08:53 DC 10/09/24 05:35 Vancomycin HCl 0 ml @ 0 mls/hr UD IV 10/08/24 22:15 Pravastatin Sodium (Pravachol Tablet) 20 mg DAILY PO 10/09/24 10:00 10/09/24 11:26 Amlodipine Besylate (Norvasc Tablet) 10 mg DAILY PO 10/09/24 10:00 10/09/24 11:31 Patient Own Medication 1 drop BID EACHEYE 10/09/24 10:00 Cancel Patient Own Medication 2 puff BID IN 10/09/24 10:00 Hold Patient Own Medication 1 tab HS PO 10/09/24 22:00 UNV Cholecalciferol (Vitamin D3 Tablet) 5,000 unit DAILY PO 10/10/24 10:00 Memantine (Namenda Tablet) 10 mg BID PO 10/09/24 22:00 Patient Own Medication 1 tab DAILY PO 10/09/24 10:00 UNV Patient Own Medication 1 adrian QPM EACHEYE 10/09/24 18:00 10/09/24 18:11 Budesonide (Pulmicort) 0.5 mg BID NEB 10/09/24 10:00 10/09/24 18:52 Albuterol (Ventolin Medneb) 2.5 mg Q6HWA NEB 10/09/24 12:00 10/09/24 18:52 Sodium Chloride 1,000 ml @ 50 mls/hr Q20H IV 10/09/24 12:00 10/09/24 12:00 Carvedilol (Coreg Tablet) 3.125 mg Q12HR PO 10/09/24 22:00 Patient Own Medication 1 BID EACHEYE 10/09/24 22:00 Review of Systems Constitutional: denies chills, denies fever, denies malaise Eyes: denies eye pain, denies vision change ENT: denies ear pain, denies headache, denies nasal congestion, denies painful swallowing, denies voice change Cardiovascular: denies chest pain, denies edema, denies orthopnea, denies palpitations, denies paroxysmal nocturnal dyspnea Respiratory: denies cough, denies shortness of breath Gastrointestinal: denies constipation, denies diarrhea, denies nausea, denies vomiting Genitourinary: denies dysuria, denies frequent urination, denies urethral discharge Musculoskeletal: denies back pain, denies joint pain, denies muscle pain Skin: denies bruising, denies itching, denies rash Neurological: denies focal weakness, denies headache, denies sensory changes Psychiatric: denies anxiety, denies depression Endocrine: denies polydipsia, denies polyuria Hematologic/Lymphatic: denies easy bleeding, denies easy bruising, denies enlarged lymph nodes Allergic/Immunologic: denies allergy, denies hives Vital Signs Vital Signs Date Time Temp Pulse Resp B/P (MAP) Pulse Ox O2 Delivery O2 Flow Rate FiO2 10/09/24 18:58 96 18 99 10/09/24 18:52 Room Air* 0 21 10/09/24 17:34 99.4 99.4 10/09/24 16:59 115/56 (75) Physical Exam General Appearance: alert, no distress HEENT: EOMI, PERRLA, normal external inspect of ears, no icterus, no nasal drainage Neck: no carotid bruit, no jugular venous distention (JVD), no lymphadenopathy Chest: normal thorax Respiratory: clear to auscultation, normal air movement Cardiovascular: regular rate and rhythm, no diastolic murmur, no jugular venous distention (JVD), no rub, no systolic murmur Abdominal: soft, no hepatomegaly, no mass, no splenomegaly, no tenderness Genitourinary: grossly normal external Musculoskeletal: no joint tenderness, no swelling Extremities: normal pulses, no calf tenderness, no clubbing, no cyanosis, no edema Skin: no bruising, no jaundice, no rash Neurological: alert, No focal deficit Results Labs Test 10/09/24 09:48 10/08/24 15:47 10/08/24 13:47 10/08/24 10:48 Range/Units White Blood Count 16.2 H 4.4-10.8 10^3/uL Red Blood Count 4.83 4.5-5.90 10^6/uL Hemoglobin 13.2 L 13.5-17.5 g/dL Hematocrit 40.5 L 41.0-53.0 % Mean Corpuscular Volume 83.8 80.0-100.0 fL Mean Corpuscular Hemoglobin 27.3 L 28.0-32.0 pg Mean Corpuscular Hemoglobin Concent 32.6 32.0-36.0 g/dL Red Cell Distribution Width 16.2 H 11.8-14.3 % Platelet Count 124 L 140-450 10^3/uL Mean Platelet Volume 11.3 H 6.9-10.8 fL Neutrophils (%) (Auto) 91.0 H 37.0-80.0 % Lymphocytes (%) (Auto) 3.5 L 10.0-50.0 % Monocytes (%) (Auto) 5.2 0.0-12.0 % Eosinophils (%) (Auto) 0.0 0.0-7.0 % Basophils (%) (Auto) 0.3 0.0-2.0 % Neutrophils # (Auto) 14.7 H 1.6-8.6 10 ^3/uL Lymphocytes # (Auto) 0.6 0.4-5.4 10 ^3/uL Monocytes # (Auto) 0.8 0-1.3 10 ^3/uL Eosinophils # (Auto) 0 0-0.8 10 ^3/uL Basophils # (Auto) 0.1 0-0.2 10 ^3/uL Nucleated Red Blood Cells 0.0 % Sodium Level 143 136-145 mmol/L Potassium Level 3.8 3.5-5.1 mmol/L Chloride Level 107 98-107 mmol/L Carbon Dioxide Level 26 20-31 mmol/L Anion Gap 10 5-15 Blood Urea Nitrogen 24 H 9-23 mg/dL Creatinine 1.66 H 0.700-1.30 mg/dL Glomerular Filtration Rate Calc 39 >90 mL/min BUN/Creatinine Ratio 14.5 10.0-20.0 Serum Glucose 192 H 74-106 mg/dL Calcium Level 9.5 8.7-10.4 mg/dL B-Type Natriuretic Peptide 651.51 0-100 pg/mL Random Vancomycin Level 11.0 H 5-10 ug/mL Influenza Type A Antigen Negative Negative Influenza Type B Antigen Negative Negative SARS-CoV-2 Antigen (Rapid) Negative NEGATIVE Lactic Acid Level 2.4 *H 0.4-2.0 mmol/L POC Glucose 112 H 70-106 mg/dl Test 10/08/24 10:43 10/08/24 10:26 Range/Units Urine Color Light-yellow Yellow Urine Clarity Clear Clear Urine pH 5.5 5.0-9.0 Urine Specific [place] 1.007 1.001-1.035 Urine Protein Trace H Negative Urine Ketones Negative Negative Urine Blood Negative Negative /uL Urine Nitrite Negative Negative Urine Bilirubin Negative Negative Urine Urobilinogen Normal Negative mg/dL Urine Leukocyte Esterase Negative Negative /uL Urine RBC 4 0 - 3 /hpf Urine Microscopic WBC 3 0-3 /HPF Urine Squamous Epithelial Cells Few <5 /hpf Urine Bacteria Few H None Seen /hpf Urine Mucus Few None Seen Urine Sperm Present None Seen /hpf Urine Glucose 4+ H Normal mg/dL Differential Total Cells Counted 100.0 100 Neutrophils % (Manual) 73 37.0-80.0 Band Neutrophils % (Manual) 10 Lymphocytes % (Manual) 8 L 10.0-50.0 Monocytes % (Manual) 9 0-12 Eosinophils % (Manual) 0 0-7 Basophils % (Manual) 0 0.0-2.0 Metamyelocytes % (manual) 0 Myelocytes % (Manual) 0 Promyelocytes % (Manual) 0 Blast Cells % (Manual) 0 Reactive Lymphocytes 0 Platelet Estimate Decreased Giant Platelets Prothrombin Time 11.8 9.3-11.8 sec Prothrombin Time INR 1.13 0.9-1.15 Activated Partial Thromboplast Time 27.3 24.5-34.5 SEC Total Bilirubin 0.7 0.2-1.0 mg/dL Aspartate Amino Transferase (AST) 27 13-40 U/L Alanine Aminotransferase (ALT) 12 7-40 U/L Alkaline Phosphatase 99 46-116 U/L Total Protein 7.5 5.7-8.2 g/dL Albumin 4.3 3.2-4.8 g/dL Microbiology Date/Time Source Procedure Growth Status 10/08/24 10:26 Blood Blood Culture - Preliminary Resulted Plan 1. Acute on chronic diastolic heart failure Monitor, Diuretics, cardiology consult 2. COPD exacerbation Monitor, med neb treatments, pulmonary consult 3. Dementia Monitor, restart dementia meds 4. Hx of DVT right leg Monitor, restart eliquis for hx of DVT 5. Chronic anticoagulation Monitor 6. Bacteremia Monitor, ID consult, IV abx 7. JOSE wit VMN Monitor, nephrology consult Plan discussed with: Patient, Other AUGIE MURRIETA NP Oct 08, 2024 15:42
--- NOTE | 2024-10-08 15:42 | ECG ---
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
[2024-10-08] MEDS ORDERED: ONDANSETRON HCL 4 MG/2 ML VIAL IV PRN (15:45)
[2024-10-08] MEDS ORDERED: NITROGLYCERIN 0.4 MG SL TAB SL PRN (15:45)
[2024-10-08] MEDS ORDERED: MORPHINE SULFATE INJ 2 MG/ml SYRG IV PRN ×2 (15:45)
[2024-10-08] MEDS ORDERED: ACETAMINOPHEN 325 MG TAB PO PRN (15:45)
[2024-10-08 15:57] VITALS: BP 98/54; PULSE 85; RESP 18; TEMP 99.2; O2SAT 96
[2024-10-08] MEDS: SODIUM CHLORIDE 0.9% 1,000 ML IV SCH (16:00)
[2024-10-08] MEDS ORDERED: MORPHINE SULFATE 4 MG/ML SYR/VIAL IV PRN ×2 (16:00)
[2024-10-08 17:15] LABS: COVID19 ANTIGEN SOFIA FIA NEGATIVE (NEGATIVE); Rapid Influenza A Negative (Negative); Rapid Influenza B Negative (Negative)
[2024-10-08 18:56] VITALS: PULSE 82; RESP 18; O2SAT 98
[2024-10-08 20:00] VITALS: PULSE 88; RESP 18; O2SAT 96
[2024-10-08] MEDS: FUROSEMIDE 40 MG/4 ML VIAL IV ONE (20:07)
[2024-10-08 21:00] VITALS: BP_SYST 126; BP_SYST 127; BP_DIAS 61; BP_DIAS 70; PULSE 78; PULSE 84; RESP 18; TEMP 98; TEMP 98.1; O2SAT 96
[2024-10-08] MEDS: CEFEPIME 2GM/50ML NS 50 ML IV SCH (21:14)
[2024-10-08] MEDS: APIXABAN 5 MG TAB PO SCH (21:15)
[2024-10-08] MEDS ORDERED: CEFEPIME 1GM/ 50ML 50 ML IV SCH (22:00)
[2024-10-08] MEDS ORDERED: VANCOMYCIN PER PHARMACY 0 MG IV SCH (22:15)
[2024-10-08] MEDS: BUDESONIDE (INHALATION) 0.5 MG/2 ML NEB NEB SCH (23:52)
[2024-10-09] VITALS (17 sets, daily range): BP systolic 105–120; BP diastolic 56–72; PULSE 82–104; RESP 16–20; TEMP 98.1–100.6; O2SAT 92–99
--- NOTE | 2024-10-09 01:40 | DVH ---
Right lower extremity venous duplex Clinical History: R/O dvt Comparison: US BILAT LOWER DVT on DOS: 09/10/24, US BILAT LOWER DVT on DOS: 05/07/24, US BILAT LOWER DVT on DOS: 01/04/24, US BILAT LOWER DVT on DOS: 04/22/23 Technique: Duplex Doppler evaluation of the deep venous system of the right lower extremity from the common femo ral vein to the popliteal vein including color Doppler and spectral/pulsed waveform analysis was perf ormed. Findings: The common femoral vein demonstrates appropriate compressibility and waveform variability. There is compressibility/patency of the great saphenous vein at the proximal thigh. The femoral vein demonstrates appropriate compressibility and waveform variability. The deep femoral vein demonstrates appropriate compressibility and waveform variability. The popliteal vein demonstrates appropriate compressibility and waveform variability. There is normal compressibility at the tibioperoneal trunk. Multiple enlarged right inguinal lymph nodes, the largest of which measures up to 5.2 cm. Impression: 1. No right femoropopliteal venous thrombosis. 2. Enlarged right inguinal lymph nodes.
[2024-10-09] MEDS: FUROSEMIDE 40 MG/4 ML VIAL IV SCH (05:35)
--- NOTE | 2024-10-09 08:55 | DVHPN2 ---
Progress Note - Dictate Date Seen: Oct 09, 2024 Medical Necessity Reason Pt with a Central, PICC or Fol: No vital signs Vital Sign Date Time Temp Pulse Resp B/P (MAP) Pulse Ox O2 Delivery O2 Flow Rate FiO2 10/09/24 07:09 96 16 98 10/09/24 07:00 Nasal Cannula* 2 28 10/09/24 05:35 120/65 10/09/24 05:00 99.5 99.5 Total Intake and Output 10/08/24 10/08/24 10/09/24 15:00 23:00 07:00 Intake Total 1050 ml Output Total 200 ml 2550 ml Balance -200 ml -1500 ml medications Current Medications Medications Dose Ordered Sig/Kristi Route Start Time Stop Time Status Last Admin Dose Admin Acetaminophen/ Hydrocodone Bitart 1 tab Q4HP PRN PO 10/08/24 15:45 Ondansetron HCl 4 mg Q4HP PRN IV 10/08/24 15:45 Acetaminophen 650 mg Q6HP PRN PO 10/08/24 15:45 Morphine Sulfate 2 mg Q4HPRN PRN IV 10/08/24 15:45 UNV Nitroglycerin 0.4 mg Q5MINP PRN SL 10/08/24 15:45 Morphine Sulfate 2 mg Q30M PRN IV 10/08/24 15:45 UNV Apixaban 5 mg BID PO 10/08/24 22:00 10/08/24 21:15 5 MG Tamsulosin HCl 0.4 mg DAILY PO 10/09/24 10:00 Sodium Chloride 1,000 ml @ 100 mls/hr Q10H IV 10/08/24 15:45 10/08/24 16:00 100 MLS/HR Budesonide 0.5 mg BID NEB 10/08/24 22:00 10/09/24 07:04 0.5 MG Cefepime HCl 50 ml @ 12.5 mls/hr Q12HR IV 10/08/24 22:00 10/08/24 21:14 12.5 MLS/HR Pantoprazole Sodium 40 mg DAILY IV 10/09/24 10:00 Morphine Sulfate 2 mg Q4HPRN PRN IV 10/08/24 16:00 Morphine Sulfate 2 mg Q30M PRN IV 10/08/24 16:00 Vancomycin HCl 0 ml @ 0 mls/hr UD IV 10/08/24 22:15 Pravastatin Sodium 20 mg DAILY PO 10/09/24 10:00 UNV Patient Own Medication 1 tab DAILY PO 10/09/24 10:00 UNV Patient Own Medication 1 drop BID EACHEYE 10/09/24 10:00 UNV Patient Own Medication 2 puff BID INH 10/09/24 10:00 UNV Patient Own Medication 1 tab HS PO 10/09/24 22:00 UNV Patient Own Medication 1 cap DAILY PO 10/09/24 10:00 UNV Patient Own Medication 1 tab BID PO 10/09/24 10:00 UNV Patient Own Medication 1 tab DAILY PO 10/09/24 10:00 UNV Patient Own Medication 1 sarah QPM EACHEYE 10/09/24 18:00 UNV objective General Appearance: alert, no distress HEENT: EOMI, PERRLA, normal external inspect of ears, no icterus, no nasal drainage Neck: no carotid bruit, no jugular venous distention (JVD), no lymphadenopathy Chest: normal thorax Respiratory: clear to auscultation, normal air movement Cardiovascular: regular rate and rhythm, no diastolic murmur, no jugular venous distention (JVD), no rub, no systolic murmur Abdominal: soft, no hepatomegaly, no mass, no splenomegaly, no tenderness Genitourinary: grossly normal external Musculoskeletal: no joint tenderness, no swelling Extremities: normal pulses, no calf tenderness, no clubbing, no cyanosis, no edema Skin: no bruising, no jaundice, no rash Neurological: alert, No focal deficit laboratory and microbiology Laboratory Tests 10/08/24 10:26 Test 10/08/24 10:26 Range/Units Serum Glucose 106 74-106 mg/dL Problem List 1. Acute on chronic diastolic heart failure Monitor, Diuretics, cardiology consult 2. COPD exacerbation Monitor, med neb treatments, pulmonary consult 3. Dementia Monitor, restart dementia meds 4. Hx of DVT right leg Monitor, restart eliquis for hx of DVT 5. Chronic anticoagulation Monitor 6. Bacteremia Monitor, ID consult, IV abx 7. JOSE wit VMN Monitor, nephrology consult Assessment/Plan Subjective Patient is awake and alert. Objective I spoke with patient and patient's at bedside. Patient is complaining of some pain to his lower extremities. Patient has cellulitis worse on the right lower extremity which is tender to touch. Patient has COPD exacerbation. He does take inhalers at home. BNP is currently pending. Patient has underlying dementia. 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 Environmental Lead has been consulted. Patient also complaining of right shoulder pain states he had a recent fall. Right shoulder X-rays pending. Plan Continued diuretics per electronic coils supervisor. Pulmonary consult for shortness of breath and eval BNP levels. Plan discussed with: Patient, Other AUGIE MURRIETA NP Oct 09, 2024 08:55
[2024-10-09] MEDS: TAMSULOSIN HYDROCHLORIDE 0.4 MG CAP PO SCH (09:05)
[2024-10-09] MEDS: PANTOPRAZOLE 40 MG/10 ML VIAL INJ IV SCH (09:05)
[2024-10-09] MEDS ORDERED: PATIENTS OWN MEDICATION (Metoprolol Succinate (Metoprolol Succinate Er) 1 TAB) PO SCH (10:00)
[2024-10-09] MEDS ORDERED: BUDESONIDE FORMOTEROL FUMARATE IN SCH (10:00)
[2024-10-09] MEDS ORDERED: BRIMONIDINE TARTRATE EACHEYE SCH (10:00)
[2024-10-09 10:07] LABS: Basophils # (auto) 0.1 10 ^3/uL (0-0.2); Basophils % (auto) 0.3 % (0.0-2.0); Eosinophils # (auto) 0 10 ^3/uL (0-0.8); Hematocrit 40.5 % (41.0-53.0); Hemoglobin 13.2 g/dL (13.5-17.5); Lymphocytes # (auto) 0.6 10 ^3/uL (0.4-5.4); Lymphocytes % (auto) 3.5 % (10.0-50.0); Mean Corpuscular Hemoglobin 27.3 pg (28.0-32.0); Mean Corpuscular Hgb Conc. 32.6 g/dL (32.0-36.0); Mean Corpuscular Volume 83.8 fL (80.0-100.0); Monocytes # (auto) 0.8 10 ^3/uL (0-1.3); Monocytes % (auto) 5.2 % (0.0-12.0); Neutrophils # (auto) 14.7 10 ^3/uL (1.6-8.6); Platelet Count (auto) 124 10^3/uL (140-450); Red Blood Cells 4.83 10^6/uL (4.5-5.90); Red Cell Distribution Width 16.2 % (11.8-14.3); White Blood Cell 16.2 10^3/uL (4.4-10.8)
[2024-10-09 10:16] LABS: Chloride 107 mmol/L (98-107); Potassium 3.8 mmol/L (3.5-5.1); Sodium 143 mmol/L (136-145)
[2024-10-09 10:17] LABS: Anion Gap 10 (5-15); Carbon Dioxide 26 mmol/L (20-31)
[2024-10-09 10:18] LABS: Calcium 9.5 mg/dL (8.7-10.4)
[2024-10-09 10:23] LABS: BUN/Creatinine Ratio 14.5 (10.0-20.0)
[2024-10-09 10:26] LABS: Blood Urea Nitrogen 24 mg/dL (9-23); Glucose 192 mg/dL (74-106)
[2024-10-09] MEDS: VANCOMYCIN 1GM/200ML PM 200 ML IV ONE (11:21)
[2024-10-09] MEDS: PRAVASTATIN SODIUM 20 MG TAB PO SCH (11:26)
[2024-10-09] MEDS: amLODIPine BESYLATE 5 MG TAB PO SCH (11:31)
[2024-10-09] MEDS: ALBUTEROL SULF 2.5 MG/0.5ML(0.5%) NEB SOLN NEB SCH (11:47)
[2024-10-09] MEDS: SODIUM CHLORIDE 0.9% 1,000 ML IV SCH (12:00)
--- NOTE | 2024-10-09 12:39 | DVHINCON2 ---
Date of service: Oct 08, [address] castillo Reason for Consultation copd, sob History of Present Illness HPI pt is an 89 yo AAM, multiple medical problems, h/o CHF, COPD, presented with nausea, vomiting and shortness of breath. Pt had fever 101. Brought in to ER where he required suppl 02. CXR: congestion vs infiltrate. Pt has a h/o cardiomyopathy, usually takes eliquis. reports peripheral swelling Home Meds Active Scripts Furosemide (Lasix) 40 Mg Tab, 40 MG PO DAILY for 30 Days, #30 TAB 6 Refills Prov:AUGIE MURRIETA ART GALLERY DIRECTOR 09/11/24 Furosemide (Lasix) 40 Mg Tab, 40 MG PO DAILY for 30 Days, #30 TAB Prov:AUGIE MURRIETA ART GALLERY DIRECTOR 05/09/24 Metoprolol Succinate (Metoprolol Succinate Er) 25 Mg Tab, 1 TAB PO DAILY for 30 Days, #30 TAB Prov:AUGIE MURRIETA ART GALLERY DIRECTOR 05/09/24 Brimonidine Tartrate (ALPHAGAN P 0.15% OPTHALMIC) [address], 1 DROP EACHEYE BID, #15 ML 3 Refills Prov:AUGIE MURRIETA ART GALLERY DIRECTOR 01/06/24 Reported Medications Cetirizine Hcl (Kls Aller-Jaylyn) 10 Mg Tab, 1 TAB PO HS for 30 Days, #30 3 Refills 01/02/24 Dapagliflozin Propanediol (Farxiga) 10 Mg Tab, 5 MG PO DAILY for 90 Days, #90 01/02/24 Senna (Estela-Nicole) 8.6 Mg Tab, 2-4 TAB PO QPM PRN for FOR CONSTIPATION for 15 Days, #60 01/02/24 Budesonide-Formoterol Fumarate (Budesonide/Formoterol Fum 160-4.5 Mcg/Act) 1 Aer Aer, 2 PUFF INH BID for 30 Days, #10.2 01/02/24 Oxybutynin Chloride (Oxybutynin Chloride) 5 Mg Tab, 15 MG PO DAILY for 90 Days, #90 01/02/24 Pravastatin Sodium (PRAVACHOL TABLET) 20 Mg Tb, 1 TAB PO DAILY for 90 Days, #90 01/02/24 Netarsudil Dimesylate-Latanopr (Rocklatan 0.02-0.005 %) 1 Adrian Adrian, 1 ADRIAN EACHEYE QPM for 25 Days, #2 01/02/24 Apixaban Base (ELIQUIS) 5 Mg Tab, 1 TAB PO BID for 30 Days, #60 01/02/24 Nfnclsihbdt-Qyzddikvvsdx-Rvlvp (Trelegy Ellipta 200-62.5-25 Mcg/INH) 1 Aer Aer, 1 PUFF PO DAILY 04/23/23 Amlodipine Besylate (Amlodipine Besylate) 10 Mg Tab, 1 TAB PO DAILY 04/23/23 Memantine Hydrochloride (Memantine HCl) 10 Mg Tab, 1 TAB PO BID for 90 Days, #180 04/22/23 Cholecalciferol (VITAMIN D3) 5,000 Unit Cap, 1 CAP PO DAILY 04/22/23 Tamsulosin Hcl (Flomax) 0.4 Mg Cap, 2 CAP PO DAILY for 45 Days, #90 06/18/19 Past Medical History Cardiac: CHF, HTN Pulmonary: COPD Central Nervous System: No pertinent Hx GI: No pertinent Hx Hemotology/Oncology: No pertinent Hx Hepatobiliary: No pertinent Hx Psychiatric: No pertinent Hx Musculoskeletal: No pertinent Hx Rheumotologic: No pertinent Hx Infectious Disease: No peritnent Hx ENT: No pertinent Hx Renal/: No pertinent Hx Endocrine: No pertinent Hx Dermatology: No pertinent Hx Past Surgical History: No pertinent Hx Family History: No pertinent Hx Patient Family History: Benign prostate tumor G8 FATHER Diabetes mellitus G8 MOTHER Hypercholesterolemia G8 MOTHER Hypertension G8 MOTHER Review of Systems Constitutional: Fever, Malaise Ears, Nose, & Throat: No symptom reported Eyes: No symptom reported Pulmonary/Respiratory: Dyspnea, Cough Cardiovascular: No symptom reported Gastrointestinal: No symptom reported Genitourinary: No symptom reported Musculoskeletal: No symptom reported Skin: No symptom reported Psychiatric: No symptom reported Endocrine: No symptom reported Hemotologic/Lymphatic: No symptom reported H&P Exam Vital Signs Vital Signs Date Time Temp Pulse Resp B/P (MAP) Pulse Ox O2 Delivery O2 Flow Rate FiO2 10/09/24 11:47 96 16 99 10/09/24 11:31 120/70 10/09/24 10:00 Nasal Cannula 2.0 10/09/24 10:00 28 10/09/24 09:00 98.3 98.3 General Appeara: Well developed, Well nourished Head Exam: Normal inspection Neck Exam: Normal inspection, Non-tender, Normal alignment Eye Exam: bilateral eye Normal inspection, bilateral eye PERRL Ear Exam: bilateral ear Auricle normal, bilateral ear Canal normal, bilateral ear TM normal Nasal Exam: Normal inspection Mouth: Normal Inspection Pulmonary/Respiratory: Normal inspection, Normal breath sounds, Chest non- tender Cardiovascular/Chest: Normal inspection Peripheral Pulses: 4+ carotid (R), 4+ carotid (L) Abdominal Exam: Normal bowel sounds, Soft Labs/Xrays Labs Test 10/09/24 09:48 10/08/24 15:47 10/08/24 13:47 10/08/24 10:48 Range/Units White Blood Count 16.2 H 4.4-10.8 10^3/uL Red Blood Count 4.83 4.5-5.90 10^6/uL Hemoglobin 13.2 L 13.5-17.5 g/dL Hematocrit 40.5 L 41.0-53.0 % Mean Corpuscular Volume 83.8 80.0-100.0 fL Mean Corpuscular Hemoglobin 27.3 L 28.0-32.0 pg Mean Corpuscular Hemoglobin Concent 32.6 32.0-36.0 g/dL Red Cell Distribution Width 16.2 H 11.8-14.3 % Platelet Count 124 L 140-450 10^3/uL Mean Platelet Volume 11.3 H 6.9-10.8 fL Neutrophils (%) (Auto) 91.0 H 37.0-80.0 % Lymphocytes (%) (Auto) 3.5 L 10.0-50.0 % Monocytes (%) (Auto) 5.2 0.0-12.0 % Eosinophils (%) (Auto) 0.0 0.0-7.0 % Basophils (%) (Auto) 0.3 0.0-2.0 % Neutrophils # (Auto) 14.7 H 1.6-8.6 10 ^3/uL Lymphocytes # (Auto) 0.6 0.4-5.4 10 ^3/uL Monocytes # (Auto) 0.8 0-1.3 10 ^3/uL Eosinophils # (Auto) 0 0-0.8 10 ^3/uL Basophils # (Auto) 0.1 0-0.2 10 ^3/uL Nucleated Red Blood Cells 0.0 % Sodium Level 143 136-145 mmol/L Potassium Level 3.8 3.5-5.1 mmol/L Chloride Level 107 98-107 mmol/L Carbon Dioxide Level 26 20-31 mmol/L Anion Gap 10 5-15 Blood Urea Nitrogen 24 H 9-23 mg/dL Creatinine 1.66 H 0.700-1.30 mg/dL Glomerular Filtration Rate Calc 39 >90 mL/min BUN/Creatinine Ratio 14.5 10.0-20.0 Serum Glucose 192 H 74-106 mg/dL Calcium Level 9.5 8.7-10.4 mg/dL Random Vancomycin Level 11.0 H 5-10 ug/mL Influenza Type A Antigen Negative Negative Influenza Type B Antigen Negative Negative SARS-CoV-2 Antigen (Rapid) Negative NEGATIVE Lactic Acid Level 2.4 *H 0.4-2.0 mmol/L POC Glucose 112 H 70-106 mg/dl Test 10/08/24 10:43 10/08/24 10:26 Range/Units Urine Color Light-yellow Yellow Urine Clarity Clear Clear Urine pH 5.5 5.0-9.0 Urine Specific [place] 1.007 1.001-1.035 Urine Protein Trace H Negative Urine Ketones Negative Negative Urine Blood Negative Negative /uL Urine Nitrite Negative Negative Urine Bilirubin Negative Negative Urine Urobilinogen Normal Negative mg/dL Urine Leukocyte Esterase Negative Negative /uL Urine RBC 4 0 - 3 /hpf Urine Microscopic WBC 3 0-3 /HPF Urine Squamous Epithelial Cells Few <5 /hpf Urine Bacteria Few H None Seen /hpf Urine Mucus Few None Seen Urine Sperm Present None Seen /hpf Urine Glucose 4+ H Normal mg/dL Differential Total Cells Counted 100.0 100 Neutrophils % (Manual) 73 37.0-80.0 Band Neutrophils % (Manual) 10 Lymphocytes % (Manual) 8 L 10.0-50.0 Monocytes % (Manual) 9 0-12 Eosinophils % (Manual) 0 0-7 Basophils % (Manual) 0 0.0-2.0 Metamyelocytes % (manual) 0 Myelocytes % (Manual) 0 Promyelocytes % (Manual) 0 Blast Cells % (Manual) 0 Reactive Lymphocytes 0 Platelet Estimate Decreased Giant Platelets Prothrombin Time 11.8 9.3-11.8 sec Prothrombin Time INR 1.13 0.9-1.15 Activated Partial Thromboplast Time 27.3 24.5-34.5 SEC Total Bilirubin 0.7 0.2-1.0 mg/dL Aspartate Amino Transferase (AST) 27 13-40 U/L Alanine Aminotransferase (ALT) 12 7-40 U/L Alkaline Phosphatase 99 46-116 U/L Total Protein 7.5 5.7-8.2 g/dL Albumin 4.3 3.2-4.8 g/dL Microbiology Date/Time Source Procedure Growth Status 10/08/24 10:26 Blood Blood Culture - Preliminary Resulted Assessment/Plan Plan copd CHF hypoxemia morbid obesity atelectases JOSE pulm congestion pt seen and examined no distress labs and imaging reviewed plan suppl 02 as needed bronchodilators alb/atr obt cx abx monitor renal function BUN/Cr (elevated) cont eliquis Plan discussed with: Patient ARIS CORREIA MD Oct 09, 2024 12:39
--- NOTE | 2024-10-09 12:40 | DVHPN2 ---
Progress Note - Dictate Date Seen: Oct 09, 2024 Has the PT tested + for MRSA If YES, has PT been informed?: No Medical Necessity Reason Pt with a Central, PICC or Fol: No vital signs Vital Sign Date Time Temp Pulse Resp B/P (MAP) Pulse Ox O2 Delivery O2 Flow Rate FiO2 10/09/24 11:47 96 16 99 10/09/24 11:31 120/70 10/09/24 10:00 Nasal Cannula 2.0 10/09/24 10:00 28 10/09/24 09:00 98.3 98.3 Total Intake and Output 10/08/24 10/08/24 10/09/24 15:00 23:00 07:00 Intake Total 1050 ml Output Total 200 ml 2550 ml Balance -200 ml -1500 ml medications Current Medications Medications Dose Ordered Sig/Kristi Route Start Time Stop Time Status Last Admin Dose Admin Acetaminophen/ Hydrocodone Bitart 1 tab Q4HP PRN PO 10/08/24 15:45 Ondansetron HCl 4 mg Q4HP PRN IV 10/08/24 15:45 Acetaminophen 650 mg Q6HP PRN PO 10/08/24 15:45 Morphine Sulfate 2 mg Q4HPRN PRN IV 10/08/24 15:45 UNV Nitroglycerin 0.4 mg Q5MINP PRN SL 10/08/24 15:45 Morphine Sulfate 2 mg Q30M PRN IV 10/08/24 15:45 UNV Apixaban 5 mg BID PO 10/08/24 22:00 10/09/24 09:05 5 MG Tamsulosin HCl 0.4 mg DAILY PO 10/09/24 10:00 10/09/24 09:05 0.4 MG Cefepime HCl 50 ml @ 12.5 mls/hr Q12HR IV 10/08/24 22:00 10/09/24 09:05 12.5 MLS/HR Pantoprazole Sodium 40 mg DAILY IV 10/09/24 10:00 10/09/24 09:05 40 MG Morphine Sulfate 2 mg Q4HPRN PRN IV 10/08/24 16:00 Morphine Sulfate 2 mg Q30M PRN IV 10/08/24 16:00 Vancomycin HCl 0 ml @ 0 mls/hr UD IV 10/08/24 22:15 Pravastatin Sodium 20 mg DAILY PO 10/09/24 10:00 10/09/24 11:26 20 MG Amlodipine Besylate 10 mg DAILY PO 10/09/24 10:00 10/09/24 11:31 10 MG Patient Own Medication 1 drop BID EACHEYE 10/09/24 10:00 UNV Patient Own Medication 2 puff BID INH 10/09/24 10:00 UNV Patient Own Medication 1 tab HS PO 10/09/24 22:00 UNV Cholecalciferol 5,000 unit DAILY PO 10/10/24 10:00 Memantine 10 mg BID PO 10/09/24 22:00 Patient Own Medication 1 tab DAILY PO 10/09/24 10:00 UNV Patient Own Medication 1 sarah QPM EACHEYE 10/09/24 18:00 Budesonide 0.5 mg BID NEB 10/09/24 10:00 Albuterol 2.5 mg Q6HWA NEB 10/09/24 12:00 10/09/24 11:47 2.5 MG Sodium Chloride 1,000 ml @ 50 mls/hr Q20H IV 10/09/24 12:00 UNV Carvedilol 3.125 mg Q12HR PO 10/09/24 22:00 UNV laboratory and microbiology Laboratory Tests 10/09/24 09:48 Test 10/09/24 09:48 Range/Units Serum Glucose 192 H 74-106 mg/dL Assessment/Plan COPD CHF atelectases hypoxemia on room air vs stable cont abx bronchodilatoers diurese monitor labs cont eliquis Plan discussed with: Patient, Spouse ARIS CORREIA MD Oct 09, 2024 12:40
[2024-10-09] MEDS: CARVEDILOL 3.125 MG TAB PO ONE (12:45)
[2024-10-09] MEDS ORDERED: BRIM0.2S2 OP (12:58)
[2024-10-09] MEDS ORDERED: NETA1DRO OP (13:00)
[2024-10-09] MEDS ORDERED: [UNRECOGNIZED DRUG - CODE] OP (13:00)
--- NOTE | 2024-10-09 13:20 | DVH ---
Procedure: CT CHEST WITHOUT CONTRAST Reason for study/Clinical History: r/o pna Comparison Study: None TECHNIQUE: Multidetector CT of the chest was performed from the lung apices to the upper abdomen with out the use of intravenous contract. Axial, coronal and sagittal multiplanar reformats were performed . Radiation Dose Information: CT Dose: CTDI volume is 16.4 mGy. Dose-length product is 614.5 mGy*cm The dose indicators for CT are the volume Computed Tomography (CT) Dose Index (CTDIvol) and the Dose Length Product (DLP), and are measured in units of mGy and mGy-cm, respectively. These indicators are not patient dose, but values generated from the CT scanner acquisition factors. The report includes radiation exposure data for exposures received during this examination. FINDINGS: Lower neck: Unremarkable. Lungs: Dependent atelectasis. Mild paraseptal emphysema. Heart/Vascular Structures: Cardiomegaly. Coronary artery calcifications. Vascular calcifications of t he aorta. Moderate pericardial effusion. Lymph Nodes: No adenopathy Pleura: Trace bilateral pleural effusions. Musculoskeletal: No acute osseous abnormality. Degenerative changes of the spine. Possible diffuse id iopathic skeletal hyperostosis. Soft tissues: Normal. Upper abdomen: Left upper pole renal cyst measures 6.5 cm. IMPRESSION: No focal airspace consolidation.
--- NOTE | 2024-10-09 13:24 | DVH ---
CLINICAL INDICATION: fall, trauma, pain TECHNIQUE: XY R SHOULDER 2+ VIEW XRAY Comparison: None FINDINGS/IMPRESSION: : There is no evidence of acute fracture or dislocation. Soft tissues are unremarkable.
--- NOTE | 2024-10-09 17:12 | DVHINCON2 ---
Date of service: Oct 09, 2024 History of Present Illness 89 yo M with hx of pad, AAA, VTE/ PE /dvt admitted for swelling to legs R > L. he was here a month ago and had had negative vte study. today his vte study was -. Past Medical History reviewed Family History: Benign prostate tumor G8 FATHER Diabetes mellitus G8 MOTHER Hypercholesterolemia G8 MOTHER Hypertension G8 MOTHER Allergies: Coded Allergies: Bee Venom (Verified Allergy, Severe, Swelling, 09/18/19) Penicillins (Verified Allergy, Severe, Facial swelling, 09/18/19) Home Meds Active Scripts Furosemide (Lasix) 40 Mg Tab, 40 MG PO DAILY for 30 Days, #30 TAB 6 Refills Prov:AUGIE MURRIETA Jagjit [employer] TECH[employer]ICIAN 09/11/24 Furosemide (Lasix) 40 Mg Tab, 40 MG PO DAILY for 30 Days, #30 TAB Prov:MALCOLM MURRIETAAUGUST Danielson [employer] [address] [employer] TECHNICIAN 05/09/24 Metoprolol Succinate (Metoprolol Succinate Er) 25 Mg Tab, 1 TAB PO DAILY for 30 Days, #30 TAB Prov:GLENNYMALCOLMAUGIE M [employer] TECHNICIAN 05/09/24 Brimonidine Tartrate (ALPHAGAN P 0.15% OPTHALMIC) [address], 1 DROP EACHEYE BID, #15 ML 3 Refills Prov:AUGIE MURRIETA Jagjit [employer] [address] [employer] TECHNICIAN 01/06/24 Reported Medications Lotilaner (Xdemvy) 0.25 % Adrian, 0.25 % OP, DROP 10/09/24 Netarsudil Dimesylate-Latanopr (Rocklatan 0.02-0.005 %) 1 Adrian Adrian, 1 ADRIAN OP, ADRIAN 10/09/24 Brimonidine Tartrate-Timolol M (Combigan) 0.2 Mg/0.5 % Bernadine, 0.2 MG OP, ML 10/09/24 Cetirizine Hcl (Kls Aller-Jaylyn) 10 Mg Tab, 1 TAB PO HS for 30 Days, #30 3 Refills 01/02/24 Dapagliflozin Propanediol (Farxiga) 10 Mg Tab, 5 MG PO DAILY for 90 Days, #90 01/02/24 Senna (Estela-Nicole) 8.6 Mg Tab, 2-4 TAB PO QPM PRN for FOR CONSTIPATION for 15 Days, #60 01/02/24 Budesonide-Formoterol Fumarate (Budesonide/Formoterol Fum 160-4.5 Mcg/Act) 1 Aer Aer, 2 PUFF INH BID for 30 Days, #10.2 01/02/24 Oxybutynin Chloride (Oxybutynin Chloride) 5 Mg Tab, 15 MG PO DAILY for 90 Days, #90 01/02/24 Pravastatin Sodium (PRAVACHOL TABLET) 20 Mg Tb, 1 TAB PO DAILY for 90 Days, #90 01/02/24 Netarsudil Dimesylate-Latanopr (Rocklatan 0.02-0.005 %) 1 Adrian Adrian, 1 ADRIAN EACHEYE QPM for 25 Days, #2 01/02/24 Apixaban Base (ELIQUIS) 5 Mg Tab, 1 TAB PO BID for 30 Days, #60 01/02/24 Seiceqydtkw-Qmxwmvgstmqu-Idpdj (Trelegy Ellipta 200-62.5-25 Mcg/INH) 1 Aer Aer, 1 PUFF PO DAILY 04/23/23 Amlodipine Besylate (Amlodipine Besylate) 10 Mg Tab, 1 TAB PO DAILY 04/23/23 Memantine Hydrochloride (Memantine HCl) 10 Mg Tab, 1 TAB PO BID for 90 Days, #180 04/22/23 Cholecalciferol (VITAMIN D3) 5,000 Unit Cap, 1 CAP PO DAILY 04/22/23 Tamsulosin Hcl (Flomax) 0.4 Mg Cap, 2 CAP PO DAILY for 45 Days, #90 06/18/19 Current Medications Current Medications Medications (Trade) Dose Ordered Sig/Kristi Route PRN Reason Start Time Stop Time Status Last Admin Cefepime HCl 50 ml @ 12.5 mls/hr Q12H IV 10/08/24 22:00 10/08/24 15:58 DC Apixaban (Eliquis) 5 mg BID PO 10/08/24 22:00 10/09/24 09:05 Tamsulosin HCl (Flomax) 0.4 mg DAILY PO 10/09/24 10:00 10/09/24 09:05 Budesonide (Pulmicort) 0.5 mg BID NEB 10/08/24 22:00 10/09/24 11:19 DC 10/09/24 07:04 Cefepime HCl 50 ml @ 12.5 mls/hr Q12HR IV 10/08/24 22:00 10/09/24 09:05 Pantoprazole Sodium (Protonix) 40 mg DAILY IV 10/09/24 10:00 10/09/24 09:05 Furosemide (Lasix Injection) 40 mg BIDD IV 10/09/24 06:00 10/09/24 08:53 DC 10/09/24 05:35 Vancomycin HCl 0 ml @ 0 mls/hr UD IV 10/08/24 22:15 Pravastatin Sodium (Pravachol Tablet) 20 mg DAILY PO 10/09/24 10:00 10/09/24 11:26 Amlodipine Besylate (Norvasc Tablet) 10 mg DAILY PO 10/09/24 10:00 10/09/24 11:31 Patient Own Medication 1 drop BID EACHEYE 10/09/24 10:00 Cancel Patient Own Medication 2 puff BID IN 10/09/24 10:00 Hold Patient Own Medication 1 tab HS PO 10/09/24 22:00 UNV Cholecalciferol (Vitamin D3 Tablet) 5,000 unit DAILY PO 10/10/24 10:00 Memantine (Namenda Tablet) 10 mg BID PO 10/09/24 22:00 Patient Own Medication 1 tab DAILY PO 10/09/24 10:00 UNV Patient Own Medication 1 adrian QPM EACHEYE 10/09/24 18:00 Budesonide (Pulmicort) 0.5 mg BID NEB 10/09/24 10:00 Albuterol (Ventolin Medneb) 2.5 mg Q6HWA NEB 10/09/24 12:00 10/09/24 11:47 Sodium Chloride 1,000 ml @ 50 mls/hr Q20H IV 10/09/24 12:00 Carvedilol (Coreg Tablet) 3.125 mg Q12HR PO 10/09/24 22:00 Patient Own Medication 1 DAILY EACHEYE 10/09/24 17:00 UNV Review of Systems 10 pt ros otherwise negative Vital Signs Vital Signs Date Time Temp Pulse Resp B/P (MAP) Pulse Ox O2 Delivery O2 Flow Rate FiO2 10/09/24 16:59 100.6 100 18 115/56 (75) 97 100.6 10/09/24 10:00 Nasal Cannula 2.0 10/09/24 10:00 28 Physical Exam nad s1 s2 rrr diffuse rhonchia abd soft nt/nd +2 edema R > L redness Labs/Diagnostic Data Labs Test 10/09/24 09:48 10/08/24 15:47 10/08/24 13:47 10/08/24 10:48 Range/Units White Blood Count 16.2 H 4.4-10.8 10^3/uL Red Blood Count 4.83 4.5-5.90 10^6/uL Hemoglobin 13.2 L 13.5-17.5 g/dL Hematocrit 40.5 L 41.0-53.0 % Mean Corpuscular Volume 83.8 80.0-100.0 fL Mean Corpuscular Hemoglobin 27.3 L 28.0-32.0 pg Mean Corpuscular Hemoglobin Concent 32.6 32.0-36.0 g/dL Red Cell Distribution Width 16.2 H 11.8-14.3 % Platelet Count 124 L 140-450 10^3/uL Mean Platelet Volume 11.3 H 6.9-10.8 fL Neutrophils (%) (Auto) 91.0 H 37.0-80.0 % Lymphocytes (%) (Auto) 3.5 L 10.0-50.0 % Monocytes (%) (Auto) 5.2 0.0-12.0 % Eosinophils (%) (Auto) 0.0 0.0-7.0 % Basophils (%) (Auto) 0.3 0.0-2.0 % Neutrophils # (Auto) 14.7 H 1.6-8.6 10 ^3/uL Lymphocytes # (Auto) 0.6 0.4-5.4 10 ^3/uL Monocytes # (Auto) 0.8 0-1.3 10 ^3/uL Eosinophils # (Auto) 0 0-0.8 10 ^3/uL Basophils # (Auto) 0.1 0-0.2 10 ^3/uL Nucleated Red Blood Cells 0.0 % Sodium Level 143 136-145 mmol/L Potassium Level 3.8 3.5-5.1 mmol/L Chloride Level 107 98-107 mmol/L Carbon Dioxide Level 26 20-31 mmol/L Anion Gap 10 5-15 Blood Urea Nitrogen 24 H 9-23 mg/dL Creatinine 1.66 H 0.700-1.30 mg/dL Glomerular Filtration Rate Calc 39 >90 mL/min BUN/Creatinine Ratio 14.5 10.0-20.0 Serum Glucose 192 H 74-106 mg/dL Calcium Level 9.5 8.7-10.4 mg/dL B-Type Natriuretic Peptide 651.51 0-100 pg/mL Random Vancomycin Level 11.0 H 5-10 ug/mL Influenza Type A Antigen Negative Negative Influenza Type B Antigen Negative Negative SARS-CoV-2 Antigen (Rapid) Negative NEGATIVE Lactic Acid Level 2.4 *H 0.4-2.0 mmol/L POC Glucose 112 H 70-106 mg/dl Test 10/08/24 10:43 10/08/24 10:26 Range/Units Urine Color Light-yellow Yellow Urine Clarity Clear Clear Urine pH 5.5 5.0-9.0 Urine Specific Maple 1.007 1.001-1.035 Urine Protein Trace H Negative Urine Ketones Negative Negative Urine Blood Negative Negative /uL Urine Nitrite Negative Negative Urine Bilirubin Negative Negative Urine Urobilinogen Normal Negative mg/dL Urine Leukocyte Esterase Negative Negative /uL Urine RBC 4 0 - 3 /hpf Urine Microscopic WBC 3 0-3 /HPF Urine Squamous Epithelial Cells Few <5 /hpf Urine Bacteria Few H None Seen /hpf Urine Mucus Few None Seen Urine Sperm Present None Seen /hpf Urine Glucose 4+ H Normal mg/dL Differential Total Cells Counted 100.0 100 Neutrophils % (Manual) 73 37.0-80.0 Band Neutrophils % (Manual) 10 Lymphocytes % (Manual) 8 L 10.0-50.0 Monocytes % (Manual) 9 0-12 Eosinophils % (Manual) 0 0-7 Basophils % (Manual) 0 0.0-2.0 Metamyelocytes % (manual) 0 Myelocytes % (Manual) 0 Promyelocytes % (Manual) 0 Blast Cells % (Manual) 0 Reactive Lymphocytes 0 Platelet Estimate Decreased Giant Platelets Prothrombin Time 11.8 9.3-11.8 sec Prothrombin Time INR 1.13 0.9-1.15 Activated Partial Thromboplast Time 27.3 24.5-34.5 SEC Total Bilirubin 0.7 0.2-1.0 mg/dL Aspartate Amino Transferase (AST) 27 13-40 U/L Alanine Aminotransferase (ALT) 12 7-40 U/L Alkaline Phosphatase 99 46-116 U/L Total Protein 7.5 5.7-8.2 g/dL Albumin 4.3 3.2-4.8 g/dL Microbiology Date/Time Source Procedure Growth Status 10/08/24 10:26 Blood Blood Culture - Preliminary Resulted Assessment venous stasis hx of dvt hx of PE chf AAA pad HTN HL ckd Plan/Recommendation tx for cellulitis abx per primary group venous US was - cont doac check echo iv diuretics as needed Plan discussed with: Patient EL BLAND MD Oct 09, 2024 17:12
[2024-10-09] MEDS: ROCKLATAN EACHEYE SCH (18:11)
[2024-10-09] MEDS: BUDESONIDE (INHALATION) 0.5 MG/2 ML NEB NEB SCH (18:52)
[2024-10-09] MEDS: MEMANTINE HCL 5 MG TAB PO SCH (21:52)
[2024-10-09] MEDS: CARVEDILOL 3.125 MG TAB PO SCH (21:53)
[2024-10-09] MEDS: COMBIGAN EACHEYE SCH (21:54)
[2024-10-09] MEDS ORDERED: CETIRIZINE HCL PO SCH (22:00)
[2024-10-10] VITALS (14 sets, daily range): BP systolic 100–147; BP diastolic 58–88; PULSE 61–93; RESP 18–19; TEMP 97–98.7; O2SAT 91–100
[2024-10-10] MEDS: VANCOMYCIN 1.25GM/250ML 250 ML IV ONE (10:38)
[2024-10-10] MEDS: CHOLECALCIFEROL (VITD3) 1,000UNIT=25mCg TAB PO SCH (10:39)
--- NOTE | 2024-10-10 11:06 | DVHPN2 ---
Progress Note - Dictate Date Seen: Oct 10, 2024 Has the PT tested + for MRSA If YES, has PT been informed?: No Medical Necessity Reason Pt with a Central, PICC or Fol: No vital signs Vital Sign Date Time Temp Pulse Resp B/P (MAP) Pulse Ox O2 Delivery O2 Flow Rate FiO2 10/10/24 10:42 88 141/71 10/10/24 08:48 98.1 18 96 98.1 10/10/24 08:07 Room Air* 0 21 Total Intake and Output 10/09/24 10/09/24 10/10/24 15:00 23:00 07:00 Intake Total 300 ml 1480 ml Output Total 2300 ml Balance -2000 ml 1480 ml medications Current Medications Medications Dose Ordered Sig/Kristi Route Start Time Stop Time Status Last Admin Dose Admin Acetaminophen/ Hydrocodone Bitart 1 tab Q4HP PRN PO 10/08/24 15:45 Ondansetron HCl 4 mg Q4HP PRN IV 10/08/24 15:45 Acetaminophen 650 mg Q6HP PRN PO 10/08/24 15:45 Morphine Sulfate 2 mg Q4HPRN PRN IV 10/08/24 15:45 UNV Nitroglycerin 0.4 mg Q5MINP PRN SL 10/08/24 15:45 Morphine Sulfate 2 mg Q30M PRN IV 10/08/24 15:45 UNV Apixaban 5 mg BID PO 10/08/24 22:00 10/10/24 10:42 5 MG Tamsulosin HCl 0.4 mg DAILY PO 10/09/24 10:00 10/10/24 10:40 0.4 MG Cefepime HCl 50 ml @ 12.5 mls/hr Q12HR IV 10/08/24 22:00 10/09/24 21:53 12.5 MLS/HR Pantoprazole Sodium 40 mg DAILY IV 10/09/24 10:00 10/10/24 10:38 40 MG Morphine Sulfate 2 mg Q4HPRN PRN IV 10/08/24 16:00 Morphine Sulfate 2 mg Q30M PRN IV 10/08/24 16:00 Vancomycin HCl 0 ml @ 0 mls/hr UD IV 10/08/24 22:15 Pravastatin Sodium 20 mg DAILY PO 10/09/24 10:00 10/10/24 10:40 20 MG Amlodipine Besylate 10 mg DAILY PO 10/09/24 10:00 10/10/24 10:41 10 MG Patient Own Medication 1 drop BID EACHEYE 10/09/24 10:00 Cancel Patient Own Medication 2 puff BID IN 10/09/24 10:00 Hold Patient Own Medication 1 tab HS PO 10/09/24 22:00 UNV Cholecalciferol 5,000 unit DAILY PO 10/10/24 10:00 10/10/24 10:39 5,000 UNIT Memantine 10 mg BID PO 10/09/24 22:00 10/10/24 10:40 10 MG Patient Own Medication 1 tab DAILY PO 10/09/24 10:00 UNV Patient Own Medication 1 sarah QPM EACHEYE 10/09/24 18:00 10/09/24 18:11 1 SARAH Budesonide 0.5 mg BID NEB 10/09/24 10:00 10/09/24 18:52 0.5 MG Albuterol 2.5 mg Q6HWA [facility] 10/09/24 12:00 10/10/24 08:07 2.5 MG Sodium Chloride 1,000 ml @ 50 mls/hr Q20H IV 10/09/24 12:00 10/10/24 06:40 50 MLS/HR Carvedilol 3.125 mg Q12HR PO 10/09/24 22:00 10/10/24 10:42 3.125 MG Patient Own Medication 1 BID EACHEYE 10/09/24 22:00 10/10/24 10:46 1 Doxycycline Monohydrate 100 mg Q12HR PO 10/10/24 11:15 UNV objective General Appearance: alert, no distress HEENT: EOMI, PERRLA, normal external inspect of ears, no icterus, no nasal drainage Neck: no carotid bruit, no jugular venous distention (JVD), no lymphadenopathy Chest: normal thorax Respiratory: clear to auscultation, normal air movement Cardiovascular: regular rate and rhythm, no diastolic murmur, no jugular venous distention (JVD), no rub, no systolic murmur Abdominal: soft, no hepatomegaly, no mass, no splenomegaly, no tenderness Genitourinary: grossly normal external Musculoskeletal: no joint tenderness, no swelling Extremities: normal pulses, no calf tenderness, no clubbing, no cyanosis, no edema Skin: no bruising, no jaundice, no rash Neurological: alert, No focal deficit laboratory and microbiology Laboratory Tests 10/10/24 05:17 10/09/24 09:48 Test 10/09/24 09:48 Range/Units Serum Glucose 192 H 74-106 mg/dL Problem List 1. Acute on chronic diastolic heart failure Monitor, Diuretics, cardiology consult 2. COPD exacerbation Monitor, med neb treatments, pulmonary consult 3. Dementia Monitor, restart dementia meds 4. Hx of DVT right leg Monitor, restart eliquis for hx of DVT 5. Chronic anticoagulation Monitor 6. Bacteremia Monitor, ID consult, IV abx 7. JOSE wit VMN Monitor, nephrology consult Assessment/Plan Subjective Patient is awake and alert. Objective Patient has shortness of breath most likely patient had a upper viral syndrome and it has since resolved. Patient is being treated for COPD exacerbation. CT of the chest has no acute findings. Patient has JOSE with VMN. Creatinine is now 1.31. Diuretics are on hold. Patient states he had a recent fall on his shoulder. Shoulder x-ray is negative. Plan Continue antibiotics. Patient has cellulitis to right lower extremity most likely cause of sepsis. Stop IV fluids. Continue to hold diuretics. Nephrology has been consulted. Plan discussed with: Patient, Other AUGIE MURRIETA NP Oct 10, 2024 11:06
[2024-10-10] MEDS ORDERED: DOXYCYCLINE 100 MG TAB/CAP PO SCH (11:15)
--- NOTE | 2024-10-10 13:20 | DVHPN2 ---
Progress Note Date Seen: Oct 10, 2024 Has the PT tested + for MRSA If YES, has PT been informed?: No Medical Necessity Reason Pt with a Central, PICC or Fol: No Objective vital signs Vital Sign Date Time Temp Pulse Resp B/P (MAP) Pulse Ox O2 Delivery O2 Flow Rate FiO2 10/10/24 11:42 86 144/78 10/10/24 08:48 98.1 18 96 98.1 10/10/24 08:07 Room Air* 0 21 Total Intake and Output 10/09/24 10/09/24 10/10/24 14:59 22:59 06:59 Intake Total 300 ml 1480 ml Output Total 2300 ml Balance -2000 ml 1480 ml medications Current Medications Medications Dose Ordered Sig/Kristi Route Start Time Stop Time Status Last Admin Dose Admin Acetaminophen/ Hydrocodone Bitart 1 tab Q4HP PRN PO 10/08/24 15:45 Ondansetron HCl 4 mg Q4HP PRN IV 10/08/24 15:45 Acetaminophen 650 mg Q6HP PRN PO 10/08/24 15:45 Morphine Sulfate 2 mg Q4HPRN PRN IV 10/08/24 15:45 UNV Nitroglycerin 0.4 mg Q5MINP PRN SL 10/08/24 15:45 Morphine Sulfate 2 mg Q30M PRN IV 10/08/24 15:45 UNV Apixaban 5 mg BID PO 10/08/24 22:00 10/10/24 10:42 5 MG Tamsulosin HCl 0.4 mg DAILY PO 10/09/24 10:00 10/10/24 10:40 0.4 MG Cefepime HCl 50 ml @ 12.5 mls/hr Q12HR IV 10/08/24 22:00 10/10/24 13:09 12.5 MLS/HR Pantoprazole Sodium 40 mg DAILY IV 10/09/24 10:00 10/10/24 10:38 40 MG Morphine Sulfate 2 mg Q4HPRN PRN IV 10/08/24 16:00 Morphine Sulfate 2 mg Q30M PRN IV 10/08/24 16:00 Vancomycin HCl 0 ml @ 0 mls/hr UD IV 10/08/24 22:15 Pravastatin Sodium 20 mg DAILY PO 10/09/24 10:00 10/10/24 10:40 20 MG Amlodipine Besylate 10 mg DAILY PO 10/09/24 10:00 10/10/24 10:41 10 MG Patient Own Medication 1 drop BID EACHEYE 10/09/24 10:00 Cancel Patient Own Medication 2 puff BID IN 10/09/24 10:00 Hold Patient Own Medication 1 tab HS PO 10/09/24 22:00 UNV Cholecalciferol 5,000 unit DAILY PO 10/10/24 10:00 10/10/24 10:39 5,000 UNIT Memantine 10 mg BID PO 10/09/24 22:00 10/10/24 10:40 10 MG Patient Own Medication 1 tab DAILY PO 10/09/24 10:00 UNV Patient Own Medication 1 sarah QPM EACHEYE 10/09/24 18:00 10/09/24 18:11 1 SARAH Budesonide 0.5 mg BID NEB 10/09/24 10:00 10/09/24 18:52 0.5 MG Albuterol 2.5 mg Q6HWA NEB 10/09/24 12:00 10/10/24 08:07 2.5 MG Carvedilol 3.125 mg Q12HR PO 10/09/24 22:00 10/10/24 10:42 3.125 MG Patient Own Medication 1 BID EACHEYE 10/09/24 22:00 10/10/24 10:46 1 Examination: GENERAL:Abnormal, HEENT:Abnormal, LUNGS:Abnormal, CVS:Abnormal, ABDOMEN:Abnormal laboratory and microbiology Laboratory Tests 10/10/24 05:17 10/09/24 09:48 Test 10/09/24 09:48 Range/Units Serum Glucose 192 H 74-106 mg/dL Microbiology Date/Time Source Procedure Growth Status 10/08/24 18:00 Nasopharynx Coronavirus COVID-19 PCR (DARREN) - Final Complete 10/08/24 10:26 Blood Blood Culture - Preliminary Resulted Problem List/Assessment/Plan Problem List/Assessment/Plan venous insuffiency cellulitis obesity hx of VTE/ DVT/ PE HTN PAD venous US was - cont iv lasix metolazone po x 1 echo last fall ef preserved supportive care abx if indicated Plan discussed with: Patient My Orders My Orders Orders - EL BLAND MD Procedure Category Date Status Time Metolazone (Zaroxolyn) PHA 10/10/24 Verified 13:30 Date of Service: Oct 10, 2024 Billing Provider: EL BLAND MD Common Visit Codes: NOT BILLABLE EL BLAND MD Oct 10, 2024 13:20
--- NOTE | 2024-10-10 14:16 | DVHINCON2 ---
Date of service: Oct 10, 2024 Reason for Consultation JOSE History of Present Illness 89-year-old male with past medical history of congestive heart failure presents to the hospital complaining of shortness of breath and leg swelling Past Medical History CHF class 3 AAA Allergies: Coded Allergies: Bee Venom (Verified Allergy, Severe, Swelling, 09/18/19) Penicillins (Verified Allergy, Severe, Facial swelling, 09/18/19) Home Meds Active Scripts Furosemide (Lasix) 40 Mg Tab, 40 MG PO DAILY for 30 Days, #30 TAB 6 Refills Prov:AUGIE MURRIETA FLORAL ARRANGER 09/11/24 Furosemide (Lasix) 40 Mg Tab, 40 MG PO DAILY for 30 Days, #30 TAB Prov:AUGIE MURRIETA FLORAL ARRANGER 05/09/24 Metoprolol Succinate (Metoprolol Succinate Er) 25 Mg Tab, 1 TAB PO DAILY for 30 Days, #30 TAB Prov:AUGIE MURRIETA FLORAL ARRANGER 05/09/24 Brimonidine Tartrate (ALPHAGAN P 0.15% OPTHALMIC) [address], 1 DROP EACHEYE BID, #15 ML 3 Refills Prov:AUGIE MURRIETA FLORAL ARRANGER 01/06/24 Reported Medications Lotilaner (Xdemvy) 0.25 % Adrian, 0.25 % OP, DROP 10/09/24 Netarsudil Dimesylate-Latanopr (Rocklatan 0.02-0.005 %) 1 Adrian Adrian, 1 ADRIAN OP, ADRIAN 10/09/24 Brimonidine Tartrate-Timolol M (Combigan) 0.2 Mg/0.5 % Bernadine, 0.2 MG OP, ML 10/09/24 Cetirizine Hcl (Kls Aller-Jaylyn) 10 Mg Tab, 1 TAB PO HS for 30 Days, #30 3 Refills 01/02/24 Dapagliflozin Propanediol (Farxiga) 10 Mg Tab, 5 MG PO DAILY for 90 Days, #90 01/02/24 Senna (Estela-Nicole) 8.6 Mg Tab, 2-4 TAB PO QPM PRN for FOR CONSTIPATION for 15 Days, #60 01/02/24 Budesonide-Formoterol Fumarate (Budesonide/Formoterol Fum 160-4.5 Mcg/Act) 1 Aer Aer, 2 PUFF INH BID for 30 Days, #10.2 01/02/24 Oxybutynin Chloride (Oxybutynin Chloride) 5 Mg Tab, 15 MG PO DAILY for 90 Days, #90 01/02/24 Pravastatin Sodium (PRAVACHOL TABLET) 20 Mg Tb, 1 TAB PO DAILY for 90 Days, #90 01/02/24 Netarsudil Dimesylate-Latanopr (Rocklatan 0.02-0.005 %) 1 Adrian Adrian, 1 ADRIAN EACHEYE QPM for 25 Days, #2 01/02/24 Apixaban Base (ELIQUIS) 5 Mg Tab, 1 TAB PO BID for 30 Days, #60 01/02/24 Vzoszcyanmt-Krgbqihszqdh-Trvet (Trelegy Ellipta 200-62.5-25 Mcg/INH) 1 Aer Aer, 1 PUFF PO DAILY 04/23/23 Amlodipine Besylate (Amlodipine Besylate) 10 Mg Tab, 1 TAB PO DAILY 04/23/23 Memantine Hydrochloride (Memantine HCl) 10 Mg Tab, 1 TAB PO BID for 90 Days, #180 04/22/23 Cholecalciferol (VITAMIN D3) 5,000 Unit Cap, 1 CAP PO DAILY 04/22/23 Tamsulosin Hcl (Flomax) 0.4 Mg Cap, 2 CAP PO DAILY for 45 Days, #90 06/18/19 Current Medications Current Medications Medications (Trade) Dose Ordered Sig/Kristi Route PRN Reason Start Time Stop Time Status Last Admin Furosemide (Lasix Tablet) 40 mg DAILY PO 10/12/24 10:00 10/12/24 10:40 Vancomycin HCl 200 ml @ 200 mls/hr Q12H IV 10/11/24 16:00 10/11/24 19:12 DC 10/11/24 17:27 Ceftriaxone Sodium/Dextrose 50 ml @ 50 mls/hr DAILY IV 10/12/24 10:00 10/12/24 10:38 Family History: Benign prostate tumor G8 FATHER Diabetes mellitus G8 MOTHER Hypercholesterolemia G8 MOTHER Hypertension G8 MOTHER H&P Exam Vital Signs/I&O Vital Sign Date Time Temp Pulse Resp B/P (MAP) Pulse Ox O2 Delivery O2 Flow Rate FiO2 10/12/24 11:34 78 18 100 10/12/24 11:33 Room Air* 0 21 21 10/12/24 10:42 133/79 10/12/24 08:56 98.2 98.2 Intake and Output 10/11/24 10/12/24 19:00 07:00 Intake Total 1310 ml 300 ml Output Total 1350 ml 400 ml Balance -40 ml -100 ml Intake Oral 1260 ml 300 ml IV Total 50 ml Output Urine Total 1350 ml 400 ml # Voids 3 Labs/Diagnostic Data Labs/Diagnostic Data Laboratory Tests Test 10/12/24 05:13 10/11/24 12:42 10/11/24 11:24 10/11/24 05:53 Range/Units Creatinine 1.24 1.01 1.21 0.700-1.30 mg/dL Glomerular Filtration Rate Calc 56 72 58 >90 mL/min Sodium Level 141 139 136-145 mmol/L Potassium Level 3.8 3.5 3.5-5.1 mmol/L Chloride Level 104 102 98-107 mmol/L Carbon Dioxide Level 27 27 20-31 mmol/L Anion Gap 10 10 5-15 Blood Urea Nitrogen 21 20 9-23 mg/dL BUN/Creatinine Ratio 20.8 H 16.5 10.0-20.0 Serum Glucose 117 H 113 H 74-106 mg/dL Calcium Level 9.7 9.2 8.7-10.4 mg/dL White Blood Count 8.9 # 4.4-10.8 10^3/uL Red Blood Count 4.83 4.5-5.90 10^6/uL Hemoglobin 13.3 L 13.5-17.5 g/dL Hematocrit 40.2 L 41.0-53.0 % Mean Corpuscular Volume 83.4 80.0-100.0 fL Mean Corpuscular Hemoglobin 27.6 L 28.0-32.0 pg Mean Corpuscular Hemoglobin Concent 33.1 32.0-36.0 g/dL Red Cell Distribution Width 16.2 H 11.8-14.3 % Platelet Count 112 L 140-450 10^3/uL Mean Platelet Volume 10.3 6.9-10.8 fL Neutrophils (%) (Auto) 82.5 H 37.0-80.0 % Lymphocytes (%) (Auto) 9.1 L 10.0-50.0 % Monocytes (%) (Auto) 7.1 0.0-12.0 % Eosinophils (%) (Auto) 1.0 0.0-7.0 % Basophils (%) (Auto) 0.3 0.0-2.0 % Neutrophils # (Auto) 7.4 1.6-8.6 10 ^3/uL Lymphocytes # (Auto) 0.8 0.4-5.4 10 ^3/uL Monocytes # (Auto) 0.6 0-1.3 10 ^3/uL Eosinophils # (Auto) 0.1 0-0.8 10 ^3/uL Basophils # (Auto) 0 0-0.2 10 ^3/uL Nucleated Red Blood Cells 0.1 % Random Vancomycin Level 9.8 5-10 ug/mL Test 10/10/24 11:35 10/10/24 05:17 10/09/24 09:48 10/08/24 15:47 Range/Units Lactic Acid Level 1.1 0.4-2.0 mmol/L Creatinine 1.31 H 1.66 H 0.700-1.30 mg/dL Glomerular Filtration Rate Calc 52 39 >90 mL/min Random Vancomycin Level 9.9 11.0 H 5-10 ug/mL White Blood Count 16.2 H 4.4-10.8 10^3/uL Red Blood Count 4.83 4.5-5.90 10^6/uL Hemoglobin 13.2 L 13.5-17.5 g/dL Hematocrit 40.5 L 41.0-53.0 % Mean Corpuscular Volume 83.8 80.0-100.0 fL Mean Corpuscular Hemoglobin 27.3 L 28.0-32.0 pg Mean Corpuscular Hemoglobin Concent 32.6 32.0-36.0 g/dL Red Cell Distribution Width 16.2 H 11.8-14.3 % Platelet Count 124 L 140-450 10^3/uL Mean Platelet Volume 11.3 H 6.9-10.8 fL Neutrophils (%) (Auto) 91.0 H 37.0-80.0 % Lymphocytes (%) (Auto) 3.5 L 10.0-50.0 % Monocytes (%) (Auto) 5.2 0.0-12.0 % Eosinophils (%) (Auto) 0.0 0.0-7.0 % Basophils (%) (Auto) 0.3 0.0-2.0 % Neutrophils # (Auto) 14.7 H 1.6-8.6 10 ^3/uL Lymphocytes # (Auto) 0.6 0.4-5.4 10 ^3/uL Monocytes # (Auto) 0.8 0-1.3 10 ^3/uL Eosinophils # (Auto) 0 0-0.8 10 ^3/uL Basophils # (Auto) 0.1 0-0.2 10 ^3/uL Nucleated Red Blood Cells 0.0 % Sodium Level 143 136-145 mmol/L Potassium Level 3.8 3.5-5.1 mmol/L Chloride Level 107 98-107 mmol/L Carbon Dioxide Level 26 20-31 mmol/L Anion Gap 10 5-15 Blood Urea Nitrogen 24 H 9-23 mg/dL BUN/Creatinine Ratio 14.5 10.0-20.0 Serum Glucose 192 H 74-106 mg/dL Calcium Level 9.5 8.7-10.4 mg/dL B-Type Natriuretic Peptide 651.51 0-100 pg/mL Influenza Type A Antigen Negative Negative Influenza Type B Antigen Negative Negative SARS-CoV-2 Antigen (Rapid) Negative NEGATIVE Test 10/08/24 13:47 10/08/24 11:58 10/08/24 10:48 10/08/24 10:43 Range/Units Lactic Acid Level 2.4 *H 2.2 *H 0.4-2.0 mmol/L POC Glucose 112 H 70-106 mg/dl Urine Color Light-yellow Yellow Urine Clarity Clear Clear Urine pH 5.5 5.0-9.0 Urine Specific [place] 1.007 1.001-1.035 Urine Protein Trace H Negative Urine Ketones Negative Negative Urine Blood Negative Negative /uL Urine Nitrite Negative Negative Urine Bilirubin Negative Negative Urine Urobilinogen Normal Negative mg/dL Urine Leukocyte Esterase Negative Negative /uL Urine RBC 4 0 - 3 /hpf Urine Microscopic WBC 3 0-3 /HPF Urine Squamous Epithelial Cells Few <5 /hpf Urine Bacteria Few H None Seen /hpf Urine Mucus Few None Seen Urine Sperm Present None Seen /hpf Urine Glucose 4+ H Normal mg/dL Test 10/08/24 10:26 Range/Units White Blood Count 13.8 H 4.4-10.8 10^3/uL Red Blood Count 5.18 4.5-5.90 10^6/uL Hemoglobin 14.3 13.5-17.5 g/dL Hematocrit 43.2 41.0-53.0 % Mean Corpuscular Volume 83.5 80.0-100.0 fL Mean Corpuscular Hemoglobin 27.6 L 28.0-32.0 pg Mean Corpuscular Hemoglobin Concent 33.1 32.0-36.0 g/dL Red Cell Distribution Width 15.9 H 11.8-14.3 % Platelet Count 138 L 140-450 10^3/uL Mean Platelet Volume 10.8 6.9-10.8 fL Neutrophils (%) (Auto) 37.0-80.0 % Lymphocytes (%) (Auto) 10.0-50.0 % Monocytes (%) (Auto) 0.0-12.0 % Basophils (%) (Auto) 0.0-2.0 % Neutrophils # (Auto) 1.6-8.6 10 ^3/uL Lymphocytes # (Auto) 0.4-5.4 10 ^3/uL Monocytes # (Auto) 0-1.3 10 ^3/uL Differential Total Cells Counted 100.0 100 Neutrophils % (Manual) 73 37.0-80.0 Band Neutrophils % (Manual) 10 Lymphocytes % (Manual) 8 L 10.0-50.0 Monocytes % (Manual) 9 0-12 Eosinophils % (Manual) 0 0-7 Basophils % (Manual) 0 0.0-2.0 Metamyelocytes % (manual) 0 Myelocytes % (Manual) 0 Promyelocytes % (Manual) 0 Blast Cells % (Manual) 0 Reactive Lymphocytes 0 Platelet Estimate Decreased Giant Platelets Prothrombin Time 11.8 9.3-11.8 sec Prothrombin Time INR 1.13 0.9-1.15 Activated Partial Thromboplast Time 27.3 24.5-34.5 SEC Sodium Level 147 H 136-145 mmol/L Potassium Level 3.5 3.5-5.1 mmol/L Chloride Level 110 H 98-107 mmol/L Carbon Dioxide Level 25 20-31 mmol/L Anion Gap 12 5-15 Blood Urea Nitrogen 19 9-23 mg/dL Creatinine 2.07 H 0.700-1.30 mg/dL Glomerular Filtration Rate Calc 30 >90 mL/min BUN/Creatinine Ratio 9.2 L 10.0-20.0 Serum Glucose 106 74-106 mg/dL Calcium Level 10.3 8.7-10.4 mg/dL Total Bilirubin 0.7 0.2-1.0 mg/dL Aspartate Amino Transferase (AST) 27 13-40 U/L Alanine Aminotransferase (ALT) 12 7-40 U/L Alkaline Phosphatase 99 46-116 U/L Total Protein 7.5 5.7-8.2 g/dL Albumin 4.3 3.2-4.8 g/dL Microbiology Date/Time Source Procedure Growth Status 10/08/24 18:00 Nasopharynx Coronavirus COVID-19 PCR ([facility]) - Final Complete 10/08/24 10:26 Blood Blood Culture - Final S. agalactiae - Group B Complete Assessment 89 year old w/ hx PVD presents with leg swelling . He is admitted due to concern for fluid overload Acute kidney injury Ckd 3a CHF class [address] shows pericardial effusion, awaiting Echo s/p diuretics yesterday monitor volume status renal function is improving Plan discussed with: Patient JASON CIFUENTES MD Oct 10, 2024 14:16
[2024-10-10] MEDS: metOLazone 5 MG TAB PO ONE (16:44)
[2024-10-10] MEDS: HYDROcodone-ACET 5/325MG TAB PO PRN (16:49)
--- NOTE | 2024-10-10 17:48 | DVHPN2 ---
Progress Note Date Seen: Oct 10, 2024 Resident Creating Document: CORDELIA AYOUB RESIDENT Has the PT tested + for MRSA If YES, has PT been informed?: No Medical Necessity Reason Pt with a Central, PICC or Fol: No Subjective Review of Systems Patient is a 89 year old male with a PMHx of DM, HLD, COPD, SD, and CHF was brought to the ER by EMS due to of ALOC. On arrival to ER patient was diaphoretic and warm and had a fever of 103.3 F. initial lab workup revealed leukocytosis WBC 13.8, thrombocytopenia with platelet 138, serum creatinine 2.07, lactic acid 2.2, BNP 651. CXR revealed- Cardiomegaly with pulmonary vascular congestion. CT head- No acute intracranial abnormality. Doppler Study of the right lower extremity revealed-1. No right femoropopliteal venous thrombosis.Enlarged right inguinal lymph nodes. CT chest-No focal airspace consolidation. Patient was seen today for clinical evaluation. Labs and chart reviewed. Patient's room air. Reports feeling much better today, denied any respiratory distress. Patient was seen by Nephrology and Cardiology. Objective vital signs Vital Sign Date Time Temp Pulse Resp B/P (MAP) Pulse Ox O2 Delivery O2 Flow Rate FiO2 10/10/24 16:49 98.0 86 19 134/78 (96) 93 98.0 10/10/24 08:07 Room Air* 0 21 Total Intake and Output 10/09/24 10/09/24 10/10/24 15:00 23:00 07:00 Intake Total 300 ml 1480 ml Output Total 2300 ml Balance -2000 ml 1480 ml medications Current Medications Medications Dose Ordered Sig/Kristi Route Start Time Stop Time Status Last Admin Dose Admin Acetaminophen/ Hydrocodone Bitart 1 tab Q4HP PRN PO 10/08/24 15:45 10/10/24 16:49 1 TAB Ondansetron HCl 4 mg Q4HP PRN IV 10/08/24 15:45 Acetaminophen 650 mg Q6HP PRN PO 10/08/24 15:45 Morphine Sulfate 2 mg Q4HPRN PRN IV 10/08/24 15:45 UNV Nitroglycerin 0.4 mg Q5MINP PRN SL 10/08/24 15:45 Morphine Sulfate 2 mg Q30M PRN IV 10/08/24 15:45 UNV Apixaban 5 mg BID PO 10/08/24 22:00 10/10/24 10:42 5 MG Tamsulosin HCl 0.4 mg DAILY PO 10/09/24 10:00 10/10/24 10:40 0.4 MG Cefepime HCl 50 ml @ 12.5 mls/hr Q12HR IV 10/08/24 22:00 10/10/24 13:09 12.5 MLS/HR Pantoprazole Sodium 40 mg DAILY IV 10/09/24 10:00 10/10/24 10:38 40 MG Morphine Sulfate 2 mg Q4HPRN PRN IV 10/08/24 16:00 Morphine Sulfate 2 mg Q30M PRN IV 10/08/24 16:00 Vancomycin HCl 0 ml @ 0 mls/hr UD IV 10/08/24 22:15 Pravastatin Sodium 20 mg DAILY PO 10/09/24 10:00 10/10/24 10:40 20 MG Amlodipine Besylate 10 mg DAILY PO 10/09/24 10:00 10/10/24 10:41 10 MG Patient Own Medication 1 drop BID EACHEYE 10/09/24 10:00 Cancel Patient Own Medication 2 puff BID IN 10/09/24 10:00 Hold Patient Own Medication 1 tab HS PO 10/09/24 22:00 UNV Cholecalciferol 5,000 unit DAILY PO 10/10/24 10:00 10/10/24 10:39 5,000 UNIT Memantine 10 mg BID PO 10/09/24 22:00 10/10/24 10:40 10 MG Patient Own Medication 1 tab DAILY PO 10/09/24 10:00 UNV Patient Own Medication 1 sarah QPM EACHEYE 10/09/24 18:00 10/09/24 18:11 1 SARAH Budesonide 0.5 mg BID NEB 10/09/24 10:00 10/10/24 08:07 0.5 MG Albuterol 2.5 mg Q6HWA NEB 10/09/24 12:00 10/10/24 14:37 2.5 MG Carvedilol 3.125 mg Q12HR PO 10/09/24 22:00 10/10/24 10:42 3.125 MG Patient Own Medication 1 BID EACHEYE 10/09/24 22:00 10/10/24 10:46 1 laboratory and microbiology Laboratory Tests 10/10/24 05:17 10/09/24 09:48 Test 10/09/24 09:48 Range/Units Serum Glucose 192 H 74-106 mg/dL Microbiology Date/Time Source Procedure Growth Status 10/08/24 18:00 Nasopharynx Coronavirus COVID-19 PCR ([facility]) - Final Complete 10/08/24 10:26 Blood Blood Culture - Preliminary Resulted Problem List/Assessment/Plan Problem List/Assessment/Plan Assessment and plan-patient reports feeling better today, in room air. Patient is seen by Nephrology and medical geneticist. Lactic acidosis resolved, serum creatinine level trending down. COPD HFpEF JOSE likely due to VMN atelectases hypoxemia History of right leg DVT Plan Continue current antibiotic Continue nebulization as prescribed diurese monitor cont eliquis Monitor labs PUD prophylaxis: DVT prophylaxis: Plan discussed with Dr. Hawk , nursing staff, Total time spent on patient evaluation, chart review, assessment and plan, discussion discussion >35 minutes Plan discussed with: Patient, Other (RN) Date of Service: Oct 10, 2024 Billing Provider: ARIS CORREIA MD Common Visit Codes: NOT BILLABLE CORDELIA AYOUB RESIDENT Oct 10, 2024 17:48 ARIS CORREIA MD Oct 12, 2024 14:45
--- NOTE | 2024-10-10 19:26 | DVHCONRES ---
Date Seen: Oct 10, 2024 Resident Creating Document: MEHREEN JOSEPH RESIDENT Reason for Consultation 89-year-old male patient with past medical history of asthma/COPD, coronary artery disease status post PCI, CHF, hypertension, hyperlipidemia, diabetes mellitus type 2, DVT, abdominal aortic aneurysm status post EVAR, pulmonary embolism on Eliquis, presented with complaint of altered level of consciousness. Patient's gave history that patient was already till Monday to a.m. when he started having chills followed by vomiting. Patient started getting confused and became altered and called EMR. mentioned that patient has been having cough and nasal congestion one week before he got altered. Patient was treated with antibiotics in the ER because patient had high fever, elevated blood cell count, tachycardia and tachypnea suggestive of sepsis. Patient is currently alert and oriented and mentioning of pain in right lower lobe associated with erythema. He is on room air and denied cough, shortness of breath, chest pain, orthopnea, PND. Past medical history asthma/COPD, coronary artery disease status post PCI, CHF, hypertension, hyperlipidemia, diabetes mellitus type 2, DVT, abdominal aortic aneurysm status post EVAR, pulmonary embolism on Eliquis Past surgical history EVAR, PCI, inguinal hernia repair in the right side Family History noncontributory to illness Social History Patient lives with Smoker: Non-Smoker Alcohol: Denies ETOH Use Drugs: Denies Drug Use Lives In: Home Family History: Benign prostate tumor G8 FATHER Diabetes mellitus G8 MOTHER Hypercholesterolemia G8 MOTHER Hypertension G8 MOTHER Allergies: Coded Allergies: Bee Venom (Verified Allergy, Severe, Swelling, 09/18/19) Penicillins (Verified Allergy, Severe, Facial swelling, 09/18/19) Home Meds Active Scripts Furosemide (Lasix) 40 Mg Tab, 40 MG PO DAILY for 30 Days, #30 TAB 6 Refills Prov:GLENNYAUGIE M COREROOM FOUNDRY LABORER 09/11/24 Furosemide (Lasix) 40 Mg Tab, 40 MG PO DAILY for 30 Days, #30 TAB Prov:AUGIE MURRIETA COREROOM FOUNDRY LABORER 05/09/24 Metoprolol Succinate (Metoprolol Succinate Er) 25 Mg Tab, 1 TAB PO DAILY for 30 Days, #30 TAB Prov:GLENNYAUGIE M COREROOM FOUNDRY LABORER 05/09/24 Brimonidine Tartrate (ALPHAGAN P 0.15% OPTHALMIC) [address], 1 DROP EACHEYE BID, #15 ML 3 Refills Prov:AUGIE MURRIETA COREROOM FOUNDRY LABORER 01/06/24 Reported Medications Lotilaner (Xdemvy) 0.25 % Adrian, 0.25 % OP, DROP 10/09/24 Netarsudil Dimesylate-Latanopr (Rocklatan 0.02-0.005 %) 1 Adrian Adrian, 1 ADRIAN OP, ADRIAN 10/09/24 Brimonidine Tartrate-Timolol M (Combigan) 0.2 Mg/0.5 % Bernadine, 0.2 MG OP, ML 10/09/24 Cetirizine Hcl (Kls Aller-Jaylyn) 10 Mg Tab, 1 TAB PO HS for 30 Days, #30 3 Refills 01/02/24 Dapagliflozin Propanediol (Farxiga) 10 Mg Tab, 5 MG PO DAILY for 90 Days, #90 01/02/24 Senna (Estela-Nicole) 8.6 Mg Tab, 2-4 TAB PO QPM PRN for FOR CONSTIPATION for 15 Days, #60 01/02/24 Budesonide-Formoterol Fumarate (Budesonide/Formoterol Fum 160-4.5 Mcg/Act) 1 Aer Aer, 2 PUFF INH BID for 30 Days, #10.2 01/02/24 Oxybutynin Chloride (Oxybutynin Chloride) 5 Mg Tab, 15 MG PO DAILY for 90 Days, #90 01/02/24 Pravastatin Sodium (PRAVACHOL TABLET) 20 Mg Tb, 1 TAB PO DAILY for 90 Days, #90 01/02/24 Netarsudil Dimesylate-Latanopr (Rocklatan 0.02-0.005 %) 1 Adrian Adrian, 1 ADRIAN EACHEYE QPM for 25 Days, #2 01/02/24 Apixaban Base (ELIQUIS) 5 Mg Tab, 1 TAB PO BID for 30 Days, #60 01/02/24 Lrsglrxsnac-Iiifhtojlmzm-Zswpo (Trelegy Ellipta 200-62.5-25 Mcg/INH) 1 Aer Aer, 1 PUFF PO DAILY 04/23/23 Amlodipine Besylate (Amlodipine Besylate) 10 Mg Tab, 1 TAB PO DAILY 04/23/23 Memantine Hydrochloride (Memantine HCl) 10 Mg Tab, 1 TAB PO BID for 90 Days, #180 04/22/23 Cholecalciferol (VITAMIN D3) 5,000 Unit Cap, 1 CAP PO DAILY 04/22/23 Tamsulosin Hcl (Flomax) 0.4 Mg Cap, 2 CAP PO DAILY for 45 Days, #90 06/18/19 Current Medications Current Medications Medications (Trade) Dose Ordered Sig/Kristi Route PRN Reason Start Time Stop Time Status Last Admin Patient Own Medication 1 tab HS PO 10/09/24 22:00 UNV Cholecalciferol (Vitamin D3 Tablet) 5,000 unit DAILY PO 10/10/24 10:00 10/10/24 10:39 Memantine (Namenda Tablet) 10 mg BID PO 10/09/24 22:00 10/10/24 10:40 Carvedilol (Coreg Tablet) 3.125 mg Q12HR PO 10/09/24 22:00 10/10/24 10:42 Patient Own Medication 1 BID EACHEYE 10/09/24 22:00 10/10/24 10:46 Doxycycline Monohydrate (Vibramycin Tablet) 100 mg Q12HR PO 10/10/24 11:15 10/10/24 11:06 DC Review of Systems as described in the HPI Vital Signs Vital Signs Date Time Temp Pulse Resp B/P (MAP) Pulse Ox O2 Delivery O2 Flow Rate FiO2 10/10/24 18:28 85 18 97 10/10/24 18:28 Room Air 0.0 10/10/24 18:28 21 21 10/10/24 16:49 98.0 134/78 (96) 98.0 Physical Exam Examination General Appearance: Alert, Oriented X3, Cooperative, No acute distress HEENT: EOMI Respiratory: Clear to auscultation, Normal air movement Cardiovascular: Regular rate, Normal S1, Normal S2 Abdominal: Ventral wall hernia and right lateral wall hernia, Normal bowel soun ds Extremities: No cyanosis, No edema, Normal pulses, No tenderness/swelling Skin: No rashes, No breakdown Neuro: Normal gait, Normal speech, Strength at 5/5 X4 ext, Normal tone, Sensation intact, Cranial nerves 3-12 NL, Reflexes 2+ Psych/Mental Status: Mental status NL, Mood NL Extremity examination: Right lower leg erythema and tenderness with pain radiating to the right inguinal region Labs/Diagnostic Data Labs Test 10/10/24 11:35 10/10/24 05:17 10/09/24 09:48 10/08/24 15:47 Range/Units Lactic Acid Level 1.1 0.4-2.0 mmol/L Creatinine 1.31 H 0.700-1.30 mg/dL Glomerular Filtration Rate Calc 52 >90 mL/min Random Vancomycin Level 9.9 5-10 ug/mL White Blood Count 16.2 H 4.4-10.8 10^3/uL Red Blood Count 4.83 4.5-5.90 10^6/uL Hemoglobin 13.2 L 13.5-17.5 g/dL Hematocrit 40.5 L 41.0-53.0 % Mean Corpuscular Volume 83.8 80.0-100.0 fL Mean Corpuscular Hemoglobin 27.3 L 28.0-32.0 pg Mean Corpuscular Hemoglobin Concent 32.6 32.0-36.0 g/dL Red Cell Distribution Width 16.2 H 11.8-14.3 % Platelet Count 124 L 140-450 10^3/uL Mean Platelet Volume 11.3 H 6.9-10.8 fL Neutrophils (%) (Auto) 91.0 H 37.0-80.0 % Lymphocytes (%) (Auto) 3.5 L 10.0-50.0 % Monocytes (%) (Auto) 5.2 0.0-12.0 % Eosinophils (%) (Auto) 0.0 0.0-7.0 % Basophils (%) (Auto) 0.3 0.0-2.0 % Neutrophils # (Auto) 14.7 H 1.6-8.6 10 ^3/uL Lymphocytes # (Auto) 0.6 0.4-5.4 10 ^3/uL Monocytes # (Auto) 0.8 0-1.3 10 ^3/uL Eosinophils # (Auto) 0 0-0.8 10 ^3/uL Basophils # (Auto) 0.1 0-0.2 10 ^3/uL Nucleated Red Blood Cells 0.0 % Sodium Level 143 136-145 mmol/L Potassium Level 3.8 3.5-5.1 mmol/L Chloride Level 107 98-107 mmol/L Carbon Dioxide Level 26 20-31 mmol/L Anion Gap 10 5-15 Blood Urea Nitrogen 24 H 9-23 mg/dL BUN/Creatinine Ratio 14.5 10.0-20.0 Serum Glucose 192 H 74-106 mg/dL Calcium Level 9.5 8.7-10.4 mg/dL B-Type Natriuretic Peptide 651.51 0-100 pg/mL Influenza Type A Antigen Negative Negative Influenza Type B Antigen Negative Negative SARS-CoV-2 Antigen (Rapid) Negative NEGATIVE Test 10/08/24 10:48 10/08/24 10:43 10/08/24 10:26 Range/Units POC Glucose 112 H 70-106 mg/dl Urine Color Light-yellow Yellow Urine Clarity Clear Clear Urine pH 5.5 5.0-9.0 Urine Specific [place] 1.007 1.001-1.035 Urine Protein Trace H Negative Urine Ketones Negative Negative Urine Blood Negative Negative /uL Urine Nitrite Negative Negative Urine Bilirubin Negative Negative Urine Urobilinogen Normal Negative mg/dL Urine Leukocyte Esterase Negative Negative /uL Urine RBC 4 0 - 3 /hpf Urine Microscopic WBC 3 0-3 /HPF Urine Squamous Epithelial Cells Few <5 /hpf Urine Bacteria Few H None Seen /hpf Urine Mucus Few None Seen Urine Sperm Present None Seen /hpf Urine Glucose 4+ H Normal mg/dL Differential Total Cells Counted 100.0 100 Neutrophils % (Manual) 73 37.0-80.0 Band Neutrophils % (Manual) 10 Lymphocytes % (Manual) 8 L 10.0-50.0 Monocytes % (Manual) 9 0-12 Eosinophils % (Manual) 0 0-7 Basophils % (Manual) 0 0.0-2.0 Metamyelocytes % (manual) 0 Myelocytes % (Manual) 0 Promyelocytes % (Manual) 0 Blast Cells % (Manual) 0 Reactive Lymphocytes 0 Platelet Estimate Decreased Giant Platelets Prothrombin Time 11.8 9.3-11.8 sec Prothrombin Time INR 1.13 0.9-1.15 Activated Partial Thromboplast Time 27.3 24.5-34.5 SEC Total Bilirubin 0.7 0.2-1.0 mg/dL Aspartate Amino Transferase (AST) 27 13-40 U/L Alanine Aminotransferase (ALT) 12 7-40 U/L Alkaline Phosphatase 99 46-116 U/L Total Protein 7.5 5.7-8.2 g/dL Albumin 4.3 3.2-4.8 g/dL Microbiology Date/Time Source Procedure Growth Status 10/08/24 18:00 Nasopharynx Coronavirus COVID-19 PCR ([facility]) - Final Complete 10/08/24 10:26 Blood Blood Culture - Preliminary Resulted Plan/Recommendation Assessment # sepsis likely due to cellulitis # right lower leg cellulitis -Enlarged right inguinal lymph nodes. on USG #Positive Blood culture 1/2 group B strep #History of DVT and PE on eliquis #Ventral Wall Abdominal hernia -on physical examination # history of abdominal aortic aneurysm status post EVAR # history of coronary artery disease status post PCI # diabetes mellitus type 2 # CHF # hypertension # Hyperlipidemia Plan -patient has a 1/2 cultures positive for group B Streptococcus, we will repeat blood culture considering patient has EVAR done -we will order CT abdomen to rule out Aortic Endograft Infection We will order echocardiogram to rule out endocarditis Continue with vancomycin We will discontinue cefepime and start patient on ceftriaxone We will consider deescalating antibiotics based on the clinical improvement Case discussion with Dr Ayala Plan discussed with: Patient, Other MEHREEN JOSEPH RESIDENT Oct 10, 2024 19:26
[2024-10-10] MEDS: cefTRIAXone 1GM/50ML D5W 50 ML IV ONE (23:45)
[2024-10-11] VITALS (18 sets, daily range): BP systolic 101–142; BP diastolic 58–85; PULSE 67–81; RESP 16–20; TEMP 97.8–99.8; O2SAT 92–100
[2024-10-11 07:29] LABS: Chloride 102 mmol/L (98-107); Sodium 139 mmol/L (136-145)
[2024-10-11 07:30] LABS: Anion Gap 10 (5-15); Calcium 9.2 mg/dL (8.7-10.4); Carbon Dioxide 27 mmol/L (20-31)
[2024-10-11 07:35] LABS: BUN/Creatinine Ratio 16.5 (10.0-20.0); Blood Urea Nitrogen 20 mg/dL (9-23)
[2024-10-11 07:36] LABS: Glucose 113 mg/dL (74-106); Potassium 3.5 mmol/L (3.5-5.1)
--- NOTE | 2024-10-11 09:32 | DVHPN2 ---
Progress Note Date Seen: Oct 11, 2024 Has the PT tested + for MRSA If YES, has PT been informed?: No Medical Necessity Reason Pt with a Central, PICC or Fol: No Subjective Patient reports: Feels better Objective vital signs Vital Sign Date Time Temp Pulse Resp B/P (MAP) Pulse Ox O2 Delivery O2 Flow Rate FiO2 10/11/24 07:58 77 18 93 Room Air* 0 21 10/11/24 07:41 98.7 142/85 (104) 98.7 Total Intake and Output 10/10/24 10/10/24 10/11/24 15:00 23:00 07:00 Intake Total 860 ml 800 ml Output Total 660 ml 700 ml Balance 200 ml 100 ml medications Current Medications Medications Dose Ordered Sig/Kristi Route Start Time Stop Time Status Last Admin Dose Admin Acetaminophen/ Hydrocodone Bitart 1 tab Q4HP PRN PO 10/08/24 15:45 10/10/24 16:49 1 TAB Ondansetron HCl 4 mg Q4HP PRN IV 10/08/24 15:45 Acetaminophen 650 mg Q6HP PRN PO 10/08/24 15:45 Morphine Sulfate 2 mg Q4HPRN PRN IV 10/08/24 15:45 UNV Nitroglycerin 0.4 mg Q5MINP PRN SL 10/08/24 15:45 Morphine Sulfate 2 mg Q30M PRN IV 10/08/24 15:45 UNV Apixaban 5 mg BID PO 10/08/24 22:00 10/10/24 21:25 5 MG Tamsulosin HCl 0.4 mg DAILY PO 10/09/24 10:00 10/10/24 10:40 0.4 MG Pantoprazole Sodium 40 mg DAILY IV 10/09/24 10:00 10/10/24 10:38 40 MG Morphine Sulfate 2 mg Q4HPRN PRN IV 10/08/24 16:00 Morphine Sulfate 2 mg Q30M PRN IV 10/08/24 16:00 Vancomycin HCl 0 ml @ 0 mls/hr UD IV 10/08/24 22:15 Pravastatin Sodium 20 mg DAILY PO 10/09/24 10:00 10/10/24 10:40 20 MG Amlodipine Besylate 10 mg DAILY PO 10/09/24 10:00 10/10/24 10:41 10 MG Patient Own Medication 1 drop BID EACHEYE 10/09/24 10:00 Cancel Patient Own Medication 2 puff BID IN 10/09/24 10:00 Hold Patient Own Medication 1 tab HS PO 10/09/24 22:00 UNV Cholecalciferol 5,000 unit DAILY PO 10/10/24 10:00 10/10/24 10:39 5,000 UNIT Memantine 10 mg BID PO 10/09/24 22:00 10/10/24 21:25 10 MG Patient Own Medication 1 tab DAILY PO 10/09/24 10:00 UNV Patient Own Medication 1 sarah QPM EACHEYE 10/09/24 18:00 10/10/24 18:13 1 SARAH Budesonide 0.5 mg BID NEB 10/09/24 10:00 10/11/24 05:31 0.5 MG Albuterol 2.5 mg Q6HWA NEB 10/09/24 12:00 10/11/24 05:31 2.5 MG Carvedilol 3.125 mg Q12HR PO 10/09/24 22:00 10/10/24 21:26 3.125 MG Patient Own Medication 1 BID EACHEYE 10/09/24 22:00 10/10/24 21:27 1 Ceftriaxone Sodium 50 ml @ 100 mls/hr DAILY@09 IV 10/11/24 09:00 Examination: GENERAL:Normal, CVS:Normal, ABDOMEN:Abnormal, SKIN:Abnormal laboratory and microbiology Laboratory Tests 10/11/24 05:53 10/09/24 09:48 Test 10/11/24 05:53 Range/Units Serum Glucose 113 H 74-106 mg/dL Microbiology Date/Time Source Procedure Growth Status 10/08/24 18:00 Nasopharynx Coronavirus COVID-19 PCR ([facility]) - Final Complete 10/08/24 10:26 Blood Blood Culture - Preliminary Resulted Problem List/Assessment/Plan Problem List/Assessment/Plan 89 year old w/ hx PVD presents with leg swelling . He is admitted due to concern for fluid overload Acute kidney injury Ckd 3a CHF class [address] shows pericardial effusion, awaiting Echo s/p diuretics monitor volume status renal function is improving s/p CT ABD Plan discussed with: Patient JASON CIFUENTES MD Oct 11, 2024 09:32
--- NOTE | 2024-10-11 09:36 | DVH ---
Exam: CT CT AB PEL WO CON-NO ORAL OR IV History: ABD AORTIC ANEURYSM; INGUINAL HERNIA; INGUINAL LN Comparison Study: CT CT AB PEL WO CON-NO ORAL OR IV on DOS: 05/08/24 Technique: Multidetector spiral CT of the abdomen and pelvis was performed from lung bases to pubic s ymphysis. Imaging was performed without intravenous contrast. Coronal and sagittal multiplanar reform ats were obtained from the axial data set by the technologist. Radiation Dose : 1. Abdomen/Pelvis: CTDIvol 12.95 mGy, DLP 709.15 mGy*cm. Findings: Evaluation of vasculature and solid organs is limited due to lack of intravenous contrast use. Lung Bases: Bilateral lower lobe atelectasis. The heart is enlarged. Small pericardial effusion. Liver: The liver is normal in size. No focal lesions. Gallbladder and Biliary Tree: The gallbladder is unremarkable. No intrahepatic or extrahepatic bilia ry ductal dilatation. Spleen: Unremarkable Pancreas: The pancreas is grossly unremarkable. Adrenal Glands: Unremarkable Kidneys: Kidneys are unremarkable without calculi or hydronephrosis. Bilateral renal cysts, the large st in the lower pole of the right kidney measuring 9.6 cm. There is a septated left renal cyst measur ing 6.7 cm. GI tract: The stomach is grossly normal in appearance. No evidence of small bowel wall thickening or abnormal dilatation to suggest bowel obstruction. The colon is unremarkable. The appendix is visualiz ed and is normal. Peritoneum/mesentery/retroperitoneum. No evidence of free intraperitoneal air. No ascites. No evidenc e of suspicious lymphadenopathy. Abdominal Wall: Unremarkable. Vasculature: Evaluation limited without intravenous contrast. Status post repair of 5.5 cm infrarena l abdominal aortic aneurysm with stents noted. Urinary Bladder: There is air in the urinary bladder. Pelvic Organs: Unremarkable Musculoskeletal: No aggressive focal bony lesions, acute fractures or dislocation. Bilateral hip repl acements. Soft tissues: No hernia or mass. IMPRESSION: 1. Air in the urinary bladder. Correlation for any recent instrumentation recommended. In the absenc e of recent instrumentation, infection not excluded. 2. Status post repair 5.5 cm infrarenal abdominal aortic aneurysm. 3. Bilateral renal cysts including a septated left renal cyst. This can be further evaluated with a n onemergent MRI of the abdomen with intravenous contrast. 4. Small pericardial effusion. Cardiomegaly.
[2024-10-11] MEDS: cefTRIAXone 1GM/50ML D5W 50 ML IV SCH (09:46)
--- NOTE | 2024-10-11 10:23 | DVHPN2 ---
Progress Note Date Seen: Oct 11, 2024 Resident Creating Document: CORDELIA AYOUB RESIDENT Has the PT tested + for MRSA If YES, has PT been informed?: No Medical Necessity Reason Pt with a Central, PICC or Fol: No Subjective Review of Systems Patient is a 89 year old male with a PMHx of DM, HLD, COPD, [place], and CHF was brought to the ER by EMS due to of ALOC. On arrival to ER patient was diaphoretic and warm and had a fever of 103.3 F. initial lab workup revealed leukocytosis WBC 13.8, thrombocytopenia with platelet 138, serum creatinine 2.07, lactic acid 2.2, BNP 651. CXR revealed- Cardiomegaly with pulmonary vascular congestion. CT head- No acute intracranial abnormality. Doppler Study of the right lower extremity revealed-1. No right femoropopliteal venous thrombosis.Enlarged right inguinal lymph nodes. CT chest-No focal airspace consolidation. Patient was seen today for clinical evaluation. Labs and chart reviewed. Patient's room air. Patient is seen by infectious disease and nephrology and Cardiology. Leukocytosis resolved. Thrombocytopenia with a WBC 112, Objective vital signs Vital Sign Date Time Temp Pulse Resp B/P (MAP) Pulse Ox O2 Delivery O2 Flow Rate FiO2 10/11/24 09:48 131/81 10/11/24 09:47 80 10/11/24 07:58 18 93 Room Air* 0 21 10/11/24 07:41 98.7 98.7 Total Intake and Output 10/10/24 10/10/24 10/11/24 15:00 23:00 07:00 Intake Total 860 ml 800 ml Output Total 660 ml 700 ml Balance 200 ml 100 ml medications Current Medications Medications Dose Ordered Sig/Kristi Route Start Time Stop Time Status Last Admin Dose Admin Acetaminophen/ Hydrocodone Bitart 1 tab Q4HP PRN PO 10/08/24 15:45 10/10/24 16:49 1 TAB Ondansetron HCl 4 mg Q4HP PRN IV 10/08/24 15:45 Acetaminophen 650 mg Q6HP PRN PO 10/08/24 15:45 Morphine Sulfate 2 mg Q4HPRN PRN IV 10/08/24 15:45 UNV Nitroglycerin 0.4 mg Q5MINP PRN SL 10/08/24 15:45 Morphine Sulfate 2 mg Q30M PRN IV 10/08/24 15:45 UNV Apixaban 5 mg BID PO 10/08/24 22:00 10/11/24 09:48 5 MG Tamsulosin HCl 0.4 mg DAILY PO 10/09/24 10:00 10/11/24 09:48 0.4 MG Pantoprazole Sodium 40 mg DAILY IV 10/09/24 10:00 10/11/24 09:46 40 MG Morphine Sulfate 2 mg Q4HPRN PRN IV 10/08/24 16:00 Morphine Sulfate 2 mg Q30M PRN IV 10/08/24 16:00 Vancomycin HCl 0 ml @ 0 mls/hr UD IV 10/08/24 22:15 Pravastatin Sodium 20 mg DAILY PO 10/09/24 10:00 10/11/24 09:47 20 MG Amlodipine Besylate 10 mg DAILY PO 10/09/24 10:00 10/11/24 09:48 10 MG Patient Own Medication 1 drop BID EACHEYE 10/09/24 10:00 Cancel Patient Own Medication 2 puff BID IN 10/09/24 10:00 Hold Patient Own Medication 1 tab HS PO 10/09/24 22:00 UNV Cholecalciferol 5,000 unit DAILY PO 10/10/24 10:00 10/11/24 09:46 5,000 UNIT Memantine 10 mg BID PO 10/09/24 22:00 10/11/24 09:47 10 MG Patient Own Medication 1 tab DAILY PO 10/09/24 10:00 UNV Patient Own Medication 1 sarah QPM EACHEYE 10/09/24 18:00 10/10/24 18:13 1 SARAH Budesonide 0.5 mg BID NEB 10/09/24 10:00 10/11/24 05:31 0.5 MG Albuterol 2.5 mg Q6HWA NEB 10/09/24 12:00 10/11/24 05:31 2.5 MG Carvedilol 3.125 mg Q12HR PO 10/09/24 22:00 10/11/24 09:47 3.125 MG Patient Own Medication 1 BID EACHEYE 10/09/24 22:00 10/11/24 09:59 1 Ceftriaxone Sodium 50 ml @ 100 mls/hr DAILY@09 IV 10/11/24 09:00 10/11/24 09:46 100 MLS/HR laboratory and microbiology Laboratory Tests 10/11/24 05:53 10/09/24 09:48 Test 10/11/24 05:53 Range/Units Serum Glucose 113 H 74-106 mg/dL Microbiology Date/Time Source Procedure Growth Status 10/08/24 18:00 Nasopharynx Coronavirus COVID-19 PCR ([facility]) - Final Complete 10/08/24 10:26 Blood Blood Culture - Preliminary Resulted Problem List/Assessment/Plan Problem List/Assessment/Plan Assessment and plan-patient reports feeling better today, in room air. Patient is seen by Nephrology and manager monitoring. Lactic acidosis resolved, serum creatinine level trending down. COPD HFpEF JOSE likely due to VMN Right leg cellulitis atelectases hypoxemia History of right leg DVT Events Patient's room air, no acute respiratory distress Pending blood culture report Seen by Nephrology and Infectious Disease Plan Continue current antibiotic Continue nebulization as prescribed diurese monitor cont eliquis Monitor labs PUD prophylaxis: DVT prophylaxis: Plan discussed with Dr. Hawk , nursing staff, Total time spent on patient evaluation, chart review, assessment and plan, discussion discussion >35 minutes Plan discussed with: Patient, Other (RN) Date of Service: Oct 11, 2024 Billing Provider: ARIS CORREIA MD Common Visit Codes: NOT BILLABLE CORDELIA AYOUB RESIDENT Oct 11, 2024 10:23 ARIS CORREIA MD Oct 12, 2024 14:48
--- NOTE | 2024-10-11 10:59 | DVHPN2 ---
Progress Note - Dictate Date Seen: Oct 11, 2024 Has the PT tested + for MRSA If YES, has PT been informed?: No Medical Necessity Reason Pt with a Central, PICC or Fol: No vital signs Vital Sign Date Time Temp Pulse Resp B/P (MAP) Pulse Ox O2 Delivery O2 Flow Rate FiO2 10/11/24 09:48 131/81 10/11/24 09:47 80 10/11/24 07:58 18 93 Room Air* 0 21 10/11/24 07:41 98.7 98.7 Total Intake and Output 10/10/24 10/10/24 10/11/24 15:00 23:00 07:00 Intake Total 860 ml 800 ml Output Total 660 ml 700 ml Balance 200 ml 100 ml medications Current Medications Medications Dose Ordered Sig/Kristi Route Start Time Stop Time Status Last Admin Dose Admin Acetaminophen/ Hydrocodone Bitart 1 tab Q4HP PRN PO 10/08/24 15:45 10/10/24 16:49 1 TAB Ondansetron HCl 4 mg Q4HP PRN IV 10/08/24 15:45 Acetaminophen 650 mg Q6HP PRN PO 10/08/24 15:45 Morphine Sulfate 2 mg Q4HPRN PRN IV 10/08/24 15:45 UNV Nitroglycerin 0.4 mg Q5MINP PRN SL 10/08/24 15:45 Morphine Sulfate 2 mg Q30M PRN IV 10/08/24 15:45 UNV Apixaban 5 mg BID PO 10/08/24 22:00 10/11/24 09:48 5 MG Tamsulosin HCl 0.4 mg DAILY PO 10/09/24 10:00 10/11/24 09:48 0.4 MG Pantoprazole Sodium 40 mg DAILY IV 10/09/24 10:00 10/11/24 09:46 40 MG Morphine Sulfate 2 mg Q4HPRN PRN IV 10/08/24 16:00 Morphine Sulfate 2 mg Q30M PRN IV 10/08/24 16:00 Vancomycin HCl 0 ml @ 0 mls/hr UD IV 10/08/24 22:15 Pravastatin Sodium 20 mg DAILY PO 10/09/24 10:00 10/11/24 09:47 20 MG Amlodipine Besylate 10 mg DAILY PO 10/09/24 10:00 10/11/24 09:48 10 MG Patient Own Medication 1 drop BID EACHEYE 10/09/24 10:00 Cancel Patient Own Medication 2 puff BID IN 10/09/24 10:00 Hold Patient Own Medication 1 tab HS PO 10/09/24 22:00 UNV Cholecalciferol 5,000 unit DAILY PO 10/10/24 10:00 10/11/24 09:46 5,000 UNIT Memantine 10 mg BID PO 10/09/24 22:00 10/11/24 09:47 10 MG Patient Own Medication 1 tab DAILY PO 10/09/24 10:00 UNV Patient Own Medication 1 sarah QPM EACHEYE 10/09/24 18:00 10/10/24 18:13 1 SARAH Budesonide 0.5 mg BID NEB 10/09/24 10:00 10/11/24 05:31 0.5 MG Albuterol 2.5 mg Q6HWA NEB 10/09/24 12:00 10/11/24 05:31 2.5 MG Carvedilol 3.125 mg Q12HR PO 10/09/24 22:00 10/11/24 09:47 3.125 MG Patient Own Medication 1 BID EACHEYE 10/09/24 22:00 10/11/24 09:59 1 Ceftriaxone Sodium 50 ml @ 100 mls/hr DAILY@09 IV 10/11/24 09:00 10/11/24 09:46 100 MLS/HR objective General Appearance: alert, no distress HEENT: EOMI, PERRLA, normal external inspect of ears, no icterus, no nasal drainage Neck: no carotid bruit, no jugular venous distention (JVD), no lymphadenopathy Chest: normal thorax Respiratory: clear to auscultation, normal air movement Cardiovascular: regular rate and rhythm, no diastolic murmur, no jugular venous distention (JVD), no rub, no systolic murmur Abdominal: soft, no hepatomegaly, no mass, no splenomegaly, no tenderness Genitourinary: grossly normal external Musculoskeletal: no joint tenderness, no swelling Extremities: normal pulses, no calf tenderness, no clubbing, no cyanosis, no edema Skin: no bruising, no jaundice, no rash Neurological: alert, No focal deficit laboratory and microbiology Laboratory Tests 10/11/24 05:53 10/09/24 09:48 Test 10/11/24 05:53 Range/Units Serum Glucose 113 H 74-106 mg/dL Problem List 1. Acute on chronic diastolic heart failure Monitor, Diuretics, cardiology consult 2. COPD exacerbation Monitor, med neb treatments, pulmonary consult 3. Dementia Monitor, restart dementia meds 4. Hx of DVT right leg Monitor, restart eliquis for hx of DVT 5. Chronic anticoagulation Monitor 6. Bacteremia Monitor, ID consult, IV abx 7. JOSE wit VMN Monitor, nephrology consult Assessment/Plan Subjective: Patient is awake and alert. Objective: Patient was admitted for sepsis related to cellulitis to his right lower extremity. Patient has some enlarged right inguinal lymph nodes most likely related to cellulitis. Patients leg remains red and tender to touch. Patient was started on antibiotics and was seen by infectious disease. Patient most likely had an upper viral syndrome prior to hospitalization. Patient is now on room air and was treated for COPD exacerbation. Plan: Continue current treatment. Restart diuretics. Patients JOSE has resolved. Continue antibiotics. DC planning possibly for Monday. Plan discussed with: Patient, Other AUGIE MURRIETA NP Oct 11, 2024 10:58
[2024-10-11 11:55] LABS: Basophils # (auto) 0 10 ^3/uL (0-0.2); Basophils % (auto) 0.3 % (0.0-2.0); Eosinophils # (auto) 0.1 10 ^3/uL (0-0.8); Hematocrit 40.2 % (41.0-53.0); Hemoglobin 13.3 g/dL (13.5-17.5); Lymphocytes # (auto) 0.8 10 ^3/uL (0.4-5.4); Lymphocytes % (auto) 9.1 % (10.0-50.0); Mean Corpuscular Hemoglobin 27.6 pg (28.0-32.0); Mean Corpuscular Hgb Conc. 33.1 g/dL (32.0-36.0); Mean Corpuscular Volume 83.4 fL (80.0-100.0); Monocytes # (auto) 0.6 10 ^3/uL (0-1.3); Monocytes % (auto) 7.1 % (0.0-12.0); Neutrophils # (auto) 7.4 10 ^3/uL (1.6-8.6); Neutrophils % (auto) 82.5 % (37.0-80.0); Nucleated Red Blood Cells % 0.1 %; Platelet Count (auto) 112 10^3/uL (140-450); Red Blood Cells 4.83 10^6/uL (4.5-5.90); Red Cell Distribution Width 16.2 % (11.8-14.3); White Blood Cell 8.9 10^3/uL (4.4-10.8)
[2024-10-11 13:17] LABS: Anion Gap 10 (5-15)
[2024-10-11 13:19] LABS: Calcium 9.7 mg/dL (8.7-10.4); Carbon Dioxide 27 mmol/L (20-31); Chloride 104 mmol/L (98-107); Potassium 3.8 mmol/L (3.5-5.1); Sodium 141 mmol/L (136-145)
[2024-10-11 13:28] LABS: BUN/Creatinine Ratio 20.8 (10.0-20.0); Blood Urea Nitrogen 21 mg/dL (9-23); Glucose 117 mg/dL (74-106)
[2024-10-11] MEDS: VANCOMYCIN 1GM/200ML PM 200 ML IV SCH (17:27)
--- NOTE | 2024-10-11 19:11 | DVHPN2 ---
Consult Progress Note Date Seen: Oct 11, 2024 Subjective Patient reports: No new complaints, Feels better Objective vital signs Vital Sign Date Time Temp Pulse Resp B/P (MAP) Pulse Ox O2 Delivery O2 Flow Rate FiO2 10/11/24 18:28 81 18 100 10/11/24 18:19 Room Air 0.0 10/11/24 18:19 21 21 10/11/24 17:00 98.4 105/58 (74) 98.4 Total Intake and Output 10/10/24 10/10/24 10/11/24 15:00 23:00 07:00 Intake Total 860 ml 800 ml Output Total 660 ml 700 ml Balance 200 ml 100 ml medications Current Medications Medications Dose Ordered Sig/Kristi Route Start Time Stop Time Status Last Admin Dose Admin Acetaminophen/ Hydrocodone Bitart 1 tab Q4HP PRN PO 10/08/24 15:45 10/11/24 13:00 1 TAB Ondansetron HCl 4 mg Q4HP PRN IV 10/08/24 15:45 Acetaminophen 650 mg Q6HP PRN PO 10/08/24 15:45 Morphine Sulfate 2 mg Q4HPRN PRN IV 10/08/24 15:45 UNV Nitroglycerin 0.4 mg Q5MINP PRN SL 10/08/24 15:45 Morphine Sulfate 2 mg Q30M PRN IV 10/08/24 15:45 UNV Apixaban 5 mg BID PO 10/08/24 22:00 10/11/24 09:48 5 MG Tamsulosin HCl 0.4 mg DAILY PO 10/09/24 10:00 10/11/24 09:48 0.4 MG Pantoprazole Sodium 40 mg DAILY IV 10/09/24 10:00 10/11/24 09:46 40 MG Morphine Sulfate 2 mg Q4HPRN PRN IV 10/08/24 16:00 Morphine Sulfate 2 mg Q30M PRN IV 10/08/24 16:00 Vancomycin HCl 0 ml @ 0 mls/hr UD IV 10/08/24 22:15 Pravastatin Sodium 20 mg DAILY PO 10/09/24 10:00 10/11/24 09:47 20 MG Amlodipine Besylate 10 mg DAILY PO 10/09/24 10:00 10/11/24 09:48 10 MG Patient Own Medication 1 drop BID EACHEYE 10/09/24 10:00 Cancel Patient Own Medication 2 puff BID IN 10/09/24 10:00 Hold Patient Own Medication 1 tab HS PO 10/09/24 22:00 UNV Cholecalciferol 5,000 unit DAILY PO 10/10/24 10:00 10/11/24 09:46 5,000 UNIT Memantine 10 mg BID PO 10/09/24 22:00 10/11/24 09:47 10 MG Patient Own Medication 1 tab DAILY PO 10/09/24 10:00 UNV Patient Own Medication 1 peter QPM EACHEYE 10/09/24 18:00 10/11/24 17:28 1 PETER Budesonide 0.5 mg BID NEB 10/09/24 10:00 10/11/24 18:18 0.5 MG Albuterol 2.5 mg Q6HWA NEB 10/09/24 12:00 10/11/24 18:17 2.5 MG Carvedilol 3.125 mg Q12HR PO 10/09/24 22:00 10/11/24 09:47 3.125 MG Patient Own Medication 1 BID EACHEYE 10/09/24 22:00 10/11/24 09:59 1 Ceftriaxone Sodium 50 ml @ 100 mls/hr DAILY@09 IV 10/11/24 09:00 10/11/24 09:46 100 MLS/HR Furosemide 40 mg DAILY PO 10/12/24 10:00 Vancomycin HCl 200 ml @ 200 mls/hr Q12H IV 10/11/24 16:00 10/11/24 17:27 200 MLS/HR laboratory and microbiology Laboratory Tests 10/11/24 12:42 10/11/24 11:24 Test 10/11/24 12:42 Range/Units Serum Glucose 117 H 74-106 mg/dL Problem List/Assessment/Plan Problem List/Assessment/Plan Assessment Plan # sepsis likely due to cellulitis # right lower leg cellulitis -Enlarged right inguinal lymph nodes, seen on USG #Positive Blood culture 1/2 group B strep, strep agalactiae #History of DVT and PE on eliquis #Ventral Wall Abdominal hernia -on physical examination # history of abdominal aortic aneurysm status post EVAR # history of coronary artery disease status post PCI # diabetes mellitus type 2 # CHF # hypertension # Hyperlipidemia Plan -patient has a 1/2 cultures positive for group B Streptococcus, we will repeat blood culture considering patient has EVAR done -we will order CT abdomen to rule out Aortic Endograft Infection We will order echocardiogram to rule out endocarditis we will continue with ceftriaxone 2gm daily and discontinue vancomycin Case discussion with Dr Ayala Plan discussed with: Patient, Other Dietary Evaluation Review Comments: Monitor kidney function for re-assessment. CCHO-60 and cardiac diet Expected Outcomes/Goals: controlled DM, healed wounds, improved renal function and imprved nutrition status MEHREEN JOSEPH RESIDENT Oct 11, 2024 19:11
[2024-10-11] MEDS: cefTRIAXone 1GM/50ML D5W 50 ML IV ONE (19:15)
[2024-10-12] VITALS (17 sets, daily range): BP systolic 106–140; BP diastolic 65–91; PULSE 18–93; RESP 16–20; TEMP 97.9–98.9; O2SAT 84–100
[2024-10-12] MEDS: cefTRIAXone 2GM/50ML D5W 50 ML IV SCH (10:38)
[2024-10-12] MEDS: FUROSEMIDE 20 MG TAB PO SCH (10:40)
--- NOTE | 2024-10-12 13:44 | DVHPN2 ---
Progress Note - Dictate Date Seen: Oct 12, 2024 Has the PT tested + for MRSA If YES, has PT been informed?: No Medical Necessity Reason Pt with a Central, PICC or Fol: No vital signs Vital Sign Date Time Temp Pulse Resp B/P (MAP) Pulse Ox O2 Delivery O2 Flow Rate FiO2 10/12/24 11:34 78 18 100 10/12/24 11:33 Room Air* 0 21 21 10/12/24 10:42 133/79 10/12/24 08:56 98.2 98.2 Total Intake and Output 10/11/24 10/11/24 10/12/24 15:00 23:00 07:00 Intake Total 50 ml 1260 ml 300 ml Output Total 1350 ml 400 ml Balance 50 ml -90 ml -100 ml medications Current Medications Medications Dose Ordered Sig/Kristi Route Start Time Stop Time Status Last Admin Dose Admin Acetaminophen/ Hydrocodone Bitart 1 tab Q4HP PRN PO 10/08/24 15:45 10/11/24 13:00 1 TAB Ondansetron HCl 4 mg Q4HP PRN IV 10/08/24 15:45 Acetaminophen 650 mg Q6HP PRN PO 10/08/24 15:45 Morphine Sulfate 2 mg Q4HPRN PRN IV 10/08/24 15:45 UNV Nitroglycerin 0.4 mg Q5MINP PRN SL 10/08/24 15:45 Morphine Sulfate 2 mg Q30M PRN IV 10/08/24 15:45 UNV Apixaban 5 mg BID PO 10/08/24 22:00 10/12/24 10:42 5 MG Tamsulosin HCl 0.4 mg DAILY PO 10/09/24 10:00 10/12/24 10:41 0.4 MG Pantoprazole Sodium 40 mg DAILY IV 10/09/24 10:00 10/12/24 10:39 40 MG Morphine Sulfate 2 mg Q4HPRN PRN IV 10/08/24 16:00 Morphine Sulfate 2 mg Q30M PRN IV 10/08/24 16:00 Pravastatin Sodium 20 mg DAILY PO 10/09/24 10:00 10/12/24 10:42 20 MG Amlodipine Besylate 10 mg DAILY PO 10/09/24 10:00 10/12/24 10:42 10 MG Patient Own Medication 1 drop BID EACHEYE 10/09/24 10:00 Cancel Patient Own Medication 2 puff BID IN 10/09/24 10:00 Hold Patient Own Medication 1 tab HS PO 10/09/24 22:00 UNV Cholecalciferol 5,000 unit DAILY PO 10/10/24 10:00 10/12/24 10:41 5,000 UNIT Memantine 10 mg BID PO 10/09/24 22:00 10/12/24 10:41 10 MG Patient Own Medication 1 tab DAILY PO 10/09/24 10:00 UNV Patient Own Medication 1 peter QPM EACHEYE 10/09/24 18:00 10/11/24 17:28 1 PETER Budesonide 0.5 mg BID NEB 10/09/24 10:00 10/12/24 06:51 0.5 MG Albuterol 2.5 mg Q6HWA NEB 10/09/24 12:00 10/12/24 11:28 2.5 MG Carvedilol 3.125 mg Q12HR PO 10/09/24 22:00 10/12/24 10:41 3.125 MG Patient Own Medication 1 BID EACHEYE 10/09/24 22:00 10/12/24 10:39 1 Furosemide 40 mg DAILY PO 10/12/24 10:00 10/12/24 10:40 40 MG Ceftriaxone Sodium/Dextrose 50 ml @ 50 mls/hr DAILY IV 10/12/24 10:00 10/12/24 10:38 50 MLS/HR laboratory and microbiology Laboratory Tests 10/12/24 05:13 10/11/24 12:42 10/11/24 11:24 Test 10/11/24 12:42 Range/Units Serum Glucose 117 H 74-106 mg/dL Assessment/Plan COPD CHF atelectases hypoxemia events low oxygen requirements on room air no distress labs and imaging reviewed management supplemental oxygen as needed cont abx bronchodilators diurese monitor cont eliquis workup as per other specialists Dietary Evaluation Review Comments: Monitor kidney function for re-assessment. CCHO-60 and cardiac diet Expected Outcomes/Goals: controlled DM, healed wounds, improved renal function and imprved nutrition status Plan discussed with: Patient ARIS CORREIA MD Oct 12, 2024 13:44
--- NOTE | 2024-10-12 14:24 | DVHPN2 ---
Progress Note Date Seen: Oct 12, 2024 Has the PT tested + for MRSA If YES, has PT been informed?: No Medical Necessity Reason Pt with a Central, PICC or Fol: No Objective vital signs Vital Sign Date Time Temp Pulse Resp B/P (MAP) Pulse Ox O2 Delivery O2 Flow Rate FiO2 10/12/24 13:00 97.9 71 16 133/88 (103) 95 97.9 10/12/24 11:33 Room Air* 0 21 21 Total Intake and Output 10/11/24 10/11/24 10/12/24 15:00 23:00 07:00 Intake Total 50 ml 1260 ml 300 ml Output Total 1350 ml 400 ml Balance 50 ml -90 ml -100 ml medications Current Medications Medications Dose Ordered Sig/Kristi Route Start Time Stop Time Status Last Admin Dose Admin Acetaminophen/ Hydrocodone Bitart 1 tab Q4HP PRN PO 10/08/24 15:45 10/11/24 13:00 1 TAB Ondansetron HCl 4 mg Q4HP PRN IV 10/08/24 15:45 Acetaminophen 650 mg Q6HP PRN PO 10/08/24 15:45 Morphine Sulfate 2 mg Q4HPRN PRN IV 10/08/24 15:45 UNV Nitroglycerin 0.4 mg Q5MINP PRN SL 10/08/24 15:45 Morphine Sulfate 2 mg Q30M PRN IV 10/08/24 15:45 UNV Apixaban 5 mg BID PO 10/08/24 22:00 10/12/24 10:42 5 MG Tamsulosin HCl 0.4 mg DAILY PO 10/09/24 10:00 10/12/24 10:41 0.4 MG Pantoprazole Sodium 40 mg DAILY IV 10/09/24 10:00 10/12/24 10:39 40 MG Morphine Sulfate 2 mg Q4HPRN PRN IV 10/08/24 16:00 Morphine Sulfate 2 mg Q30M PRN IV 10/08/24 16:00 Pravastatin Sodium 20 mg DAILY PO 10/09/24 10:00 10/12/24 10:42 20 MG Amlodipine Besylate 10 mg DAILY PO 10/09/24 10:00 10/12/24 10:42 10 MG Patient Own Medication 1 drop BID EACHEYE 10/09/24 10:00 Cancel Patient Own Medication 2 puff BID IN 10/09/24 10:00 Hold Patient Own Medication 1 tab HS PO 10/09/24 22:00 UNV Cholecalciferol 5,000 unit DAILY PO 10/10/24 10:00 10/12/24 10:41 5,000 UNIT Memantine 10 mg BID PO 10/09/24 22:00 10/12/24 10:41 10 MG Patient Own Medication 1 tab DAILY PO 10/09/24 10:00 UNV Patient Own Medication 1 sarah QPM EACHEYE 10/09/24 18:00 10/11/24 17:28 1 SARAH Budesonide 0.5 mg BID NEB 10/09/24 10:00 10/12/24 06:51 0.5 MG Albuterol 2.5 mg Q6HWA NEB 10/09/24 12:00 10/12/24 11:28 2.5 MG Carvedilol 3.125 mg Q12HR PO 10/09/24 22:00 10/12/24 10:41 3.125 MG Patient Own Medication 1 BID EACHEYE 10/09/24 22:00 10/12/24 10:39 1 Furosemide 40 mg DAILY PO 10/12/24 10:00 10/12/24 10:40 40 MG Ceftriaxone Sodium/Dextrose 50 ml @ 50 mls/hr DAILY IV 10/12/24 10:00 10/12/24 10:38 50 MLS/HR Examination: GENERAL:Normal, CVS:Normal laboratory and microbiology Laboratory Tests 10/12/24 05:13 10/11/24 12:42 10/11/24 11:24 Test 10/11/24 12:42 Range/Units Serum Glucose 117 H 74-106 mg/dL Microbiology Date/Time Source Procedure Growth Status 10/08/24 18:00 Nasopharynx Coronavirus COVID-19 PCR ([facility]) - Final Complete 10/08/24 10:26 Blood Blood Culture - Final S. agalactiae - Group B Complete Problem List/Assessment/Plan Problem List/Assessment/Plan 89 year old w/ hx PVD presents with leg swelling . He is admitted due to concern for fluid overload Acute kidney injury Ckd 3a CHF class [address] shows pericardial effusion, Echo pending s/p diuretics continue po monitor volume status JOSE has resolved no further renal recs at this time will sign off continue po lasix s/p CT ABD Plan discussed with: Patient Dietary Evaluation Review Comments: Monitor kidney function for re-assessment. CCHO-60 and cardiac diet Expected Outcomes/Goals: controlled DM, healed wounds, improved renal function and imprved nutrition status JASON CIFUENTES MD Oct 12, 2024 14:24
--- NOTE | 2024-10-12 17:21 | DVHPN2 ---
Progress Note - Dictate Date Seen: Oct 12, 2024 Has the PT tested + for MRSA If YES, has PT been informed?: No Medical Necessity Reason Pt with a Central, PICC or Fol: No vital signs Vital Sign Date Time Temp Pulse Resp B/P (MAP) Pulse Ox O2 Delivery O2 Flow Rate FiO2 10/12/24 16:47 98.1 87 18 127/75 (92) 93 98.1 10/12/24 11:33 Room Air* 0 21 21 Total Intake and Output 10/11/24 10/11/24 10/12/24 15:00 23:00 07:00 Intake Total 50 ml 1260 ml 300 ml Output Total 1350 ml 400 ml Balance 50 ml -90 ml -100 ml medications Current Medications Medications Dose Ordered Sig/Kristi Route Start Time Stop Time Status Last Admin Dose Admin Acetaminophen/ Hydrocodone Bitart 1 tab Q4HP PRN PO 10/08/24 15:45 10/11/24 13:00 1 TAB Ondansetron HCl 4 mg Q4HP PRN IV 10/08/24 15:45 Acetaminophen 650 mg Q6HP PRN PO 10/08/24 15:45 Morphine Sulfate 2 mg Q4HPRN PRN IV 10/08/24 15:45 UNV Nitroglycerin 0.4 mg Q5MINP PRN SL 10/08/24 15:45 Morphine Sulfate 2 mg Q30M PRN IV 10/08/24 15:45 UNV Apixaban 5 mg BID PO 10/08/24 22:00 10/12/24 10:42 5 MG Tamsulosin HCl 0.4 mg DAILY PO 10/09/24 10:00 10/12/24 10:41 0.4 MG Pantoprazole Sodium 40 mg DAILY IV 10/09/24 10:00 10/12/24 10:39 40 MG Morphine Sulfate 2 mg Q4HPRN PRN IV 10/08/24 16:00 Morphine Sulfate 2 mg Q30M PRN IV 10/08/24 16:00 Pravastatin Sodium 20 mg DAILY PO 10/09/24 10:00 10/12/24 10:42 20 MG Amlodipine Besylate 10 mg DAILY PO 10/09/24 10:00 10/12/24 10:42 10 MG Patient Own Medication 1 drop BID EACHEYE 10/09/24 10:00 Cancel Patient Own Medication 2 puff BID IN 10/09/24 10:00 Hold Patient Own Medication 1 tab HS PO 10/09/24 22:00 UNV Cholecalciferol 5,000 unit DAILY PO 10/10/24 10:00 10/12/24 10:41 5,000 UNIT Memantine 10 mg BID PO 10/09/24 22:00 10/12/24 10:41 10 MG Patient Own Medication 1 tab DAILY PO 10/09/24 10:00 UNV Patient Own Medication 1 sarah QPM EACHEYE 10/09/24 18:00 10/11/24 17:28 1 SARAH Budesonide 0.5 mg BID NEB 10/09/24 10:00 10/12/24 06:51 0.5 MG Albuterol 2.5 mg Q6HWA NEB 10/09/24 12:00 10/12/24 11:28 2.5 MG Carvedilol 3.125 mg Q12HR PO 10/09/24 22:00 10/12/24 10:41 3.125 MG Patient Own Medication 1 BID EACHEYE 10/09/24 22:00 10/12/24 10:39 1 Furosemide 40 mg DAILY PO 10/12/24 10:00 10/12/24 10:40 40 MG Ceftriaxone Sodium/Dextrose 50 ml @ 50 mls/hr DAILY IV 10/12/24 10:00 10/12/24 10:38 50 MLS/HR objective General Appearance: alert, no distress HEENT: EOMI, PERRLA, normal external inspect of ears, no icterus, no nasal drainage Neck: no carotid bruit, no jugular venous distention (JVD), no lymphadenopathy Chest: normal thorax Respiratory: clear to auscultation, normal air movement Cardiovascular: regular rate and rhythm, no diastolic murmur, no jugular venous distention (JVD), no rub, no systolic murmur Abdominal: soft, no hepatomegaly, no mass, no splenomegaly, no tenderness Genitourinary: grossly normal external Musculoskeletal: no joint tenderness, no swelling Extremities: normal pulses, no calf tenderness, no clubbing, no cyanosis, no edema Skin: no bruising, no jaundice, no rash Neurological: alert, No focal deficit laboratory and microbiology Laboratory Tests 10/12/24 05:13 10/11/24 12:42 10/11/24 11:24 Test 10/11/24 12:42 Range/Units Serum Glucose 117 H 74-106 mg/dL Problem List 1. Acute on chronic diastolic heart failure Monitor, Diuretics, cardiology consult 2. COPD exacerbation Monitor, med neb treatments, pulmonary consult 3. Dementia Monitor, restart dementia meds 4. Hx of DVT right leg Monitor, restart eliquis for hx of DVT 5. Chronic anticoagulation Monitor 6. Bacteremia Monitor, ID consult, IV abx 7. JOSE wit VMN Monitor, nephrology consult Assessment/Plan Subjective: Patient is awake and alert. Objective: Patient was admitted for sepsis due to cellulitis to RT lower extremity. Patient was seen by ID and started on IV antibiotics. Patient had respiratory distress. Respiratory status is now stable. Patient on room air. No signs or symptoms of pneumonia. Diuretics were restarted today. JOSE has resolved. Plan: Continue IV antibiotics and diuretics. Monitor respiratory status and renal function. Dietary Evaluation Review Comments: Monitor kidney function for re-assessment. CCHO-60 and cardiac diet Expected Outcomes/Goals: controlled DM, healed wounds, improved renal function and imprved nutrition status Plan discussed with: Patient, Other AUGIE MURRIETA NP Oct 12, 2024 17:21
[2024-10-13] VITALS (15 sets, daily range): BP systolic 104–136; BP diastolic 68–77; PULSE 77–93; RESP 14–18; TEMP 97.4–98.7; O2SAT 90–100
--- NOTE | 2024-10-13 14:15 | DVHPN2 ---
Progress Note - Dictate Date Seen: Oct 13, 2024 Has the PT tested + for MRSA If YES, has PT been informed?: No Medical Necessity Reason Pt with a Central, PICC or Fol: No vital signs Vital Sign Date Time Temp Pulse Resp B/P (MAP) Pulse Ox O2 Delivery O2 Flow Rate FiO2 10/13/24 12:38 98.4 89 16 104/71 (82) 95 98.4 10/13/24 11:21 Room Air* 0 21 Total Intake and Output 10/12/24 10/12/24 10/13/24 15:00 23:00 07:00 Intake Total 50 ml 900 ml 400 ml Output Total 200 ml Balance 50 ml 900 ml 200 ml medications Current Medications Medications Dose Ordered Sig/Kristi Route Start Time Stop Time Status Last Admin Dose Admin Acetaminophen/ Hydrocodone Bitart 1 tab Q4HP PRN PO 10/08/24 15:45 10/11/24 13:00 1 TAB Ondansetron HCl 4 mg Q4HP PRN IV 10/08/24 15:45 Acetaminophen 650 mg Q6HP PRN PO 10/08/24 15:45 Morphine Sulfate 2 mg Q4HPRN PRN IV 10/08/24 15:45 UNV Nitroglycerin 0.4 mg Q5MINP PRN SL 10/08/24 15:45 Morphine Sulfate 2 mg Q30M PRN IV 10/08/24 15:45 UNV Apixaban 5 mg BID PO 10/08/24 22:00 10/13/24 10:44 5 MG Tamsulosin HCl 0.4 mg DAILY PO 10/09/24 10:00 10/13/24 10:43 0.4 MG Pantoprazole Sodium 40 mg DAILY IV 10/09/24 10:00 10/13/24 10:41 40 MG Morphine Sulfate 2 mg Q4HPRN PRN IV 10/08/24 16:00 Morphine Sulfate 2 mg Q30M PRN IV 10/08/24 16:00 Pravastatin Sodium 20 mg DAILY PO 10/09/24 10:00 10/13/24 10:42 20 MG Amlodipine Besylate 10 mg DAILY PO 10/09/24 10:00 10/13/24 10:41 10 MG Patient Own Medication 1 drop BID EACHEYE 10/09/24 10:00 Cancel Patient Own Medication 2 puff BID IN 10/09/24 10:00 Hold Patient Own Medication 1 tab HS PO 10/09/24 22:00 UNV Cholecalciferol 5,000 unit DAILY PO 10/10/24 10:00 10/13/24 10:43 5,000 UNIT Memantine 10 mg BID PO 10/09/24 22:00 10/13/24 10:42 10 MG Patient Own Medication 1 tab DAILY PO 10/09/24 10:00 UNV Patient Own Medication 1 sarah QPM EACHEYE 10/09/24 18:00 10/12/24 18:02 1 SARAH Budesonide 0.5 mg BID NEB 10/09/24 10:00 10/13/24 06:44 0.5 MG Albuterol 2.5 mg Q6HWA NEB 10/09/24 12:00 10/13/24 11:21 2.5 MG Carvedilol 3.125 mg Q12HR PO 10/09/24 22:00 10/13/24 10:43 3.125 MG Patient Own Medication 1 BID EACHEYE 10/09/24 22:00 10/12/24 21:54 1 Furosemide 40 mg DAILY PO 10/12/24 10:00 10/13/24 10:42 40 MG Ceftriaxone Sodium/Dextrose 50 ml @ 50 mls/hr DAILY IV 10/12/24 10:00 10/13/24 10:40 50 MLS/HR objective General Appearance: alert, no distress HEENT: EOMI, PERRLA, normal external inspect of ears, no icterus, no nasal drainage Neck: no carotid bruit, no jugular venous distention (JVD), no lymphadenopathy Chest: normal thorax Respiratory: clear to auscultation, normal air movement Cardiovascular: regular rate and rhythm, no diastolic murmur, no jugular venous distention (JVD), no rub, no systolic murmur Abdominal: soft, no hepatomegaly, no mass, no splenomegaly, no tenderness Genitourinary: grossly normal external Musculoskeletal: no joint tenderness, no swelling Extremities: normal pulses, no calf tenderness, no clubbing, no cyanosis, no edema Skin: no bruising, no jaundice, no rash Neurological: alert, No focal deficit laboratory and microbiology Laboratory Tests 10/12/24 05:13 10/11/24 12:42 10/11/24 11:24 Test 10/11/24 12:42 Range/Units Serum Glucose 117 H 74-106 mg/dL Problem List 1. Acute on chronic diastolic heart failure Monitor, Diuretics, cardiology consult 2. COPD exacerbation Monitor, med neb treatments, pulmonary consult 3. Dementia Monitor, restart dementia meds 4. Hx of DVT right leg Monitor, restart eliquis for hx of DVT 5. Chronic anticoagulation Monitor 6. Bacteremia Monitor, ID consult, IV abx 7. JOSE wit VMN Monitor, nephrology consult Assessment/Plan Subjective: Patient is awake and alert. Objective: Patient was admitted for acute on chronic diastolic heart failure, COPD exacerbation, and sepsis due to cellulitis to his right lower extremity. Patient has bacteremia. Repeat cultures are pending. Echocardiogram results also pending. Plan: Continue physical therapy. Will need home health for physical therapy. ID recommendations appreciated. Echocardiogram results are pending. Dietary Evaluation Review Comments: Monitor kidney function for re-assessment. CCHO-60 and cardiac diet Expected Outcomes/Goals: controlled DM, healed wounds, improved renal function and imprved nutrition status Plan discussed with: Patient, Other AUGIE MURRIETA NP Oct 13, 2024 14:15
--- NOTE | 2024-10-13 22:44 | DVHPN2 ---
Consult Progress Note Objective vital signs Vital Sign Date Time Temp Pulse Resp B/P (MAP) Pulse Ox O2 Delivery O2 Flow Rate FiO2 10/13/24 21:00 97.9 83 17 118/68 (85) 96 97.9 10/13/24 20:00 Room Air* 0 21 Total Intake and Output 10/12/24 10/12/24 10/13/24 15:00 23:00 07:00 Intake Total 50 ml 900 ml 400 ml Output Total 200 ml Balance 50 ml 900 ml 200 ml medications Current Medications Medications Dose Ordered Sig/Kristi Route Start Time Stop Time Status Last Admin Dose Admin Acetaminophen/ Hydrocodone Bitart 1 tab Q4HP PRN PO 10/08/24 15:45 10/11/24 13:00 1 TAB Ondansetron HCl 4 mg Q4HP PRN IV 10/08/24 15:45 Acetaminophen 650 mg Q6HP PRN PO 10/08/24 15:45 Morphine Sulfate 2 mg Q4HPRN PRN IV 10/08/24 15:45 UNV Nitroglycerin 0.4 mg Q5MINP PRN SL 10/08/24 15:45 Morphine Sulfate 2 mg Q30M PRN IV 10/08/24 15:45 UNV Apixaban 5 mg BID PO 10/08/24 22:00 10/13/24 10:44 5 MG Tamsulosin HCl 0.4 mg DAILY PO 10/09/24 10:00 10/13/24 10:43 0.4 MG Pantoprazole Sodium 40 mg DAILY IV 10/09/24 10:00 10/13/24 10:41 40 MG Morphine Sulfate 2 mg Q4HPRN PRN IV 10/08/24 16:00 Morphine Sulfate 2 mg Q30M PRN IV 10/08/24 16:00 Pravastatin Sodium 20 mg DAILY PO 10/09/24 10:00 10/13/24 10:42 20 MG Amlodipine Besylate 10 mg DAILY PO 10/09/24 10:00 10/13/24 10:41 10 MG Patient Own Medication 1 drop BID EACHEYE 10/09/24 10:00 Cancel Patient Own Medication 2 puff BID IN 10/09/24 10:00 Hold Patient Own Medication 1 tab HS PO 10/09/24 22:00 UNV Cholecalciferol 5,000 unit DAILY PO 10/10/24 10:00 10/13/24 10:43 5,000 UNIT Memantine 10 mg BID PO 10/09/24 22:00 10/13/24 10:42 10 MG Patient Own Medication 1 tab DAILY PO 10/09/24 10:00 UNV Patient Own Medication 1 peter QPM EACHEYE 10/09/24 18:00 10/13/24 17:14 1 PETER Budesonide 0.5 mg BID NEB 10/09/24 10:00 10/13/24 18:45 0.5 MG Albuterol 2.5 mg Q6HWA NEB 10/09/24 12:00 10/13/24 18:45 2.5 MG Carvedilol 3.125 mg Q12HR PO 10/09/24 22:00 10/13/24 10:43 3.125 MG Patient Own Medication 1 BID EACHEYE 10/09/24 22:00 10/13/24 10:00 1 Furosemide 40 mg DAILY PO 10/12/24 10:00 10/13/24 10:42 40 MG Ceftriaxone Sodium/Dextrose 50 ml @ 50 mls/hr DAILY IV 10/12/24 10:00 10/13/24 10:40 50 MLS/HR laboratory and microbiology Laboratory Tests 10/12/24 05:13 10/11/24 12:42 10/11/24 11:24 Test 10/11/24 12:42 Range/Units Serum Glucose 117 H 74-106 mg/dL Dietary Evaluation Review Comments: Monitor kidney function for re-assessment. CCHO-60 and cardiac diet Expected Outcomes/Goals: controlled DM, healed wounds, improved renal function and imprved nutrition status JERRICA ESPARZA MD Oct 13, 2024 22:44
[2024-10-14] VITALS (15 sets, daily range): BP systolic 108–134; BP diastolic 63–81; PULSE 69–88; RESP 14–20; TEMP 97.3–98.9; O2SAT 93–100
[2024-10-14 07:00] LABS: Basophils # (auto) 0 10 ^3/uL (0-0.2); Basophils % (auto) 0.4 % (0.0-2.0); Eosinophils # (auto) 0.1 10 ^3/uL (0-0.8); Eosinophils % (auto) 1.8 % (0.0-7.0); Hematocrit 41.5 % (41.0-53.0); Hemoglobin 13.6 g/dL (13.5-17.5); Lymphocytes # (auto) 1.1 10 ^3/uL (0.4-5.4); Lymphocytes % (auto) 18.2 % (10.0-50.0); Mean Corpuscular Hemoglobin 27.2 pg (28.0-32.0); Mean Corpuscular Hgb Conc. 32.9 g/dL (32.0-36.0); Mean Corpuscular Volume 82.7 fL (80.0-100.0); Monocytes # (auto) 0.9 10 ^3/uL (0-1.3); Neutrophils % (auto) 65.6 % (37.0-80.0); Nucleated Red Blood Cells % 0.3 %; Platelet Count (auto) 156 10^3/uL (140-450); Red Blood Cells 5.02 10^6/uL (4.5-5.90); Red Cell Distribution Width 15.7 % (11.8-14.3); White Blood Cell 6.2 10^3/uL (4.4-10.8)
[2024-10-14 07:10] LABS: Chloride 102 mmol/L (98-107); Sodium 142 mmol/L (136-145)
[2024-10-14 07:11] LABS: Anion Gap 10 (5-15); Calcium 9.3 mg/dL (8.7-10.4); Carbon Dioxide 30 mmol/L (20-31)
[2024-10-14 07:12] LABS: Potassium 3.5 mmol/L (3.5-5.1)
[2024-10-14 07:16] LABS: Blood Urea Nitrogen 22 mg/dL (9-23); Glucose 104 mg/dL (74-106)
--- NOTE | 2024-10-14 12:03 | DVHPN2 ---
Progress Note - Dictate Date Seen: Oct 14, 2024 Has the PT tested + for MRSA If YES, has PT been informed?: No Medical Necessity Reason Pt with a Central, PICC or Fol: No vital signs Vital Sign Date Time Temp Pulse Resp B/P (MAP) Pulse Ox O2 Delivery O2 Flow Rate FiO2 10/14/24 11:20 69 18 100 10/14/24 11:15 Room Air* 0 21 10/14/24 09:54 134/81 10/14/24 09:00 98.1 98.1 Total Intake and Output 10/13/24 10/13/24 10/14/24 14:59 22:59 06:59 Intake Total 50 ml 1400 ml 500 ml Balance 50 ml 1400 ml 500 ml medications Current Medications Medications Dose Ordered Sig/Kristi Route Start Time Stop Time Status Last Admin Dose Admin Acetaminophen/ Hydrocodone Bitart 1 tab Q4HP PRN PO 10/08/24 15:45 10/11/24 13:00 1 TAB Ondansetron HCl 4 mg Q4HP PRN IV 10/08/24 15:45 Acetaminophen 650 mg Q6HP PRN PO 10/08/24 15:45 Morphine Sulfate 2 mg Q4HPRN PRN IV 10/08/24 15:45 UNV Nitroglycerin 0.4 mg Q5MINP PRN SL 10/08/24 15:45 Morphine Sulfate 2 mg Q30M PRN IV 10/08/24 15:45 UNV Apixaban 5 mg BID PO 10/08/24 22:00 10/14/24 09:52 5 MG Tamsulosin HCl 0.4 mg DAILY PO 10/09/24 10:00 10/14/24 09:51 0.4 MG Pantoprazole Sodium 40 mg DAILY IV 10/09/24 10:00 10/14/24 09:56 40 MG Morphine Sulfate 2 mg Q4HPRN PRN IV 10/08/24 16:00 Morphine Sulfate 2 mg Q30M PRN IV 10/08/24 16:00 Pravastatin Sodium 20 mg DAILY PO 10/09/24 10:00 10/14/24 09:52 20 MG Amlodipine Besylate 10 mg DAILY PO 10/09/24 10:00 10/14/24 09:54 10 MG Patient Own Medication 1 drop BID EACHEYE 10/09/24 10:00 Cancel Patient Own Medication 2 puff BID IN 10/09/24 10:00 Hold Patient Own Medication 1 tab HS PO 10/09/24 22:00 UNV Cholecalciferol 5,000 unit DAILY PO 10/10/24 10:00 10/14/24 09:55 5,000 UNIT Memantine 10 mg BID PO 10/09/24 22:00 10/14/24 09:52 10 MG Patient Own Medication 1 tab DAILY PO 10/09/24 10:00 UNV Patient Own Medication 1 sarah QPM EACHEYE 10/09/24 18:00 10/13/24 17:14 1 SARAH Budesonide 0.5 mg BID NEB 10/09/24 10:00 10/14/24 05:33 0.5 MG Albuterol 2.5 mg Q6HWA NEB 10/09/24 12:00 10/14/24 11:15 2.5 MG Carvedilol 3.125 mg Q12HR PO 10/09/24 22:00 10/14/24 09:51 3.125 MG Patient Own Medication 1 BID EACHEYE 10/09/24 22:00 10/14/24 09:57 1 Furosemide 40 mg DAILY PO 10/12/24 10:00 10/14/24 09:53 40 MG Ceftriaxone Sodium/Dextrose 50 ml @ 50 mls/hr DAILY IV 10/12/24 10:00 10/14/24 09:57 50 MLS/HR objective General Appearance: alert, no distress HEENT: EOMI, PERRLA, normal external inspect of ears, no icterus, no nasal drainage Neck: no carotid bruit, no jugular venous distention (JVD), no lymphadenopathy Chest: normal thorax Respiratory: clear to auscultation, normal air movement Cardiovascular: regular rate and rhythm, no diastolic murmur, no jugular venous distention (JVD), no rub, no systolic murmur Abdominal: soft, no hepatomegaly, no mass, no splenomegaly, no tenderness Genitourinary: grossly normal external Musculoskeletal: no joint tenderness, no swelling Extremities: normal pulses, no calf tenderness, no clubbing, no cyanosis, no edema Skin: no bruising, no jaundice, no rash Neurological: alert, No focal deficit laboratory and microbiology Laboratory Tests 10/14/24 05:34 Test 10/14/24 05:34 Range/Units Serum Glucose 104 74-106 mg/dL Problem List 1. Acute on chronic diastolic heart failure Monitor, Diuretics, cardiology consult 2. COPD exacerbation Monitor, med neb treatments, pulmonary consult 3. Dementia Monitor, restart dementia meds 4. Hx of DVT right leg Monitor, restart eliquis for hx of DVT 5. Chronic anticoagulation Monitor 6. Bacteremia Monitor, ID consult, IV abx 7. JOSE wit VMN Monitor, nephrology consult Assessment/Plan Subjective: Patient is awake and alert. Objective: Patient was admitted for sepsis related to right lower extremity cellulitis. Patient has underlying right inguinal lymph adenopathy related to cellulitis. Patient had acute vasomotor nephropathy. Kidney function is now within normal limits. Patient was started on oral diuretics. Patient's cardiac function is stable. Plan: Continue current treatment. Continue diuretics. Monitor labs. DC planning for tomorrow. ID recommendations appreciated for discharge. Dietary Evaluation Review Comments: Monitor kidney function for re-assessment. CCHO-60 and cardiac diet Expected Outcomes/Goals: controlled DM, healed wounds, improved renal function and imprved nutrition status Plan discussed with: Patient, Other AUGIE MURRIETA NP Oct 14, 2024 12:03
--- NOTE | 2024-10-14 18:29 | DVHPN2 ---
Progress Note - Dictate Date Seen: Oct 14, 2024 Has the PT tested + for MRSA If YES, has PT been informed?: No Medical Necessity Reason Pt with a Central, PICC or Fol: No vital signs Vital Sign Date Time Temp Pulse Resp B/P (MAP) Pulse Ox O2 Delivery O2 Flow Rate FiO2 10/14/24 17:26 80 114/76 (89) 10/14/24 11:20 18 100 10/14/24 11:15 Room Air* 0 21 10/14/24 09:00 98.1 98.1 Total Intake and Output 10/13/24 10/13/24 10/14/24 15:00 23:00 07:00 Intake Total 50 ml 1400 ml 500 ml Balance 50 ml 1400 ml 500 ml medications Current Medications Medications Dose Ordered Sig/Kristi Route Start Time Stop Time Status Last Admin Dose Admin Acetaminophen/ Hydrocodone Bitart 1 tab Q4HP PRN PO 10/08/24 15:45 10/11/24 13:00 1 TAB Ondansetron HCl 4 mg Q4HP PRN IV 10/08/24 15:45 Acetaminophen 650 mg Q6HP PRN PO 10/08/24 15:45 Morphine Sulfate 2 mg Q4HPRN PRN IV 10/08/24 15:45 UNV Nitroglycerin 0.4 mg Q5MINP PRN SL 10/08/24 15:45 Morphine Sulfate 2 mg Q30M PRN IV 10/08/24 15:45 UNV Apixaban 5 mg BID PO 10/08/24 22:00 10/14/24 09:52 5 MG Tamsulosin HCl 0.4 mg DAILY PO 10/09/24 10:00 10/14/24 09:51 0.4 MG Pantoprazole Sodium 40 mg DAILY IV 10/09/24 10:00 10/14/24 09:56 40 MG Morphine Sulfate 2 mg Q4HPRN PRN IV 10/08/24 16:00 Morphine Sulfate 2 mg Q30M PRN IV 10/08/24 16:00 Pravastatin Sodium 20 mg DAILY PO 10/09/24 10:00 10/14/24 09:52 20 MG Amlodipine Besylate 10 mg DAILY PO 10/09/24 10:00 10/14/24 09:54 10 MG Patient Own Medication 1 drop BID EACHEYE 10/09/24 10:00 Cancel Patient Own Medication 2 puff BID IN 10/09/24 10:00 Hold Patient Own Medication 1 tab HS PO 10/09/24 22:00 UNV Cholecalciferol 5,000 unit DAILY PO 10/10/24 10:00 10/14/24 09:55 5,000 UNIT Memantine 10 mg BID PO 10/09/24 22:00 10/14/24 09:52 10 MG Patient Own Medication 1 tab DAILY PO 10/09/24 10:00 UNV Patient Own Medication 1 peter QPM EACHEYE 10/09/24 18:00 10/14/24 17:23 1 PETER Budesonide 0.5 mg BID NEB 10/09/24 10:00 10/14/24 05:33 0.5 MG Albuterol 2.5 mg Q6HWA NEB 10/09/24 12:00 10/14/24 11:15 2.5 MG Carvedilol 3.125 mg Q12HR PO 10/09/24 22:00 10/14/24 09:51 3.125 MG Patient Own Medication 1 BID EACHEYE 10/09/24 22:00 10/14/24 09:57 1 Furosemide 40 mg DAILY PO 10/12/24 10:00 10/14/24 09:53 40 MG Ceftriaxone Sodium/Dextrose 50 ml @ 50 mls/hr DAILY IV 10/12/24 10:00 10/14/24 09:57 50 MLS/HR laboratory and microbiology Laboratory Tests 10/14/24 05:34 Test 10/14/24 05:34 Range/Units Serum Glucose 104 74-106 mg/dL Assessment/Plan COPD CHF atelectases hypoxemia events low oxygen requirements on room air no acute events labs and imaging reviewed management supplemental oxygen as needed cont abx bronchodilators diurese monitor cont eliquis workup as per other specialists Dietary Evaluation Review Comments: Monitor kidney function for re-assessment. CCHO-60 and cardiac diet Expected Outcomes/Goals: controlled DM, healed wounds, improved renal function and imprved nutrition status Plan discussed with: Patient ARIS CORREIA MD Oct 14, 2024 18:29
[2024-10-15] VITALS (10 sets, daily range): BP systolic 105–135; BP diastolic 65–89; PULSE 73–90; RESP 16–20; TEMP 97.7–98.6; O2SAT 93–100
--- NOTE | 2024-10-15 10:32 | DVHDS2 ---
Discharge Summary Date of Admission Oct 08, 2024 at 15:36 Date of Discharge: Oct 15, 2024 Labs/Diagnostic Data: Laboratory Results Test 10/14/24 05:34 10/11/24 05:53 10/10/24 11:35 10/09/24 09:48 White Blood Count 6.2 10^3/uL (4.4-10.8) Red Blood Count 5.02 10^6/uL (4.5-5.90) Hemoglobin 13.6 g/dL (13.5-17.5) Hematocrit 41.5 % (41.0-53.0) Mean Corpuscular Volume 82.7 fL (80.0-100.0) Mean Corpuscular Hemoglobin 27.2 pg (28.0-32.0) Mean Corpuscular Hemoglobin Concent 32.9 g/dL (32.0-36.0) Red Cell Distribution Width 15.7 % (11.8-14.3) Platelet Count 156 10^3/uL (140-450) Mean Platelet Volume 10.9 fL (6.9-10.8) Neutrophils (%) (Auto) 65.6 % (37.0-80.0) Lymphocytes (%) (Auto) 18.2 % (10.0-50.0) Monocytes (%) (Auto) 14.0 % (0.0-12.0) Eosinophils (%) (Auto) 1.8 % (0.0-7.0) Basophils (%) (Auto) 0.4 % (0.0-2.0) Neutrophils # (Auto) 4.0 10 ^3/uL (1.6-8.6) Lymphocytes # (Auto) 1.1 10 ^3/uL (0.4-5.4) Monocytes # (Auto) 0.9 10 ^3/uL (0-1.3) Eosinophils # (Auto) 0.1 10 ^3/uL (0-0.8) Basophils # (Auto) 0 10 ^3/uL (0-0.2) Nucleated Red Blood Cells 0.3 % Sodium Level 142 mmol/L (136-145) Potassium Level 3.5 mmol/L (3.5-5.1) Chloride Level 102 mmol/L (98-107) Carbon Dioxide Level 30 mmol/L (20-31) Anion Gap 10 (5-15) Blood Urea Nitrogen 22 mg/dL (9-23) Creatinine 1.16 mg/dL (0.700-1.30) Glomerular Filtration Rate Calc 61 mL/min (>90) BUN/Creatinine Ratio 19.0 (10.0-20.0) Serum Glucose 104 mg/dL (74-106) Calcium Level 9.3 mg/dL (8.7-10.4) Random Vancomycin Level 9.8 ug/mL (5-10) Lactic Acid Level 1.1 mmol/L (0.4-2.0) B-Type Natriuretic Peptide 651.51 pg/mL (0-100) Test 10/08/24 15:47 10/08/24 10:48 10/08/24 10:43 10/08/24 10:26 Influenza Type A Antigen Negative (Negative) Influenza Type B Antigen Negative (Negative) SARS-CoV-2 Antigen (Rapid) Negative (NEGATIVE) POC Glucose 112 mg/dl (70-106) Urine Color Light-yellow (Yellow) Urine Clarity Clear (Clear) Urine pH 5.5 (5.0-9.0) Urine Specific [place] 1.007 (1.001-1.035) Urine Protein Trace (Negative) Urine Ketones Negative (Negative) Urine Blood Negative /uL (Negative) Urine Nitrite Negative (Negative) Urine Bilirubin Negative (Negative) Urine Urobilinogen Normal mg/dL (Negative) Urine Leukocyte Esterase Negative /uL (Negative) Urine RBC 4 /hpf (0 - 3) Urine Microscopic WBC 3 /HPF (0-3) Urine Squamous Epithelial Cells Few /hpf (<5) Urine Bacteria Few /hpf (None Seen) Urine Mucus Few (None Seen) Urine Sperm Present /hpf (None Seen) Urine Glucose 4+ mg/dL (Normal) Differential Total Cells Counted 100.0 (100) Neutrophils % (Manual) 73 (37.0-80.0) Band Neutrophils % (Manual) 10 Lymphocytes % (Manual) 8 (10.0-50.0) Monocytes % (Manual) 9 (0-12) Eosinophils % (Manual) 0 (0-7) Basophils % (Manual) 0 (0.0-2.0) Metamyelocytes % (manual) 0 Myelocytes % (Manual) 0 Promyelocytes % (Manual) 0 Blast Cells % (Manual) 0 Reactive Lymphocytes 0 Platelet Estimate Decreased Giant Platelets Prothrombin Time 11.8 sec (9.3-11.8) Prothrombin Time INR 1.13 (0.9-1.15) Activated Partial Thromboplast Time 27.3 SEC (24.5-34.5) Total Bilirubin 0.7 mg/dL (0.2-1.0) Aspartate Amino Transferase (AST) 27 U/L (13-40) Alanine Aminotransferase (ALT) 12 U/L (7-40) Alkaline Phosphatase 99 U/L (46-116) Total Protein 7.5 g/dL (5.7-8.2) Albumin 4.3 g/dL (3.2-4.8) Other Laboratory Tests 10/14/24 05:34 Brief Hx & Hospital Course: Patient is a 89 year old male with a PMHx of DM, HLD, COPD, LA, and CHF that presents with a CC of ALOC. Patient is coming to the ER from home after his called EMS due to patient portraying decreased mentation onset at 3AM this morning (10/08/24). EMS states that on arrival patient was warm and diaphoretic. Patients axillary temp was 103.3 at the ED. No other sign or modifying factors at this time. While in the emergency department the patient was evaluated by the provider, As per provider: Labs, vital signs, and imagining monitored. Patient was admitted for sepsis and acute hypoxic respiratory failure. Patient previously had a possible viral upper respiratory syndrome at home with a fever. Respiratory status improved overnight. Patient had a slight JOSE with vasomotor neuropathy. Patient was given IV fluids, and diuretics were held. Patient had right groin lymphadenopathy related to cellulitis of the right lower extremity. Patient was seen by infectious disease. Patient received IV antibiotics of vancomycin while in the hospital. Patient will continue oral Levaquin 500 milligrams daily. Patient was restarted on Lasix 40 milligrams PO daily. Kidney function is now at baseline. Patient was discharged. Home health was arranged for home safety follow-up. Patient was instructed to follow-up with their PCP in one week. The patient received proper medical treatment and medications. Vital signs, Imaging and Laboratory Work was monitored. All consults recommendations were followed as provided. There were no complaints or new complaints upon discharge, all questions and concerns were answered. Patient was advised to return to the ER or call 911 if any headaches, dizziness, shortness of breath, chest pain, bleeding, fevers, or worsening of medical condition. Patient/Family was counseled about treatment plan, medications, possible side effects, patientverbalized understanding. All questions were answered to the best of my ability. The patient symptoms improved and they are okay to be DC. Condition at Discharge: Stable Final Diagnosis/Problems List Acute on chronic diastolic heart failure COPD exacerbation Dementia Hx of DVT right leg Chronic anticoagulation Bacteremia JOSE wit VMN Discharge Disposition: Home Discharge Statement: "Patient was advised to return to the ER or call 911 if any headaches, dizziness, shortness of breath, chest pain, abdominal pain, bleeding, fevers, or worsening of medical condition. Patient was counseled about treatment plan, medications, possible side effects, patientverbalized understanding. All questions were answered to the best of my ability. This discharge took greater then 30 minutes in planning, reviewing documentation, counseling the patient, and discussing with other team members." ASSESSMENT ASSESSMENT Assessment AUGIE MURRIETA NP Oct 15, 2024 10:32
[2024-10-15] MEDS ORDERED: LEVO500T91 PO (11:40)
[2024-10-15] MEDS ORDERED: CARV-214 PO (11:40)
--- NOTE | 2024-10-15 13:49 | DVHPN2 ---
Progress Note - Dictate Date Seen: Oct 15, 2024 Has the PT tested + for MRSA If YES, has PT been informed?: No Medical Necessity Reason Pt with a Central, PICC or Fol: No vital signs Vital Sign Date Time Temp Pulse Resp B/P (MAP) Pulse Ox O2 Delivery O2 Flow Rate FiO2 10/15/24 12:44 98.6 75 18 105/75 (85) 98 98.6 10/15/24 11:35 Room Air* 0 21 Total Intake and Output 10/14/24 10/14/24 10/15/24 15:00 23:00 07:00 Intake Total 50 ml 220 ml 300 ml Output Total 1500 ml Balance 50 ml -1280 ml 300 ml medications Current Medications Medications Dose Ordered Sig/Kristi Route Start Time Stop Time Status Last Admin Dose Admin Acetaminophen/ Hydrocodone Bitart 1 tab Q4HP PRN PO 10/08/24 15:45 10/11/24 13:00 1 TAB Ondansetron HCl 4 mg Q4HP PRN IV 10/08/24 15:45 Acetaminophen 650 mg Q6HP PRN PO 10/08/24 15:45 Morphine Sulfate 2 mg Q4HPRN PRN IV 10/08/24 15:45 UNV Nitroglycerin 0.4 mg Q5MINP PRN SL 10/08/24 15:45 Morphine Sulfate 2 mg Q30M PRN IV 10/08/24 15:45 UNV Apixaban 5 mg BID PO 10/08/24 22:00 10/15/24 09:15 5 MG Tamsulosin HCl 0.4 mg DAILY PO 10/09/24 10:00 10/15/24 09:14 0.4 MG Pantoprazole Sodium 40 mg DAILY IV 10/09/24 10:00 10/15/24 09:14 40 MG Morphine Sulfate 2 mg Q4HPRN PRN IV 10/08/24 16:00 Morphine Sulfate 2 mg Q30M PRN IV 10/08/24 16:00 Pravastatin Sodium 20 mg DAILY PO 10/09/24 10:00 10/15/24 09:14 20 MG Amlodipine Besylate 10 mg DAILY PO 10/09/24 10:00 10/15/24 09:16 10 MG Patient Own Medication 1 drop BID EACHEYE 10/09/24 10:00 Cancel Patient Own Medication 2 puff BID IN 10/09/24 10:00 Hold Patient Own Medication 1 tab HS PO 10/09/24 22:00 UNV Cholecalciferol 5,000 unit DAILY PO 10/10/24 10:00 10/15/24 09:14 5,000 UNIT Memantine 10 mg BID PO 10/09/24 22:00 10/15/24 09:14 10 MG Patient Own Medication 1 tab DAILY PO 10/09/24 10:00 UNV Patient Own Medication 1 peter QPM EACHEYE 10/09/24 18:00 10/14/24 17:23 1 PETER Budesonide 0.5 mg BID NEB 10/09/24 10:00 10/15/24 06:31 0.5 MG Albuterol 2.5 mg Q6HWA NEB 10/09/24 12:00 10/15/24 11:37 2.5 MG Carvedilol 3.125 mg Q12HR PO 10/09/24 22:00 10/15/24 09:16 3.125 MG Patient Own Medication 1 BID EACHEYE 10/09/24 22:00 10/15/24 09:18 1 Furosemide 40 mg DAILY PO 10/12/24 10:00 10/15/24 09:15 40 MG Ceftriaxone Sodium/Dextrose 50 ml @ 50 mls/hr DAILY IV 10/12/24 10:00 10/15/24 09:16 50 MLS/HR laboratory and microbiology Laboratory Tests 10/14/24 05:34 Test 10/14/24 05:34 Range/Units Serum Glucose 104 74-106 mg/dL Assessment/Plan impression COPD CHF atelectases hypoxemia events low oxygen requirements on room air no distress labs and imaging reviewed management supplemental oxygen as needed cont abx bronchodilators diurese monitor cont eliquis Dietary Evaluation Review Comments: Monitor kidney function for re-assessment. CCHO-60 and cardiac diet Expected Outcomes/Goals: controlled DM, healed wounds, improved renal function and imprved nutrition status Plan discussed with: Patient ARIS CORREIA MD Oct 15, 2024 13:49
== END 2024-10-15 17:05 | disposition home health service (06) | DRG 871 ==
LOC: EDBD 10:05 → ER 10:05 → OVERFLOW 15:36 → TELE-EAST 18:39
PROVIDERS: ADMIT Nurse Practitioner; ATTEND Nurse Practitioner
DX: A41.9 Sepsis, unspecified organism (principal); I50.33 Acute on chronic diastolic (congestive) heart failure; N17.0 Acute kidney failure with tubular necrosis; J96.01 Acute respiratory failure with hypoxia; L03.115 Cellulitis of right lower limb; I13.0 Hypertensive heart and chronic kidney disease with heart failure and stage 1 through stage 4 chronic kidney disease, or unspecified chronic kidney disease; J44.1 Chronic obstructive pulmonary disease with (acute) exacerbation; I31.39 Other pericardial effusion (noninflammatory); I42.9 Cardiomyopathy, unspecified; F03.90 Unspecified dementia, unspecified severity, without behavioral disturbance, psychotic disturbance, mood disturbance, and anxiety; I71.40 Abdominal aortic aneurysm, without rupture, unspecified; E66.01 Morbid (severe) obesity due to excess calories; Z20.822 Contact with and (suspected) exposure to COVID-19; I87.8 Other specified disorders of veins; E11.51 Type 2 diabetes mellitus with diabetic peripheral angiopathy without gangrene; R59.0 Localized enlarged lymph nodes; E11.22 Type 2 diabetes mellitus with diabetic chronic kidney disease; N18.31 Chronic kidney disease, stage 3a; E78.00 Pure hypercholesterolemia, unspecified; Z88.0 Allergy status to penicillin; Z91.030 Bee allergy status; Z79.899 Other long term (current) drug therapy; Z79.01 Long term (current) use of anticoagulants; Z83.3 Family history of diabetes mellitus; Z86.718 Personal history of other venous thrombosis and embolism; Z82.49 Family history of ischemic heart disease and other diseases of the circulatory system; Z68.27 Body mass index [BMI] 27.0-27.9, adult; Z86.711 Personal history of pulmonary embolism; Z86.79 Personal history of other diseases of the circulatory system
CPT/HCPCS: 36415; 70450; 71045; 71250; 73030; 74176; 80048; 80053; 80202; 81001; 82565; 82962; 83605; 83880; 85007; 85025; 85027; 85610; 85730; 87040; 87077; 87186; 87426; 87804; 93005; 93306; 93971; 94640; 96365; 99291; G0378; J0131; J0692; J2470

== ENCOUNTER 2025-04-02 12:06 | Inpatient (IN) | payer MEDICARE, OTHER ==
[~2025-04-02] VITALS: Ht 175.3 cm; Wt 90.4 kg
[~2025-04-02 12:06] MED LIST changes: +BRIM0.2S2 OP; +CARV-214 PO; +LEVO500T91 PO; -METO25TA93 PO; +NETA1DRO OP; +[UNRECOGNIZED DRUG - CODE] OP
--- NOTE | 2025-04-02 12:41 | ED.PDOC ---
SOB-HPI HPI Comments This is a 89 year old male presenting to the ED with chief complaint of SOB. Patient reports that he has been experiencing SOB with associated swelling of his hands and legs for the past week. Patient relays that he had been recently admitted last week at [place] for the same symptoms for 4 days, but he did not improve. Patient denies any chest pain, headache, fever, chills, cough, or N/V. Chief Complaint: Shortness of Breath Time Seen by MD: 12:39 Primary Care Provider: EDWINA Reviewed notes: Nurses Notes, Medications, Allergies Information Source: Patient Mode of Arrival: Wheelchair Severity: Moderate Timing: Weeks Duration: Since onset Context: At Rest PE Risk Factors: None History of: COPD, CHF Prehospital treatment: None Modifying Factors: Nothing Associated Signs and Symptoms: Leg Swelling Past Medical History PAST MEDICAL HISTORY: Asthma, CHF, COPD, DM, High Lipids, HTN, CA Surgical History: Hernia Repair Family History Family History: Reviewed,noncontributory to illness Social History Smoker: Non-Smoker Alcohol: Denies ETOH Use Drugs: Denies Drug Use Lives In: Home Constitutional: denies: chills, diaphoresis, fatigue, fever, malaise, sweats, weakness, others EENTM: denies: blurred vision, double vision, ear bleeding, ear discharge, ear drainage, ear pain, ear ringing, eye pain, eye redness, hearing loss, mouth pain, mouth swelling, nasal discharge, nose bleeding, nose congestion, nose pain, photophobia, tearing, throat pain, throat swelling, voice changes, others Respiratory: reports: shortness of breath; denies: cough, hemoptysis, orthopnea, SOB at rest, SOB with excertion, stridor, wheezing, others Cardiovascular: reports: edema; denies: chest pain, dizzy spells, diaphoresis, Dyspnea on exertion, irregular heart beat, left arm pain, lightheadedness, palpitations, PND, syncope, others Gastrointestinal: denies: abdomen distended, abdominal pain, blood streaked bowels, constipated, diarrhea, dysphagia, difficulty swallowing, hematemesis, melena, nausea, poor appetite, poor fluid intake, rectal bleeding, rectal pain, vomiting, others Genitourinary: denies: burning, dysuria, flank pain, frequency, hematuria, incontinence, penile discharge, penile sore, pain, testicle pain, testicle swelling, urgency, others Neurological: denies: dizziness, fainting, headache, left sided numbness, left sided weakness, numbness, paresthesia, pre-existing deficit, right sided numbness, right sided weakness, seizure, speech problems, tingling, tremors, weakness, others Musculoskeletal: denies: back pain, gout, joint pain, joint swelling, muscle pain, muscle stiffness, neck pain, others Integumetry: denies: bruises, change in color, change in hair/nails, dryness, laceration, lesions, lumps, rash, wounds, others Allergic/Immunocompromised: denies: Difficulty Healing, Frequent Infections, Hives, Itching, others Hematologic/Lymphatic: denies: anemia, blood clots, easy bleeding, easy bruising, swollen glands, others Endocrine: denies: excessive hunger, excessive sweating, excessive thirst, excessive urination, flushing, intolerance to cold, intolerance to heat, unexpla ined weight gain, unexplained weight loss, others Psychiatric: denies: anxiety, bipolar disorder, depression, hopeless, panic disorder, schizophrenia, sleepless, suicidal, others All Other Systems: Reviewed and Negative Physical Exam General Appearance: Moderate Distress, Normal HEENT: Normal ENT Inspection, Pharynx Normal, TMs Normal Neck: Full Range of Motion, Non-Tender, Normal, Normal Inspection Respiratory: Chest Non-Tender, No Accessory Muscle Use, Rhonchi Cardiovascular: No Edema, No JVD, No Murmur, No Gallop, Normal Peripheral Pulses, Regular Rate/Rhythm Breast Exam: Deferred Gastrointestinal: No Organomegaly, Non Tender, No Pulsatile Mass, Normal Bowel Sounds, Soft Genitalia: Deferred Pelvic: Deferred Rectal: Deferred Extremities: No calf tenderness, Normal capillary refill, Normal range of motion, Non-tender, No pedal edema, Swelling (Bilateral hand lower extremity) Musculoskeletal : Apperance: Normal Neurologic: Alert, cafeteria or lunchroom checker II-XII nml as Tested, No Motor Deficits, Normal Affect, Normal Mood, No Sensory Deficits Cerebellar Function: NOT DONE Reflexes: NOT DONE Skin: Dry, Normal Color, Warm Peripheral Pulses: 3+ Radial (R), 3+ Radial (L) Lymphatic: No Adenopathy EKG EKG : Pulse Rate (adult): 75 [place]: Normal Cardiac Rhythm: NSR Block: None Hypertrophy: None ST: Normal Was a procedure done? Was a procedure done?: No Differential Dx Differential Diagnosis: Anxiety, Asthma, Bronchitis, CHF, COPD X-Ray, Labs, Meds, VS Vital Signs Date Time Temp Pulse Resp B/P (MAP) Pulse Ox O2 Delivery O2 Flow Rate FiO2 04/02/25 12:42 75 04/02/25 12:33 75 04/02/25 12:09 97.6 85 20 177/90 92 97.6 Lab Test 04/02/25 13:52 04/02/25 13:02 Range/Units Troponin I High Sensitivity 37 33 </=54 ng/L White Blood Count 5.5 4.4-10.8 10^3/uL Red Blood Count 4.42 L 4.5-5.90 10^6/uL Hemoglobin 12.8 L 13.5-17.5 g/dL Hematocrit 39.0 L 41.0-53.0 % Mean Corpuscular Volume 88.3 80.0-100.0 fL Mean Corpuscular Hemoglobin 29.1 28.0-32.0 pg Mean Corpuscular Hemoglobin Concent 33.0 32.0-36.0 g/dL Red Cell Distribution Width 16.8 H 11.8-14.3 % Platelet Count 230 140-450 10^3/uL Mean Platelet Volume 9.7 6.9-10.8 fL Neutrophils (%) (Auto) 72.9 37.0-80.0 % Lymphocytes (%) (Auto) 16.5 10.0-50.0 % Monocytes (%) (Auto) 8.0 0.0-12.0 % Eosinophils (%) (Auto) 2.0 0.0-7.0 % Basophils (%) (Auto) 0.6 0.0-2.0 % Neutrophils # (Auto) 4.0 1.6-8.6 10 ^3/uL Lymphocytes # (Auto) 0.9 0.4-5.4 10 ^3/uL Monocytes # (Auto) 0.4 0-1.3 10 ^3/uL Eosinophils # (Auto) 0.1 0-0.8 10 ^3/uL Basophils # (Auto) 0 0-0.2 10 ^3/uL Nucleated Red Blood Cells 0.2 % Sodium Level 144 136-145 mmol/L Potassium Level 4.3 3.5-5.1 mmol/L Chloride Level 113 H 98-107 mmol/L Carbon Dioxide Level 21 20-31 mmol/L Anion Gap 10 5-15 Blood Urea Nitrogen 18 9-23 mg/dL Creatinine 1.13 0.700-1.30 mg/dL Glomerular Filtration Rate Calc 62 >90 mL/min BUN/Creatinine Ratio 15.9 10.0-20.0 Serum Glucose 94 74-106 mg/dL Calcium Level 9.4 8.7-10.4 mg/dL B-Type Natriuretic Peptide 310.85 0-100 pg/mL Patient alert. Came in because of shortness a breath. Does have swelling of the hands legs. Vitals stable. Answering questions. Blood pressure slightly elevated. Was given Lasix. Placed on oxygen. Reviewed his history. Explained to the patient. Continued monitoring. Time of 1ST Reevaluation: 13:38 Reevaluation 1ST: Unchanged Patient Education/Counseling: Diagnosis, Treatment Family Education/Counseling: No Family Present SEPSIS Sepsis Screen Date sepsis recognized/suspect: Apr 02, 2025 Time Sepsis recognized/suspect: 1210 Recent Procedure: No On Antibiotic Therapy: No Respiratory Rate >20: No Heart Rate >90: No Temp<36 C (96.8 F) or >38.3 C: No SBP <90 or MAP <65 mmHG: No New Acute Mental Status Change: No Is the patient on CPAP, BIPAP,: No Physician Orders Chest Portable (04/02/25 12:48) Urinalysis (04/02/25 12:48) Electrocardigram (04/02/25 14:27) Vital Signs Date Time Temp Pulse Resp B/P (MAP) Pulse Ox O2 Delivery O2 Flow Rate FiO2 04/02/25 12:42 75 04/02/25 12:33 75 04/02/25 12:09 97.6 85 20 177/90 92 97.6 Laboratory Tests Test 04/02/25 13:02 White Blood Count 5.5 10^3/uL (4.4-10.8) Departure 1 Departure Time of Disposition: 12:51 Impression: Primary Impression: CHF (congestive heart failure) Qualified Codes: I50.43 - Acute on chronic combined systolic (congestive) and diastolic (congestive) heart failure Additional Impressions: Hypertensive urgency Uncontrolled diabetes mellitus Qualified Codes: E13.65 - Other specified diabetes mellitus with hyperglycemia Disposition: 09 ADMITTED INPATIENT Admit to: Med Surg Condition: Guarded Critical Care Note Critical Care Time?: Yes (35 min-critical care time only) Stability Stability form required: No Heart Score Heart Score: Heart Score Response (Comments) Value History Highly Suspicious 2 EKG Normal 0 Age >65 2 Risk Factors >3 or Hx ASHD 2 Troponin Normal limit 0 Total 6 I personally scribed for RAFI STEPHENSON MD ([email or web address]) on 04/02/25 at 12:41. Electronically submitted by Ye Meredith ([email or web address]). I personally scribed for RAFI STEPHENSON MD ([email or web address]) on 04/02/25 at 12:42. Electronically submitted by Ye Meredith ([email or web address]). RAFI STEPHENSON MD Apr 02, 2025 12:41
--- NOTE | 2025-04-02 13:28 | DVH ---
CHEST RADIOGRAPH Indication: sob Technique: XY CHEST PORTABLE COMPARISON: None FINDINGS: The cardiac silhouette is enlarged. The lungs demonstrate bilateral patchy airspace opacities. The pulmonary vasculature is prominent. Small to moderate left and small right pleural effusions. Aortic atherosclerotic disease. There is no pneumothorax. IMPRESSION: As above
[2025-04-02 13:29] LABS: Hemoglobin 12.8 g/dL (13.5-17.5)
[2025-04-02 13:30] LABS: Potassium 4.3 mmol/L (3.5-5.1); Sodium 144 mmol/L (136-145)
[2025-04-02 13:31] LABS: Anion Gap 10 (5-15); Calcium 9.4 mg/dL (8.7-10.4); Carbon Dioxide 21 mmol/L (20-31)
[2025-04-02 13:32] LABS: Chloride 113 mmol/L (98-107)
[2025-04-02 13:33] LABS: Hematocrit 39.0 % (41.0-53.0); Mean Corpuscular Hemoglobin 29.1 pg (28.0-32.0); Mean Corpuscular Volume 88.3 fL (80.0-100.0); Nucleated Red Blood Cells % 0.2 %
[2025-04-02 13:36] LABS: BUN/Creatinine Ratio 15.9 (10.0-20.0); Blood Urea Nitrogen 18 mg/dL (9-23); Glucose 94 mg/dL (74-106)
[2025-04-02] MEDS ORDERED: NITROGLYCERIN 0.4 MG SL TAB SL PRN (15:45)
[2025-04-02] MEDS ORDERED: MORPHINE SULFATE 4 MG/ML SYR/VIAL IV PRN (15:45)
[2025-04-02] MEDS ORDERED: FUROSEMIDE 40 MG/4 ML VIAL IV ONE (16:00)
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
[2025-04-02 17:19] VITALS: PULSE 77; RESP 13; O2SAT 92
[2025-04-02] MEDS ORDERED: DEXTROSE (50%) 50ML SYRG IV PRN (17:30)
[2025-04-02 17:48] LABS: INR 1.06 (0.9-1.15); Partial Thromboplastin Time 28.5 SEC (24.5-34.5); Prothrombin Time 11.2 sec (9.3-11.8)
[2025-04-02] MEDS: ACCU-CHEK COMFORT CURVE STRIP VI SCH (18:38)
[2025-04-02] MEDS: InsuLIN REG 1unit/0.01ml Soln (100units/ml) SC SCH (18:38)
[2025-04-02 18:39] VITALS: PULSE 77; RESP 18; O2SAT 92
[2025-04-02] MEDS: IPRATROPIUM BROM 0.5 MG/2.5ML INH SOL NEB PRN (18:39)
[2025-04-02] MEDS: ALBUTEROL SULF 2.5 MG/0.5ML(0.5%) NEB SOLN NEB PRN (18:39)
[2025-04-02] MEDS: FUROSEMIDE 40 MG/4 ML VIAL IV SCH (18:43)
[2025-04-02] MEDS: ENOXAPARIN SOD 100 MG/1 ML SYRINGE SC SCH (18:46)
[2025-04-02 18:47] VITALS: PULSE 80; RESP 18; O2SAT 98
[2025-04-02 19:33] LABS: Urine Amorphous Crystal FEW /hpf (None Seen); Urine Protein, UAD Negative (Negative)
[2025-04-02 20:04] LABS: COVID19 ANTIGEN SOFIA FIA NEGATIVE (NEGATIVE)
[2025-04-02 21:27] VITALS: BP 155/83; PULSE 88; RESP 20; TEMP 98.1; O2SAT 95
[2025-04-02] MEDS: CARVEDILOL 3.125 MG TAB PO SCH (21:40)
[2025-04-02 23:15] VITALS: BP 143/86; PULSE 75; RESP 18; TEMP 98.5; O2SAT 93
[2025-04-03] VITALS (14 sets, daily range): BP systolic 125–151; BP diastolic 57–99; PULSE 75–84; RESP 16–18; TEMP 97.4–98.7; O2SAT 93–98
[2025-04-03 06:56] LABS: Hematocrit 38.3 % (41.0-53.0); Hemoglobin 12.6 g/dL (13.5-17.5); Mean Corpuscular Hemoglobin 29.3 pg (28.0-32.0); Mean Corpuscular Volume 88.9 fL (80.0-100.0); Nucleated Red Blood Cells % 0.1 %
[2025-04-03 07:15] LABS: Alanine Aminotransferase 18 U/L (7-40); Albumin 4.0 g/dL (3.2-4.8); Anion Gap 10 (5-15); BUN/Creatinine Ratio 11.6 (10.0-20.0); Bilirubin, Total 0.4 mg/dL (0.2-1.0); Blood Urea Nitrogen 14 mg/dL (9-23); Calcium 9.2 mg/dL (8.7-10.4); Carbon Dioxide 26 mmol/L (20-31); Glucose 101 mg/dL (74-106); Potassium 3.9 mmol/L (3.5-5.1); Sodium 144 mmol/L (136-145); Total Protein 7.4 g/dL (5.7-8.2)
[2025-04-03 07:16] LABS: Alkaline Phosphatase 117 U/L (46-116); Chloride 108 mmol/L (98-107)
[2025-04-03] MEDS: AZITHROMYCIN 250 MG TAB PO ONE (11:30)
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
[2025-04-03] MEDS ORDERED: ENOXAPARIN SOD 100 MG/1 ML SYRINGE SC SCH (16:30)
[2025-04-03] MEDS: ENOXAPARIN SOD 100 MG/1 ML SYRINGE SC SCH (18:44)
[2025-04-03] MEDS: TAMSULOSIN HYDROCHLORIDE 0.4 MG CAP PO ONE (19:26)
[2025-04-04] VITALS (12 sets, daily range): BP systolic 107–136; BP diastolic 68–80; PULSE 73–91; RESP 16–18; TEMP 97.6–98; O2SAT 92–96
[2025-04-04 05:42] LABS: Chloride 105 mmol/L (98-107); Potassium 3.6 mmol/L (3.5-5.1); Sodium 143 mmol/L (136-145)
[2025-04-04 05:43] LABS: Anion Gap 10 (5-15); Calcium 9.8 mg/dL (8.7-10.4); Carbon Dioxide 28 mmol/L (20-31)
[2025-04-04 05:48] LABS: BUN/Creatinine Ratio 16.5 (10.0-20.0); Blood Urea Nitrogen 23 mg/dL (9-23)
[2025-04-04 05:53] LABS: Glucose 110 mg/dL (74-106)
[2025-04-04 05:59] LABS: Hematocrit 40.7 % (41.0-53.0); Hemoglobin 13.2 g/dL (13.5-17.5); Mean Corpuscular Hemoglobin 28.2 pg (28.0-32.0); Mean Corpuscular Volume 87.1 fL (80.0-100.0); Nucleated Red Blood Cells % 0.1 %
[2025-04-04] MEDS: ACETAMINOPHEN 325 MG TAB PO ONE (08:24)
[2025-04-04] MEDS ORDERED: AZITHROMYCIN 250 MG TAB PO SCH (10:00)
--- NOTE | 2025-04-04 10:06 | ECG ---
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
--- NOTE | 2025-04-04 17:35 | DVH ---
EXAM: CT CHEST WITHOUT CONTRAST History: chronic cough, history of smoking Comparison Study: CT CHEST WITHOUT CONTRAST on DOS: 10/09/24, CHEST PORTABLE on DOS: 06/17/19 TECHNIQUE: Multidetector CT of the chest was performed. Imaging was performed without IV contrast. Axial, coronal, and sagittal multiplanar reformats were obtained from the axial data set by the technologist. Radiation Dose : CTDI vol 16.4 mGy, DLP 1387.7 mGy*cm. Findings: Evaluation is degraded by respiratory motion. Lungs /pleura: Small left and trace right pleural effusion with adjacent opacity. Paraseptal emphysema. Scattered atelectasis / scarring. Heart/Great vessels: There is cardiomegaly. There is a moderate pericardial effusion. There are mild coronary artery calcifications. There are mild atherosclerotic calcifications about the aorta. Mediastinum: Unremarkable. Soft tissues/Bones: Thoracic DISH. Upper abdomen: Bilateral renal cysts. Scattered splenic calcification. Impression: 1. Small left and trace right pleural effusion with adjacent atelectasis, a mild superimposed infectious/ inflammatory process cannot be entirely excluded. 2. Emphysema. 3. Additional findings as detailed.
[2025-04-04] MEDS: TAMSULOSIN HYDROCHLORIDE 0.4 MG CAP PO SCH (18:03)
[2025-04-04] MEDS: CARVEDILOL 3.125 MG TAB PO SCH (21:53)
[2025-04-04] MEDS: ATORVASTATIN 20 MG TAB PO SCH (21:54)
[2025-04-04] MEDS ORDERED: CARVEDILOL 3.125 MG TAB PO SCH (22:00)
[2025-04-05] VITALS (8 sets, daily range): BP systolic 106–133; BP diastolic 64–81; PULSE 71–86; RESP 18–74; TEMP 36.9; O2SAT 91–97
[2025-04-05] MEDS: HYDROcodone-ACET 5/325MG TAB PO ONE (03:02)
[2025-04-05 07:14] LABS: Hematocrit 36.3 % (41.0-53.0); Hemoglobin 12.2 g/dL (13.5-17.5); Mean Corpuscular Hemoglobin 31.0 pg (28.0-32.0); Mean Corpuscular Volume 92.6 fL (80.0-100.0); Nucleated Red Blood Cells % 0.1 %
[2025-04-05 07:24] LABS: Calcium 9.5 mg/dL (8.7-10.4); Chloride 106 mmol/L (98-107); Potassium 3.6 mmol/L (3.5-5.1); Sodium 142 mmol/L (136-145)
[2025-04-05 07:25] LABS: Anion Gap 9 (5-15); Carbon Dioxide 27 mmol/L (20-31)
[2025-04-05 07:30] LABS: BUN/Creatinine Ratio 18.6 (10.0-20.0); Blood Urea Nitrogen 26 mg/dL (9-23); Glucose 101 mg/dL (74-106)
[2025-04-05] MEDS: FUROSEMIDE 40 MG/4 ML VIAL IV SCH (09:43)
[2025-04-05] MEDS: MEMANTINE HCL 5 MG TAB PO SCH (09:45)
[2025-04-05] MEDS: ASPirin-EC 81 mg tab PO SCH (09:45)
[2025-04-05] MEDS ORDERED: FUROSEMIDE 40 MG/4 ML VIAL IV SCH (10:00)
[2025-04-05] MEDS ORDERED: CLOPIDOGREL BISULFATE 75 MG TAB PO SCH (10:00)
[2025-04-05] MEDS ORDERED: FLUT1AER17 PO (12:39)
[2025-04-05] MEDS ORDERED: LEVO500T91 PO ×2 (12:39→14:46)
[2025-04-05] MEDS ORDERED: FURO1TAB31 PO (12:39)
[2025-04-05] MEDS ORDERED: ALBUTEROL SULF 2.5 MG/0.5ML(0.5%) NEB SOLN NEB PRN (14:00)
[2025-04-05] MEDS ORDERED: IPRATROPIUM BROM 0.5 MG/2.5ML INH SOL NEB PRN (14:00)
--- NOTE | 2025-04-05 14:34 | DVHPN2 ---
Subjective Seen in bed and resting Reviewed: H&P Changes from previous H/P or p: No Changes Objective Vitals Vital Signs Date Time Temp Pulse Resp B/P (MAP) Pulse Ox O2 Delivery O2 Flow Rate FiO2 04/05/25 12:40 98.4 76 20 106/64 (78) 94 98.4 04/05/25 10:00 Room Air* 0 21 Intake/Output Intake and Output 04/05/25 07:00 Intake Total 1434 ml Output Total 1050 ml Balance 384 ml Intake Oral 1334 ml IV Total 100 ml Output Urine Total 1050 ml # Voids 1 General Appearance: Alert, Oriented X3 HEENT: Atraumatic Lungs: Clear to auscultation Cardiovascular: Regular rate, Normal S1, Normal S2 Medications Current Medications Medications Dose Ordered Sig/Kristi Route Start Time Stop Time Status Last Admin Dose Admin Nitroglycerin 0.4 mg Q5MINP PRN SL 04/02/25 15:45 Morphine Sulfate 2 mg Q30M PRN IV 04/02/25 15:45 Patient Own Medication 5 mg DAILY PO 04/03/25 10:00 Guaifenesin 200 mg Q6HP PRN PO 04/02/25 22:00 04/03/25 00:43 200 MG Enoxaparin Sodium 90 mg Q12H SC 04/03/25 18:00 04/05/25 06:00 90 MG Tamsulosin HCl 0.4 mg QPM PO 04/04/25 18:00 04/04/25 18:03 0.4 MG Amlodipine Besylate 5 mg DAILY PO 04/05/25 10:00 04/05/25 09:47 5 MG Levofloxacin 50 ml @ 50 mls/hr DAILY IV 04/05/25 10:00 04/05/25 09:45 50 MLS/HR Carvedilol 3.125 mg Q12HR PO 04/04/25 22:00 04/05/25 09:46 3.125 MG Atorvastatin Calcium 10 mg HS PO 04/04/25 22:00 04/04/25 21:54 10 MG Aspirin 81 mg DAILY PO 04/05/25 10:00 04/05/25 09:45 81 MG Memantine 10 mg DAILY PO 04/05/25 10:00 04/05/25 09:45 10 MG Albuterol 2.5 mg Q8HPRN PRN NEB 04/05/25 14:00 Furosemide 20 mg DAILY IV 04/05/25 10:00 04/05/25 09:43 20 MG Ipratropium Langdon 0.5 mg Q8HPRN PRN NEB 04/05/25 14:00 Laboratory Results Laboratory Tests 04/05/25 06:10 Chemistry Test 04/05/25 06:10 Calcium Level 9.5 mg/dL (8.7-10.4) Urinalysis Test 04/02/25 19:18 Urine Color Light-yellow (Yellow) Urine Clarity Clear (Clear) Urine pH 7.0 (5.0-9.0) Urine Specific [place] 1.011 (1.001-1.035) Urine Protein Negative (Negative) Urine Ketones Negative (Negative) Urine Blood Negative /uL (Negative) Urine Nitrite Negative (Negative) Urine Bilirubin Negative (Negative) Urine Urobilinogen Normal mg/dL (Negative) Urine Leukocyte Esterase Negative /uL (Negative) Urine RBC 1 /hpf (0 - 3) Urine Microscopic WBC < 1 /HPF (0-3) Urine Squamous Epithelial Cells None seen /hpf (<5) Urine Amorphous Crystals Few /hpf (None Seen) Urine Bacteria None seen /hpf (None Seen) Urine Glucose 1+ mg/dL (Normal) H Microbiology Microbiology Date/Time Source Procedure Growth Status 04/03/25 04:32 Nose MRSA Screen - Final Complete Assessment/Plan Assessment/Plan # Acute hypoxic respiratory failure due to CHF exacerbation # Acute HFpEF exacerbation # Hypertensive heart disease - IV Lasix 40 mg daily - coreg 6.25 mg p.o. b.i.d. and amlodipine 5 mg po daily # Acute pneumonia, likely bacterial, Gram-positive versus Gram-negative - levofloxacin IV - guaifenesin 200mg q6hr prn # COPD, stable -ipratropium and albuterol mednebsp.r.n. # History of DVT and PE # History of PAD # AAA s/p EVAR -therapeutic Lovenox 90 mg q.12 hours SC # Type 2 diabetes mellitus -Sliding scale insulin # BPH - continue tamsulosin 0.4mg po daily # Dementia -continue [id number] po daily Plan discussed with: Patient Date of Service: Apr 05, 2025 Billing Provider: MACARIO JARAMILLO MD Common Visit Codes: [id number] INP/OBS CARE(HIGH) MACARIO JARAMILLO MD Apr 05, 2025 14:34
[2025-04-05] MEDS ORDERED: ALBUAER3 IN (14:46)
[2025-04-05] MEDS ORDERED: FLUT1AER3 IN (14:46)
[2025-04-05] MEDS ORDERED: SODIUM CHLORIDE 0.9% 250 ML IV ONE (15:00)
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
--- NOTE | 2025-04-08 08:20 | ECG ---
[facility] Test Date: 2025-04-05 Test Time: 02:24:05 Pat Name: IVÁN MEANS Department: Room: 0284T B Gender: M [employer]: CELIA : [id number] Requested By: MACARIO JARAMILLO Order Number: [id number] Reading MD: Shamar Dumas Measurements Intervals [place] Rate: 83 P: 19 CT: 257 QRS: 5 QRSD: 85 T: 20 QT: 381 QTc: 448 Interpretive Statements Sinus rhythm Prolonged CT interval Borderline low voltage, extremity leads Electronically Signed On 04-10-2025 18:20:29 PST by Shamar Dumas Please click the below link to view image of tracing.
== END 2025-04-05 15:36 | disposition home or self-care (01) | DRG 177 ==
LOC: ER 12:06 → OVERFLOW 15:33 → TELE-WESTW 23:05
PROVIDERS: ADMIT Student in an Organized Health Care Education/Training Program; ATTEND Student in an Organized Health Care Education/Training Program
DX: J15.69 Pneumonia due to other Gram-negative bacteria (principal); I50.33 Acute on chronic diastolic (congestive) heart failure; J96.01 Acute respiratory failure with hypoxia; I11.0 Hypertensive heart disease with heart failure; J44.0 Chronic obstructive pulmonary disease with (acute) lower respiratory infection; J15.9 Unspecified bacterial pneumonia; F03.90 Unspecified dementia, unspecified severity, without behavioral disturbance, psychotic disturbance, mood disturbance, and anxiety; E11.9 Type 2 diabetes mellitus without complications; J44.9 Chronic obstructive pulmonary disease, unspecified; E78.5 Hyperlipidemia, unspecified; Z20.822 Contact with and (suspected) exposure to COVID-19; N40.0 Benign prostatic hyperplasia without lower urinary tract symptoms; Z79.899 Other long term (current) drug therapy; Z86.711 Personal history of pulmonary embolism; Z86.718 Personal history of other venous thrombosis and embolism; Z86.79 Personal history of other diseases of the circulatory system; Z88.0 Allergy status to penicillin; Z91.030 Bee allergy status
CPT/HCPCS: 36415; 71045; 71250; 80048; 80053; 81001; 82962; 83880; 84484; 85025; 85610; 85730; 87081; 87426; 87804; 93005; 94640; 96372; 97163; 99291; G0378; J1956